=== PATIENT | female | born 1985 | race Caucasian/White ===

== ENCOUNTER → 2021-03-30 06:46 | Outpatient (CLI) | payer OTHER, SELFPAY ==
[2021-03-31 18:43] LABS: SARS-CoV-2 RNA PCR Negative
== END ==
PROVIDERS: PCP Family Medicine; Visit Provider Family Medicine
DX: R68.89 Other general symptoms and signs (principal); Z20.822 Contact with and (suspected) exposure to COVID-19
CPT/HCPCS: C9803; U0003; U0005

== ENCOUNTER 2021-06-02 10:36 | Emergency (ER) | payer OTHER, SELFPAY ==
--- NOTE | ~2021-06-02 | XR_ITS ---
EXAMINATION: XR chest 2V DATE: 06/02/2021 11:10 INDICATION: Cough. Wheezing. TECHNIQUE: Frontal and lateral views of the chest were obtained. COMPARISON: None. FINDINGS: The chest demonstrates clear lungs without pneumonia, pleural effusion, or pneumothorax. Th e heart size is normal. IMPRESSION: 1. No acute cardiopulmonary disease. Reviewed, dictated and finalized at location A.
[2021-06-02 10:58] VITALS: BP 131/92; PULSE 70; RESP 20; TEMP 36.8; O2SAT 100
--- NOTE | 2021-06-02 10:59 | ED.URI ---
HPI - URI/Sore Throat General Chief Complaint: Upper Respiratory Infection Stated Complaint: Cough,Sore throat,Shortness of Breathe Time Seen by Provider: 06/02/21 10:59 Source: patient and RN notes reviewed Mode of arrival: ambulatory Limitations: no limitations History of Present Illness HPI Narrative: 35-year-old female presents to the [facility] with complaints of cough and sinus issues for the last 6 days. Patient reports that she that was getting better until last night when she was about the night coughing and having shortness of breath. Denies any chest pain. Patient is a smoker, states that she does vape. Has tried multiple [id number] products with no relief. Related Data Allergies Allergy/AdvReac Type Severity Reaction Status Date / Time erythromycin base Allergy Rash Verified 06/02/21 11:12 Penicillins Allergy Swelling Verified 06/02/21 11:12 of Lip/Tongue/Throat Review of Systems Review of Systems: All systems reviewed & are unremarkable except as noted in HPI and below Constitutional: Constitutional: Reports no additional constitutional complaints, Denies chills and Denies fever(s) Eyes: Eyes: Reports no additional eye complaints, Denies change in vision and Denies photophobia ENT: Reports system reviewed and no additional complaints, except as documented Cardiovascular: Cardiovascular: Reports no additional cardiovascular complaints and Denies chest pain Respiratory: Respiratory: Reports as per HPI, Reports chest congestion, Reports cough, Reports dyspnea and Reports wheezing Gastrointestinal: Gastrointestinal: Reports no additional gastrointestinal complaints, Denies abdominal pain, Denies nausea and Denies vomiting Musculoskeletal: Musculoskeletal: Reports no additional musculoskeletal complaints and Denies back pain Integumentary/Breasts: Skin/Breast: Reports system reviewed and no additional complaints, except as docu Neurologic: Reports system reviewed and no additional complaints, except as documented, Denies confusion, Denies dizziness, Denies syncope, Denies headache(s), Denies focal weakness, Denies numbness and Denies weakness Psychiatric: Psychiatric: Reports no additional psychiatric complaints Allergic/Immunologic: Allergic/Immunologic: Reports as per HPI, Denies lip swelling, Denies throat swelling, Denies tongue swelling and Reports wheezing PMFSH Social History Social History (Updated 06/02/21 @ 15:35 by Liz Kasper) Tobacco type: e-cigarettes/vaping Gender identity (if verbalized by the patient): Female Comments At the time of my signature, I reviewed and agree with the nursing past medical, surgical, social, and family history. There is no relevant family history pertinent to the patient complaint. Exam Const: General: no acute distress, alert and ill appearing acutely Nutritional Appearance: well nourished Orientation/consciousness: patient oriented x3 Limitations: no limitations HENMT: Head: normal to inspection Ears: external ears normal, TM's normal bilaterally and EAC's normal General nose exam: Normal external nose present and Normal nares present Face and sinus: normal facial exam Mouth: Yes lip normal Eyes: Conjunctivae: conjunctivae normal Pupils: Equal, round and reactive pupils present Neck: Neck: normal visual inspection, no lymphadenopathy and no meningeal signs Chest: Chest palpation & inspection: normal inspection of the chest Resp: Effort & Inspection: normal respiratory effort and no use of accessory muscles Auscultation: wheezes expiratory wheezes and left lower and diminished lung sounds bilateral Cardio: Rate: regular rate Rhythm: regular rhythm GI: GI Palp: Yes Soft to palpation and No Tenderness to palpation present (GI) : General: Yes no CVA tenderness Back/Spine/Pelvis: Back: no CVA tenderness Skin: General skin exam: normal color Rashes: no rashes Neuro: General: patient oriented x3, moves all extremities, no me
[2021-06-02] MEDS: predniSONE 20 MG TABLET 40 MG PO (11:23)
[2021-06-02] MEDS: ALBUTEROL SULFATE NEB 2.5 MG/3 ML INH INHALATION (11:24)
[2021-06-02] MEDS: IPRATROPIUM BR 0.02% INH SOLN 0.5 MG/2.5 ML VIAL INHALATION (11:24)
[2021-06-02 12:10] VITALS: PULSE 78; RESP 16; O2SAT 99
== END 2021-06-02 12:10 | disposition home or self-care (01) ==
PROVIDERS: Emergency Provider Nurse Practitioner; PCP Family Medicine
DX: J40 Bronchitis, not specified as acute or chronic (principal)
CPT/HCPCS: 71046; 94640; 99203; G0463; J7512

== ENCOUNTER 2021-07-14 09:34 | Emergency (ER) | payer OTHER, SELFPAY ==
[2021-07-14] VITALS (17 sets, daily range): BP systolic 96–107; BP diastolic 57–76; PULSE 47–77; RESP 14–23; TEMP 36.3; O2SAT 97–100
--- NOTE | ~2021-07-14 | XR_ITS ---
EXAMINATION: XR chest 2V 07/14/2021 10:21 INDICATION: Left-sided chest pain PROCEDURE: 2 view chest COMPARISON: 06/02/2021 FINDINGS: The lungs are clear. The cardiomediastinal silhouette is within normal limits. There are no pleural effusions. There is no pneumothorax suspected. IMPRESSION: 1: NO ACUTE CARDIOPULMONARY DISEASE. Reviewed, dictated and finalized at location A.
--- NOTE | 2021-07-14 09:40 | ECG_ITS ---
Measurements Intervals [place] Rate: 68 P: -33 DE: 154 QRS: 61 QRSD: 90 T: 36 QT: 373 QTc: 399 Interpretive Statements SINUS RHYTHM MINIMAL Q WAVES- INFERIOR LEADS BASELINE ARTIFACT- I, II, III, AVR, AVL, AVF, V5 BORDERLINE ECG Electronically Signed On 07-14-2021 11:39:27 CDT by Amor Mcdaniels D.O.
[2021-07-14 10:02] LABS: Basophils Percent Auto 0.4 % (0.2-1.2); Eosinophils Absolute Auto 0.1 K/mm3 (0-0.3); Eosinophils Percent Auto 0.8 % (0-4.4); Hematocrit 42.4 % (37.0-47.0); Hemoglobin 13.4 g/dL (12.0-15.0); Immature Granulocyte Absolute 0.03 K/mm3 (0.00-0.031); Immature Granulocyte Percent A 0.4 % (0-0.5); Lymphocytes Absolute Auto 1.39 K/mm3 (0.9-3.2); Lymphocytes Percent Auto 19.3 % (18.3-44.2); Mean Corpuscular HGB Conc 31.6 g/dl (32-36); Mean Corpuscular Hemoglobin 26.9 pg (26-34); Mean Corpuscular Volume 85.1 fl (80-100); Mean Platelet Volume 9.9 fl (7.4-10.4); Monocytes Absolute Auto 0.4 K/mm3 (0.1-0.6); Monocytes Percent Auto 5.8 % (2.6-8.5); Neutrophils Absolute Auto 5.3 K/mm3 (1.3-6.7); Neutrophils Percent Auto 73.3 % (45.5-73.1); Platelet Count Result 198 k/mm3 (150-375); Red Blood Count 4.98 M/mm3 (4.2-5.4); Red Cell Distribution Width 13.7 % (11.5-14.5); White Blood Count 7.2 K/mm3 (4.5-10.0)
[2021-07-14 10:15] LABS: INR 0.9; Prothrombin Time 12.2 Seconds (11.1-14.7)
[2021-07-14 10:16] LABS: Partial Thromboplastin Time 34.8 SECONDS (22.3-36.8)
[2021-07-14 10:18] LABS: Anion Gap 9 mmol/L (8-16); Blood Urea Nitrogen 21 mg/dL (7-17); Calcium 9.3 mg/dL (8.4-10.2); Carbon Dioxide 22 mmol/L (22-30); Chloride 107 mmol/L (98-107); Estimated CRCL calculation 67 ml/min; Estimated Glomerular Filt Rate > 60; Glucose 87 mg/dL (65-110); Potassium 4.5 mmol/L (3.4-5.0); Sodium 138 mmol/L (137-145)
[2021-07-14 10:28] LABS: Troponin I < 0.012 ng/mL (0.000-0.034)
--- NOTE | 2021-07-14 11:30 | ED.CHESTPAIN ---
HPI - Chest Pain General Chief Complaint: Chest Pain Stated Complaint: sharp CP Time Seen by Provider: 07/14/21 11:22 History of Present Illness HPI narrative: 36 yo female presents to the ED c/o Chest pain. She had sudden onset of severe sharp left sided chest pain while at the grocery store this morning. This happened shortly after a workout. The pain resolved spontaneously prior to being seen. She has no complaints at this time. Related Data Allergies Allergy/AdvReac Type Severity Reaction Status Date / Time erythromycin base Allergy Rash Verified 07/14/21 11:23 Penicillins Allergy Swelling Verified 07/14/21 11:23 of Lip/Tongue/Throat Review of Systems Review of Systems: All systems reviewed & are unremarkable except as noted in HPI and below Constitutional: Constitutional: Denies chills and Denies fever(s) ENT: Denies sore throat Respiratory: Respiratory: Denies cough and Denies dyspnea Gastrointestinal: Gastrointestinal: Denies nausea Genitourinary: Genitourinary: Reports no additional female genitourinary complaints Neurologic: Denies dizziness and Denies weakness [facility] Social History Social History Tobacco type: e-cigarettes/vaping Gender identity (if verbalized by the patient): Female Exam Const: General: healthy appearing, no acute distress and alert Orientation/consciousness: patient oriented x3 HENMT: Head: normal to inspection Neck: Neck: normal visual inspection and no lymphadenopathy Chest: Chest palpation & inspection: no tenderness Resp: Effort & Inspection: normal respiratory effort Auscultation: clear to auscultation bilaterally, no rales, no rhonchi and no wheezes Cardio: Jugular venous distension: no JVD Rate: regular rate Rhythm: regular rhythm Heart sounds: no murmurs GI: Inspection: non-distended GI Palp: Yes Soft to palpation and No Tenderness to palpation present (GI) Skin: General skin exam: normal color Neuro: General: patient oriented x3 and moves all extremities Speech: normal speech Extrem: General: no edema Psych: Appearance: well kempt Affect: normal affect Course Vital Signs Vital signs: Vital Signs Temperature 36.3 C L 07/14/21 09:37 Pulse Rate 64 07/14/21 09:37 Respiratory Rate 18 07/14/21 09:37 Blood Pressure 105/57 L 07/14/21 09:37 Pulse Oximetry 100 07/14/21 09:37 Temperature 36.3 C L 07/14/21 09:37 Pulse Rate 57 L 07/14/21 14:14 Respiratory Rate 20 07/14/21 14:14 Blood Pressure 103/76 07/14/21 14:14 Pulse Oximetry 97 07/14/21 14:14 MDM - Chest Pain Differential Diagnosis Differential diagnosis: Likely atypical chest pain Medical Records Data Attestation: I reviewed the patient's medical records. Lab Data Attestation: I reviewed the patient's lab results. Result diagrams: 07/14/21 09:51 07/14/21 09:51 Labs: Lab Results 07/14/21 07/14/21 07/14/21 Range/Units 09:51 09:51 09:52 WBC 7.2 (4.5-10.0) K/mm3 RBC 4.98 (4.2-5.4) M/mm3 Hgb 13.4 (12.0-15.0) g/dL Hct 42.4 (37.0-47.0) % MCV 85.1 (80-100) fl MCH 26.9 (26-34) pg MCHC 31.6 L (32-36) g/dl RDW 13.7 (11.5-14.5) % Plt Count 198 (150-375) k/mm3 MPV 9.9 (7.4-10.4) fl Immature Gran % (Auto) 0.4 (0-0.5) % Neut % (Auto) 73.3 H (45.5-73.1) % Lymph % (Auto) 19.3 (18.3-44.2) % [place] % (Auto) 5.8 (2.6-8.5) % Eos % (Auto) 0.8 (0-4.4) % Baso % (Auto) 0.4 (0.2-1.2) % Lymph # (Auto) 1.39 (0.9-3.2) K/mm3 [place] # (Auto) 0.4 (0.1-0.6) K/mm3 Eos # (Auto) 0.1 (0-0.3) K/mm3 Baso # (Auto) 0.0 (0.0-0.1) K/mm3 Abs Immat Gran (auto) 0.03 (0.00-0.031) K/mm3 Absolute Neuts (auto) 5.3 (1.3-6.7) K/mm3 Absolute Nucleated RBC 0.0 (0.0-0.012) K/mm3 Nucleated RBC % 0.0 (0.0-0.2) % PT 12.2 (11.1-14.7) Seconds INR 0.9 APTT 34.8 (22.3-36.8) SECONDS
[2021-07-14 13:49] LABS: Troponin I < 0.012 ng/mL (0.000-0.034)
--- NOTE | 2021-07-14 13:58 | ED.CHESTPAIN ---
HPI - Chest Pain General Chief Complaint: Chest Pain Stated Complaint: sharp CP Time Seen by Provider: 07/14/21 11:22 Related Data Allergies Allergy/AdvReac Type Severity Reaction Status Date / Time erythromycin base Allergy Rash Verified 07/14/21 11:23 Penicillins Allergy Swelling Verified 07/14/21 11:23 of Lip/Tongue/Throat PMFSH Social History Social History (Updated 06/02/21 @ 15:35 by Liz Kasper) Tobacco type: e-cigarettes/vaping Gender identity (if verbalized by the patient): Female Course Vital Signs Vital signs: Vital Signs Temperature 36.3 C L 07/14/21 09:37 Pulse Rate 64 07/14/21 09:37 Respiratory Rate 18 07/14/21 09:37 Blood Pressure 105/57 L 07/14/21 09:37 Pulse Oximetry 100 07/14/21 09:37 Temperature 36.3 C L 07/14/21 09:37 Pulse Rate 63 07/14/21 11:22 Respiratory Rate 18 07/14/21 09:37 Blood Pressure 105/57 L 07/14/21 09:37 Pulse Oximetry 100 07/14/21 09:37 MDM - Chest Pain Lab Data Result diagrams: 07/14/21 09:51 07/14/21 09:51 Labs: Lab Results 07/14/21 07/14/21 07/14/21 Range/Units 09:51 09:51 09:52 WBC 7.2 (4.5-10.0) K/mm3 RBC 4.98 (4.2-5.4) M/mm3 Hgb 13.4 (12.0-15.0) g/dL Hct 42.4 (37.0-47.0) % MCV 85.1 (80-100) fl MCH 26.9 (26-34) pg MCHC 31.6 L (32-36) g/dl RDW 13.7 (11.5-14.5) % Plt Count 198 (150-375) k/mm3 MPV 9.9 (7.4-10.4) fl Immature Gran % (Auto) 0.4 (0-0.5) % Neut % (Auto) 73.3 H (45.5-73.1) % Lymph % (Auto) 19.3 (18.3-44.2) % [place] % (Auto) 5.8 (2.6-8.5) % Eos % (Auto) 0.8 (0-4.4) % Baso % (Auto) 0.4 (0.2-1.2) % Lymph # (Auto) 1.39 (0.9-3.2) K/mm3 [place] # (Auto) 0.4 (0.1-0.6) K/mm3 Eos # (Auto) 0.1 (0-0.3) K/mm3 Baso # (Auto) 0.0 (0.0-0.1) K/mm3 Abs Immat Gran (auto) 0.03 (0.00-0.031) K/mm3 Absolute Neuts (auto) 5.3 (1.3-6.7) K/mm3 Absolute Nucleated RBC 0.0 (0.0-0.012) K/mm3 Nucleated RBC % 0.0 (0.0-0.2) % PT 12.2 (11.1-14.7) Seconds INR 0.9 APTT 34.8 (22.3-36.8) SECONDS Sodium 138 (137-145) mmol/L Potassium 4.5 (3.4-5.0) mmol/L Chloride 107 (98-107) mmol/L Carbon Dioxide 22 (22-30) mmol/L Anion Gap 9 (8-16) mmol/L BUN 21 H (7-17) mg/dL Creatinine 1.00 (0.7-1.0) mg/dL Estim Creat Clear Calc 67 ml/min Estimated GFR > 60 (59 - ) Glucose 87 (65-110) mg/dL Calcium 9.3 (8.4-10.2) mg/dL Troponin I < 0.012 (0.000-0.034) ng/mL 07/14/21 Range/Units 12:58 WBC (4.5-10.0) K/mm3 RBC (4.2-5.4) M/mm3 Hgb (12.0-15.0) g/dL Hct (37.0-47.0) % MCV (80-100) fl MCH (26-34) pg MCHC (32-36) g/dl RDW (11.5-14.5) % Plt Count (150-375) k/mm3 MPV (7.4-10.4) fl Immature Gran % (Auto) (0-0.5) % Neut % (Auto) (45.5-73.1) % Lymph % (Auto) (18.3-44.2) % [place] % (Auto) (2.6-8.5) % Eos % (Auto) (0-4.4) % Baso % (Auto) (0.2-1.2) % Lymph # (Auto) (0.9-3.2) K/mm3 [place] # (Auto) (0.1-0.6) K/mm3 Eos # (Auto) (0-0.3) K/mm3 Baso # (Auto) (0.0-0.1) K/mm3 Abs Immat Gran (auto) (0.00-0.031) K/mm3 Absolute Neuts (auto) (1.3-6.7) K/mm3 Absolute Nucleated RBC (0.0-0.012) K/mm3 Nucleated RBC % (0.0-0.2) % PT (11.1-14.7) Seconds INR APTT (22.3-36.8) SECONDS Sodium (137-145) mmol/L Potassium (3.4-5.0) mmol/L Chloride (98-107) mmol/L Carbon Dioxide (22-30) mmol/L Anion Gap (8-16) mmol/L BUN (7-17) mg/dL Creatinine (0.7-1.0) mg/dL Estim Creat Clear Calc ml/min Estimated GFR (59 - ) Glucose (65-110) mg/dL Calcium (8.4-10.2) mg/dL Troponin I < 0.012 (0.000-0.034) ng/mL Discharge Plan Discharge Clinical Impression: Atypical chest pain Patient Disposition: Home, Self-Care Condition: Stable Instructions: Chest Pain (ED) Follow-up/Referrals: Juan Carlos Clark MD [Primary Care Provider] -
== END 2021-07-14 14:15 | disposition home or self-care (01) ==
PROVIDERS: Emergency Provider Emergency Medicine; PCP Family Medicine
DX: R07.89 Other chest pain (principal); F17.290 Nicotine dependence, other tobacco product, uncomplicated
CPT/HCPCS: 36415; 71046; 80048; 84484; 85025; 85610; 85730; 93005; 99284

== ENCOUNTER 2022-09-14 10:26 | Emergency (ER) | payer OTHER, SELFPAY ==
[2022-09-14 10:37] VITALS: BP 117/72; PULSE 59; RESP 18; TEMP 36.2; O2SAT 100
--- NOTE | 2022-09-14 10:45 | ED.URI ---
HPI - URI/Sore Throat General Chief Complaint: Ear Stated Complaint: Headache,Lt Ear Irritation Time Seen by Provider: 09/14/22 10:45 Source: patient Mode of arrival: ambulatory Limitations: no limitations History of Present Illness HPI Narrative: 37 y/o female presented for c/o left ear clogged and decreased hearing for one week. Reports occasional dizziness. Denies significant pain or tinnitus. Has used hydrogen peroxide and q-tips without relief. Also endorses left frontal headache for 5 days. Pain is described as pressure. Denies nausea, photophobia, or nausea/vomiting, fever/chills. Endorses recent travel, stating she was at a water park. Took negative home covid test yesterday. Related Data Home Medications Medication Instructions Recorded Confirmed duloxetine 30 mg capsule,delayed 30 mg PO DIRECTED 09/14/22 09/14/22 release Allergies Allergy/AdvReac Type Severity Reaction Status Date / Time penicillin G Allergy Mild Verified 02/16/22 10:52 erythromycin base Allergy Rash Verified 02/16/22 10:52 Penicillins Allergy Swelling Verified 02/16/22 10:52 of Lip/Tongue/Throat Review of Systems Review of Systems: CONSTITUTIONAL: Denies malaise, chills, or fever. EYES: Denies visual changes, redness, or discharge. ENT: Denies rhinorrhea, congestion, sinus pain, and sore throat. Reports hearing changes CARDIOVASCULAR: Denies chest pain, palpitations, or edema. RESPIRATORY: Denies cough or dyspnea. GASTROINTESTINAL: Denies abdominal pain, nausea, vomiting, diarrhea SKIN: Denies rash or itching. MUSCULOSKELETAL: Denies myalgia. NEUROLOGIC: reports headache. All systems reviewed & are unremarkable except as noted in HPI and below PMFSH Family History Family History Mother Patient's mother is in good health Sibling Patient's sister is in good health Other Diabetes mellitus Social History Social History Smoking status: Former smoker Tobacco type: e-cigarettes/vaping Smoking end date: 11/25/12 Alcohol intake: current Gender identity (if verbalized by the patient): Female Comments At time of signature, agree with nursing past medical, surgical, social and family history. There is no relevant family history pertinent to the presenting complaint Exam Narrative: GENERAL: Well-appearing, well-nourished HEAD: Normocephalic EYES: PERRLA, EOMI conjunctivae clear ENT: Nares clear. Mucous membranes moist. Right TM pearly morales with dull light reflex. Left TM unable to visualize due to cerumen impaction, canal without redness or tenderness; no tragal tenderness. Oropharynx not erythematous without lesions. Tonsils chronically enlarged 2+ and without exudate, no drooling, no hoarseness, no trismus, uvula midline. NECK: Supple. No lymphadenopathy CHEST: Clear to auscultation, breath sounds equal. HEART: Regular rate and rhythm. No murmur heard. SKIN: Warm, dry, no rash. NEURO: Alert and oriented x3. PSYCH: Normal mood and affect Course Course Emergency Course: Patient is aware of diagnosis, understands and agrees to treatment plan. Anticipatory guidance given. Patient agrees to follow-up as directed and is aware of reasons to seek care at the emergency department. Portions of this record may have been created with voice recognition software Level of Care: Express Care Visit Vital Signs Vital signs: Vital Signs Temperature 97.2 F L 09/14/22 10:37 Pulse Rate 59 L 09/14/22 10:37 Respiratory Rate 18 09/14/22 10:37 Blood Pressure 117/72 09/14/22 10:37 Pulse Oximetry 100 09/14/22 10:37 Oxygen Delivery Room Air 09/14/22 10:37 Temperature 97.2 F L 09/14/22 10:37 Pulse Rate 59 L 09/14/22 10:37 Respiratory Rate 18 09/14/22 10:37 Blood Pressure 117/72 09/14/22 10:37 Pulse Oximetry 100 09/14/22 10:37 Oxygen Delivery Room Air 09/14/22 10:37 Re
== END 2022-09-14 11:10 | disposition home or self-care (01) ==
PROVIDERS: Emergency Provider Nurse Practitioner Family; PCP Internal Medicine
DX: H61.22 Impacted cerumen, left ear (principal)
CPT/HCPCS: 69210; 99212; A9270; G0463

== ENCOUNTER 2022-12-14 16:43 | Emergency (ER) | payer OTHER, SELFPAY ==
--- NOTE | ~2022-12-14 | CT_ITS ---
EXAMINATION: CT brain wo con DATE: 12/14/2022 17:37 INDICATION: Right-sided headache. TECHNIQUE: Computed tomography (CT) of the head was performed without intravenous contrast. The mA wa s adjusted according to patient size. Iterative reconstruction technique was employed. The dose-lengt h product was 605.33 mGy-cm. COMPARISON: None FINDINGS: There is no intracranial hemorrhage, acute infarction, or abnormal intracranial mass lesion . The ventricles are normal in size. The orbits are normal. There is mild mucosal thickening in the p aranasal sinuses. The mastoid air cells are normal. IMPRESSION: 1. Normal brain. Reviewed, dictated and finalized at location A. [facility]ALTH [facility]ID IMPRESSION: 1. Normal brain.
[2022-12-14 17:08] VITALS: BP 110/79; PULSE 58; RESP 18; TEMP 36.3; O2SAT 100
--- NOTE | 2022-12-14 17:28 | ED.HA ---
HPI - Headache General Chief Complaint: Headache Stated Complaint: HEADACHE N/V Time Seen by Provider: 12/14/22 17:14 History of Present Illness HPI Narrative: 37-year-old female history of anxiety depression presents to the emergency room for evaluation of intermittent headaches that she has been experiencing since August. Reports today she experienced a headache while driving, she got dizzy and had to mandrel puller and experienced 1 episode of emesis. States the headaches are not relieved with Tylenol or ibuprofen. Largely concentrated behind her right eye. Patient also states that she has noticed some tinnitus in her right ear blurred vision in her right eye and unsteadiness when she walks. Patient states that she has recently lost 12 pounds in the last 5 weeks due to being on a new weight loss program. Denies photophobia denies phonophobia. Related Data Home Medications Medication Instructions Recorded Confirmed duloxetine 30 mg capsule,delayed 30 mg PO DIRECTED 09/14/22 09/14/22 release Allergies Allergy/AdvReac Type Severity Reaction Status Date / Time penicillin G Allergy Mild Verified 02/16/22 10:52 erythromycin base Allergy Rash Verified 02/16/22 10:52 Penicillins Allergy Swelling Verified 02/16/22 10:52 of Lip/Tongue/Throat Review of Systems Review of Systems: CONSTITUTIONAL: Denies fever, chills, or sweats. EYES: Denies visual changes, redness, or discharge. ENT: Denies rhinorrhea, congestion, sore throat, or otalgia. CARDIOVASCULAR: Denies chest pain, palpitations, or edema. RESPIRATORY: Denies cough or dyspnea. GASTROINTESTINAL: Denies abdominal pain, nausea, vomiting, or diarrhea. GENITOURINARY: Denies dysuria or hematuria. SKIN: Denies rash or itching. MUSCULOSKELETAL: Denies back pain, joint pain, or myalgia. NEUROLOGIC: Reports headaches PSYCHIATRIC: Denies anxiety or depression. [facility] Family History Family History Mother Patient's mother is in good health Sibling Patient's sister is in good health Other Diabetes mellitus Social History Social History Smoking status: Former smoker Tobacco type: e-cigarettes/vaping Smoking end date: 11/25/12 Alcohol intake: current Gender identity (if verbalized by the patient): Female Course Vital Signs Vital signs: Vital Signs Temperature 36.3 C L 12/14/22 17:08 Pulse Rate 58 L 12/14/22 17:08 Respiratory Rate 18 12/14/22 17:08 Blood Pressure 110/79 12/14/22 17:08 Pulse Oximetry 100 12/14/22 17:08 Oxygen Delivery Room Air 12/14/22 17:08 Temperature 36.3 C L 12/14/22 17:08 Pulse Rate 58 L 12/14/22 17:08 Respiratory Rate 18 12/14/22 17:08 Blood Pressure 110/79 12/14/22 17:08 Pulse Oximetry 100 12/14/22 17:08 Oxygen Delivery Room Air 12/14/22 17:08 MDM - Headache MDM Narrative Medical decision making narrative: 1819: Spoke to Dr. Russell regarding patient's presentation. Discussed findings including her CT scan which showed no acute intracranial abnormalities. Based on patient's history and exam, I believe the patient may have pseudotumor cerebri versus migraines. Will refer patient to Dr. Russell's office on Saturday. Lab Data 12/14/22 17:43 12/14/22 17:43 Labs: Lab Results 12/14/22 12/14/22 Range/Units 17:43 17:43 WBC 9.4 (4.5-10.0) K/mm3 RBC 5.04 (4.2-5.4) M/mm3 Hgb 13.4 (12.0-15.0) g/dL Hct 42.1 (37.0-47.0) % MCV 83.5 (80-100) fl MCH 26.6 (26-34) pg MCHC 31.8 L (32-36) g/dl RDW 12.9 (11.5-14.5) % Plt Count 207 (150-375) k/mm3 MPV 9.6 (7.4-10.4) fl Immature Gran % (Auto) 0.4 (0-0.5) % Neut % (Auto) 75.4 H (45.5-73.1) % Lymph % (Auto) 18.9 (18.3-44.2) % [place] % (Auto) 3.9 (2.6-8.5) % Eos % (Auto) 1.0 (0-4.4) % Baso % (Auto) 0.4 (0.2-1.2) % Lymph # (Auto) 1.78
[2022-12-14] MEDS: diphenhydrAMINE HCl INJ 50 MG/ML VIAL 25 MG IV PUSH (17:44)
[2022-12-14] MEDS: KETOROLAC 30 MG/ML VIAL (*BKC) IV PUSH (17:45)
[2022-12-14] MEDS: METOCLOPRAMIDE HCL INJ 10 MG/2 ML VIAL IV PUSH (17:45)
[2022-12-14] MEDS: methylPREDNISolone SOD SUCC 125 MG VIAL IV PUSH (17:45)
[2022-12-14] MEDS: SODIUM CHLORIDE 0.9% IV 1,000 ML 999 ML IV CONT (17:45)
[2022-12-14 17:51] LABS: Basophils Percent Auto 0.4 % (0.2-1.2); Eosinophils Absolute Auto 0.1 K/mm3 (0-0.3); Hematocrit 42.1 % (37.0-47.0); Hemoglobin 13.4 g/dL (12.0-15.0); Immature Granulocyte Absolute 0.04 K/mm3 (0.00-0.031); Immature Granulocyte Percent A 0.4 % (0-0.5); Lymphocytes Absolute Auto 1.78 K/mm3 (0.9-3.2); Lymphocytes Percent Auto 18.9 % (18.3-44.2); Mean Corpuscular HGB Conc 31.8 g/dl (32-36); Mean Corpuscular Hemoglobin 26.6 pg (26-34); Mean Corpuscular Volume 83.5 fl (80-100); Mean Platelet Volume 9.6 fl (7.4-10.4); Monocytes Absolute Auto 0.4 K/mm3 (0.1-0.6); Monocytes Percent Auto 3.9 % (2.6-8.5); Neutrophils Absolute Auto 7.1 K/mm3 (1.3-6.7); Neutrophils Percent Auto 75.4 % (45.5-73.1); Platelet Count Result 207 k/mm3 (150-375); Red Blood Count 5.04 M/mm3 (4.2-5.4); Red Cell Distribution Width 12.9 % (11.5-14.5); White Blood Count 9.4 K/mm3 (4.5-10.0)
[2022-12-14 18:02] LABS: Alanine Aminotransferase 18 U/L (6-35); Albumin Level 4.3 g/dL (3.5-5.1); Alkaline Phosphatase 57 U/L (38-126); Anion Gap 8 mmol/L (8-16); Aspartate Amino Transferase 23 U/L (14-36); Bilirubin,Total 0.6 mg/dL (0.2-1.3); Blood Urea Nitrogen 14 mg/dL (7-17); Calcium 8.7 mg/dL (8.4-10.2); Carbon Dioxide 26 mmol/L (22-30); Chloride 106 mmol/L (98-107); Estimated CRCL calculation 82 ml/min; Estimated Glomerular Filt Rate > 60; Glucose 99 mg/dL (65-110); Potassium 4.1 mmol/L (3.4-5.0); Sodium 140 mmol/L (137-145)
== END 2022-12-14 18:56 | disposition home or self-care (01) ==
PROVIDERS: Emergency Provider Nurse Practitioner Family; PCP Internal Medicine
DX: R51.9 Headache, unspecified (principal); Z87.891 Personal history of nicotine dependence; F41.9 Anxiety disorder, unspecified; F32.A Depression, unspecified
CPT/HCPCS: 36415; 70450; 80053; 85025; 96361; 96374; 96375; 99284; J1200; J1885; J2765; J2930; J7030

== ENCOUNTER 2023-02-12 14:29 | Outpatient (CLI) | payer SELFPAY | END 2023-02-12 14:30 | disposition home or self-care (01) | LOC: ANHAUDIO 14:31 | PROVIDERS: Visit Provider Student in an Organized Health Care Education/Training Program | DX: H90.3 Sensorineural hearing loss, bilateral (principal) | CPT/HCPCS: 92557; 92567 ==

== ENCOUNTER 2023-06-28 16:44 | Emergency (ER) | payer OTHER, SELFPAY ==
[2023-06-28 16:57] VITALS: BP 114/58; PULSE 73; RESP 18; TEMP 36.2; O2SAT 100
--- NOTE | 2023-06-28 17:03 | ED.URI ---
HPI - URI/Sore Throat General Chief Complaint: Upper Respiratory Infection Stated Complaint: sorethroat Time Seen by Provider: 06/28/23 17:00 Source: patient Mode of arrival: ambulatory Limitations: no limitations History of Present Illness HPI Narrative: Gladys is a 38-year-old female patient presenting to the clinic today with complaints of a sore throat, cough, slight nasal drainage x3 days. She denies any fever or chills. Feels that she can not take a full deep breath. Related Data Allergies Allergy/AdvReac Type Severity Reaction Status Date / Time penicillin G Allergy Mild Itching Verified 06/28/23 17:05 erythromycin base Allergy Rash Verified 06/28/23 17:05 Penicillins Allergy Swelling Verified 06/28/23 17:05 of Lip/Tongue/Throat Review of Systems Review of Systems: Pertinent positives per HPI. Patient denies any fever, chills, rash, headache, visual changes, dizziness, cough, runny nose, sore throat, shortness of breath, chest pain, palpitations, nausea, vomiting, diarrhea, constipation, abdominal pain, or any urinary issues. PMFSH Family History Family History Mother Patient's mother is in good health Sibling Patient's sister is in good health Other Diabetes mellitus Social History Social History Smoking status: Former smoker Tobacco type: cigarettes Smoking end date: 11/25/12 Alcohol intake: current Substance use: never Substance use type: does not use Lack of Transportation: No Lack of Food: Never True Current Housing: I Have Housing Concerned About Future Housing: No Difficulty Paying Gas/Electric Bills: No Difficulty Paying for Meds: No Currently Unemployed: No Education: Associate Degree Difficulty w/ Childcare or Family Care: No Living arrangements: with family Gender identity (if verbalized by the patient): Female Comments At the time of my signature, I reviewed and agree with the nursing past medical, surgical, social, and family history. There is no relevant family history pertinent to the patient complaint. Exam Narrative: General: Well-developed, well nourished, in no apparent distress Head: Normocephalic, atraumatic Eyes: Pupils equally round and reactive to light bilaterally, EOM intact, sclera and conjunctive clear, no discharge, lids normal Ears: TMs intact and clear, ear canals clear, no drainage, grossly hearing normal. Nose: Nares patent, no discharge, no inflammation, no sinus tenderness. Mouth: Oropharynx without lesions or masses, good dentition, MMM. Neck: Supple, trachea midline, no enlargement of anterior or posterior cervical nodes, no thyroid masses or goiter palpable. Cardio: Regular rate and rhythm, s1 and s2 normal, no murmur appreciated. Resp: Clear to auscultation bilaterally anteriorly and posteriorly, no rhonchi, rales, wheezing or rubs Course Course Emergency Course: Portions of this record may have been created with voice recognition software. Level of Care: Express Care Visit Vital Signs Vital signs: Vital Signs Temperature 36.2 C L 06/28/23 16:57 Pulse Rate 73 06/28/23 16:57 Respiratory Rate 18 06/28/23 16:57 Blood Pressure 114/58 L 06/28/23 16:57 Pulse Oximetry 100 06/28/23 16:57 Oxygen Delivery Room Air 06/28/23 16:57 Temperature 36.2 C L 06/28/23 16:57 Pulse Rate 73 06/28/23 16:57 Respiratory Rate 18 06/28/23 16:57 Blood Pressure 114/58 L 06/28/23 16:57 Pulse Oximetry 100 06/28/23 16:57 Oxygen Delivery Room Air 06/28/23 16:57 Vital signs reviewed MDM - URI/Sore Throat MDM Narrative Medical decision making narrative: At the time of the patient is resting comfortably on exam table. COVID and strep test were performed and were negative. I suspect patient yes URI pharyngitis. Prescription for prednisone was sent to pharm
== END 2023-06-28 17:24 | disposition home or self-care (01) ==
PROVIDERS: Emergency Provider Nurse Practitioner Family; PCP Internal Medicine
DX: J06.9 Acute upper respiratory infection, unspecified (principal); J02.9 Acute pharyngitis, unspecified; Z87.891 Personal history of nicotine dependence
CPT/HCPCS: 87081; 87880; 99213; G0463

== ENCOUNTER 2023-07-21 12:09 | Emergency (ER) | payer OTHER, SELFPAY ==
[2023-07-21] VITALS (11 sets, daily range): BP systolic 107–121; BP diastolic 72–84; PULSE 45–59; RESP 12–21; TEMP 36.6; O2SAT 95–100
--- NOTE | ~2023-07-21 | XR_ITS ---
XR chest 2V DATE: 07/21/2023 12:46 INDICATION: Left-sided chest pain for a couple of hours TECHNIQUE: PA and lateral views COMPARISON: 07/14/2021 PA and lateral chest FINDINGS: Normal heart size. No hilar or mediastinal enlargement. No pulmonary infiltrate or consolidation, pleural effusion or pulmonary vascular congestion or pneumo thorax. Included skeletal structures are unremarkable. IMPRESSION: Negative Reviewed, dictated and finalized at location A. IMPRESSION: Negative
--- NOTE | 2023-07-21 12:10 | ECG_ITS ---
Measurements Intervals [place] Rate: 45 P: 10 ND: 159 QRS: 69 QRSD: 94 T: 45 QT: 421 QTc: 366 Interpretive Statements MARKED SINUS BRADYCARDIA ABNORMAL ECG COMPARED TO ECG 07/14/2021 09:41:26 SINUS BRADYCARDIA NOW PRESENT Electronically Signed On 07-22-2023 11:56:34 CDT by Kg Angulo M.D.
--- NOTE | 2023-07-21 12:25 | ED.CHESTPAIN ---
HPI - Chest Pain General Chief Complaint: Chest Pain Stated Complaint: chest pain Time Seen by Provider: 07/21/23 12:20 History of Present Illness HPI narrative: Patient is a 38-year-old female with no past medical history presenting with chest pain. Patient states over the last 40 minutes she has had intermittent left-sided chest pain that she describes as sharp. States that it seems to come at random and varies in intensity. Denies any alleviating or exacerbating factors. Denies chest pressure, shortness of breath, lightheadedness, palpitations, nausea or vomiting. States that she has had a cough and nasal congestion for the last several weeks. Denies leg swelling, fevers or chills, numbness or weakness. No further complaints. Related Data Allergies Allergy/AdvReac Type Severity Reaction Status Date / Time penicillin G Allergy Mild Itching Verified 06/28/23 17:05 erythromycin base Allergy Rash Verified 06/28/23 17:05 Penicillins Allergy Swelling Verified 06/28/23 17:05 of Lip/Tongue/Throat Review of Systems Review of Systems: All systems reviewed & are unremarkable except as noted in HPI and below PMFSH Family History Family History Mother Patient's mother is in good health Sibling Patient's sister is in good health Other Diabetes mellitus Social History Social History Smoking status: Former smoker Tobacco type: cigarettes Smoking end date: 11/25/12 Alcohol intake: current Substance use: never Substance use type: does not use Lack of Transportation: No Lack of Food: Never True Current Housing: I Have Housing Concerned About Future Housing: No Difficulty Paying Gas/Electric Bills: No Difficulty Paying for Meds: No Currently Unemployed: No Education: Associate Degree Difficulty w/ Childcare or Family Care: No Living arrangements: with family Gender identity (if verbalized by the patient): Female Exam Narrative: GENERAL: Well-appearing, well-nourished, and in no acute distress. HEAD: Normocephalic, atraumatic. EYES: PERRLA and EOMI. ENT: +mild nasal congestion, Mucous membranes moist. NECK: Supple. CHEST: Clear to auscultation. No respiratory distress. HEART: Bradycardic, regular rhythm, No murmur heard. Normal peripheral pulses. ABDOMEN: Soft, nontender, nondistended EXTREMITIES: Normal range of motion. No edema. SKIN: Warm, dry, no rash. NEURO: No focal deficits. Alert and oriented x3. PSYCH: Normal mood and affect. Course Vital Signs Vital signs: Vital Signs Temperature 97.9 F 07/21/23 12:10 Pulse Rate 48 L 07/21/23 12:10 Respiratory Rate 17 07/21/23 12:10 Blood Pressure 119/84 07/21/23 12:10 Pulse Oximetry 100 07/21/23 12:10 Oxygen Delivery Room Air 07/21/23 12:10 Temperature 97.9 F 07/21/23 12:10 Pulse Rate 53 L 07/21/23 14:41 Respiratory Rate 13 07/21/23 14:41 Blood Pressure 107/72 07/21/23 14:41 Pulse Oximetry 100 07/21/23 14:41 Oxygen Delivery Room Air 07/21/23 12:42 MDM - Chest Pain MDM Narrative Medical decision making narrative: Patient is a 38-year-old female presenting with intermittent left-sided chest pain for about an hour. Patient is bradycardic, otherwise vitals are within normal limits. Exam remarkable for the above. EKG per my interpretation shows sinus bradycardia, normal axis and intervals, no ST elevations or depressions. Blood work is unremarkable. Troponin is undetectable. Chest x-ray without acute abnormalities. Negative for influenza and COVID. PERC negative and heart score of 0. Discussed the reassuring work-up with the patient and her . Feel that she is safe for outpatient management. Discussed appropriate supportive care. Recommended PCP follow-up. Appropriate return precautions given. Patient voiced understanding and is agreeable with plan
[2023-07-21 12:42] LABS: Basophils Percent Auto 0.4 % (0.2-1.2); Eosinophils Absolute Auto 0.1 K/mm3 (0-0.3); Eosinophils Percent Auto 1.8 % (0-4.4); Hematocrit 44.8 % (37.0-47.0); Hemoglobin 14.1 g/dL (12.0-15.0); Immature Granulocyte Absolute 0.02 K/mm3 (0.00-0.031); Immature Granulocyte Percent A 0.3 % (0-0.5); Lymphocytes Absolute Auto 2.02 K/mm3 (0.9-3.2); Lymphocytes Percent Auto 26.4 % (18.3-44.2); Mean Corpuscular HGB Conc 31.5 g/dl (32-36); Mean Corpuscular Hemoglobin 27.1 pg (26-34); Mean Platelet Volume 10.3 fl (7.4-10.4); Monocytes Absolute Auto 0.3 K/mm3 (0.1-0.6); Monocytes Percent Auto 4.4 % (2.6-8.5); Neutrophils Absolute Auto 5.1 K/mm3 (1.3-6.7); Neutrophils Percent Auto 66.7 % (45.5-73.1); Platelet Count Result 207 k/mm3 (150-375); Red Blood Count 5.21 M/mm3 (4.2-5.4); Red Cell Distribution Width 13.7 % (11.5-14.5); White Blood Count 7.7 K/mm3 (4.5-10.0)
[2023-07-21] MEDS: ACETAMINOPHEN 500 MG TABLET 1000 MG PO (12:45)
[2023-07-21] MEDS: KETOROLAC 15 MG/ML VIAL (*BKC) IV PUSH (12:45)
[2023-07-21 12:56] LABS: Partial Thromboplastin Time 37.2 SECONDS (22.3-36.8); Prothrombin Time 13.2 Seconds (11.1-14.7)
[2023-07-21 13:17] LABS: Influenza A QL RT-PCR Negative (Negative); Influenza B QL RT-PCR Negative (Negative); SARS-CoV-2 RNA PCR Negative (Negative)
[2023-07-21 13:53] LABS: Alanine Aminotransferase 78 U/L (6-35); Alkaline Phosphatase 57 U/L (38-126); Anion Gap 4 mmol/L (8-16); Aspartate Amino Transferase 44 U/L (14-36); Bilirubin,Total 0.5 mg/dL (0.2-1.3); Blood Urea Nitrogen 10 mg/dL (7-17); Calcium 8.6 mg/dL (8.4-10.2); Carbon Dioxide 26 mmol/L (22-30); Chloride 106 mmol/L (98-107); Estimated CRCL calculation 73 ml/min; Estimated Glomerular Filt Rate > 60; Glucose 89 mg/dL (65-110); Lipase 86 U/L (23-300); Potassium 4.4 mmol/L (3.4-5.0); Sodium 136 mmol/L (137-145)
[2023-07-21 14:06] LABS: Troponin I < 0.012 ng/mL (0.000-0.034)
== END 2023-07-21 14:40 | disposition home or self-care (01) ==
PROVIDERS: Emergency Medicine; Emergency Provider Emergency Medicine; PCP Internal Medicine
DX: R07.89 Other chest pain (principal); Z87.891 Personal history of nicotine dependence; Z20.822 Contact with and (suspected) exposure to COVID-19
CPT/HCPCS: 36415; 71046; 80053; 83690; 84484; 85025; 85610; 85730; 87636; 93005; 96374; 99284; A9270; J1885

== ENCOUNTER 2023-11-26 16:42 | Emergency (ER) | payer OTHER, SELFPAY ==
--- NOTE | 2023-11-26 17:07 | ED.GENADULT ---
HPI - General Adult General Chief complaint: Upper Respiratory Infection Stated complaint: flu like symptoms Time Seen by Provider: 11/26/23 17:18 Source: patient, RN notes reviewed and old records reviewed Mode of arrival: ambulatory Limitations: no limitations History of Present Illness HPI narrative: 38-year-old female presents to the [facility] with complaints of cough, body aches sinus congestion chills runny nose. Denies any fevers. Chest pain or abdominal pain. Denies sore throat States that she has taken DayQuil and Zyrtec every day. Onset (ago): day(s) (5) Related Data Allergies Allergy/AdvReac Type Severity Reaction Status Date / Time Penicillins Allergy Severe Swelling Verified 11/26/23 17:02 of Lip/Tongue/Throat erythromycin base AdvReac Mild Rash Verified 11/26/23 17:02 penicillin G AdvReac Mild Itching Verified 11/26/23 17:02 Review of Systems Review of Systems: All systems reviewed & are unremarkable except as noted in HPI and below Constitutional: Constitutional: Reports as per HPI, Reports body ache(s) and Reports fatigue Eyes: Eyes: Reports no additional eye complaints ENT: Reports as per HPI, Reports nasal congestion and Reports nasal discharge Cardiovascular: Cardiovascular: Reports no additional cardiovascular complaints, Denies chest pain and Denies dyspnea Respiratory: Respiratory: Reports as per HPI, Denies chest congestion, Reports cough and Denies dyspnea Gastrointestinal: Gastrointestinal: Reports no additional gastrointestinal complaints, Denies abdominal pain, Denies nausea and Denies vomiting Musculoskeletal: Musculoskeletal: Reports no additional musculoskeletal complaints Integumentary/Breasts: Skin/Breast: Reports system reviewed and no additional complaints, except as docu Neurologic: Reports system reviewed and no additional complaints, except as documented Psychiatric: Psychiatric: Reports no additional psychiatric complaints Allergic/Immunologic: Allergic/Immunologic: Reports no additional allergic/immunologic complaints [facility] Family History Family History Mother Patient's mother is in good health Sibling Patient's sister is in good health Other Diabetes mellitus Social History Social History Smoking status: Former smoker Tobacco type: cigarettes Smoking end date: 11/25/12 Alcohol intake: current Substance use: never Substance use type: does not use Lack of Transportation: No Lack of Food: Never True Current Housing: I Have Housing Concerned About Future Housing: No Difficulty Paying Gas/Electric Bills: No Difficulty Paying for Meds: No Currently Unemployed: No Education: Associate Degree Difficulty w/ Childcare or Family Care: No Living arrangements: with family Gender identity (if verbalized by the patient): Female Comments At the time of my signature, I reviewed and agree with the nursing past medical, surgical, social, and family history. There is no relevant family history pertinent to the patient complaint. Exam Const: General: cooperative, healthy appearing, comfortable, no acute distress, well developed, alert and well nourished Nutritional Appearance: well nourished Orientation/consciousness: patient oriented x3 Limitations: no limitations HENMT: Head: normal to inspection Ears: hearing grossly normal bilaterally, external ears normal, TM's normal bilaterally, EAC's normal, mastoids normal and no periauricular adenopathy Face/Nose/Sinus: Normal external nose present, Normal nares present, Normal nasal mucous membranes and turbinates present, Nasal discharge present clear bilateral, normal facial exam and face symmetric Face and sinus: normal facial exam and face symmetric Mouth: Yes Normal oral and palatal mucosa present, Yes lip normal and Yes moist mucous membranes Throat: posterior oropharynx bam
[2023-11-26 17:12] VITALS: BP 127/79; PULSE 107; RESP 18; TEMP 36.9; O2SAT 99
== END 2023-11-26 17:35 | disposition home or self-care (01) ==
PROVIDERS: Emergency Provider Nurse Practitioner; PCP Internal Medicine
DX: J06.9 Acute upper respiratory infection, unspecified (principal); R09.82 Postnasal drip; Z20.822 Contact with and (suspected) exposure to COVID-19; Z87.891 Personal history of nicotine dependence
CPT/HCPCS: 87426; 87804; 99213; C9803; G0463

== ENCOUNTER 2024-11-22 09:56 | Emergency (ER) | payer OTHER, SELFPAY ==
[2024-11-22 10:25] VITALS: BP 117/83; PULSE 55; RESP 16; TEMP 36.4; O2SAT 100
--- NOTE | 2024-11-22 10:56 | ED.EAR ---
HPI - Ear Problem General Chief complaint: Ear Stated complaint: Sinus / Ear Time Seen by Provider: 11/22/24 10:57 Source: patient Mode of arrival: ambulatory Limitations: no limitations History of Present Illness HPI Narrative: 39-year-old female presented for complaint of right ear pain and sinus pressure over the past few days, and reports nasal congestion and drainage for over a week. Has been taking after, decongestants and cold medicine without relief. Denies tinnitus, dizziness, ear drainage, nausea vomiting, fevers or chills. MD Complaint: ear pain Related Data Allergies Allergy/AdvReac Type Severity Reaction Status Date / Time Penicillins Allergy Severe Swelling Verified 11/22/24 10:59 of Lip/Tongue/Throat erythromycin base AdvReac Mild Rash Verified 11/22/24 10:59 penicillin G AdvReac Mild Itching Verified 11/22/24 10:59 Review of Systems Review of Systems: CONSTITUTIONAL: Denies malaise, chills, or fever. EYES: Denies visual changes, redness, or discharge. ENT: Denies and sore throat. Reports ear pain,rhinorrhea, congestion, sinus pain CARDIOVASCULAR: Denies chest pain, palpitations, or edema. RESPIRATORY: Denies cough or dyspnea. GASTROINTESTINAL: Denies abdominal pain, nausea, vomiting, diarrhea MUSCULOSKELETAL: Denies myalgia. All systems reviewed & are unremarkable except as noted in HPI and below PMFSH Family History Family History Mother Patient's mother is in good health Sibling Patient's sister is in good health Other Diabetes mellitus Social History Social History Smoking status: Former smoker Tobacco type: cigarettes Smoking end date: 11/25/12 Alcohol intake: current Substance use: never Substance use type: does not use Lack of Transportation: No Lack of Food: Never True Current Housing: I Have Housing Concerned About Future Housing: No Difficulty Paying Gas/Electric Bills: No Difficulty Paying for Meds: No Currently Unemployed: No Education: Associate Degree Difficulty w/ Childcare or Family Care: No Living arrangements: with family Gender identity (if verbalized by the patient): Female Comments At time of signature, agree with nursing past medical, surgical, social and family history. There is no relevant family history pertinent to the presenting complaint Exam Narrative: GENERAL: Well-appearing EYES: PERRLA, conjunctivae clear ENT: Nares congested Mucous membranes moist. TMs pearly morales with dull light reflex bilaterally; no tragal tenderness. Oropharynx not erythematous without lesions. no drooling, no hoarseness, no trismus, uvula midline. NECK: Supple. No lymphadenopathy CHEST: Clear to auscultation, breath sounds equal. No wheezing, rhonchi, rales, or stridor. No respiratory distress, speaks in full sentences. HEART: Regular rate and rhythm. No murmur heard. SKIN: Warm, dry, no rash. NEURO: Alert and oriented x3. PSYCH: Normal mood and affect Course Course Emergency Course: Patient is aware of diagnosis, understands and agrees to treatment plan. Anticipatory guidance given. Patient agrees to follow-up as directed and is aware of reasons to seek care at the emergency department. Portions of this record may have been created with voice recognition software Level of Care: Express Care Visit Vital Signs Vital signs: Vital Signs Temperature 97.6 F 11/22/24 10:25 Pulse Rate 55 L 11/22/24 10:25 Respiratory Rate 16 11/22/24 10:25 Blood Pressure 117/83 11/22/24 10:25 Pulse Oximetry 100 11/22/24 10:25 Temperature 97.6 F 11/22/24 10:25 Pulse Rate 55 L 11/22/24 10:25 Respiratory Rate 16 11/22/24 10:25 Blood Pressure 117/83 11/22/24 10:25 Pulse Oximetry 100 11/22/24 10:25 Reviewed Medical Decision Making MDM Narrative Medical decision making narrative: Discussed physical exam findings, consistent with URI. Advised supportive measures and signs/symptoms to go to the ER. Patient is appropriate for outpatient treatment and follow-up. Differential Diagnosis Differential Diagnosis: Coronavirus, strep pharyngitis, allergic rhinitis, upper respiratory tract infection, sinusitis, rhinosinusitis, nasopharyngitis, viral pharyngitis, otitis media, otitis externa, eustachian tube dysfunction, foreign body, cerumen impaction. Vital Signs Vital Signs: Vital Signs Temperature 97.6 F 11/22/24 10:25 Pulse Rate 55 L 11/22/24 10:25 Respiratory Rate 16 11/22/24 10:25 Blood Pressure 117/83 11/22/24 10:25 Pulse Oximetry 100 11/22/24 10:25 Temperature 97.6 F 11/22/24 10:25 Pulse Rate 55 L 11/22/24 10:25 Respiratory Rate 16 11/22/24 10:25 Blood Pressure 117/83 11/22/24 10:25 Pulse Oximetry 100 11/22/24 10:25 Discharge Plan Discharge Clinical Impression: Sinusitis Patient Disposition: Home, Self-Care Condition: Stable Instructions: Antibiotic Form, Sinusitis (ED) Additional Instructions: Take antibiotic as directed Recommendations: Flonase spray and Zyrtec (or Claritin/Renetta) Tylenol 1000mg every 8 hours as needed for pain Symptomatic treatment includes: rest, fluids, and increase humidity of the air at home. Follow up with your primary care provider in 1 week. Go to the ER for worsening symptoms or concerns. Patient Language: Wolof Prescriptions: New doxycycline hyclate 100 mg tablet 100 mg PO BID 7 Days Qty: 14 0RF No Action ibuprofen 600 mg tablet 600 mg PO TID PRN (Reason: fever or pain) Qty: 30 0RF Follow-up/Referrals: Gideon,Luz Song PA-C [Primary Care Provider] - Time of Disposition: 11:02
--- OUTSIDE RECORDS SUMMARY | 2024-11-29 06:22 | XMS_ITS | Encounter Summary ---
Author Organization [facility] Healthcare Address [address] [place] [address] Care Team Providers Care Clinical Specialist Medical Device Name Role Phone Abhilash Sam MD Unavailable [phone] Mary Russell MD Unavailable [phone] Luz Meneses Primary Care Provider + Reason for Referral * Sleep Medicine (Routine) - Closed Specialty Diagnoses / Procedures Referred By Carlee goetz Referred To Contact Diagnoses Snoring BUDDY (obstructive sleep apnea) Cigarette nicotine dependence in remission Restless legs Psychophysiological insomnia Procedures PSG Bry Augustine MD [address] [place] [id number] Phone: tel: fax: [facility] [address] [place] [address] Phone: tel: fax: Referral ID Status Reason Start Date Expiration Date Visits Re quested Visits Authorized [id number] Closed 09/09/2024 10/09/2025 1 1 PICKER Reason for Visit * Sleep Medicine (Routine) - Closed Specialty Diagnoses / Procedures Referred By Carlee goetz Referred To Contact Diagnoses Snoring BUDDY (obstructive sleep apnea) Cigarette nicotine dependence in remission Restless legs Psychophysiological insomnia Procedures PSG Bry Augustine MD [address] [place] [address] Phone: tel: fax: [facility] [address] [place] [phone] Phone: tel: fax: Referral ID Status Reason Start Date Expiration Date Visits Re quested Visits Authorized [id number] Closed 09/09/2024 10/09/2025 1 1 Encounter Details Date Type Department Care Team (Latest Contact Info) Description 10/19/2024 7:51 PM TACK PICKER - 10/19/2024 11:59 PM TACK PICKER Hospital Encounter [facility] [address] [place] [address] Snoring; BUDDY (obstructive sleep apnea); Cigarette nicotine dependence in remission; Restless legs; Psychophysiological insomnia Discharge Disposition: Discharge to home or self care Social History Tobacco Use Types Packs/Day Years Used Date Smoking Tobacco: Former Cigarettes Q uit: 02/15/2010 Smokeless Tobacco: Never Alcohol Use Standard Drinks/Week Comments Not Currently 1 (1 standard drink = 0.6 oz pur e alcohol) AUDIT-C Answer Date Recorded Q1: How often do you have a drink containing alc ohol? 2-4 times a month 06/01/2024 Q2: How many drinks containi ng alcohol do you have on a typical day when you are drinking? 1 or 2 06/01/2024 Q3: How often do you have si x or more drinks on one occasion? Less than monthly 06/01/2024 PHQ-2 Answer Date Recorded PHQ-2 Total Score (If total score is 3 or more points, staff should administer the PHQ-9) 0 06/01/2024 [place] Depression Scale Answer Date Recorded [place] Depression Scale Total 1 11/28/2020 The thought of harming myself has occurred to me . Never 11/28/2020 Personal Safety Answer Date Recorded Have you ever been in or are you currently in a harmful physical or emotional relationship or is someone making you feel afraid or unsafe? Denies 12/26/2023 Comments No Sex and Gender Information Value Date Recorded Sex Assigned at Not on file Legal Sex Female 2:07 PM CDT Gender Identity Not on file Sexual Orientation Not on file documented as of this encounter Medications at Time of Discharge ascorbic acid (VITAMIN C) 100 mg tablet Take 1 tablet (100 mg total) by mouth daily cholecalciferol (VITAMIN D-3) 5,000 unit tablet Take 1 tablet (5,000 Units total) by mouth daily documented as of this encounter Discharge Disposition Disposition Code Departure Means Destination Discharge to home or self care documented in this encounter Miscellaneous Notes * Addendum Note - Bry Augustine MD - 10/19/2024 8:00 PM CSTEncounter addended by: Bry Augustine MD on: 10/20/2024 12:58 PM Actions taken: Charge Capture section accepted PICKER documented in this encounter Plan of Treatment Not on file documented as of this encounter Procedures Procedure Name Priority Date/Time Associated Diagnosis Comments PSG (SIMPLE) Routine 10/19/2024 7:51 PM TACK PICKER Snoring BUDDY (obstructive sleep apnea) Cigarette nicotine dependence in remission Restless legs Psychophysiological insomnia documented in this encounter Results * PSG (10/19/2024 7:51 PM TACK PICKER) Bry Augustine MD SLEEP CENTER ORDERABLES Fin al Result Performing Organization Address City/State/[facility] Co de Phone Number [facility] [address] [place] [address] documented in this encounter Visit Diagnoses Diagnosis Snoring Other dyspnea and respiratory abnormality BUDDY (obstructive sleep apnea) Obstructive sleep apnea (adult) (pediatric) Cigarette nicotine dependence in remission Restless legs Restless legs syndrome (RLS) Psychophysiological insomnia Persistent disorder of initiating or maintaining sleep documented in this encounter Care Teams Clinical Specialist Medical Device Relationship Specialty Start Date End Date Luz Meneses PA [address] [address] PCP - General Family Medicine 06/01/24 Abhilash Sam MD [address] [place] [phone] Consulting Physician Obstetrics and Gynecology 07/15/23 Mary Russell MD [address] [place] [address] Referring Physician Pediatric Neurology 07/15/23 documented as of this encounter
--- OUTSIDE RECORDS SUMMARY | 2024-11-29 06:22 | XMS_ITS | Encounter Summary ---
Author Organization [facility] Healthcare Address [address] [place] [address] Care Team Providers Care Ham Marker Name Role Phone Abhilash Sam MD Unavailable [phone] Mary Russell MD Unavailable [phone] Luz Meneses Primary Care Provider + Reason for Referral * Sleep Medicine (Routine) - Closed Specialty Diagnoses / Procedures Referred By Carlee goetz Referred To Contact Diagnoses Snoring BUDDY (obstructive sleep apnea) Cigarette nicotine dependence in remission Restless legs Psychophysiological insomnia Procedures PSG Bry Augustine MD [address] [facility] [address] [place] [address] Phone: tel: fax: [facility] [address] [place] [address] Phone: tel: fax: Referral ID Status Reason Start Date Expiration Date Visits Re quested Visits Authorized [id number] Closed 09/09/2024 10/09/2025 1 1 Reason for Visit * Consultation (Routine) - Authorized Specialty Diagnoses / Procedures Referred By Carlee goetz Referred To Contact Pulmonary Disease / Pulmonology Diagnoses Snoring Luz Meneses PA [address] [facility] [address] [place] [address] Phone: tel: fax: Ajay Hanna MD [address] [facility] [address] [address] [place] [address] Phone: tel: fax: Referral ID Status Reason Start Date Expiration Date Visits Requested Visits Authorized [id number] Authorized Specialty Services Required 07/02/2024 07/02/2025 4 4 Encounter Details Date Type Department Care Team (Late st Contact Info) Description 09/09/2024 1:00 PM CDT Office Visit [facility] Medical Group Pulmonary [place] [address] [facility] [address] [place] [address] Bry Augustine MD [address] [facility] [address] [place] [address] BUDDY (obstructive sleep apnea) (Primary Dx); Snoring; Cigarette nicotine dependence in remission; Restless legs; Psychophysiological insomnia Social History Tobacco Use Types Packs/Day Years [...] staff should administer the PHQ-9) 0 06/01/2024 Bonita Depression Scale Answer Date Recorded Bonita Depression Scale Total 1 11/28/2020 The thought [...] on file documented as of this encounter Last Filed Vital Signs Vital Sign Reading Time Taken Comments Blood Pressure 100/56 09/09/2024 1:02 PM CDT Pulse 67 09/09/2024 1:02 PM CDT Temperature 36.2 ??C (97.2 ??F) 09/09/2024 1:02 PM CD T Respiratory Rate 18 09/09/2024 1:02 PM CDT Oxygen Saturation 98% 09/09/2024 1:02 PM CDT Inhaled Oxygen Concentration - - Weight 77.1 kg (170 lb) 09/09/2024 1:02 PM CDT Height 170.2 cm (5' 7 ) 09/09/2024 1:02 PM CDT Body Mass Index 26.63 09/09/2024 1:02 PM CDT documented in this encounter Progress Notes * Bry Augustine MD - 09/09/2024 1:00 PM CDT Subjective/Objective Patient ID: Gladys Tai is a 39 y.o. female. Encounter Date: 09/09/2024 Chief Complaint No chief complaint on file. TODAY'S VISIT HPI The patient is pleasant 39-year-old female who came to us complaining of sleep disturbances. She relates ???restless night, never feel rested in the morning?? patient does report history of snoring, waking up because snoring, restless legs and excessive daytime fatigue. She denies witnessed sleep apnea. Patient does report history of gasping for breath, waking up with dry mouth, insomnia, falling asleep at unwanted time, depending on alarm to wake up, night sweats, palpitation, nightmares, morning headache, anxiety, disturbing thoughts, restless disturbed sleep. She denies any history of sleep an hour past her normal wake-up time, sleepwalking, sleep talking, wake up violent, wake-up confusion, bedwetting, nausea, jaw pain, teeth grinding or cataplexy. She retires to bed at 10:00 p.m. and wakes up 6:00 a.m., takes him minutes ago sleep, wake up 40 6 times to go the bathroom, does not take naps during the day. Patient denies history of smoking. Does drink 1-2 alcoholic drinks a week, does drink caffeinated beverages on daily basis, does not exercise. 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 Her Tarkio sleeping score is 10/24. She lives in [place], [place]. She lives in [facility]. She does have a dog who sleep in her bed. She is up-to-date with COVID-19 vaccine.She has 5 pack-year history smoking. She quit in 2009. ROS Review of other systems other than what mentioned in history of present illness is unremarkable Vitals BP 100/56 Pulse 67 Temp 36.2 ??C (97.2 ??F) Resp 18 Ht 170.2 cm (5' 7 ) Wt 77.1 kg (170 lb) LMP 07/27/2024 SpO2 98% BMI 26.63 kg/m?? Physical Exam: Physical exam was unremarkable. Diagnoses and all orders for this visit: BUDDY (obstructive sleep apnea) (Primary) - PSG; Future Snoring Comments: Snoring - loud. Elongated uvula. referral to sleep med for sleep study Orders: - Ambulatory referral to Pulmonology - PSG; Future Cigarette nicotine dependence in remission - PSG; Future Restless legs - PSG; Future Psychophysiological insomnia - PSG; Future Plan: Excessive daytime sleepiness, excessive daytime fatigue and sleep disturbances, patient will be sent for home sleep study further evaluation. She was advised about pathophysiology obstructive sleep apnea, complication of untreated obstructive sleep apnea, and sleep hygiene. Insomnia, patient was advised sleep hygiene, sleeping same time, waking up same time, exercising daily basis, avoiding napping during the day and staying in bed for 7 hours. Five pack-year history of smoking, quit in 2009. Restless legs, will evaluate after the sleep study. Her pets should not sleep in her bed. She is up-to-date with COVID-19 vaccine. Patient will return back in 3 months for re-evaluation. Patient was encouraged to call us with any inquiry, concern for question about their condition, lab work, x-rays or CT scans at any time, please see further details for assessment and plan in HPI This note was created in part with the assistance of [employer] voice recognition software. Television Cameraman variances may occur. For patients or family members viewing this note through [employer]ero: This note was written as a communication tool between healthcare providers and may contain technical language, terminology and abbreviations that is difficult to interpret without advanced medical training. If you have questions or concerns regarding what is written in this note, please request to speak with the healthcare provider taking care of you or your family member. documented in this encounter Plan of Treatment Not on file documented as of this encounter Results * PSG (10/19/2024 7:51 PM PRETZEL COOKER) us Bry Augustine MD SLEEP [facility]ENTER ORDERABLES Fin al Result Performing Organization Address City/State/[facility] Co de Phone Number [facility] SLEEP MEDICINE [address] [place] [address] documented in this encounter Visit Diagnoses Diagnosis BUDDY (obstructive sleep apnea)- Primary Obstructive sleep apnea (adult) (pediatric) Snoring Other dyspnea and respiratory abnormality Cigarette nicotine dependence in remission Restless legs Restless legs syndrome (RLS) Psychophysiological insomnia Persistent disorder of initiating or maintaining sleep documented in this encounter Orders Outpatient Referral Count Last Ordered Date Fir st Ordered Date AMB REFERRAL TO PULMONOLOGY 1 09/09/2024 documented in this encounter Care Teams Ham Marker Relationship Specialty Start Date End Date Luz Meneses PA [address] [facility] [address] [place], [place] [phone] PCP - General Family Medicine 06/01/24 Abhilash Sam MD [address] [facility] [address] [place] [employer], [place] [phone] Consulting Physician Obstetrics and Gynecology 07/15/23 Mary Russell MD [address] [facility] [address] [facility] [place] [address] Referring Physician Pediatric Neurology 07/15/23 documented as of this encounter
--- OUTSIDE RECORDS SUMMARY | 2024-11-29 06:22 | XMS_ITS | Encounter Summary ---
Author Organization [facility] Healthcare Address [address] [place] [address] Care Team Providers Care Technology Advisor Name Role Phone Abhilash Sam MD Unavailable [phone] Mary Russell MD Unavailable [phone] Luz Meneses Primary Care Provider + Reason for Referral * Sleep Medicine (Routine) - Authorized Specialty Diagnoses / Procedures Referred By Contac t Referred To Contact Diagnoses BUDDY (obstructive sleep apnea) Procedures PSG Bry Augustine MD [address] [facility] [address] [place] [address] Phone: tel: fax: [place] [address] [place] [address] Phone: tel: fax: Referral ID Status Reason Start Date Expiration Date V isits Requested Visits Authorized [id number] Authorized 10/20/2024 11/19/2025 1 1 ED MATERIALS WORKER Encounter Details Date Type Department Care Team (Late st Contact Info) Description 10/20/2024 Orders Only [facility] Medical Group Pulmonology [address] [facility] [address] [place] [id number] Bry Augustine MD [address] [facility] [address] [place] [address] BUDDY (obstructive sleep apnea) (Primary Dx) Social History Tobacco Use Types Packs/Day Years [...] staff should administer the PHQ-9) 0 06/01/2024 Mclaughlin Depression Scale Answer Date Recorded Mclaughlin Depression Scale Total 1 11/28/2020 The thought [...] on file documented as of this encounter Plan of Treatment Scheduled Orders Name Type Priority Associated Diagnoses Orde r Schedule PSG Sleep Center Routine BUDDY (obstructive sleep apnea) 1 Occurrences starting 10/20/2024 until 10/20/2025 documented as of this encounter Visit Diagnoses Diagnosis BUDDY (obstructive sleep apnea)- Primary Obstructive sleep apnea (adult) (pediatric) documented in this encounter Care Teams Technology Advisor Relationship Specialty Start Date End Date Luz Meneses PA [address] [facility] [address] [place] [address] PCP - General Family Medicine 06/01/24 Abhilash Sam MD [address] [place] [address] Consulting Physician Obstetrics and Gynecology 07/15/23 Mary Russell MD [address] [place] [address] Referring Physician Pediatric Neurology 07/15/23 documented as of this encounter
--- OUTSIDE RECORDS SUMMARY | 2024-11-29 06:22 | XMS_ITS | Encounter Summary ---
Author Organization [facility] Healthcare Address [address] [place] [address] Care Team Providers Care Border Measurer Name Role Phone Abhilash Sam MD Unavailable [phone] Mary Russell MD Unavailable [phone] Luz Meneses Primary Care Provider + Encounter Details Date Type Department Care Team (Latest Contact Info) Description 08/24/2024 10:07 AM CDT - 08/24/2024 11:59 PM CDT Hospital Encounter [facility] Building [address] [phone] Well woman exam Discharge Disposition: Discharge to home or self [...] staff should administer the PHQ-9) 0 06/01/2024 [place] Depression Scale Answer Date Recorded [place] Depression Scale Total 1 11/28/2020 The thought [...] or self care documented in this encounter Plan of Treatment Not on file documented as of this encounter Procedures Procedure Name Priority Date/Time Associated Diagnosis Comments HIGH RISK HPV DNA DETECTION WITH GENOTYPING Routine 08/24/2024 9:17 AM CDT Well woman exam PAP AND HIGH RISK HPV, REFLEX TO GENOTYPING Routine 08/24/2024 9:17 AM CDT Well woman exam documented in this encounter Results * Pap and High Risk HPV and Genotyping (Cytology Component) (08/24/2024 9:17 AM CDT) Thin prep (Pap test) 08/24/2024 9:17 AM CDT 08/24/2024 6:54 PM CDT Narrative [facility] - 08/31/2024 2:59 PM CDT EPIC results best viewed via link to PDF [facility]ator[facility] [place] [address] Note to Patients: This report may contain a detailed description of human tissue sent by a health care provider to the laboratory for pathologic evaluation. The content of this report is essential for diagnosis and may provide important critical findings. This information may be unfamiliar to patients to review without a medical professional present. It is advised that the patient review this report in the presence of a health care provider who can answer questions and explain the details. CYTOPATHOLOGY REPORT FINAL Patient Name: ??REBEL TAI Gender: ??F : ??1985 (Age: 39) Address: ??[address] [place], [place] ??[address] [facility] #: ??[id number] Service: ??DEFAULT Location: ?? Patient Type: [facility] Taken: ??08/24/2024 Received: ??08/24/2024 Accessioned: ??08/24/2024 Reported: ??08/31/2024 Physician(s): ??Indigo Reece M.D. ?? FINAL INTERPRETATION SOURCE OF SPECIMEN ? Liquid based Thin Prep pap with HPV: STATEMENT OF ADEQUACY ?- Satisfactory for evaluation ?- Endocervical cells/transformation zone sample present ? GENERAL CATEGORIZATION: ?- Negative for squamous intraepithelial lesion or malignancy ? Comments (Normal-Negative for High Risk HPV) HPV HR 16- Not detected HPV HR 18-Not detected HPV HR non 16/18- Not detected Interpretive Data Nucleic acid amplification for detection of high-risk Human Papilloma virus (HPV) is performed by the Kevin Stefania 6800 HPV test. This assay specifically detects HPV- 16 and HPV-18 genotypes. The following HPV genotypes are detected as high-risk HPV: HPV-31, 33, 35, 39, 45, 51, 52, 56, 58, 59, 66, and 68. This assay has been approved by the [place] Food and Drug Administration for detection of HPV in cervical specimens collected by a physician using an endocervical brush/spatula or cervical broom and placed in the ThinPrep Pap Test PreservCyt collection containers. The performance characteristics of this test have been verified by the [facility] Molecular Infectious Disease laboratory. Correlate with reported cytology results, as applicable. Interpretive data last revised 23 This specimen has been rescreened in accordance with this laboratory's Supervisor Tunnel Heading Program. [facility]/08/31/2024 14:59 MITCHELL Cespedes (ASCP) Report Electronically Reviewed and Signed Out By OSBALDO House(ASCP) 08/31/2024 14:59:05 Cervicovaginal Cytology (Pap Test) Disclaimer: The Pap test is a screening test used to detect cervical cancer and its precursors; it is not a diagnostic procedure. False negative and false positive results do occur. Pap test results should be interpreted in the context of pertinent clinical information and biopsy results as indicated. [facility] Clinical Laboratory Improvement Amendments (CLIA) mandate that cytologic and histologic results be correlated for laboratory software quality tester & improvement standards. ??FOR ALL HIGH-GRADE CASES we request submission of follow-up histological material and/or reports that have not been previously provided so that we may fulfill said required standards. ?? Gross Description A. ??Liquid based Thin Prep pap with HPV: ??Cervical/vaginal - Screening ThinPrep Clinical Diagnosis and History Last Menstrual Period: 07-27-24 The patient is a 39 year old female with wwe. Report Images and scanned documents, if included only viewable in PDF version The performance characteristics of some immunohistochemical stains, in-situ hybridization and fluorescence in-situ hybridization tests and immunophenotyping by flow cytometry cited in this report (if any) were determined by the Surgical Pathology Department at [facility] as part of an ongoing corporate quality manager program and in compliance with federally mandated regulations drawn from the Clinical Laboratory Improvement Act of 1988 (CLIA '88). ??Some of these tests rely on the use of analyte specific reagents and are subject to specific labeling requirements by the [place] Food and Drug Administration. ??Such diagnostic tests may only be performed in a facility that is certified by the Department of Health and Human Services as a high complexity laboratory under CLIA '88. ??The FDA has determined that such clearance or approval is not necessary. ??This test is used for clinical purposes. ??It should not be regarded as investigational or for research. ??Nevertheless, federal rules concerning the medical use of analyte specific reagents require that the following disclaimer be attached to the report: This test was developed and its performance characteristics determined by the Surgical Pathology Department of [facility]. ??It has not been cleared or approved by the U. S. Food and Drug Administration. us Indigo Reece MD LAB CYTOLOGY ORDERABLES F inal Result [facility]OLOG[facility] * High Risk HPV DNA Detection with Genotyping (Molecular component) (08/24/2024 9:17 AM CDT) HPV HR 16 Not Detected Not Detected [facility] Comment:Testing performed by : [facility], [address] [place]., [address] HPV HR 18 Not Detected Not Detected [facility] Comment:Testing performed by : [facility], [address] [place]., [address] HPV HR Non 16/18 Not Detected Not Detected [facility] Comment: Interpretive Data Nucleic acid amplification for detection of high-risk Human Papilloma virus (HPV) is performed by the Kevin Stefania 6800 HPV test. ??This assay specifically detects HPV-16 and HPV-18 genotypes. ??The following HPV genotypes are detected as high-risk HPV: ?? HPV-31, 33, 35, ,39, 45, 51, 52, 56, 58, 59, 66, and 68. ??This assay has been approved by the [place] Food and Drug Administration for detection of HPV in cervical specimens collected by a physician using an endocervical brush/spatula or cervical broom and placed in the ThinPrep Pap Test PreservCyt collection containers. ??The performance characteristics of this test have been verified by the [facility] Molecular Infectious Disease laboratory. Correlate with separately reported cytology results, as applicable. Interpretive data last revised 23 Testing performed by: [facility], [address] [place]., [address] Endocervical 08/24/2024 9:17 AM CDT 08/25/2024 11:13 AM CDT Narrative [facility] - 08/25/2024 7:55 PM CDT Clinical history and diagnosis->screening Testing type->Screening Last menstrual period (date if known)->[phone] Indigo Reece MD LAB BODY FLUIDS AND STOOL S ORDERABLES Final Result TOM [address] [facility] Department [place] [address] [facility] documented in this encounter Visit Diagnoses Diagnosis Well woman exam Routine general medical examination at a health care facility documented in this encounter Care Teams Border Measurer Relationship Specialty Start Date End Date Luz Meneses PA [address] [facility] [address] [place] [address] PCP - General Family Medicine 06/01/24 Abhilash Sam MD [address] [place] [address] Consulting Physician Obstetrics and Gynecology 07/15/23 Mary Russell MD [address] [facility] [place], [place] [id number] Referring Physician Pediatric Neurology 07/15/23 documented as of this encounter
--- OUTSIDE RECORDS SUMMARY | 2024-11-29 06:22 | XMS_ITS | Referral Summary ---
Author Organization [facility] Address [address] [place] [address] Care Team Providers Care Tooling Inspector Name Role Phone Abhilash Sam MD Unavailable [phone] Mary Russell MD Unavailable [phone] Luz Meneses Primary Care Provider + Encounters Date Type Department Care Team Description 10/20/2024 Orders Only [facility] Pulmonology [address] [place] [address] [address] [place] [id number] Bry Augustine MD BUDDY (obstructive sleep apnea) (Primary Dx) 10/19/2024 7:51 PM PRESS TOOL MAKER - 10/19/2024 11:59 PM [facility] Hospital Encounter [facility] [address] [place] [address] Snoring; BUDDY (obstructive sleep apnea); Cigarette nicotine dependence in remission; Restless legs; Psychophysiological insomnia Discharge Disposition: Discharge to home or self care 09/09/2024 1:00 PM CDT Office Visit [facility] Pulmonary [place] [address] [place] [address] [address] [place] [address] Bry Augustine MD BUDDY (obstructive sleep apnea) (Primary Dx); Snoring; Cigarette nicotine dependence in remission; Restless legs; Psychophysiological insomnia from Last 3 Months Allergies Active Allergy Reactions Criticality Noted Date Comments Erythromycin Rash Medium 06/08/2019 Penicillins Swelling Medium 06/08/2019 Medications ascorbic acid (VITAMIN C) 100 mg tablet Take 1 tablet (100 mg total) by mouth daily Active cholecalciferol (VITAMIN D-3) 5,000 unit tablet Take 1 tablet (5,000 Units total) by mouth daily Active Active Problems Problem Noted Date Diagnosed Date Snoring 09/09/2024 Overview (09/09/2024): Snoring - loud. Elongated uvula. referral to sleep med for sleep study BUDDY (obstructive sleep apnea) 09/09/2024 Cigarette nicotine dependence in remission 09/09 Restless legs 09/09/2024 Psychophysiological insomnia 09/09/2024 Migraine without aura and wi thout status migrainosus, not intractable 06/01/2024 Assessment & Plan (06/01/2024 11:01 AM CDT): Chronic, Overall improved. Has about 2 migraine days per month. She has a medication at home that works well - will call back/send message with med name and we can refill. Arthralgia 06/01/2024 Assessment & Plan (06/01/2024 10:59 AM CDT): Longstanding chronic pain - has been worked up for autoimmune in the past, negative testing about 2 years ago. Pain continues - stopped taking all meds to try to see if it helped. Continues PT exercises at home which does help the hip pain. Tenderness along lower back and bilateral hips/thighs. Limited in ability to run due to knee pain. Will limit her in PT exercises to no running, but can participate otherwise until we get further workup. Labs ordered. Xrays of knees ordered. Continue OTC treatment as she has been doing as needed. 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 Shanell CAICEDO. Has appointment and repeat Pap scheduled for July of 2024 Herpes zoster 10/01/2023 Overview (10/01/2023): meds ordered in [facility] due to [facility] error - meds: Acyclovir 800mg 5x daily for 7 days, Prednisone 20mg daily for 5 days, and Keflex (empiric tx) - 250mg 4x a day for 10 days. Pt understands meds/dose and f/u plan if needed History of motion sickness 10/01/2023 Gastroesophageal reflux disease without esophagi tis 10/01/2023 Vitamin D deficiency (15) 07/29/2023 Overview (07/29/2023): After 2nd child with lethargy and pain normal TSH Assessment & Plan (06/01/2024 11:01 AM CDT): Repeat levels - currently on daily supplement Assessment & Plan (07/29/2023 4:08 PM CDT): We will need to check levels. History of diarrhea/dyspepsia 07/29/2023 Chronic pain syndrome 07/11/2022 Assessment & Plan (06/01/2024 11:00 AM CDT): Chronic, worsening overall. Now with significant knee pain limiting her ability to run. Has been on several medications in the past and been worked up for autoimmune. Labs and x-rays ordered today. Assessment & Plan (07/26/2022 8:10 AM CDT): Determined she does not have fibromyalgia, she has chronic pain syndrome. Cont cymbalta! Was limited pain-jimenez before, now is much more back to her baseline with walking, and adl's and doing her job. She is qualified to perform walk duties. She is qualified to perform work duties and fitness restrictions are lifted with the exception of running. Chronic bilateral low back pain without sciatica 04/24/2022 Assessment & Plan (06/01/2024 10:59 AM CDT): Chronic, stable. Continue [id number]-duktfdo medications and treatment as above. Assessment & Plan (04/24/2022 2:00 PM CDT): Need imaging Switching from eleavil 20 mg/da to cymbalta for chronic pain control. Currently this seems to be a Chronic Pain Syndrome vs Fibromyalgia pain. Resolved Problems Problem Noted Date Diagnosed Date Resolved Date Suspected sleep apnea 07/29/20232023 Assessment & Plan (07/29/2023 4:07 PM CDT): Has snoring, restless, cramping caught kicking tossing turning, shortness breast, palpitations, nocturia, awakening with a headache. May need referral to sleep Quit smoking 07/29/2023 06/01/2024 Sprain of left knee 02/15/2022 06/01/20 Vasovagal syncope 02/15/2022 06/01/2024 Right foot pain 02/15/2022 06/01/2024 Assessment & Plan (02/15/2022 12:25 PM CDT): Since an injuiry years ago- wants to see naval designer, referral placed Nausea and vomiting in 04/15/2020 06/01/2024 Supervision of other normal , antepartum 04/14/2020 11/28/2020 Overview (04/14/2020): First Trimester: [] Labs [] Genetic Screeninnd Trimester: [] Anatomy ultrasound 3rd Trimester: [] CBC, HIV, syphilis screen [] 1hr GCT (26-28wks): [] Tdap (27-36wks) [] Rhogam (if Rh neg): [] GBS Immunizations Name Administration Dates Next Due Anthrax 10/13/2006,09/23/2006,09/06/2006 DTP 06/29/1988, 7,1986,08/24 DTaP 07/02/1990 H1N1 Inj 11/23/2009 Hep A, Adult 09/30/2004,12/29/2003 Hep B, Adolescent or Pediatric 07/05/1998,1997,12/08/1997 HiB 12/13/1988 IPV 12/24/2003,07/02/1990 Influenza LAIV (Nasal) 10/29/2015,2013,10/31/2013,09/14,09/30/2011,08/26/2010,12/28/2007 ,12/02/2004 Influenza, Quadrivalent, Narcisa l Culture-based MDCK, Antibiotic Free, Intramuscular 09/28/2017 Influenza, Quadrivalent, Spl it, Intramuscular 09/28/2018 Influenza, Quadrivalent, Spl it, Preservative Free, Intramuscular 10/28/2022,10/29/2021,10/16/2020,10/16,09/27/2019 Influenza, Split 11/23/2009, 8,10/03/2006,10/13 Influenza, Trivalent, Preser vative Free, Intramuscular 09/29/2016 Influenza, Unspecified 10/01/2023(Deferr ed: Patient Refused),09/11/2023(Deferred: Patient decision),09/11/2022(Deferred: Patient decision),10/28/2021,10/16/2020,2016 Influenza, Whole 12/24/2003 MMR 07/02/1990,10/14/1987 Meningococcal Polysaccharide (Menomune) 12/24/2003 OPV 06/29/1988,1986,1986 PPD TEST 12/24/2003,01/15/1996 Smallpox 05/04/2006 Td, adsorbed 07/01/2022,12/24/2003,12/08/1997 Tdap 08/23/2020,06/28/2012 Typhoid H-P SQ/ID 09/23/2006,09/30/2004 Typhoid Inactivated 09/26/2008 Social History Tobacco Use Types Packs/Day Years Used Date Smoking Tobacco: Former Cigarettes Q uit: 02/15/2010 Smokeless Tobacco: Never Tobacco Cessation:Counseling Given: Not Answered Alcohol Use Standard Drinks/Week Comments Not Currently [...] staff should administer the PHQ-9) 0 06/01/2024 [place] Depression Scale Answer Date Recorded [place] Depression Scale Total 1 11/28/2020 The thought [...] on file Sexual Orientation Not on file Last Filed Vital Signs Vital Sign Reading [...] Mass Index 26.63 09/09/2024 1:02 PM CDT Plan of Treatment Not on file Procedures Procedure Name Priority Date/Time Associated Diagnosis Comments PSG (SIMPLE) Routine 10/19/2024 7:51 PM PRESS TOOL MAKER Snoring BUDDY (obstructive sleep apnea) Cigarette nicotine dependence in remission Restless legs Psychophysiological insomnia HIGH RISK HPV DNA DETECTION WITH GENOTYPING Routine 08/24/2024 9:17 AM CDT Well woman exam HEPATITIS C ANTIBODY Routine 07/27/2020 10:50 AM CDT Supervision of other normal , antepartum from Last 3 Months or Most Recently Relevant to Health Maintenance Results * PSG (10/19/2024 7:51 PM PRESS TOOL MAKER) Bry Augustine MD SLEEP CENTER ORDERABLES Fin al Result [facility] SLEEP MEDICINE [address] [place], [place] [address] * High Risk HPV DNA Detection with Genotyping (Molecular component) (08/24/2024 9:17 AM CDT) HPV HR 16 Not Detected Not Detected [facility] Comment:Testing performed by : [facility], [address] [facility], [address] HPV HR 18 Not Detected Not Detected TOM Comment:Testing performed by : [facility], [address] [facility], [address] HPV HR Non 16/18 Not Detected Not [...] this test have been verified by the [facility] Molecular Infectious Disease laboratory. Correlate with separately reported cytology results, as applicable. Interpretive data last revised 23 Testing performed by: [facility], [address] [place]., [address] Endocervical 08/24/2024 9:17 AM CDT 08/25/2024 11:13 AM CDT Narrative TOM - 08/25/2024 7:55 PM CDT Clinical history and diagnosis->screening Testing type->Screening Last menstrual period (date if known)->9-2-24 us Indigo Reece MD LAB BODY FLUIDS AND STOOL S ORDERABLES Final Result Performing Organization Address City/[facility]/ZIP Co de Phone Number TOM [address] Department [place] [address] [facility] * Hepatitis C antibody (07/27/2020 10:50 AM CDT) Hep C Ab NONREACT NONREACTIVE [facility] Comment: Siemens CentaurXP using JOLENE (chemiluminescent immunoassay) technology. NONREACTIVE: Antibodies to Hepatitis C not detected. This does not exclude early acute Hepatitis C infection, possibility of exposure to Hepatitis C, antibodies below detection limit, or to lack of antibody reactivity to the antigen used in this assay. EQUIVOCAL: Antibodies to Hepatitis C may or may not be present. ??Sample to be confirmed by real-time PCR method. REACTIVE: Antibodies to Hepatitis C detected.Sample to be confirmed by real-time PCR method. Blood specimen (specimen) 07/27/2020 10:50 AM CDT 07/27/2020 11:10 AM CDT Narrative Resulting Agency Comment CLI Lorna Witt MD LAB MICROBIOLOGY - GENERAL ORDER OSCAR Final Result Performing Organization Address [facility] Co de Phone Number [address] [phone] from Last 3 Months or Most Recently Relevant to Health Maintenance Insurance [facility] Care Teams Tooling Inspector Relationship Specialty Start Date End Date Luz Meneses PA [address] [address] PCP - General Family Medicine 06/01/24 Abhilash Sam MD [address] [place] [id number] Consulting Physician Obstetrics and Gynecology 07/15/23 Mary Russell MD [address] [address] Referring Physician Pediatric Neurology 07/15/23
--- OUTSIDE RECORDS SUMMARY | 2024-11-29 06:22 | XMS_ITS | Clinical Summary ---
Author Organization [facility] Address [address] [place] [address] Care Team Providers Care Tax Manager Cpa Name Role Phone Abhilash Sam MD Unavailable [phone] Mary Russell MD Unavailable [phone] Luz Meneses Primary Care Provider + Allergies Active Allergy Reactions Criticality Noted Date [...] (06/01/2024 10:59 AM CDT): Chronic, stable. Continue lsuf-aov-rubvevu medications and treatment as above. Assessment & [...] an injuiry years ago- wants to see product delivery specialist, referral placed Nausea and vomiting in 04/15/2020 06/01/2024 Supervision of other normal , antepartum 04/14/2020 11/28/2020 Overview (04/14/2020): First Trimester: [] Labs [] Genetic Screeninnd Trimester: [] Anatomy ultrasound 3rd Trimester: [] CBC, HIV, syphilis screen [] 1hr GCT (26-28wks): [] Tdap (27-36wks) [] Rhogam (if Rh neg): [] GBS Encounters Date Type Department Care Team Description 10/20/2024 Orders Only [facility] Pulmonology [address] [facility] [address] [place] [address] Bry Augustine MD BUDDY (obstructive sleep apnea) (Primary Dx) 10/19/2024 7:51 PM REFRIGERATING OILER - 10/19/2024 11:59 PM REFRIGERATING OILER Hospital Encounter [facility] Sleep Lab [address] [place] [address] Snoring; BUDDY (obstructive sleep apnea); Cigarette nicotine dependence in remission; Restless legs; Psychophysiological insomnia Discharge Disposition: Discharge to home or self care 09/09/2024 1:00 PM CDT Office Visit [facility] Pulmonary [place] [address] [place] [address] [address] [place] [address] Bry Augustine MD BUDDY (obstructive sleep apnea) (Primary Dx); Snoring; Cigarette nicotine dependence in remission; Restless legs; Psychophysiological insomnia from Last 3 Months Immunizations Name Administration Dates Next Due Anthrax [...] Typhoid H-P SQ/ID 09/23/2006,09/30/2004 Typhoid Inactivated 09/26/2008 Surgical History Surgery Date Site/Laterality Comments CERVICAL BIOPSY W/ LOOP ELECTRODE EXCISION 12/26/2023 HGSIL Medical History Medical History Date Comments Abnormal Pap smear of cervix Pneumonia hx of yearly occ urence Motion sickness Headache migraines Right foot pain 02/15/2022 Sprain of left knee 02/15/2022 Vasovagal syncope 02/15/2022 Family History Medical History Relation Name Comments Unknown Family History Father Diabetes Maternal Grandmother Thyroid disease Mother Graves' disease Sister Thyroid disease Sister Breast cancer Neg Hx Ovarian cancer Neg Hx Uterine cancer Neg Hx Relation Name Status Comments Father Maternal Grandfather Alive Maternal Grandmother Alive Mother Alive Sister Alive Social History Tobacco Use Types Packs/Day Years [...] staff should administer the PHQ-9) 0 06/01/2024 [place] Depression Scale Answer Date Recorded [place] Depression Scale Total 1 11/28/2020 The thought [...] on file Sexual Orientation Not on file Obstetrics History Para Term AB IAB SAB Ectopic Multiple Livin g Live Births 2 2 1 1 2 2 Date Outcome GA Total Labor Labor/2nd/3rd Weight Sex Type Anes PTL Tata A1 A5 Name Clin 2009 36w 0d 1.899 kg (4 lb 3 oz) F Vag-S pont Epidur al Livin g Complications:Gastroschisis Delivery Location:[facility] 2019 Term 39w 0d 3.685 kg (8 lb 2 oz) F Vag-S pont Epidur al Livin g Erick Uriarte y Complications: Intolera nce Comments Last Filed Vital Signs Vital Sign Reading [...] 09/09/2024 1:02 PM CDT Plan of Treatment Health Maintenance Due Date Last Done Comments Covid-19 Vaccine ( season) 2024 12/30/2021, 04/23/2021, 03/11/2021 Influenza Vaccine (#1) 2024 , 10/29/2021, 10/28/2021, Additional history exists Depression Screening 06/01/2025 06/01/2024, 06/01/2024, 10/01/2023, Additional history exists Cervical Cancer Screening 08/24/20252023, 08/24/2024, 08/21/2023, Additional history exists Regular Well Visit/Exam 18-64 08/24/2025 08/24/2024, 08/21/2023, 07/15/2023, Additional history exists DTaP/Tdap/Td Vaccine (9 - Td or Tdap) 07/01/2032 07/01/2022, 08/23/2020, 06/28/2012, Additional history exists Hepatitis C Screening Completed 07/27/2020 HPV Vaccines Aged Out No longer eligi ble based on patient's age to complete this topic Pneumococcal vaccine <65 Aged Out No longer eligible based on patient's age to complete this topic Varicella Vaccines Discontinued Procedures Procedure Name Priority Date/Time Associated Diagnosis Comments PSG (SIMPLE) Routine 10/19/2024 7:51 PM REFRIGERATING OILER Snoring BUDDY (obstructive sleep apnea) Cigarette nicotine dependence in remission Restless legs Psychophysiological insomnia HIGH RISK HPV DNA DETECTION WITH GENOTYPING Routine 08/24/2024 9:17 AM CDT Well woman exam HEPATITIS C ANTIBODY Routine 07/27/2020 10:50 AM CDT Supervision of other normal , antepartum from Last 3 Months or Most Recently Relevant to Health Maintenance Results * PSG (10/19/2024 7:51 PM REFRIGERATING OILER) Bry Augustine MD SLEEP CENTER ORDERABLES Fin al Result [facility] SLEEP MEDICINE [address] [place] [address] * High Risk HPV DNA Detection with Genotyping (Molecular component) (08/24/2024 9:17 AM CDT) HPV HR 16 Not Detected Not Detected [facility] Comment:Testing performed by : [facility], [address] [place]., [address] HPV HR 18 Not Detected Not Detected TOM Comment:Testing performed by : [facility], [address] [place]., [address] HPV HR Non 16/18 Not Detected Not Detected TOM Comment: Interpretive Data Nucleic acid amplification for [...] this test have been verified by the [facility] Molecular Infectious Disease laboratory. Correlate with separately reported cytology results, as applicable. Interpretive data last revised 23 Testing performed by: [facility], [address] [place]., [address] Endocervical 08/24/2024 9:17 AM CDT 08/25/2024 11:13 AM CDT Narrative TOM - 08/25/2024 7:55 PM CDT Clinical history and diagnosis->screening Testing type->Screening Last menstrual period (date if known)->07-27-24 Indigo Reece MD LAB BODY FLUIDS AND STOOL S ORDERABLES Final Result Performing Organization Address [place]/[facility] Co de Phone Number [id number] Department [place] [address] [facility] * Hepatitis C antibody (07/27/2020 10:50 AM CDT) Pathologist [facility] Hep C Ab NONREACT NONREACTIVE [facility] Comment: Siemens Loom DecoraurXP using JOLENE (chemiluminescent immunoassay) technology. NONREACTIVE: Antibodies [...] ORDER OSCAR Final Result Performing Organization Address [place]/[facility] Co de Phone Number [phone] [place] [address] from Last 3 Months or Most Recently Relevant to Health Maintenance Insurance [facility] Care Teams Tax Manager Cpa Relationship Specialty Start Date End Date Luz Meneess PA [address] [id number] PCP - General Family Medicine 06/01/24 Abhilash Sam MD [address] [place] [phone] Consulting Physician Obstetrics and Gynecology 07/15/23 Mary Russell MD [address] [id number] Referring Physician Pediatric Neurology 07/15/23
--- OUTSIDE RECORDS SUMMARY | 2024-11-29 06:23 | XMS_ITS | Encounter Summary ---
Author Organization [facility] Address [address] [address] Care Team Providers Care School Psychologist Assistant Name Role Phone Rachel Ortiz MD Primary Care Provider [phone] Reason for Visit * Reason Onset Date Comments Referral Request 12/20/2022 Medical Question/Miscellaneous 12/20/2022 Encounter Details Date Type Department Care Team ([facility] st Contact Info) Description 12/20/[address] [facility] Primary Care [address] [address] Rachel Ortiz MD [facility] [address] Referral Request; Medical Question/Miscellaneous Social History Tobacco Use Types Packs/Day Years Used Date Smoking Tobacco: Former Cigarettes Q uit: 02/15/2010 Smokeless Tobacco: Never Alcohol Use Standard Drinks/Week Comments Not Currently 1 (1 standard drink = 0.6 oz pur e alcohol) AUDIT-C Answer Date Recorded Q1: How often do you have a drink containing alc ohol? 2-4 times a month 04/24/2022 Q2: How many drinks containi ng alcohol do you have on a typical day when you are drinking? 1 or 2 04/24/2022 Q3: How often do you have si x or more drinks on one occasion? Never 04/24/2022 PHQ-2 Answer Date Recorded PHQ-2 Total Score (If total score is 3 or more points, staff should administer the PHQ-9) 0 04/24/2022 [place] Depression Scale Answer Date Recorded [place] Depression Scale Total 1 11/28/2020 The thought of harming myself has occurred to me . Never 11/28/2020 Comments Unknown Sex and Gender Information Value Date Recorded Sex Assigned at Not on file Legal Sex Female 2:07 PM CDT Gender Identity Not on file Sexual Orientation Not on file documented as of this encounter Miscellaneous Notes * Telephone Encounter - Sole Ireland - 01/01/2023 11:48 AM CST Auth's complete, Ill fax now. MOVER * Telephone Encounter - Chloe Shepherd MA - 01/01/2023 11:27 AM CAR MOVER Sole can you look into this? I dont know what they need?? MOVER * Telephone Encounter - Elgin Nielsen - 01/01/2023 9:20 AM CST Medical Question/Miscellaneous Caller???s Concern: [facility] called in regards to referral. Transferred to back line. Caller???s Call back #: [phone] Does message need to be routed?No MOVER * Telephone Encounter - Magdalena Gastelum - 01/01/2023 9:16 AM CST Call Back Caller???s Concern: patient called in sitting that [facility] is asking if their is a referral number on the referral. Patient is currently on the line with [facility] looking for the referral in the system. Marking HP patient's appointment is within the next hour. Caller???s Call back #: [phone] Does message need to be routed? Yes-Action Needed MOVER * Telephone Encounter - Gloria Hamilton MA - 01/01/2023 8:51 AM CST Called patient who stated they are on the phone with to resolve the issue now. MOVER * Telephone Encounter - Elgin Nielsen - 01/01/2023 8:17 AM CST Medical Question/Miscellaneous Caller???s Concern: Patient called in regards to referral/ Patient has appointment today at 1030am and Neurologist still have not received referral. Per previous encounter, referral is placed, however show referral as pending. Call back requested. Caller???s Call back #: [phone] Does message need to be routed?Yes-Action Needed MOVER * Telephone Encounter - Analia Guerra MA - 12/20/2022 9:18 AM CST Referral placed MOVER * Telephone Encounter - Delaney Carrasco - 12/20/2022 8:55 AM CST Referral Provider Name (if patient is seeing a nurse practitioner or physician assistant city attorney, list the [employer]/PA, but also their collaborating doctor): Dr. Mary Russell Specialty: Neurology Address: [address] [place] [address], Zip: [place] [address] Diagnosis Code/Symptom/Reason Patient is being seen: severe headaches / vision & hearing loss Date of Appointment: 01.01.23 NPI#: unknown Tax ID#: unknown Is insurance in chart up to date? yes Caller???s Callback #: [phone] Additional Comments: Former Angel patient will transition to Dr. Mir - seeking new referral. Does message need to be routed?Yes-Action Needed MOVER documented in this encounter Plan of Treatment Not on file documented as of this encounter Visit Diagnoses Diagnosis Severe headache- Primary Headache Severe frontal headaches Headache Other specified hearing loss of both ears Vision loss Unspecified visual loss documented in this encounter Care Teams School Psychologist Assistant Relationship Specialty Start Date End Date Rachel Ortiz MD [address] [address] PCP - General Internal Medicine 02/15/22 07/14/23 documented as of this encounter
--- OUTSIDE RECORDS SUMMARY | 2024-11-29 06:23 | XMS_ITS | Encounter Summary ---
Author Organization [facility] Healthcare Address [address] [place] [address] Care Team Providers Care Personnel Security Assistant Name Role Phone Abhilash Sam MD Unavailable [phone] Mary Russell MD Unavailable [phone] Luz Meneses Primary Care Provider + Encounter Details Date Type Department Care Team (Late st Contact Info) Description 07/20/2024 Orders Only [facility] Medical Group Orthopedics and Sports Medicine [address] [place] [phone] Letha Duarte DO [address] [place] [phone] Social History Tobacco Use Types Packs/Day Years [...] staff should administer the PHQ-9) 0 06/01/2024 [place] Depression Scale Answer Date Recorded [place] Depression Scale Total 1 11/28/2020 The thought [...] as of this encounter Plan of Treatment Not on file documented as of this encounter Visit Diagnoses Not on filedocumented in this encounter Care Teams Personnel Security Assistant Relationship Specialty Start Date End Date Luz Meneses PA [address] [facility] [address] [place] [address] PCP - General Family Medicine 06/01/24 Abhilash Sam MD [address] [place] [address] Consulting Physician Obstetrics and Gynecology 07/15/23 Mary Russell MD [address] [address] Referring Physician Pediatric Neurology 07/15/23 documented as of this encounter
--- OUTSIDE RECORDS SUMMARY | 2024-11-29 06:23 | XMS_ITS | Encounter Summary ---
Author Organization [facility] Healthcare Address [address] [place] [address] Care Team Providers Care Precision Thread Grinder Operator Name Role Phone Mateo Mir MD Primary Care Provider + [phone] Abhilash Sam MD Unavailable [phone] Mary Russell MD Unavailable [phone] Reason for Referral * MRI/CAT/PET Scan (Routine) - Closed Specialty Diagnoses / Procedures Referred By Contac t Referred To Contact Radiology Diagnoses Lymphadenopathy, inguinal H/O urinary frequency Procedures CT Pelvis W Contrast Mateo Mir MD Phone: tel: fax: [address] [phone] Referral ID Status Reason Start Date Expiration Date Visits Re quested Visits Authorized [id number] Closed 12/10/2023 01/08/2025 1 1 ORTABILITY ENGINEER Reason for Visit * MRI/CAT/PET Scan (Routine) - Closed Specialty Diagnoses / Procedures Referred By Contac t Referred To Contact Radiology Diagnoses Lymphadenopathy, inguinal H/O urinary frequency Procedures CT Pelvis W Contrast Mateo Mir MD Phone: tel: fax: [address] [phone] Referral ID Status Reason Start Date Expiration Date Visits Re quested Visits Authorized [id number] Closed 12/10/2023 01/08/2025 1 1 Encounter Details Date Type Department Care Team (Latest Contact Info) Description 12/20/2023 11:55 AM SUPPORTABILITY ENGINEER - 12/20/2023 11:59 PM SUPPORTABILITY ENGINEER Hospital Encounter [facility] [address] [place] [address] Lymphadenopathy, inguinal; H/O urinary frequency Discharge Disposition: Discharge to home or self [...] points, staff should administer the PHQ-9) 0 10/01/2023 [place] Depression Scale Answer Date Recorded [place] Depression Scale Total 1 11/28/2020 The thought of harming myself has occurred to me . Never 11/28/2020 Personal Safety Answer Date Recorded Getting School Help Needed Not on file 11/04 Comments No Sex and Gender Information Value Date Recorded Sex Assigned at Not on file Legal Sex Female 2:07 PM CDT Gender Identity Not on file Sexual Orientation Not on file documented as of this encounter Medications at Time of Discharge ascorbic acid (VITAMIN C) 100 mg tablet Take 1 tablet (100 mg total) by mouth daily acetaminophen (TYLENOL) 500 mg tablet Take 1 tablet (500 mg total) by mouth every 6 (six) hours as needed for pain 4 calcium carbonate-mag hydroxid 1,000-200 mg tablet,chewable Take by mouth 4 cetirizine (ZyrTEC) 10 mg tablet Take 1 tablet (10 mg total) by mouth daily 4 cyanocobalamin (Vitamin B-12) 1,000 mcg tabletIndications :Prevention of Vitamin B12 Deficiency Take 1 tablet (1,000 mcg total) by mouth daily 4 ergocalciferol (VITAMIN D) 50,000 unit capsule 1 capsule (50,000 Units total) once a week 02/23/2022 4 fluticasone propionate (FLONASE) 50 mcg/actuation nasal spray Administer 2 sprays into each nostril daily 3 each 4 10/01/2023 4 ibuprofen (ADVIL,MOTRIN) 600 mg tablet TAKE 1 TABLET BY MOUTH THREE TIMES DAILY NEEDED FOR FEVER OR PAIN 11/26/2023 4 Lactobacillus acidophilus (Probiotic) 10 billion cell capsule Take 1 Caplet by mouth daily 4 magnesium gluconate 200 mg tabletIndications :hypomagnesemia Take 1.25 tablets (250 mg total) by mouth daily 4 multivitamin capsule Take 1 capsule by mouth daily 4 omega-3 fatty acids-fish oil 300-1,000 mg capsule Take 2 capsules (2 g total) by mouth daily 4 predniSONE (DELTASONE) 20 mg tablet 11/26/2023 4 documented as of this encounter Discharge Disposition Disposition Code Departure Means Destination Discharge to home or self care documented in this encounter Plan of Treatment Not on file documented as of this encounter Procedures Procedure Name Priority Date/Time Associated Diagnosis Comments CT PELVIS W CONTRAST Schedule Routine, Read Routine (OP Routine) 12/20/2023 12:26 PM SUPPORTABILITY ENGINEER Lymphadenopathy, inguinal H/O urinary frequency documented in this encounter Results * CT Pelvis W Contrast (12/20/2023 12:26 PM SUPPORTABILITY ENGINEER) Anatomical Region Laterality Modality Body N/A Computed Tomogra phy 12/23/2023 4:12 PM SUPPORTABILITY ENGINEER Narrative 12/23/2023 4:23 PM SUPPORTABILITY ENGINEER EXAM DESCRIPTION: ?? CT PELVIS W CONTRAST REASON FOR STUDY: ?? Lymphadenopathy, pelvic ?? Lymphadenopathy, groin, Lymphadenopathy, inguinal, H/O urinary frequency. Pt states right anterior groin pain and posterior back pain x 1 year, NKI and no surgery to scan area ?? TECHNIQUE: CT scan of the pelvis performed ?? with ??intravenous and ?? without ?? oral contrast using helical scanning technique with dynamic intravenous contrast injection. Reconstructed coronal and sagittal MPR images reviewed. All images stored on PACS. ??Automated exposure control was used as a dose optimization technique for this examination. CONTRAST TYPE/DOSE: ?? 100mL of IOVERSOL 350 MG IODINE/ML INTRAVENOUS SYRINGE ?? injected via ?? intravenous COMPARISON: None. FINDINGS: URINARY: ?? Fluid in the urinary bladder. ??No abnormalities of the bladder seen. GI: ?? The included bowel is nondilated. ??Appendix is not convincingly seen. ?? The terminal ileum is normal. PERITONEUM: ?? Small amount of free fluid in the pelvis which is nonspecific and may be physiologic. RETROPERITONEUM: ?? No retroperitoneal mass. REPRODUCTIVE: ?? The uterus is noted. ??There is of peripheral enhancing structure in the right ovary 1.5 cm (image 45). VASCULATURE: ?? Iliac arteries are nonaneurysmal. MUSCULOSKELETAL: ?? Bone windows demonstrate no acute or aggressive osseous abnormality. OTHER: No pathologic lymphadenopathy. ??Tiny nonenlarged inguinal lymph nodes are normal. IMPRESSION: No acute abnormality of the pelvis. Small amount of free fluid in the pelvis which is nonspecific and may be physiologic. THIS IS AN ELECTRONICALLY VERIFIED FINAL REPORT 12/23/2023 4:23 PM - Electronically signed by ??Chencho Mccollum M.D. D: ??12/23/2023 4:23 PM T: Report ID: [id number] Reading Location: ??[id number] Procedure Note Chencho Mccollum Jr., MD - 12/23/2023 EXAM DESCRIPTION: CT PELVIS W CONTRAST REASON FOR STUDY: Lymphadenopathy, pelvic Lymphadenopathy, groin, Lymphadenopathy, inguinal, H/O urinary frequency.Pt states right anterior groin pain and posterior back pain x 1 year, NKI andno surgery to scan area TECHNIQUE: CT scan of the pelvis performed with intravenous andwithout oral contrast using helical scanning technique with dynamic intravenous contrast injection. Reconstructed coronal and sagittal MPR imagesreviewed. All images stored on PACS. Automated exposure control was used as a dose optimization technique for this examination. CONTRAST TYPE/DOSE: 100mL of IOVERSOL 350 MG IODINE/ML INTRAVENOUSSYRINGE injected via intravenous COMPARISON: None. FINDINGS: URINARY: Fluid in the urinary bladder. No abnormalities ofthe bladder seen. GI: The included bowel is nondilated. Appendix is not convincinglyseen. The terminal ileum is normal. PERITONEUM: Small amount of free fluid in the pelvis which isnonspecific and may be physiologic. RETROPERITONEUM: No retroperitoneal mass. REPRODUCTIVE: The uterus is noted. There is of peripheral enhancing structure in the right ovary 1.5 cm (image 45). VASCULATURE: Iliac arteries are nonaneurysmal. MUSCULOSKELETAL: Bone windows demonstrate no acute or aggressive osseous abnormality. OTHER: No pathologic lymphadenopathy. Tiny nonenlarged inguinal lymphnodes are normal. IMPRESSION: No acute abnormality of the pelvis. Small amount of free fluid in the pelvis which is nonspecific and may be physiologic. THIS IS AN ELECTRONICALLY VERIFIED FINAL REPORT 12/23/2023 4:23 PM - Electronically signed by Chencho Mccollum M.D. T: Report ID: [id number] Reading Location: [place] [address] [place] Mateo Mir MD IMG CT PROCEDURES Final Resu lt documented in this encounter Visit Diagnoses Diagnosis Lymphadenopathy, inguinal H/O urinary frequency documented in this encounter Administered Medications Inactive Administered Medications - up to 3 most recent administrations Medication Order MAR Action Action Date Dose Rate Site ioversoL (OPTIRAY 350) syringe 100 mL 100 mL, intravenous, Once in imaging, contrast, Starting on Sat12/20/23 at 1227, For 1 dose Contrast Given 12/20/2023 12:27 PM SUPPORTABILITY ENGINEER 100 mL Right Antecubital documented in this encounter Orders Medications Ordered That Karthikeyan ht Not Have Been Administered Count Last Ordered Date First Ordered Date ioversoL (OPTIRAY 350) syringe 100 mL 1 documented in this encounter Care Teams Precision Thread Grinder Operator Relationship Specialty Start Date End Date Mateo Mir MD PCP - General Internal Medicine 07/15/23 05/31/24 Abhilash Sam MD [address] [place], [place] [address] Consulting Physician Obstetrics and Gynecology 07/15/23 Mary Russell MD [address] [place] [address] Referring Physician Pediatric Neurology 07/15/23 documented as of this encounter
--- OUTSIDE RECORDS SUMMARY | 2024-11-29 06:23 | XMS_ITS | Encounter Summary ---
Author Organization [facility] Healthcare Address [address] [place] [address] Care Team Providers Care Surveyor Mine Name Role Phone Mateo Mir MD Primary Care Provider [phone] Abhilash Sam MD Unavailable [phone] Mary Russell MD Unavailable [phone] Encounter Details Date Type Department Care Team (Latest Contact Info) Description 03/25/2024 4:17 PM CDT - 03/25/2024 11:59 PM CDT Hospital Encounter [facility] [address] [place] [address] Vaginal discharge Discharge Disposition: Discharge to home or self care Social History Tobacco Use Types Packs/Day Years Used Date Smoking Tobacco: Former Cigarettes Q uit: 02/15/2010 Smokeless Tobacco: Never Alcohol Use Standard Drinks/Week Comments Not Currently 1 (1 standard drink = 0.6 oz pur e alcohol) AUDIT-C Answer Date Recorded Q1: How often do you have a drink containing alc ohol? 2-4 times a month 12/26/2023 Q2: How many drinks containi ng alcohol do you have on a typical day when you are drinking? 1 or 2 12/26/2023 Q3: How often do you have si x or more drinks on one occasion? Never 12/26/2023 PHQ-2 Answer Date Recorded PHQ-2 Total Score (If total score is 3 or more points, staff should administer the PHQ-9) 0 10/01/2023 [place] Depression Scale Answer Date Recorded [place] Depression Scale Total 1 11/28/2020 The thought [...] (six) hours as needed for pain 4 albuterol HFA (PROVENTIL HFA,VENTOLIN HFA,PROAIR HFA) 90 mcg/actuation inhaler 03/15/2024 4 calcium carbonate-mag hydroxid 1,000-200 mg tablet,chewable [...] (250 mg total) by mouth daily 4 methylPREDNISolon e (MEDROL DOSEPACK) 4 mg Dosepack 03/15/2024 4 multivitamin capsule Take 1 capsule by mouth daily 4 omega-3 fatty acids-fish oil 300-1,000 mg capsule Take 2 capsules (2 g total) by mouth daily 4 predniSONE (DELTASONE) 20 mg tablet 11/26/2023 4 promethazine-DM (PROMETHAZINE-DM) 1.25-3 mg/mL syrup 03/15/2024 4 documented as of this encounter Discharge Disposition Disposition Code Departure Means Destination Discharge to home or self care documented in this encounter Plan of Treatment Not on file documented as of this encounter Procedures Procedure Name Priority Date/Time Associated Diagnosis Comments VAGINITIS PANEL Routine 03/25/2024 2:42 PM CDT Vaginal discharge documented in this encounter Results * Vaginitis panel Vaginal (03/25/2024 2:42 PM CDT) Tawnya DNA probe Not Detected Not Detected Comment:Testing performed by : [facility], [address] [place] [address]., [id number] Gardnerella DNA probe Not Detected Not Detected TOM Comment:Testing performed by : [address] [address] Trichomonas DNA probe Not Detected Not Detected TOM Comment: Interpretive Data Testing performed by [facility] via [employer] VPIII Microbial Identification Test, a DNA probe test for use in the detection and identification of Tawnya species, Gardnerella vaginalis and Trichomonas vaginalis nucleic acid in vaginal fluid specimens from patients with symptoms of vaginitis/vaginosis. Negative results for these tests suggest the patient does not have candidiasis, bacterial vaginosis and/or trichomoniasis when consistent with clinical signs and symptoms. Current interpretive data was last revised on 2020. Testing performed by: [address] [address] Vaginal 03/25/2024 2:42 PM CDT 03/25/2024 7:23 PM CDT Jeffy Marvin MD LAB MICROBIOLOGY - GENER AL ORDERABLES Final Result TOM [address] [facility] Department [place] [address] documented in this encounter Visit Diagnoses Diagnosis Vaginal discharge Leukorrhea, not specified as infective documented in this encounter Care Teams Surveyor Mine Relationship Specialty Start Date End Date Mateo Mir MD PCP - General Internal Medicine 07/15/23 05/31/24 Abhilash Sam MD [address] [place] [address] Consulting Physician Obstetrics and Gynecology 07/15/23 Mary Russell MD [address] [place] [id number] Referring Physician Pediatric Neurology 07/15/23 documented as of this encounter
--- OUTSIDE RECORDS SUMMARY | 2024-11-29 06:23 | XMS_ITS | Encounter Summary ---
Author Organization [facility] Healthcare Address [address] [place] [address] Care Team Providers Care Ambulance Operations Supervisor Name Role Phone Mateo Mir MD Primary Care Provider + [phone] Abhilash Sam MD Unavailable [phone] Mary Russell MD Unavailable [phone] Encounter Details Date Type Department Care Team (Late st Contact Info) Description 03/25/2024 Telephone [facility] Medical Group Obstetrical Gynecology [address] [phone] Indigo Reece MD [facility] [address] Social History Tobacco Use Types Packs/Day Years [...] staff should administer the PHQ-9) 0 10/01/2023 [place] Depression Scale Answer Date Recorded [place] Depression Scale Total 1 11/28/2020 The thought [...] encounter Miscellaneous Notes * Telephone Encounter - Elvia Jaimes - 03/25/2024 2:26 PM CDT Last WWE/OV: Next WWE/OV: Symptom(s): thick white discharge with itching and burning, no odor How lon days Has anything been tried OTC or RX? tammi Buckner in [place] Preferred Communication: Phone documented in this encounter Plan of Treatment Not on file documented as of this encounter Visit Diagnoses Not on filedocumented in this encounter Care Teams Ambulance Operations Supervisor Relationship Specialty Start Date End Date Mateo Mir MD PCP - General Internal Medicine 07/15/23 05/31/24 Abhilash Sam MD [address] [address] Consulting Physician Obstetrics and Gynecology 07/15/23 Mary Russell MD [address] [address] Referring Physician Pediatric Neurology 07/15/23 documented as of this encounter
--- OUTSIDE RECORDS SUMMARY | 2024-11-29 06:23 | XMS_ITS | Encounter Summary ---
Author Organization [facility] Healthcare Address [address] [place] [address] Care Team Providers Care Boiler House Inspector Name Role Phone Abhilash Sam MD Unavailable [phone] Mary Russell MD Unavailable [phone] Luz Meneses Primary Care Provider + Encounter Details Date Type Department Care Team (Late st Contact Info) Description 06/01/2024 11:05 AM CDT Lab [facility] [address] [place] [id number] Arthralgia, unspecified joint; Myalgia; Vitamin D deficiency (15); Low serum vitamin B12 Social History Tobacco Use Types Packs/Day Years [...] staff should administer the PHQ-9) 0 06/01/2024 [place] Depression Scale Answer Date Recorded [place] Depression Scale Total 1 11/28/2020 The thought [...] Procedure Name Priority Date/Time Associated Diagnosis Comments EGFR Routine 06/01/2024 11:28 AM CDT Arthralgia, unspecified joint Myalgia DIFFERENTIAL AUTO Routine 06/01/2024 11: 28 AM CDT Arthralgia, unspecified joint Myalgia THYROID FUNCTION CASCADE Routine 06/01/2024 11:28 AM CDT Arthralgia, unspecified joint Myalgia CBC WITH AUTO DIFFERENTIAL Routine 06/01/2024 11:28 AM CDT Arthralgia, unspecified joint Myalgia VITAMIN D 25 HYDROXY Routine 06/01/2024 11:28 AM CDT Vitamin D deficiency (15) VITAMIN B12 Routine 06/01/2024 11:28 AM CDT Low serum vitamin B12 CREATINE KINASE (CK), TOTAL Routine 06/01/2024 11:28 AM CDT Arthralgia, unspecified joint Myalgia COMPREHENSIVE METABOLIC PANEL Routine 06/01/2024 11:28 AM CDT Arthralgia, unspecified joint Myalgia documented in this encounter Results * eGFR (06/01/2024 11:28 AM CDT) [facility] eGFR 84 >=60 mL/min/1. 73 m2 Comment: Interpretive Data Reference Interval Normal ?>/= 90 mL/min/1.73m2 Mildly decreased* ? 60 - 89 mL/min/1.73m2 Mildly to moderately decreased ?45 - 59 mL/min/1.73m2 Moderately to severely decreased ??30 - 44 mL/min/1.73m2 Severely decreased ?15 - 29 mL/min/1.73m2 Kidney Failure ?< 15 ??mL/min/1.73m2 *Relative to young adult level Estimated glomerular filtration rate is determined by the 2020 CKD-EPI equation recommended by the National Kidney Foundation (A Unifying Approach to GFR Estimation: Recommendations of the NKF-ASK Task Force on Reassessing the Inclusion of Race in Diagnosing Kidney Disease, JASN 2020). The CKD-EPI equation should not be used for patients with unstable renal function and has not been validated in children and those over 70. Current interpretive data was last reviewed 2021. Testing performed by: [address] [address] Blood 06/01/2024 11:2 8 AM CDT 06/01/2024 11:53 AM CDT us Luz MCKEON LAB BLOOD ORDERABLES Fin al Result Performing Organization Address City/State/[facility] Co wy Phone Number TOM [address] [facility] [place] [address] * Differential, auto (06/01/2024 11:28 AM CDT) Neutrophil abs 3.7 1.5 - 6.5 K/cumm Comment:Testing performed by : [address] [address] Imm gran abs 0.0 0.0 - 0.1 K/cumm TOM RIVERA Comment:Testing performed by : [address] [address] Lymphocyte abs 2.1 0.8 - 3.3 K/cumm TAMERAPATY Comment:Testing performed by : [address] [address] Monocyte abs 0.3 0.2 - 0.8 K/cumm TOM Comment:Testing performed by : [address], [place]., [address] Eosinophil abs 0.1 0.0 - 0.5 K/cumm [facility] Comment:Testing performed by : [address] [address] Basophil abs 0.0 0.0 - 0.1 K/cumm [place] Comment:Testing performed by : [address] [address] Neutrophil pct 59.4 % [facility] Comment: Interpretive Data Percent cell count reference ranges are not reported, since discordance with absolute values may lead to misinterpretation of CBC data. Current Interpretive Data was last revised on 2018. Testing performed by: [address] [address] Imm gran pct 0.2 % [facility] Comment: Interpretive Data Percent cell count reference ranges are not reported, since discordance with absolute values may lead to misinterpretation of CBC data. Current Interpretive Data was last revised on 2018. Testing performed by: [address] [address] Lymphocyte pct 33.5 % [facility] Comment: Interpretive Data Percent cell count reference ranges are not reported, since discordance with absolute values may lead to misinterpretation of CBC data. Current Interpretive Data was last revised on 2018. Testing performed by: [address] [address] Monocyte pct 4.8 % [facility] Comment: Interpretive Data Percent cell count reference ranges are not reported, since discordance with absolute values may lead to misinterpretation of CBC data. Current Interpretive Data was last revised on 2018. Testing performed by: [address] [address] Eosinophil pct 1.6 % [facility] Comment: Interpretive Data Percent cell count reference ranges are not reported, since discordance with absolute values may lead to misinterpretation of CBC data. Current Interpretive Data was last revised on 2018. Testing performed by: [address] [address] Basophil pct 0.5 % TOM Comment: Interpretive Data Percent cell count reference ranges are not reported, since discordance with absolute values may lead to misinterpretation of CBC data. Current Interpretive Data was last revised on 2018. Testing performed by: [address] [address] Blood 06/01/2024 11:2 8 AM CDT 06/01/2024 11:53 AM CDT Luz MCKEON LAB BLOOD ORDERABLES Fin al Result Performing Organization Address [facility] de Phone Number [place] [phone] [facility] [employer] [place] [address] * Vitamin B12 (06/01/2024 11:28 AM CDT) Pathologist [facility] Vitamin B12 417 230 - 1,250 pg/mL Comment:Testing performed by : [address] [address] Blood 06/01/2024 11:2 8 AM CDT 06/01/2024 11:53 AM CDT Luz MCKEON LAB BLOOD ORDERABLES Fin al Result Performing Organization Address [facility] de Phone Number [address] [place] [employer] [place] [address] * Vitamin D 25 hydroxy (06/01/2024 11:28 AM CDT) Vitamin D 25-OH 30.0 30.0 - 80.0 ng/mL Blood 06/01/2024 11:2 8 AM CDT 06/01/2024 2:37 PM CDT Luz MCKEON LAB BLOOD ORDERABLES Fin al Result Performing Organization Address [facility]/ZIP Co de Phone Number TAMERA[address] [address] * Creatine kinase (CK), total (06/01/2024 11:28 AM CDT) Pathologist [facility] CK 57 30 - 200 Units/L Comment:Testing performed by : [address] [address] Blood 06/01/2024 11:2 8 AM CDT 06/01/2024 11:53 AM CDT Luz MCKEON LAB BLOOD ORDERABLES Fin al Result Performing Organization Address [facility] Co de Phone Number [address] [address] * Thyroid Function [place] (06/01/2024 11:28 AM CDT) [facility] TSH 1.87 0.30 - 4.20 mcIUnit/mL Comment:Testing performed by : [address] [address] Blood 06/01/2024 11:2 8 AM CDT 06/01/2024 11:53 AM CDT Luz MCKEON LAB BLOOD ORDERABLES Fin al Result Performing Organization Address [facility] Co de Phone Number [address] [address] * Comprehensive metabolic panel (06/01/2024 11:28 AM CDT) [facility] Sodium 143 135 - 145 mmol/L Comment:Testing performed by : [address] [address] Potassium, pl 4.3 3.3 - 4.9 mmol/L TOM RIVERA Comment:Testing performed by : [address] [address] Chloride 107 97 - 110 mmol/L TOM RIVERA Comment:Testing performed by : [address] [address] CO2 23 22 - 32 mmol/L [facility] Comment:Testing performed by : [address] [address] Anion gap 13 2 - 15 mmol/L TOM Comment:Testing performed by : [address], [place]., [address] BUN 11 6 - 25 mg/dL TOM Comment:Testing performed by : [address], [place]., [address] Creatinine 0.90 0.60 - 1.10 mg/dL [facility] Comment:Testing performed by : [address] [address] Glucose 86 70 - 199 mg/dL [facility] Comment: Interpretive Data Fasting glucose >/= 126 mg/dl is diagnostic for diabetes. ?? Fasting is defined as no caloric intake for at least 8 hours. Fasting glucose between 100 mg/dl to 125 mg/dl is diagnostic of prediabetes. In a patient with classic symptoms of hyperglycemia or hyperglycemic crisis, a random glucose >/= 200 mg/dl is diagnostic for diabetes. In the absence of unequivocal hyperglycemia, results should be confirmed by repeat testing. The classification and Diagnosis of Diabetes Diabetes Care 202; 46: S19-S40. Current interpretive data was last revised 2022. Testing performed by: [address] [address] Calcium 9.2 8.5 - 10.3 mg/dL [facility] Comment:Testing performed by : [address] [address] Bilirubin, total 0.4 0.1 - 1.2 mg/dL [facility] Comment:Testing performed by : [address] [address] Protein, pl 7.1 6.5 - 8.5 g/dL TOM Comment:Testing performed by : [address] [address] Albumin 4.4 3.5 - 5.0 g/dL TOM Comment:Testing performed by : [address] [address] Alk phos 59 40 - 130 Units/L TOM RIVERA Comment:Testing performed by : [address] [address] ALT 16 7 - 45 Units/L TOM RIVERA Comment:Testing performed by : [address] [address] AST 17 10 - 45 Units/L TOM RIVERA Comment:Testing performed by : [address] [address] Blood 06/01/2024 11:2 8 AM CDT 06/01/2024 11:53 AM CDT us Luz MCKEON LAB BLOOD ORDERABLES Fin al Result TOM [facility] Department [place] [address] * (ABNORMAL) CBC with auto differential (06/01/2024 11:28 AM CDT) WBC 6.2 3.8 - 9.9 K/cumm Comment:Testing performed by : [address] [address] Hgb 13.5 11.9 - 15.5 g/dL TOM RIVERA Comment:Testing performed by : [address] [address] Hct 43.3 35.6 - 45.5 % TOM RIVERA Comment:Testing performed by : [address] [address] Plt 204 150 - 400 K/cumm TOM RIVERA Comment:Testing performed by : [address] [address] MPV 10.5 9.1 - 12.3 fL TOM RIVERA Comment:Testing performed by : [address] [address] RBC 5.18 3.90 - 5.20 M/cumm TOM RIVERA Comment:Testing performed by : [address] [address] MCV 83.6 81.3 - 96.4 fL TOM RIVERA Comment:Testing performed by : [facility], [address] [place] [address]., [address] MCH 26.1(L) 27.1 - 33.3 pg TOM RIVERA Comment:Testing performed by : [facility], [address] [place] [address]., [address] MCHC 31.2(L) 32.3 - 35.7 g/dL TOM RIVERA Comment:Testing performed by : [address] [address] RDW CV 13.5 11.1 - 14.9 % TOM Comment:Testing performed by : [facility], [address] [place] [address]., [address] RDW SD 41.1 35.7 - 48.1 fL TOM Comment:Testing performed by : [facility], [address] [place] [address]., [address] NRBC abs 0.00 0.00 - 0.01 K/cumm TOM Comment:Testing performed by : [address] [address] Blood 06/01/2024 11:2 8 AM CDT 06/01/2024 11:53 AM CDT Luz MCKEON LAB BLOOD ORDERABLES Fin al Result TOM [address] [facility] Department [place] [address] documented in this encounter Visit Diagnoses Diagnosis Arthralgia, unspecified joint Myalgia Unspecified myalgia and myositis Vitamin D deficiency (15) Low serum vitamin B12 documented in this encounter Care Teams Boiler House Inspector Relationship Specialty Start Date End Date Luz Meneses PA [address] [facility] [address] [place] [address] PCP - General Family Medicine 06/01/24 Abhilash Sam MD [address] [place] [address] [address] [place] [address] Consulting Physician Obstetrics and Gynecology 07/15/23 Mary Russell MD [address] [place] [id number] Referring Physician Pediatric Neurology 07/15/23 documented as of this encounter
--- OUTSIDE RECORDS SUMMARY | 2024-11-29 06:23 | XMS_ITS | Encounter Summary ---
Author Organization [facility] Address [address] [facility] [address] [place] [address] Care Team Providers Care Hydrocrane Operator Name Role Phone Rachel Ortiz MD Primary Care Provider [phone] Reason for Visit * Reason Onset Date Comments Dx change 03/16/2022 Encounter Details Date Type Department Care Team ([facility] st Contact Info) Description 03/16/2022 Telephone [facility] Primary Care [address] [phone] Rachel Ortiz MD [facility] [address] Dx change Social History Tobacco Use Types Packs/Day Years Used Date Smoking Tobacco: Former Cigarettes Q uit: 02/15/2010 Smokeless Tobacco: Never Alcohol Use Standard Drinks/Week Comments Not Currently 1 (1 standard drink = 0.6 oz pur e alcohol) AUDIT-C Answer Date Recorded Q1: How often do you have a drink containing alc ohol? 2-4 times a month 03/14/2022 Q2: How many drinks containi ng alcohol do you have on a typical day when you are drinking? 1 or 2 03/14/2022 Q3: How often do you have si x or more drinks on one occasion? Never 03/14/2022 PHQ-2 Answer Date Recorded PHQ-2 Total Score (If total score is 3 or more points, staff should administer the PHQ-9) 0 03/14/2022 [place] Depression Scale Answer Date Recorded [place] Depression Scale Total 1 11/28/2020 The thought of harming myself has occurred to me . Never 11/28/2020 Comments No Sex and Gender Information Value Date Recorded Sex Assigned at Not on file Legal Sex Female 2:07 PM CDT Gender Identity Not on file Sexual Orientation Not on file documented as of this encounter Miscellaneous Notes * Telephone Encounter - Analia Guerra MA - 03/16/2022 3:23 PM CDT Dx updated * Telephone Encounter - Rachel Ortiz MD - 03/16/2022 12:23 PM CDT Oh that was an accident, please put muscle pain- back * Telephone Encounter - Mariah Ohara MA - 03/16/2022 9:36 AM CDT Please advise * Telephone Encounter - Vijaya Rae - 03/16/2022 9:18 AM CDT [facility]/PT called on referral stating that the dx listed cannot be used for dry needling. Please advise. Thanks documented in this encounter Plan of Treatment Not on file documented as of this encounter Visit Diagnoses Not on filedocumented in this encounter Care Teams Hydrocrane Operator Relationship Specialty Start Date End Date Rachel Ortiz MD [address] [place] [id number] PCP - General Internal Medicine 02/15/22 07/14/23 documented as of this encounter
--- OUTSIDE RECORDS SUMMARY | 2024-11-29 06:23 | XMS_ITS | Encounter Summary ---
Author Organization [facility] Healthcare Address [address] [place] [address] Care Team Providers Care Manager Financial Reporting Name Role Phone Rachel Ortiz MD Primary Care Provider [phone] Encounter Details Date Type Department Care Team (Late st Contact Info) Description 06/06/2022 12:35 PM CDT Lab [facility] Building [address] [address] Fatigue, unspecified type Social History Tobacco Use Types Packs/Day Years [...] staff should administer the PHQ-9) 0 04/24/2022 [place] Depression Scale Answer Date Recorded [place] Depression Scale Total 1 11/28/2020 The thought [...] Procedure Name Priority Date/Time Associated Diagnosis Comments VITAMIN D 25 HYDROXY Routine 06/06/2022 12:59 PM CDT Fatigue, unspecified type TSH Routine 06/06/2022 12:59 PM CDT Fatigue, unspecified type T4, FREE Routine 06/06/2022 12:59 PM CDT Fatigue, unspecified type documented in this encounter Results * (ABNORMAL) Vitamin D 25 hydroxy (06/06/2022 12:59 PM CDT) Vitamin D 25-OH 20.0(L) 30.0 - 80.0 ng/mL TOM Comment:Below Ref Range Blood 06/06/2022 12:5 9 PM CDT 06/06/2022 4:52 PM CDT Rachel Ortiz MD LAB BLOOD ORDERABLES Final Resu lt Performing Organization Address City/[facility]/ZIP Co de Phone Number TAMERA[address] [place] [address] * TSH (06/06/2022 12:59 PM CDT) Thyroid Stimulating Hormone 2.02 0.30 - 4.20 mcIUnit/mL TOM Comment:Testing performed by : [facility], [address] [place] [address]., [address] Blood 06/06/2022 12:5 9 PM CDT 06/06/2022 3:56 PM CDT Rachel Ortiz MD LAB BLOOD ORDERABLES Edited Res ult - Final TAMERA[address] [place] [address] * T4, free (06/06/2022 12:59 PM CDT) Free T4 1.43 0.90 - 1.70 ng/dL TOM Comment:Testing performed by : [facility], [address] [place] [address]., [address] Blood 06/06/2022 12:5 9 PM CDT 06/06/2022 3:56 PM CDT us Rachel Ortiz MD LAB BLOOD ORDERABLES Final Resu lt Performing Organization Address City/State/[facility] Co de Phone Number TOM [address] [facility] Department [place] [address] documented in this encounter Visit Diagnoses Diagnosis Fatigue, unspecified type documented in this encounter Care Teams Manager Financial Reporting Relationship Specialty Start Date End Date Rachel Ortiz MD [address] [place] [address] PCP - General Internal Medicine 02/15/22 07/14/23 documented as of this encounter
--- OUTSIDE RECORDS SUMMARY | 2024-11-29 06:23 | XMS_ITS | Encounter Summary ---
Author Organization [facility] Healthcare Address [address] [place] [address] Care Team Providers Care Supervisor Instrument Mechanics Name Role Phone Abhilash Sam MD Unavailable [phone] Mary Russell MD Unavailable [phone] Luz Meneses Primary Care Provider + Reason for Referral * Consultation (Routine) - Closed Specialty Diagnoses / Procedures Referred By Carlee t Referred To Contact Physical Therapy Diagnoses Chronic pain of both knees Strain of calf muscle, right, initial encounter Strain of calf muscle, left, initial encounter Letha Duarte DO [address] [place] [address] Phone: tel: fax: [facility] [place] [address] [place] [address] Phone: tel: fax: Referral ID Status Reason Start Date Expiration Date V isits Requested Visits Authorized [id number] Closed Specialty Services Required 07/29/2024 07/29/2025 24 15 Question Answer PTRFR PT Evaluate and Treat Therapy options discussed with patient? Yes Location provided for therapy services is: Patient requested/Patient preferred Please select the performing region: External Order [171] To loc/pos [facility] [place] [[id number]] # of visits: 24 Comments Physical therapy 2 to 3 times a week for 3 months Strengthening, range of motion and modalities as needed for BL calves * Diagnostic Imaging (Routine) - Closed Specialty Diagnoses / Procedures Referred By Carlee goetz Referred To Contact Diagnoses Chronic pain of both knees Strain of calf muscle, right, initial encounter Procedures US Lower Extremity Right Letha Duarte DO [address] [place] [address] Phone: tel: fax: [facility] [address] [place] [address] Referral ID Status Reason Start Date Expiration Date Visits Re quested Visits Authorized [id number] Closed 07/09/2024 08/08/2025 1 1 Reason for Visit * Reason Comments Pain Pain * Consultation (Routine) - Authorized Specialty Diagnoses / Procedures Referred By Carlee goetz Referred To Contact Orthopedic Surgery Diagnoses Chronic pain of both knees Luz Meneses PA [address] [facility] [address] [place] [address] Phone: tel: fax: Letha Duarte DO [address] [place] [address] [address] [place] [address] Phone: tel: fax: Referral ID Status Reason Start Date Expiration Date Visits Requested Visits Authorized [id number] Authorized Specialty Services Required 07/02/2024 07/02/2025 8 8 Encounter Details Date Type Department Care Team (Late st Contact Info) Description 07/09/2024 1:30 PM CDT Office Visit [facility] Orthopedics and Sports Medicine [address] [facility] [address] [place] [address] Letha Duarte DO [address] [place] [address] [address] [place] [address] Strain of calf muscle, right, initial encounter (Primary Dx); Chronic pain of both knees; Strain of calf muscle, left, initial encounter Social History Tobacco Use Types Packs/Day Years [...] staff should administer the PHQ-9) 0 06/01/2024 [place] Depression Scale Answer Date Recorded [place] Depression Scale Total 1 11/28/2020 The thought [...] on file documented as of this encounter Progress Notes * Letha Duarte, - 07/09/2024 1:30 PM CDT Images from the original note were not included. New patient visit CHIEF COMPLAINT She had concerns including Pain of the Left Knee and Pain of the Right Knee. HISTORY OF PRESENT ILLNESS Gladys Tai is a 39 y.o. female who was seen today for consultation requested by MIKE Singletary. They present with six-month history of right worse than left posterior knee/calf pain. Patient denies any specific injury and states that she has been doing home exercises which have not helped significantly. She has been taking Advil and has been doing some foam rolling to her try and help his she also has bilateral hip pain and this has not helped her pain. She has not performed physical therapy specifically for her knees. She does not regularly take any anticoagulants in states that her family does have a history of having to take blood thinners but she is not sure if it is dueto blood clots or heart issues. PAST MEDICAL HISTORY She has a past medical history of Abnormal Pap smear of cervix, Headache, Motion sickness, Pneumonia, Right foot pain (02/15/2022), Sprain of left knee (02/15/2022), and Vasovagal syncope (02/15/2022). PAST SURGICAL HISTORY She has a past surgical history that includes Cervical biopsy w/ loop electrode excision (12/26/2023). MEDICATIONS She has a current medication list which includes the following prescription(s): ascorbic acid and cholecalciferol. ALLERGIES She is allergic to erythromycin and penicillins. SOCIAL HISTORY She reports that she quit smoking about 14 years ago. Her smoking use included cigarettes. She has never used smokeless tobacco. She reports that she does not use drugs. Patient reports consuming alcoholic drinks , with a daily consumption of drinks. Patient also reports less than monthly consumption of 6 or more alcoholic drinks at one occasion. FAMILY HISTORY Family History Problem Relation Age of Onset Thyroid disease Mother Unknown Family History Father Thyroid disease Sister Graves' disease Sister Diabetes Maternal Grandmother Breast cancer Neg Hx Ovarian cancer Neg Hx Uterine cancer Neg Hx REVIEW OF SYSTEMS Constitutional: Positive for activity change Musculoskeletal: Positive for arthralgias PHYSICAL EXAM There were no vitals taken for this visit. Bilateral lower extremity exam: Patient has tenderness palpation about the posterior aspect of the right knee which is much more intense than the left. Patient has the ability to fully extend both knees but does have increasing posterior knee pain in the right knee with full extension and does have pain with flexion greater than 90?? bilaterally, worse on the right. Patient does not have significant pain upon squeezing the bilateral calves but does have pain in the proximal aspect of bilateral lower legs, worse in the right than the left. Intact sensation in all toes 2+ dorsalis pedis pulse. No significant swelling or erythema seen in bilateral lower extremities. REVIEW OF X-RAYS/STUDIES/LABS Multiple x-rays of bilateral knees performed on 06/01/2024 and independently interpreted by me shows no evidence of osteoarthritis present tricompartmentally in bilateral knees, no sign of fracture or dislocation. There are bilateral fabellas incidentally seen on both knees. Assessment/Plan: 1. Chronic pain of both knees - Ambulatory referral to Orthopedic Surgery - Lower Extremity Right - Ambulatory referral order to Physical Therapy -; Future 2. Strain of calf muscle, right, initial encounter - US Lower Extremity Right - Ambulatory referral order to Physical Therapy -; Future 3. Strain of calf muscle, left, initial encounter - Ambulatory referral order to Physical Therapy -; Future I discussed with the patient that I believe she has calf muscle straining and possibly Achilles tendinitis or insertional pain for gastrocnemius. Due to her having increase in pain in the right calf on exam I would like to have an ultrasound performed to rule out a DVT which is very low on my differential. I would like her to start physical therapy after the ultrasound if it is negative at her preference in [place] in [place]. She may continue utilize naproxen and Tylenol as needed for pain relief. Patient states she has plans to go to [place] near future I stated that I would like her to have the ultrasound performed and interpreted before she goes on her flight and she voiced understanding. Letha Duarte DO 07/09/2024 documented in this encounter Plan of Treatment Scheduled Orders Name Type Priority Associated Diagnoses Orde r Schedule US Lower Extremity Right Imaging Schedule Routine, Read Routine (OP Routine) Chronic pain of both knees Strain of calf muscle, right, initial encounter Ordered: 07/09/2024 Scheduled Referrals Name Type Priority Associated Diagnoses Order Schedule Ambulatory referral order to Physical Therapy - Outpatient Referral Routine Chronic pain of both knees Strain of calf muscle, right, initial encounter Strain of calf muscle, left, initial encounter Expected: 07/23/2024 (Approximate), Expires: 07/09/2025 documented as of this encounter Visit Diagnoses Diagnosis Strain of calf muscle, right, initial encounter- Primary Chronic pain of both knees Strain of calf muscle, left, initial encounter documented in this encounter Orders Outpatient Referral Count Last Ordered Date Fir st Ordered Date AMB REFERRAL TO ORTHOPEDIC SURGERY 1 2023 documented in this encounter Care Teams Supervisor Instrument Mechanics Relationship Specialty Start Date End Date Luz Meneses PA [address] [facility] [address] [place] [address] PCP - General Family Medicine 06/01/24 Abhilash Sam MD [address] [facility] [address] [place] [address] Consulting Physician Obstetrics and Gynecology 07/15/23 Mary Russell MD [address] [place] [address] Referring Physician Pediatric Neurology 07/15/23 documented as of this encounter
--- OUTSIDE RECORDS SUMMARY | 2024-11-29 06:23 | XMS_ITS | Encounter Summary ---
Author Organization [facility] Healthcare Address [address] [place] [address] Care Team Providers Care Aml Analyst Name Role Phone Mateo Mir MD Primary Care Provider [phone] Abhilash Sam MD Unavailable [phone] Mary Russell MD Unavailable [phone] Encounter Details Date Type Department Care Team (Latest Contact Info) Description 11/04/2023 1:29 PM PUBLIC RELATIONS ACCOUNT EXECUTIVE - 11/04/2023 11:59 PM PUBLIC RELATIONS ACCOUNT EXECUTIVE Hospital Encounter [facility] Office Building [address] [address] ASCUS with positive high risk HPV cervical Discharge Disposition: Discharge to home or self [...] staff should administer the PHQ-9) 0 10/01/2023 [place] Depression Scale Answer Date Recorded [place] Depression Scale Total 1 11/28/2020 The thought [...] (six) hours as needed for pain 4 benzonatate (TESSALON) 100 mg capsule benzonatate 100 mg oral capsule Start Date: 07/28/21 Status: Ordered 07/28/2021 4 cetirizine (ZyrTEC) 10 mg tablet Take 1 tablet (10 mg total) by mouth daily 4 cyclobenzaprine (FLEXERIL) 5 mg tablet Take 1 tablet (5 mg total) by mouth 3 (three) times a day as needed for muscle spasms 30 tablet 07/11/2022 4 doxycycline monohydrate (MONODOX) 100 mg capsule 0 total refill(s) 06/13/[address] (CYMBALTA) 30 mg capsule Take 1 capsule (30 mg total) by mouth 2 (two) times a day 180 capsule 4 04/24/2022 4 ergocalciferol (VITAMIN D) 50,000 unit capsule 1 capsule (50,000 Units total) once a week 02/23/2022 4 fluticasone propionate (FLONASE) 50 mcg/actuation nasal spray Administer 2 sprays into each nostril daily 3 each 4 10/01/2023 4 Lactobacillus acidophilus (Probiotic) 10 billion cell capsule Take 1 Caplet by mouth daily 4 multivitamin capsule Take 1 capsule by mouth daily 4 omeprazole (PriLOSEC) 20 mg capsule Take 1 capsule (20 mg total) by mouth daily 30 capsule 11 10/01/2023 4 predniSONE (DELTASONE) 20 mg tablet predniSONE 20 mg oral tablet Start Date: 06/13/21 Status: Ordered 06/13/2021 4 scopolamine 1 mg over 3 days patch [address] 1 patch on the skin every third day as needed (nausea) 4 patch 2 10/01/2023 4 documented as of this encounter Discharge Disposition Disposition Code Departure Means Destination Discharge to home or self care documented in this encounter Plan of Treatment Not on file documented as of this encounter Procedures Procedure Name Priority Date/Time Associated Diagnosis Comments SURGICAL PATHOLOGY Routine 11/04/2023 11 :54 AM PUBLIC RELATIONS ACCOUNT EXECUTIVE ASCUS with positive high risk HPV cervical documented in this encounter Results * Surgical pathology (11/04/2023 11:54 AM PUBLIC RELATIONS ACCOUNT EXECUTIVE) Tissue (Cervix, biopsy) 11/04/2023 11:54 AM PUBLIC RELATIONS ACCOUNT EXECUTIVE 11/04/2023 4:21 PM PUBLIC RELATIONS ACCOUNT EXECUTIVE Narrative PATHOLOGY [facility] - 11/07/2023 12:39 PM PUBLIC RELATIONS ACCOUNT EXECUTIVE [facility] Department of Pathology [address] [place] [address] ?? Note to Patients: ??This report may contain a detailed description of human tissue sent by a health care provider to the laboratory for pathologic evaluation. ??The content of this report is essential for diagnosis and may provide important critical findings. ??This information may be unfamiliar to patients to review without a medical professional present. ?? It is advised that the patient review this report in the presence of a health care provider who can answer questions and explain the details. Final Report Patient Name: REBEL TAI : ??1985 (Age: 38) Gender: ??F Address: ??[address] [place] [address] [address] [facility] #: [id number] Service: DEFAULT Location: Patient Type: MHE SPECIMEN ? Taken: 11/04/2023 Received: 11/04/2023 Accessioned: 11/05/2023 Reported: 11/07/2023 Physician(s): Indigo Reece M.D. Diagnosis: Uterus, cervix, 5 o'clock, biopsy: ? - Detached fragments of high-grade squamous intraepithelial lesion (EDITH 2) Yasmeen Andrews M.D. Report Electronically Reviewed and Signed Out By ??Yasmeen Andrews M.D. 11/07/2023 12:39:51 Specimen(s) Received: A: Cervix 5 o'clock Microscopic Description: Microscopic examination substantiates the above cited diagnosis.There is a single fragment of cervical squamous epithelium with increased nuclear to cytoplasmic ratio and mitotic activity off the basal layer. ??A diagnosis of EDITH 2is favored. ??In order to better characterize the ??epithelium, a panel of immunostains (single antibody procedures with appropriate controls) is obtained. Immunostains for p16 show focal block positivity. Immunostains for ??Ki-67 show a proliferative index of 50% Clinical History: The patient is a 38-year-old woman with ASCUS positive for high-risk HPV. ??Operative procedure: cervical biopsy at 5 o'clock. Gross Description Received in formalin, labeled with the patient? ? s identifiers and cervix 5 o'clock and consists of multiple patel-white, friable tissue fragments measuring 0.5 x 0.3 x 0.2 cm in aggregate. ??Filtered and entirely submitted. ?? Labeled A1. Jar 0. ?? jjmhb/11/05/2023 10:48 MIKE Carrillo Microscopic slide review and interpretation for this case was performed at [facility], Department of Surgical Pathology, [address] [facility] [place], [place] [id number], ??[place], [place] ??[address] ?? CLIA # [id number] Indigo Reece MD LAB PATHOLOGY ORDERABLES Final Result PATHOLOGY [facility] documented in this encounter Visit Diagnoses Diagnosis ASCUS with positive high risk HPV cervical documented in this encounter Care Teams Aml Analyst Relationship Specialty Start Date End Date Mateo Mir MD PCP - General Internal Medicine 07/15/23 05/31/24 Abhilash Sam MD [address] [place] [address] Consulting Physician Obstetrics and Gynecology 07/15/23 Mary Russell MD [address] [place] [id number] Referring Physician Pediatric Neurology 07/15/23 documented as of this encounter
--- OUTSIDE RECORDS SUMMARY | 2024-11-29 06:23 | XMS_ITS | Encounter Summary ---
Author Organization [facility] Healthcare Address [address] [place] [address] Care Team Providers Care Crowning Inspector Name Role Phone Abhilash Sam MD Unavailable [phone] Mary Russell MD Unavailable [phone] Luz Meneses Primary Care Provider + Reason for Visit * Reason Comments Well Women Visit Encounter Details Date Type Department Care Team ([facility] st Contact Info) Description 08/24/2024 8:30 AM CDT Office Visit [facility] Obstetrical Gynecology [address] [phone] Indigo Reece MD [address] [place] [phone] Well woman exam (Primary Dx); S/P LEEP Social History Tobacco Use Types Packs/Day Years [...] staff should administer the PHQ-9) 0 06/01/2024 [place] Depression Scale Answer Date Recorded [place] Depression Scale Total 1 11/28/2020 The thought [...] Sign Reading Time Taken Comments Blood Pressure 108/80 08/24/2024 8:30 AM CDT Pulse - - Temperature - - Respiratory Rate - - Oxygen Saturation - - Inhaled Oxygen Concentration - - Weight 78.3 kg (172 lb 9.6 oz) 08/24/2024 8:30 A M CDT Height 170.2 cm (5' 7 ) 08/24/2024 8:30 AM CDT Body Mass Index 27.03 08/24/2024 8:30 AM CDT documented in this encounter Progress Notes * Indigo Reece MD - 08/24/2024 8:30 AM CDT Images from the original note were not included. Well Woman Exam Chief Complaint Patient presents with Well Women Visit Subjective: Rebel Tai is a 39 y.o. who presents for a well woman exam. Doing well overall. No complaints today. Regular monthly menses, non-bothersome. 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 Pap due again today in follow up. 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 Going to [place] in a week for vacation. Menstrual History: Patient's last menstrual period was 07/27/2024. Sexual History: OB History 2 Para 2 Term 1 1 AB Living 2 SAB IAB Ectopic Multiple Live Births 2 # Outcome Date GA Labor/2nd Weight Sex Type Anes PTL Lv A1 A5 1 02/18/10 36w0d 1.899 kg (4 lb 3 oz) F Vag-Spont Epidural Living Complications: Gastroschisis Location: Other 2 Term 10/15/20 39w0d 3.685 kg (8 lb 2 oz) F Vag-Spont Epidural Living Name: Tommie Nazario Complications: Intolerance Delivering Clinician: Dr. Sam Obstetric Comments Past Medical History: Diagnosis Date Abnormal Pap smear of cervix Headache migraines Motion sickness Pneumonia hx of yearly occurence Right foot pain 02/15/2022 Sprain of left knee 02/15/2022 Vasovagal syncope 02/15/2022 Past Surgical History: Procedure Laterality Date CERVICAL BIOPSY W/ LOOP ELECTRODE EXCISION 12/26/2023 [facility] Current Outpatient Medications: ascorbic acid (VITAMIN C) 100 mg tablet, Take 1 tablet (100 mg total) by mouth daily, Disp: , Rfl: cholecalciferol (VITAMIN D-3) 5,000 unit tablet, Take 1 tablet (5,000 Units total) by mouth daily, Disp: , Rfl: Allergies Allergen Reactions Erythromycin Rash Penicillins Swelling Family History Problem Relation Age of Onset Thyroid disease Mother Unknown Family History Father Thyroid disease Sister Graves' disease Sister Diabetes Maternal Grandmother Breast cancer Neg Hx Ovarian cancer Neg Hx Uterine cancer Neg Hx Social History Tobacco Use Smoking status: Former Current packs/day: 0.00 Types: Cigarettes Quit date: 02/15/2010 Years since quittin.5 Smokeless tobacco: Never Substance and Sexual Activity Drug use: Never Sexual activity: Yes Partners: Male control/protection: Vasectomy Alcohol Use: Alcohol Misuse (06/01/2024) AUDIT-C Frequency of Alcohol Consumption: 2-4 times a month Average Number of Drinks: 1 or 2 Frequency of Binge Drinking: Less than monthly Objective: BP 108/80 Ht 170.2 cm (5' 7 ) Wt 172 lb 9.6 oz (78.3 kg) LMP 07/27/2024 BMI 27.03 kg/m?? Physical Exam Constitutional: General: She is not in acute distress. Appearance: She is well-developed. Pulmonary: Effort: Pulmonary effort is normal. Chest: Breasts: Breasts are symmetrical. Right: No mass, skin change or tenderness. Left: No mass, skin change or tenderness. Abdominal: Palpations: Abdomen is soft. There is no mass. Tenderness: There is no abdominal tenderness. Genitourinary: Vagina normal and uterus normal. There is no rash or lesion on the right labia. Right labia: normal. There is no rash or lesion on the left labia. Left Labia: normal. No vaginal discharge or erythema. Right adnexa: displays tenderness (mildly). Right adnexa does not display mass. Left adnexa: displays tenderness (mildly). Left adnexa does not display mass. Cervix does not display motion tenderness, lesion or friability.Uterus is not enlarged or tender. Musculoskeletal: General: Normal range of motion. Lymphadenopathy: Upper Body: Right upper body: No axillary adenopathy. Left upper body: No axillary adenopathy. Neurological: Mental Status: She is alert and oriented to person, place, and time. Psychiatric: Mood and Affect: Mood is not anxious or depressed. Assessment and Plan: Rebel Tai is a 39 y.o. female who presents for a well woman exam. 1. Maintenance: --s/p LEEP 12/2023 focal CIN2, repeat pap today. --neg CBE, neg FamHx --discussed diet/exercise --contraception: partner vasectomy --STI screening: declined Indigo Reece MD 08/24/2024 documented in this encounter Plan of Treatment Not on file documented as of this encounter Results * High Risk HPV DNA Detection with Genotyping (Molecular component) (08/24/2024 9:17 AM CDT) HPV HR 16 Not Detected Not Detected [facility] Comment:Testing performed by : [facility], [address] [place]., [address] HPV HR 18 Not Detected Not Detected [facility] Comment:Testing performed by : [facility], [address] [place]., [address] HPV HR Non 16/18 Not Detected Not [...] this test have been verified by the [facility] Molecular Infectious Disease laboratory. Correlate with separately reported cytology results, as applicable. Interpretive data last revised 23 Testing performed by: [facility], [address] [place]., [address] Endocervical 08/24/2024 9:17 AM CDT 08/25/2024 11:13 AM CDT Narrative TOM - 08/25/2024 7:55 PM CDT Clinical history and diagnosis->screening Testing type->Screening Last menstrual period (date if known)->07-27-24 Indigo Reece MD LAB BODY FLUIDS AND STOOL S ORDERABLES Final Result [facility] [address] [facility] Department [place] [address] [facility] * Pap and High Risk HPV and Genotyping (Cytology Component) (08/24/2024 9:17 AM CDT) Thin prep (Pap test) 08/24/2024 9:17 AM CDT 08/24/2024 6:54 PM CDT Narrative [facility] - 08/31/2024 2:59 PM CDT EPIC results best viewed via link to PDF [facility] Carol Villatoro Laboratory of Surgical [place] [address] [place] [address] Note to Patients: This report may contain [...] ??F : ??1985 (Age: 39) Address: ??[address] [place], [place] ??[address] [facility] #: ??[id number] Service: ??DEFAULT Location: ?? Patient Type: ??[facility] SPECIMEN Taken: ??08/24/2024 Received: ??08/24/2024 Accessioned: ??08/24/2024 [...] this test have been verified by the [facility] Molecular Infectious Disease laboratory. Correlate with reported cytology results, as applicable. Interpretive data last revised 23 This specimen has been rescreened in accordance with this laboratory's Cargo Router Program. [email or web address]/08/31/2024 14:59 MITCHELL Csepedes (ASCP) Report Electronically Reviewed and Signed Out [...] clinical information and biopsy results as indicated. [facility] Clinical Laboratory Improvement Amendments (CLIA) mandate that cytologic and histologic results be correlated for laboratory quality control chemist & improvement standards. ??FOR ALL HIGH-GRADE CASES [...] determined by the Surgical Pathology Department at [facility] as part of an ongoing quality system manager program and in compliance with federally [...] determined by the Surgical Pathology Department of [facility]. ??It has not been cleared or approved by the [place]. S. Food and Drug Administration. Indigo Reece MD LAB CYTOLOGY ORDERABLES F inal Result [facility] documented in this encounter Visit Diagnoses Diagnosis Well woman exam- Primary Routine general medical examination at a health care facility S/P LEEP Well woman exam Routine general medical examination at a health care facility documented in this encounter Care Teams Crowning Inspector Relationship Specialty Start Date End Date Luz Meneses PA [address] [facility] [address] [place] [address] PCP - General Family Medicine 06/01/24 Abhilash Sam MD [address] [place] [id number] Consulting Physician Obstetrics and Gynecology 07/15/23 Mary Russell MD [address] [facility] [address] Referring Physician Pediatric Neurology 07/15/23 documented as of this encounter
--- OUTSIDE RECORDS SUMMARY | 2024-11-29 06:23 | XMS_ITS | Encounter Summary ---
Author Organization [facility] Address [address] [address] Care Team Providers Care Orthopedic Physical Therapist Name Role Phone Rachel Ortiz MD Primary Care Provider [phone] Reason for Visit * Reason Onset Date Comments hard script needed 03/30/2022 Encounter Details Date Type Department Care Team ([facility] st Contact Info) Description 03/30/2022 Telephone [facility] Primary Care [address] [phone] Rachel Ortiz MD [facility] [address] hard script needed Social History Tobacco Use Types Packs/Day Years [...] staff should administer the PHQ-9) 0 03/14/2022 [place] Depression Scale Answer Date Recorded [place] Depression Scale Total 1 11/28/2020 The thought of harming myself has occurred to me . Never 11/28/2020 Comments No Sex and Gender Information Value Date Recorded Sex Assigned at Not on file Legal Sex Female 2:07 PM CDT Gender Identity Not on file Sexual Orientation Not on file documented as of this encounter Miscellaneous Notes * Telephone Encounter - Mariah Ohara MA - 03/30/2022 3:18 PM CDT Left detailed message on personal VM * Telephone Encounter - Stevan Barrientos Jr., MD - 03/30/2022 3:15 PM CDT Hand written prescription filled out for 10 mg QHS 30 tab with 3 refills * Telephone Encounter - Mariah Ohara MA - 03/30/2022 3:06 PM CDT Do you mind signing? * Telephone Encounter - Renee Hurtado - 03/30/2022 2:58 PM CDT Pt calling stated she [place] amitriptyline (ELAVIL) 10 mg tablet. Please call pt when this is done and ready to be picked up. documented in this encounter Plan of Treatment Not on file documented as of this encounter Visit Diagnoses Not on filedocumented in this encounter Care Teams Orthopedic Physical Therapist Relationship Specialty Start Date End Date Rachel Ortiz MD [address] [place] [id number] PCP - General Internal Medicine 02/15/22 07/14/23 documented as of this encounter
--- OUTSIDE RECORDS SUMMARY | 2024-11-29 06:23 | XMS_ITS | Encounter Summary ---
Author Organization [facility] Healthcare Address [address] [place] [address] Care Team Providers Care Forming And Assembling Supervisor Name Role Phone Rachel Ortiz MD Primary Care Provider [phone] Encounter Details Date Type Department Care Team (Late st Contact Info) Description 02/16/2022 10:00 AM CDT Lab [address] [address] Social History Tobacco Use Types Packs/Day Years Used Date Smoking Tobacco: Former Cigarettes Q uit: 02/15/2010 Smokeless Tobacco: Never Alcohol Use Standard Drinks/Week Comments Not Currently 1 (1 standard drink = 0.6 oz pur e alcohol) AUDIT-C Answer Date Recorded Q1: How often do you have a drink containing alc ohol? 2-4 times a month 02/15/2022 Q2: How many drinks containi ng alcohol do you have on a typical day when you are drinking? 1 or 2 02/15/2022 Frequency of Binge Drinking Not on file 01/24 PHQ-2 Answer Date Recorded PHQ-2 Total Score 1 02/15/2022 [place] Depression Scale Answer Date Recorded [place] Depression Scale Total 1 11/28/2020 The thought [...] on filedocumented in this encounter Care Teams Forming And Assembling Supervisor Relationship Specialty Start Date End Date Angel, Rachel C., MD [address] [place] [id number] PCP - General Internal Medicine 02/15/22 07/14/23 documented as of this encounter
--- OUTSIDE RECORDS SUMMARY | 2024-11-29 06:23 | XMS_ITS | Encounter Summary ---
Author Organization [facility] Healthcare Address [address] [place] [address] Care Team Providers Care Associate Web Developer Name Role Phone Mateo Mir MD Primary Care Provider [phone] Abhilash Sam MD Unavailable [phone] Mary Russell MD Unavailable [phone] Reason for Visit * Auth/Cert (Routine) Specialty Diagnoses / Procedures Referred By Contyazmin t Referred To Contact Diagnoses 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) 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) [R87.613] Procedures GA COLPOSCOPY CERVIX VAG LOOP ELTRD BX CERVIX GA CONIZATION CERVIX W/WO D&C RPR ELTRD EXC LOOP ELECTROCAUTERY EXCISION PROCEDURE Referral ID Status Reason Start Date Expiration Date Visits Re quested Visits Authorized [id number] 1 1 Encounter Details Date Type Department Care Team (Late st Contact Info) Description 12/26/2023 11:35 AM CHARACTER ACTRESS - 12/26/2023 12:25 PM [facility] Surgery [facility] OR [address] [place], [place] [id number] Indigo Reece MD [address] [place] [address] [phone] LOOP ELECTROCAUTERY EXCISION PROCEDURE Surgery Details Date/Time Status Location OR Service Patient Class Case Class Case Type Trauma Case? 12/26/2023 11:35 AM Posted [facility] OR 03 Obstetrics / Gynecology Outpatient Elective Panel 1 Procedure LRB Anes Op Region Wound Class Comments LOOP ELECTROCAUTERY EXCISION PROCEDURE N/A General Vagina Class II - Clean Contaminated Surgeon Surgeon Role Service Panel Indigo Reece MD Primary Obstetrics / Medical Center Manager ecology 1 documented in this encounter Social History Tobacco Use Types Packs/Day [...] staff should administer the PHQ-9) 0 10/01/2023 [place] Depression Scale Answer Date Recorded [place] Depression Scale Total 1 11/28/2020 The thought [...] Sign Reading Time Taken Comments Blood Pressure 104/66 12/26/2023 12:25 PM CHARACTER ACTRESS Pulse 58 12/26/2023 12:25 PM CHARACTER ACTRESS Temperature 37.2 ??C (99 ??F) 12/26/2023 12: 10 PM CHARACTER ACTRESS Respiratory Rate 16 12/26/2023 12:2 5 PM CHARACTER ACTRESS Oxygen Saturation 100% 12/26/2023 12: 25 PM CHARACTER ACTRESS Inhaled Oxygen Concentration - - Weight 74.7 kg (164 lb 11.2 oz) 12/26/2023 9:34 AM CHARACTER ACTRESS Height 170.2 cm (5' 7 ) 12/26/2023 9:34 AM CHARACTER ACTRESS Body Mass Index 25.8 12/26/2023 9:34 AM CHARACTER ACTRESS documented in this encounter Discharge Instructions * Attachments The following attachments cannot be sent through Care Everywhere. * Loop Electrosurgical Excision Procedure (Discharge Care) (Iraqi) * General Anesthesia (Discharge Care) (Iraqi) documented in this encounter Medications at Time of Discharge ascorbic acid (VITAMIN C) 100 mg tablet Take 1 tablet (100 mg total) by mouth daily acetaminophen (TYLENOL) 500 mg tablet Take 1 tablet (500 mg total) by mouth every 6 (six) hours as needed for pain 4 cetirizine (ZyrTEC) 10 mg tablet Take [...] (250 mg total) by mouth daily 4 omega-3 fatty acids-fish oil 300-1,000 mg capsule Take 2 capsules (2 g total) by mouth daily 4 calcium carbonate-mag hydroxid 1,000-200 mg tablet,chewable Take by mouth 4 multivitamin capsule Take 1 capsule by mouth daily 4 predniSONE (DELTASONE) 20 mg tablet 11/26/2023 4 documented as of this encounter Discharge Disposition Disposition Code Departure Means Destination Comment s Discharge to home or self care Car documented in this encounter H&P Notes * Indigo Reece MD - 12/26/2023 10:17 AM CST Preop H&P Admitting Provider: Indigo Reece MD Primary Care Physician: Mateo Mir MD [phone] Admission Date: 12/26/2023 Admission Location: [facility] HPI: Rebel Tai is a 38 y.o. female who presents for scheduled LEEP. History of ASCUS, HPV pos pap 07/2023. 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 Patient has no complaints today. Past Medical History Patient's last menstrual period was 11/21/2023 (exact date). Past Medical History: Diagnosis Date Abnormal Pap smear of cervix Headache migraines Motion sickness Pneumonia hx of yearly occurence History reviewed. No pertinent surgical history. Social History Tobacco Use Smoking status: Former Types: Cigarettes Quit date: 02/15/2010 Years since quittin.8 Smokeless tobacco: Never Substance and Sexual Activity Drug use: Never Sexual activity: Yes Partners: Male control/protection: Vasectomy Alcohol Use: Not At Risk (12/26/2023) AUDIT-C Frequency of Alcohol Consumption: 2-4 times a month Average Number of Drinks: 1 or 2 Frequency of Binge Drinking: Never Family History Problem Relation Age of Onset Thyroid disease Mother Thyroid disease Sister Graves' disease Sister Diabetes Maternal Grandmother Breast cancer Neg Hx Ovarian cancer Neg Hx Uterine cancer Neg Hx Allergies Allergen Reactions Erythromycin Rash Penicillins Swelling HOME MEDICATIONS : acetaminophen (TYLENOL) 500 mg tablet ascorbic acid (VITAMIN C) 100 mg tablet cetirizine (ZyrTEC) 10 mg tablet cyanocobalamin (Vitamin B-12) 1,000 mcg tablet ergocalciferol (VITAMIN D) 50,000 unit capsule fluticasone propionate (FLONASE) 50 mcg/actuation nasal spray ibuprofen (ADVIL,MOTRIN) 600 mg tablet Lactobacillus acidophilus (Probiotic) 10 billion cell capsule magnesium gluconate 200 mg tablet omega-3 fatty acids-fish oil 300-1,000 mg capsule calcium carbonate-mag hydroxid 1,000-200 mg tablet,chewable multivitamin capsule Vitals: Temp: [36.8 ??C (98.2 ??F)] 36.8 ??C (98.2 ??F) Pulse: [52] 52 BP: (114)/(73) 114/73 Resp: [16] 16 SpO2: [99 %] 99 % Weight: 164 lb 11.2 oz (74.7 kg) Physical Exam: General: NAD, mood appropriate Pulmonary: normal respiratory effort Abdomen: Soft, NT Extremities: Warm and well perfused Pelvic: Deferred Assessment and Plan Rebel Tai is a 38 y.o. female who presents for scheduled LEEP procedure: --questions answered regarding expectations for postoperative course and recovery --counseled for nothing per vagina for 3-4 weeks --antibiotics: none Indigo Reece MD 12/26/23 ACTER ACTRESS documented in this encounter Miscellaneous Notes * Op Note - Indigo Reece MD - 12/26/2023 11:34 AM CST Images from the original note were not included. Operative Report: Date of procedure: 12/26/2023 Surgeon: Indigo Reece MD Anesthesia: LMA Preoperative Diagnosis: EDITH 2 Postoperative diagnosis: Same Procedure: Loop electrode excisional procedure Findings: Acetowhite changes from 4-5 o'clock on colposcopy. Operative Procedure: Patient was taken to the operating room where anesthesia was induced. The pt was then positioned comfortably in dorsal lithotomy position. An insulated speculum was inserted and adequate visualization of the cervix was obtained. Colposcopy was performed using acetic acid and the above findings were noted. A paracervical block was performed with 1% lidocaine with epinephrine using a total of 10 mLs. Aspiration prior to injection was done at each site to prevent direct intravascular injection. The grounding pad was placed on her right thigh. The smoke suction was attached and activated. The LEEP field was identified and the Bovie cautery was used at a setting of 60/60 cut function to remove the LEEP specimen with a 20 X 12 loop. The specimen was sent to pathology. A post LEEP ECC was performed. The 5mm roller ball was use with the coag function to secure hemostasis of the LEEP bed. Monsels was applied over the cauterized LEEP bed. The speculum was removed. She was taken out of lithotomy position and anesthesia was reversed. The patient tolerated the procedure well. Indigo Reece MD ACTER ACTRESS * Brief Op Note - Indigo Reece MD - 12/26/2023 11:33 AM CST Operative Progress Note Surgical Team: Surgeon(s) and Role: * Indigo Reece MD - Primary Anesthesiologist: Kg Balderas MD WELT EDGE ROUNDER: Danielle Lopez CRNA Panel Installer: Elsy Triana RN Scrub: Latonia Garcia RN Technologist: Betty Meneses 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 Estimated Blood Loss: 25 mL Intraoperative Fluids: 700 mL crystalloid Specimens: ID Type Source Tests Collected by Time A : ectocervix stitch at 12 Tissue Cervix, cone/LEEP SURGICAL PATHOLOGY Indigo Reece MD 12/26/2023 1126 B : endocervical curettings Tissue Endocervix, curettage SURGICAL PATHOLOGY Indigo Reece MD 12/26/2023 1130 Implants: Nothing was implanted during the procedure Blood/Blood Products Transfused: None Complications: None Condition on Discharge from the operating room was stable Indigo Reece MD Date: 12/26/2023 Time: 11:33 AM No Resident involved on case ACTER ACTRESS * Pre-Procedure Instructions - Jenni Lawrence RN - 12/11/2023 11:24 AM CST Images from the original note were not included. [address] [address] Surgery Reminder Checklist: Please arrive to [facility] for scheduled surgeryon 12/26/23 at 10:00 am. If the surgeon's office tells you to arrive at a different time after we have given you instructions, please follow their instructions. Please park in the first parking lot on the LEFT. Enter through the Main Entrance and check in at [facility] (to the left of the information desk). ONE - TWO WEEKS BEFORE YOUR PROCEDURE You may take TYLENOL (ACETAMINOPHEN) as needed for pain. PLEASE FOLLOW YOUR SURGEON'S GUIDELINES REGARDING IBUPROFEN, ALEVE, MULTIVITAMINS, HERBAL SUPPLEMENTS, FISH OIL AND VITAMIN E. YOU MAY BE REQUIRED TO HOLD THESE FOR ONE-TWO WEEKS BEFORE SURGERY. EVENING BEFORE YOUR PROCEDURE Shower with Antibacterial soap followed by Hibiclens soap the evening before your surgery. After showering, do not apply any lotions, colognes, oils, deodorant, powder, or make-up Antibacterial Soap Examples: Dial or Safeguard. Hibiclens soap may be purchased at any store or pharmacy that carries soap. Look in the pharmacy/wound care section. If you would like to come to [facility] we can give you a bottle forFREE. Hours: Saturday - Saturday 8 AM - 4:30PM. Go to the main entrance and ask the front end web designer for Hibiclens Soap. If you go to [facility] park underneath Entrance A drive thru and call [phone] and ask for the surgery soap. We will bring it out to your car. Hibiclens, trusted by hospitals for over 40 years as a pre-operative skin wash, can help reduce therisk of surgical site infections (SSIs) caused by germs that live on the skin. DO NOT eat any food or drink anything you cannot completely see through after midnight (this includes gum, mints, hard candy, and chewable antacids). MORNING OF YOUR PROCEDURE May have clear liquids from midnight up until the time you arrive at the hospital. This includes, Water, Apple Juice, Gatorade, Black Coffee or Sprite. (NO Dairy, Milk Products, Creamer, Red Gatoradeor [place] Juice) Nothing by mouth the 2 hours prior to your procedure, NOT EVEN WATER. [place] your teeth morning of procedure. Use mouth wash if available. Do not swallow any liquids whencleansing your mouth. Shower with Antibacterial soap followed by Hibiclens soap. After showering, do not apply any lotions, colognes, oils, deodorant, powder, or make-up. Expect to remove wigs, dentures/partials, contact lenses, piercings, hearing aids, and prostheses before surgery. Do not wear jewelry to the hospital on the day of surgery. Bring glasses and hearing aids (with cases for both), inhalers, and CPAP/BiPAP machine day of surgery. If you will be admitted to the hospital after surgery, feel free to bring a toiletry bag. Medication Instructions: Pre-Surgery Instructions: Medication Instructions ibuprofen (ADVIL,MOTRIN) 600 mg tablet Follow surgeon's instructions- HOLD morning of surgery acetaminophen (TYLENOL) 500 mg tablet Take as needed-hold morning of surgery ascorbic acid (VITAMIN C) 100 mg tablet Follow surgeon's instructions- HOLD morning of surgery cetirizine (ZyrTEC) 10 mg tablet Follow surgeon's instructions- HOLD morning of surgery cyanocobalamin (Vitamin B-12) 1,000 mcg tablet Follow surgeon's instructions- HOLD morning of surgery ergocalciferol (VITAMIN D) 50,000 unit capsule Follow surgeon's instructions- HOLD morning of surgery fluticasone propionate (FLONASE) 50 mcg/actuation nasal spray Take morning of surgery if needed Lactobacillus acidophilus (Probiotic) 10 billion cell capsule Follow surgeon's instructions- HOLD morning of surgery magnesium gluconate 200 mg tablet Follow surgeon's instructions- HOLD morning of surgery omega-3 fatty acids-fish oil 300-1,000 mg capsule Follow surgeon's instructions- HOLD morning of surgery VISITOR POLICY: Patients in outpatient/surgical settings may have 2 dedicated visitors; must be over the age of 14. The Coffee shop has limited choices. Please bring snacks and something to drink on day of surgery. GENERAL INSTRUCTIONS: Please call us with any new prescriptions so that we can give you instructions. DO NOT drink alcohol, smoke cigarettes/vapes/e-cigarettes during the 12 hours prior to your surgery. DO NOT use marijuana for 24 hours prior to surgery. DO NOT take illicit/illegal drugs of any kind for 7 days prior to surgery. Arrange for a friend or family member to pick you up from the hospital, drive you home, and assist you if necessary. You will not be allowed to drive home. NO non-medical transport services (buses, taxis, etc.) allowed. A responsible adult must be with you for 24 hours after your procedure. Call your surgeon if you develop a rash, fever, cold, Urinary Tract Infection, or any other signs/symptoms of infection prior to surgery. Your surgery may need to be postponed. MORNING OF SURGERY PLEASE BRING: Photo ID and Insurance card. Any questions/concerns, please call the [facility]mission [facility] at [phone]. Morning of surgery question/concerns, please call Outpatient Surgery at [phone]. Thank You for choosing [facility]'s Surgery department! 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) LOOP ELECTROCAUTERY EXCISION PROCEDURE 12/26/2023 11:03 AM CHARACTER ACTRESS 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) POCT HCG, URINE Routine 12/26/2023 9:15 AM CHARACTER ACTRESS documented in this encounter Results * Surgical pathology (12/26/2023 11:26 AM CHARACTER ACTRESS) Tissue (Cervix, cone/LEEP) 12/26/2023 11:26 AM CHARACTER ACTRESS Tissue (Endocervix, curettage) 12/26/2023 11:30 AM CHARACTER ACTRESS Narrative PATHOLOGY [facility] - 01/01/2024 8:49 AM CHARACTER ACTRESS [facility] Department of Pathology [address] [place], [place] [address] ?? Note to Patients: ??This report may [...] : ??1985 (Age: 38) Gender: ??F Address: ??[address] [place] [address] [facility] #: [id number] Service: Surgery Location: Patient Type: [facility] OUTPATIENT ? Taken: 12/26/2023 Received: 12/26/2023 Accessioned: 12/26/2023 Reported: 01/01/2024 Physician(s): Ike Huynh M.D. Diagnosis: A. ??Uterus, cervix, ectocervix stitch at 12 o'clock, LEEP procedure ? - Focal high-grade squamous intraepithelial lesion (EDITH 2), extending focally to endocervical pole of excision ? - Transformation zone present ? - No evidence of invasive malignancy B. ??Uterus, endocervix, curettage ? - Benign endocervical tissue Yasmeen Andrews M.D. Report Electronically Reviewed and Signed Out By ??Yasmeen Andrews M.D. 01/01/2024 08:49:11 Specimen(s) Received: A: ectocervix stitch at 12 B: endocervical curettings Microscopic Description: Microscopic examination substantiates the above cited diagnosis. ??There is a focus of increased nuclear to cytoplasmic ratio, without significant mitotic activity In order to better characterize the ??epithelium, a panel of immunostains (single antibody procedures with appropriate controls) is obtained. Immunostains for p16 show block positivity in the area focus Immunostains for ??Ki-67 show a proliferative index roughly 40% extension into the upper surface Clinical History: The patient is a 38-year-old woman with high-grade squamous intraepithelial lesion on cytologic test of the cervix. ??Operative procedure: ??Loop electrocautery excision procedure. Gross Description Received in two formalin jars labeled with the patient's identifiers. A. ??Labeled ectocervix stitch at 12 and consists of a 2.0 x 1.8 cm oriented cervical LEEP biopsy that is excised to a depth of 0.8 cm (a suture designates 12 o'clock). ??The ectocervical mucosa is patel-pink and glistening with a patent os measuring 1.0 cm in diameter. ??The endocervical margin is inked blue, and the remaining cauterized stromal margin is inked black. ??The specimen is radially sectioned in a clockwise manner, and entirely submitted as follows: ?? A1 12-3 o'clock A2 3-6 o'clock A3 6-9 o'clock A4 9-12 o'clock. Jar 0. B. ??Labeled endocervical curettings and consists of a plastic bristled brush containing a 1.0 x 0.7 x 0.2 cm aggregate of mucoid material admixed with red- patel tissue fragments. ??Filtered and entirely submitted. ?? Labeled B1. Jar 0. ?? jjb/12/26/2023 14:52 ROMMEL Carrillo, PA (ASCP) Microscopic slide review and interpretation for this case was performed at [facility], Department of Surgical Pathology, [address] [facility] [place] [place] [id number], ??[place], [place] ??[address] ?? CLIA # [id number] Indigo Reece MD LAB PATHOLOGY ORDERABLES Final Result PATHOLOGY [facility] * POCT hCG, urine (12/26/2023 9:15 AM CHARACTER ACTRESS) HCG, ur, POC Negative Negative Lot Number [id number] QC Backgroud Clear Acceptable QC Control Line Acceptable Urine 12/26/2023 9:15 AM CHARACTER ACTRESS Indigo Reece MD POINT OF CARE TEST ORDERA BLES Final Result documented in this encounter Visit Diagnoses Diagnosis 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)- Primary 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) 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) documented in this encounter Admitting Diagnoses Diagnosis 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) documented in this encounter Administered Medications Inactive Administered Medications - up to 3 most recent administrations Medication Order MAR Action Action Date Dose Rate Site acetaminophen (TYLENOL) tablet 975 mg 975 mg, oral, Once, On Jeni 12/26/23 at 1000, For 1 dose, Pre-Op, Indications: Pre-Emptive AnalgesiaIndications:Pre-Emp tive Analgesia Given 12/26/2023 9:40 AM CHARACTER ACTRESS 975 mg acetic acid (bulk) 5 % topical solution As needed, Starting on Jeni 12/26/23 at 1130, Intra-Op Given 12/26/2023 11:30 AM CHARACTER ACTRESS 1 mL famotidine (PEPCID) tablet 20 mg 20 mg, oral, Once, On Jeni 12/26/23 at 1000, For 1 dose, Pre-Op, Indications: gastroesophageal reflux diseaseIndications:gastroeso phageal reflux disease Given 12/26/2023 9:40 AM CHARACTER ACTRESS 20 mg ferric subsulfate solution As needed, Starting on Jeni 12/26/23 at 1131, Intra-Op, Indications: Bleeding from WoundIndications:Bleeding from Wound Given 12/26/2023 11:31 AM CHARACTER ACTRESS 1 Application Lactated Ringer's (LR) infusion 30 mL/hr, intravenous, Continuous, Starting on Jeni 12/26/23 at 1000, Pre-Op New Bag 12/26/2023 12:13 PM CHARACTER ACTRESS 30 mL/hr 30 mL/hr Restarted 12/26/2023 11:32 AM CHARACTER ACTRESS Rate/Dose Verify 12/26/2023 11:02 AM CHARACTER ACTRESS 30 mL/ hr lidocaine-EPINEPHrine (XYLOCAINE with EPI) 1 %-1:100,000 injection As needed, Starting on Jeni 12/26/23 at 1127, Intra-Op, Indications: Administration of Local AnesthesiaIndications:Administration of Local Anesthesia Given 12/26/2023 11:27 AM CHARACTER ACTRESS 10 mL meclizine (ANTIVERT) tablet 25 mg 25 mg, oral, Once, On Jeni 12/26/23 at 1000, For 1 dose, Pre-Op, Po - 90 minutes pre-op, Indications: Prevention of Motion SicknessIndications:Prevention of Motion Sickness Given 12/26/2023 9:40 AM CHARACTER ACTRESS 25 mg sodium chloride 0.9% flush 0.5-20 mL 0.5-20 mL, intra-catheter, As needed, line care, Starting on Jeni 12/26/23 at 0921, Pre-Op, Flush volume based on line type and size. Flush before and after each use. documented in this encounter Historical Medications * This list may reflect changes made after this encounter. cyanocobalamin (Vitamin B-12) 1,000 mcg tabletIndications :Prevention of Vitamin B12 Deficiency Take 1 tablet (1,000 mcg total) by mouth daily 06/01/2024 magnesium gluconate 200 mg tabletIndications :hypomagnesemia Take 1.25 tablets (250 mg total) by mouth daily 06/01/2024 ibuprofen (ADVIL,MOTRIN) 600 mg tablet TAKE 1 TABLET BY MOUTH THREE TIMES DAILY NEEDED FOR FEVER OR PAIN 11/26/2023 06/01/2024 added in this encounter Active and Recently Administered Medications Times are shown in CHARACTER ACTRESS. Scheduled Medication Order 12/24/2023 12/25/2023 12/26/2023 acetaminophen (TYLENOL) tablet 975 mg (COMPLETED) 975 mg, oral, Once, On Jeni 12/26/23 at 1000, For 1 dose, Pre-Op, Indications: Pre-Emptive Analgesia 0940 (Given - Provid er: Sally Guevara RN) famotidine (PEPCID) tablet 20 mg (COMPLETED) 20 mg, oral, Once, On Jeni 12/26/23 at 1000, For 1 dose, Pre-Op, Indications: gastroesophageal reflux disease 0940 (Given - Provid er: Sally Guevara RN) meclizine (ANTIVERT) tablet 25 mg (COMPLETED) 25 mg, oral, Once, On Jeni 12/26/23 at 1000, For 1 dose, Pre-Op, Po - 90 minutes pre-op, Indications: Prevention of Motion Sickness 0940 (Given - Provid er: Sally Guevara RN) Continuous Medication Order 12/24/2023 12/25/2023 12/26/2023 Lactated Ringer's (LR) infusion 30 mL/hr, intravenous, Continuous, Starting on Jeni 12/26/23 at 1000, Pre-Op 0940 (New Bag - Prov ider: Sally Guevara RN)1102 (Rate/Dose Verify - Provider: Danielle Lopez CRNA)1131 (Paused - Provider: Danielle Lopez CRNA - Comment: Switch to gravity)1132 (Restarted - Provider: Danielle Lopez CRNA)1213 (New Bag - Provider: Leona Lantigua RN)1752 (Due: Stopped) PRN Medication Order 12/24/2023 12/25/2023 12/26/2023 acetic acid (bulk) 5 % topical solution (CANCELED) As needed, Starting on Jeni 12/26/23 at 1130, Intra-Op 1130 (Given - Provid er: Indigo Reece MD) fentaNYL (SUBLIMAZE) preservative free injection 50 mcg 50 mcg, intravenous, Every 10 min PRN, uncontrolled pain on PACU admission, Starting on Jeni 12/26/23 at 1142, For 3 doses, Phase I, Then proceed to PACU 1st line analgesic., Indications: Pain ferric subsulfate solution (CANCELED) As needed, Starting on Jeni 12/26/23 at 1131, Intra-Op, Indications: Bleeding from Wound 1131 (Given - Provid er: Indigo Reece MD) hydrALAZINE (APRESOLINE) injection 5 mg 5 mg, intravenous, Administer over 2 Minutes, Every 15 min PRN, high blood pressure, Starting on Jeni 12/26/23 at 1142, Phase I, Max cumulative dose 20 mg. Dose if systolic BP greater than 180 AND heart rate less than 70., Indications: hypertension HYDROmorphone (DILAUDID) injection 0.5 mg 0.5 mg, intravenous, Administer over 2 Minutes, Every 10 min PRN, 1st line for pain, Starting on Jeni 12/26/23 at 1142, Phase I, Notify Anesthesiologist if total PACU dose reaches 2 mg and pain score 5/10 or more., Indications: Pain labetaloL (NORMODYNE,TRANDATE) injection 5 mg 5 mg, intravenous, at 30 mL/hr, Administer over 2 Minutes, Every 10 min PRN, high blood pressure, Starting on Jeni 12/26/23 at 1142, Phase I, Max cumulative dose 20 mg. Dose if systolic blood pressure greater than 180 AND HR greater than 70. lidocaine-EPINEPHrine (XYLOCAINE with EPI) 1 %-1:100,000 injection (CANCELED) As needed, Starting on Jeni 12/26/23 at 1127, Intra-Op, Indications: Administration of Local Anesthesia 1127 (Given - Provid er: Indigo Reece MD) naloxone (NARCAN) 0.4 mg/mL injection 0.04-0.4 mg 0.04-0.4 mg, intravenous, Once as needed, other, excessive sedation/respiratory depression, Starting on Jeni 12/26/23 at 1142, For 1 dose, Phase I, Dilute 0.4 mg with 9 mL NS (final concentration 0.04 mg/mL). For respiratory depression (respiratory rate less than 6), administer 0.4 mg IVP over 30 seconds. For excessive sedation administer 0.04 mg (1 mL) every 1 minute until desired level of alertness. For IV, administer over 30 seconds., Indications: Opioid Toxicity ondansetron (ZOFRAN) injection 4 mg 4 mg, intravenous, Administer over 2 Minutes, Once as needed, nausea, vomiting, Starting on Jeni 12/26/23 at 1142, For 1 dose, Phase I, Proceed to prochlorperazine if ondansetron has been given within the last 6 hours. prochlorperazine (COMPAZINE) injection 5 mg 5 mg, intravenous, Administer over 2 Minutes, Once as needed, nausea, vomiting, Starting on Jeni 12/26/23 at 1142, For 1 dose, Phase I, If nausea/vomiting not relieved by ondansetron within 30 minutes or if ondansetron has been given within the last 6 hours. sodium chloride 0.9% flush 0.5-20 mL 0.5-20 mL, intra-catheter, As needed, line care, Starting on Jeni 12/26/23 at 0921, Pre-Op, Flush volume based on line type and size. Flush before and after each use. documented in this encounter Orders Medications Ordered That Karthikeyan ht Not Have Been Administered Count Last Ordered Date First Ordered Date fentaNYL (SUBLIMAZE) preserv ative free injection 50 mcg 1 12/26/2023 hydrALAZINE (APRESOLINE) injection 5 mg 1 0 12/26/2023 HYDROmorphone (DILAUDID) injection 0.5 mg 1 12/26/2023 labetaloL (NORMODYNE,TRANDAT E) injection 5 mg 1 12/26/2023 naloxone (NARCAN) 0.4 mg/mL injection 0.04-0.4 mg 1 12/26/2023 ondansetron (ZOFRAN) injection 4 mg 1 12/26 prochlorperazine (COMPAZINE) injection 5 mg 1 12/26/2023 sodium chloride 0.9% flush 0.5-20 mL 1 11/2023 Diet Count Last Ordered Date First Orde red Date ADULT DISCHARGE DIET 1 12/26/2023 Nursing Count Last Ordered Date First Orde red Date DISCHARGE ACTIVITY 1 12/26/2023 DISCHARGE CALL PROVIDER 3 12/26/2023 Discharge Count Last Ordered Date First Orde red Date DISCHARGE PATIENT 1 12/26/2023 documented in this encounter Care Teams Associate Web Developer Relationship Specialty Start Date End Date Mateo Mir MD PCP - General Internal Medicine 07/15/23 05/31/24 Abhilash Sam MD [facility] [address] [address] Consulting Physician Obstetrics and Gynecology 07/15/23 Mary Russell MD [address] [place] [address] Referring Physician Pediatric Neurology 07/15/23 documented as of this encounter
--- OUTSIDE RECORDS SUMMARY | 2024-11-29 06:23 | XMS_ITS | Encounter Summary ---
Author Organization [facility] Address [address] [place] [address] Care Team Providers Care Tailoring Teacher Name Role Phone Rachel Ortiz MD Primary Care Provider [phone] Reason for Visit * Reason Onset Date Comments pressure in ear 09/10/2022 Encounter Details Date Type Department Care Team ([facility] st Contact Info) Description 09/10/[address] [facility] Primary Care [address] [phone] Rachel Ortiz MD [address] [address] Social History Tobacco Use Types [...] staff should administer the PHQ-9) 0 04/24/2022 [place] Depression Scale Answer Date Recorded [place] Depression Scale Total 1 11/28/2020 The thought of harming myself has occurred to me . Never 11/28/2020 Comments Unknown Sex and Gender Information Value Date Recorded Sex Assigned at Not on file Legal Sex Female 2:07 PM CDT Gender Identity Not on file Sexual Orientation Not on file documented as of this encounter Miscellaneous Notes * Telephone Encounter - Susan Newton RN - 09/10/2022 4:20 PM CDT Reason for Disposition Ear congestion present > 48 hours Protocols used: Ear - [id number] Pt reports she was on vacation and got a lot of water in her ears. She reports the left ear is congested and hearing is muffled. She denies earache, redness, swelling, discharge or fever.. SHe has tried to reduce the pressure by making her ears pop with no relief. Disposition per guideline: Home care/education/call back instruction given: no appts available Jesus Mir . Advised pt to go to local [facility]. Pt agreeable. * Telephone Encounter - Susan Newton RN - 09/10/2022 4:06 PM CDT Regarding: Pressure and fluid in left ear ----- Message from Nataly Fuchs sent at 09/10/2022 2:50 PM CDT ----- Symptom Based Call Chief Complaint: Pressure and fluid in left ear Did you review 911/Red Flag List?Yes Duration: Started 3 days ago Why was appointment not scheduled? next appt is September Caller's Callback #: [phone] Additional Comments: Patient states she was on vacation and got water into her ears. Please advise Does message need to be routed? Yes-Action Needed documented in this encounter Plan of Treatment Not on file documented as of this encounter Visit Diagnoses Not on filedocumented in this encounter Care Teams Tailoring Teacher Relationship Specialty Start Date End Date Rachel Ortiz MD [address] [address] PCP - General Internal Medicine 02/15/22 07/14/23 documented as of this encounter
--- OUTSIDE RECORDS SUMMARY | 2024-11-29 06:23 | XMS_ITS | Encounter Summary ---
Author Organization [facility] Healthcare Address [address] [place] [address] Care Team Providers Care President/Gm Production & Live Experiences Name Role Phone Mateo Mir MD Primary Care Provider [phone] Abhilash Sam MD Unavailable [phone] Mary Russell MD Unavailable [phone] Encounter Details Date Type Department Care Team (Latest Contact Info) Description 08/21/2023 1:29 PM CDT - 08/21/2023 11:59 PM CDT Hospital Encounter [facility] [address] [place] [address] Well woman exam Discharge Disposition: Discharge to [...] points, staff should administer the PHQ-9) 0 07/15/2023 [place] Depression Scale Answer Date Recorded [place] Depression Scale Total 1 11/28/2020 The [...] Units total) once a week 02/23/2022 4 Lactobacillus acidophilus (Probiotic) 10 billion cell capsule Take 1 Caplet by mouth daily 4 multivitamin capsule Take 1 capsule by mouth daily 4 predniSONE (DELTASONE) 20 mg tablet predniSONE 20 mg oral tablet Start Date: 06/13/21 Status: Ordered 06/13/2021 4 documented as of this encounter Discharge Disposition Disposition Code Departure Means Destination Discharge to home or self care documented in this encounter Plan of Treatment Not on file documented as of this encounter Procedures Procedure Name Priority Date/Time Associated Diagnosis Comments PAP AND HIGH RISK HPV, REFLEX TO GENOTYPING Routine 08/21/2023 11:20 AM CDT Well woman exam HIGH RISK HPV DNA DETECTION WITH GENOTYPING Routine 08/21/2023 10:11 AM CDT Well woman exam CYTOLOGY TRACKING Routine 08/21/2023 10: 11 AM CDT documented in this encounter Results * (ABNORMAL) Pap and High Risk HPV and Genotyping (Cytology Component) (08/21/2023 11:20 AM CDT) Thin prep (Pap test) 08/21/2023 11:20 AM CDT 08/22/2023 11:20 AM CDT Narrative PATHOLOGY [facility] - 08/27/2023 1:[address] [facility] Department of Pathology [address] [place] [address] Final Report with Addendum Note to Patients: This report may contain [...] can answer questions and explain the details. Patient Name: ??REBEL TAI Address: ??[address] [place] [address], ?? [place], [place] ??[facility] Gender: ??F : ??1985 (Age: 38) Service: ?? Location: ?? Hospital #: ??[id number] Patient Type: ??[facility] SPECIMEN Taken: ??08/21/2023 Received: ??08/22/2023 Accessioned:: ??08/22/2023 Reported: ??08/27/2023 Physician(s): Indigo Reece M.D. [facility] Diagnosis: SOURCE OF SPECIMEN ? SCREENING THIN PREP IMAGED PAP w/ HPV: STATEMENT OF ADEQUACY ?- Satisfactory for evaluation; endocervical/transformation zone component present ? GENERAL CATEGORIZATION: ?- Epithelial cell abnormality ? INTERPRETATION: ?- Atypical squamous cells of undetermined significance ? MITCHELL Montano(ASCP)Funmi Dugan M.D. Report Electronically Reviewed and Signed Out By ??Funmi Dailey M.D. ??08/27/2023 13:12:42Addenda: HPV Test Interpretation HPV HR 16- ??Detected HPV HR 18- ??Not detected HPV HR non 16/18- ??Detected ? Interpretive Data Nucleic acid amplification for detection [...] this test have been verified by the [facility] Molecular Infectious Disease laboratory. ??Correlate with reported cytology results, as applicable. Interpretive data last revised 23 MITCHELL Garcia(ASCP)Report Electronically Reviewed and Signed Out By ??MITCHELL Garcia(ASCP) ??08/23/2023 12:15:07 ?? Specimen(s) Received: A: SCREENING THIN PREP IMAGED PAP w/ HPV Clinical History: Last Menstrual Period: 08/07/23 The Pap test is a screening test used to aid in the detection of cervical cancer and its precursors. ??It should not be the sole means by which malignant and premalignant lesions are diagnosed. ??Both false negative and false positive results may occur. ?? It also has poor sensitivity for the detection of endometrial lesions and should not be used to evaluate suspected endometrial abnormalities. ??For these reasons it is most important to obtain Pap tests at regular intervals. The performance characteristics of some immunohistochemical stains, fluorescence in-situ hybridization tests and immunophenotyping by flow cytometry cited in this report (if any) were determined by the Surgical Pathology Department at [facility] as part of an ongoing nurse quality program and in compliance with federally mandated [...] a high complexity laboratory under CLIA '88. The FDA has determined that such clearance or approval is not necessary. ??This test is used for clinical purposes. ??It should not be regarded as investigational or for research. ??Nevertheless, federal rules concerning the medical use of analyte specific reagents require that the following disclaimer be attached to the report: This test was developed and its performance characteristics determined by the Surgical Pathology Department [facility]. ??It has not been cleared or approved by the U. S. Food and Drug Administration. Indigo Reece MD LAB CYTOLOGY ORDERABLES F inal Result PATHOLOGY [facility] * Cytology Tracking (08/21/2023 10:11 AM CDT) Cytology Tracking Specimen received for processing. TOM RIVERA Comment:Testing performed by : [facility], [address] [place] [address], [place]., [address] Other 08/21/2023 10:1 1 AM CDT 08/22/2023 9:58 AM CDT Indigo Reece MD LAB BLOOD ORDERABLES Namrata l Result TOM RIVERA [address] [facility] [place] [address] * (ABNORMAL) High Risk HPV DNA Detection with Genotyping (Molecular component) (08/21/2023 10:11 AM CDT) HPV HR 16 Detected(A) Not Detected TOM RIVERA Comment:Testing performed by : [facility], [address] [place]., [address] HPV HR 18 Not Detected Not Detected TOM RIVERA Comment:Testing performed by : [facility], [address] [place]., [address] HPV HR Non 16/18 Detected(A) Not Detected TOM RIVERA Comment: Interpretive Data [...] this test have been verified by the [facility] Molecular Infectious Disease laboratory. Correlate with separately reported cytology results, as applicable. Interpretive data last revised 23 Testing performed by: [facility], [address] [place]., [address] Endocervical 08/21/2023 10:1 1 AM CDT 08/22/2023 3:00 PM CDT Narrative TOM - 08/23/2023 6:54 AM CDT Clinical history and diagnosis->screening Testing type->Screening Last menstrual period (date if known)->08-07-23 Indigo Reece MD LAB BODY FLUIDS AND STOOL S ORDERABLES Final Result TOM RIVERA [address] [facility] [place] [address] documented in this encounter Visit Diagnoses Diagnosis Well woman exam Routine general medical examination at a health care facility documented in this encounter Care Teams President/Gm Production & Live Experiences Relationship Specialty Start Date End Date Mateo Mir MD PCP - General Internal Medicine 07/15/23 05/31/24 Abhilash Sam MD [address] [place] [id number] Consulting Physician Obstetrics and Gynecology 07/15/23 Mary Russell MD [address] [place] [id number] Referring Physician Pediatric Neurology 07/15/23 documented as of this encounter
--- OUTSIDE RECORDS SUMMARY | 2024-11-29 06:23 | XMS_ITS | Encounter Summary ---
Author Organization [facility] Healthcare Address [address] [place] [address] Care Team Providers Care Bag Mender Name Role Phone Mateo Mir MD Primary Care Provider [phone] Abhilash Sam MD Unavailable [phone] aMry Russell MD Unavailable [phone] Reason for Referral * MRI/CAT/PET Scan (Routine) - Closed Specialty Diagnoses / Procedures Referred By Contac t Referred To Contact Radiology Diagnoses Lymphadenopathy, inguinal H/O urinary frequency Procedures CT Pelvis W Contrast Mateo Mir MD Phone: tel: fax: [address] [address] Referral ID Status Reason Start Date Expiration Date Visits Re quested Visits Authorized [id number] Closed 12/10/2023 01/08/2025 1 1 [employer] Reason for Visit * Reason Comments Follow-up Pt here for 8 wk f/u Encounter Details Date Type Department Care Team (Late st Contact Info) Description 12/10/2023 2:30 PM [employer]ER Office Visit [facility] Primary Care [address] [place] [phone] Mateo Mir MD [address] [place] [address] [address] [place] [address] Lymphadenopathy, inguinal (Primary Dx); H/O urinary frequency; Menorrhagia with regular cycle; 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; Other constipation Social History Tobacco Use Types Packs/Day Years [...] staff should administer the PHQ-9) 0 10/01/2023 [place] Depression Scale Answer Date Recorded [place] Depression Scale Total 1 11/28/2020 The thought [...] Sign Reading Time Taken Comments Blood Pressure 120/60 12/10/2023 3:10 PM [employer] Pulse 56 12/10/2023 3:10 PM [employer] Temperature 36.6 ??C (97.9 ??F) 12/10/2023 3:10 PM CS T Respiratory Rate 18 12/10/2023 3:10 PM [employer] Oxygen Saturation 99% 12/10/2023 3:10 PM [employer] Inhaled Oxygen Concentration - - Weight 74.1 kg (163 lb 6.4 oz) 12/10/2023 3:10 PM [employer] Height 170.2 cm (5' 7 ) 12/10/2023 3:10 PM [employer]ER Body Mass Index 25.59 12/10/2023 3:10 PM [employer] documented in this encounter Progress Notes * Mateo Mir MD - 12/10/2023 2:30 PM CST Images from the original note were not included. Todays Encounter Date: 12/10/2023 Last visit: 10/01/2023 All Appts with PCP recent/future) Next/future visit with Care Team Recent Visits Date Type Provider Dept 10/01/23 Office Visit Mateo Mir MD [facility] 07/15/23 Office Visit [facility] Showing recent visits within past 180 days and meeting all other requirements Today's Visits Date Type Provider Dept 12/10/23 Office Visit Mateo Mir MD [facility] Showing today's visits and meeting all other requirements Future Appointments Date Type Provider Dept 03/10/24 Appointment Mateo Mir MD [facility] Showing future appointments within next 180 days and meeting all other requirements Future Appointments Date Time Provider Department Center 01/23/2024 9:00 AM Indigo Reece MD [facility] Specialty 03/10/2024 8:30 AM Mateo Mir MD [facility] PC 08/24/2024 8:30 AM Indigo Reece MD [facility] Specialty Patient ID: Gladys Tai is a 38 y.o. female. Chief Complaint. Chief Complaint Patient presents with Follow-up Pt here for 8 wk f/u Patient Care Team: Mateo Mir MD as PCP - General (Internal Medicine) Abhilash Sam MD as Consulting Physician (Obstetrics and Gynecology) Mary Russell MD as Referring Physician (Pediatric Neurology) HPI/ROS. Patient is a 38 y.o. female here for follow up on chronic conditions History obtained from patient Todays Encounter: 12/10/2023 Cymbalta/flexeril Done PT for hiip piriformis. spasm Lower hips hip flexor numbness pain also. Sales. Pulling sensation top of ankle. Hankd worse with movement parasthesisas. Hip/groin tight pain hurts more with movement Radiating down front thigh to feet. Periods nearby. Right ant groin down to feet. Heavy periods for 6 month. 2 heavy bm on day 1 or day 2. Loose diarrhea. Constipation: gets Twice a week BM normal Urinary Frequency 4-6 times/mo. 10/01/2023 1. Vitamin-D deficiency-as low as 15 in the past. Most recently despite taking 5000 a day was stillonly 18. for now we will continue the 5000 even though vitamin-D is still low. We will treat underlying potential inflammatory conditions more in sinuses with migraines. If after treating still has low vitamin-D that we will increase from currently 5000 daily to perhaps 10,000 daily after 3-6 months 2. Migraines patient does have some vitamin deficiencies. Vitamin-D deficiency could be contributing. Given list of nutrients to add on to prevent migraines including B2, D, magnesium. And with low B12 levels recommended 250 daily 3. Car sickness/motion sickness-requesting scopolamine patch for trip. Given 4. B12 deficiency (250 mcg daily) 5. GERD-maybe having silent. Trial of raising head of bed and omeprazole. See below sequence to try Check H pylori B12 250 daily After 2 weeks add on 2. Flonase - helped with drainage. 3.after 2-3 weeks if still not there 4. Raise HOB plus omeprazole 20mg daily for 4 weeks- no change 5.take iibuprofen /advil alever. (No more than 9 pills month) 6.make diarry to really see whatstriggering. 7next time (singulair?) discussed how to symptom treat ENT symptoms. Willneed to rediscuss hips at next visit. Review of Systems: See HPI. 14 point ROS was discussed with the patient and is negative except as noted in the history of present illness. Past Social,Medical,family Hx: Past Medical History: Diagnosis Date Abnormal Pap smear of cervix Pneumonia History reviewed. No pertinent surgical history. Social History Tobacco Use Smoking status: Former Types: Cigarettes Quit date: 02/15/2010 Years since quittin.8 Smokeless tobacco: Never Substance and Sexual Activity Drug use: Never Sexual activity: Yes Partners: Male control/protection: Vasectomy Alcohol Use: Not At Risk (04/24/2022) AUDIT-C Frequency of Alcohol Consumption: 2-4 times a month Average Number of Drinks: 1 or 2 Frequency of Binge Drinking: Never Family History Problem Relation Age of Onset Diabetes Maternal Grandmother Thyroid disease Mother Graves' disease Sister Breast cancer Neg Hx Ovarian cancer Neg Hx Uterine cancer Neg Hx Current Medications and Allergies: Allergies Allergen Reactions Erythromycin Rash Penicillins Swelling Outpatient Encounter Medications as of 12/10/2023 Medication Sig Dispense Refill acetaminophen (TYLENOL) 500 mg tablet Take 1 tablet (500 mg total) by mouth every 6 (six) hours as needed for pain ascorbic acid (VITAMIN C) 100 mg tablet Take 1 tablet (100 mg total) by mouth daily calcium carbonate-mag hydroxid 1,000-200 mg tablet,chewable Take by mouth cetirizine (ZyrTEC) 10 mg tablet Take 1 tablet (10 mg total) by mouth daily ergocalciferol (VITAMIN D) 50,000 unit capsule ergocalciferol 1.25 mg (50,000 intl units) oral capsule Start Date: 02/23/22 Status: Ordered fluticasone propionate (FLONASE) 50 mcg/actuation nasal spray Administer 2 sprays into each nostrildaily 3 each 4 ibuprofen (ADVIL,MOTRIN) 600 mg tablet TAKE 1 TABLET BY MOUTH THREE TIMES DAILY NEEDED FOR FEVEROR PAIN Lactobacillus acidophilus (Probiotic) 10 billion cell capsule Take by mouth multivitamin capsule Take 1 capsule by mouth daily omega-3 fatty acids-fish oil 300-1,000 mg capsule Take 2 capsules (2 g total) by mouth daily [DISCONTINUED] benzonatate (TESSALON) 100 mg capsule benzonatate 100 mg oral capsule Start Date: 07/28/21 Status: Ordered (Patient not taking: Reported on 08/21/2023) [DISCONTINUED] cyclobenzaprine (FLEXERIL) 5 mg tablet Take 1 tablet (5 mg total) by mouth 3 (three)times a day as needed for muscle spasms 30 tablet 0 [DISCONTINUED] doxycycline monohydrate (MONODOX) 100 mg capsule 0 total refill(s) (Patient not taking: Reported on 10/01/2023) [DISCONTINUED] DULoxetine DR (CYMBALTA) 30 mg capsule Take 1 capsule (30 mg total) by mouth 2 (two)times a day 180 capsule 4 [DISCONTINUED] omeprazole (PriLOSEC) 20 mg capsule Take 1 capsule (20 mg total) by mouth daily (Patient not taking: Reported on 12/10/2023) 30 capsule 11 [DISCONTINUED] predniSONE (DELTASONE) 20 mg tablet predniSONE 20 mg oral tablet Start Date: 06/13/21 Status: Ordered (Patient not taking: Reported on 08/21/2023) [DISCONTINUED] scopolamine 1 mg over 3 days patch [address] 1 patch on the skin every third day as needed (nausea) (Patient not taking: Reported on 12/10/2023) 4 patch 2 No facility-administered encounter medications on file as of 12/10/2023. Physical Exam: Constitutional: Body mass index is 25.59 kg/m??. Vitals: 12/10/23 1510 BP: 120/60 Pulse: 56 Resp: 18 Temp: 36.6 ??C (97.9 ??F) SpO2: 99% Weight: 74.1 kg (163 lb 6.4 oz) Height: 170.2 cm (5' 7 ) heart RRR and Lungs CTA Right inguinal tenderness/lymphadenopathy Results/Data: Old records were reviewed. I have personally reviewed the below Data Results for orders placed or performed during the hospital encounter of 08/21/23 High Risk HPV DNA Detection with Genotyping (Molecular component) Result Value Ref Range HPV HR 16 Detected (A) Not Detected HPV HR 18 Not Detected Not Detected HPV HR Non 16/18 Detected (A) Not Detected Cytology Tracking Result Value Ref Range Cytology Tracking Specimen received for processing. No results found. Diagnosis: 1. Lymphadenopathy, inguinal 2. H/O urinary frequency 3. Menorrhagia with regular cycle 4. 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 Suspect has anterior femoral cutaneous impingement due to either lymphadenopathy and or inflammation in the pelvic area. Source of inflammation lymphadenopathy most likely gynecologic. Especially with history of heavier periods in the last 6 months. Patient has constipation and frequency could be symptoms of increased inflammation in the area. Get CT pelvis with contrast. If not covered we will wa it till seen by bundle packer after LEEP procedure as she will most likely get a pelvic ultrasound done. PLAN & MEDICATION MANAGEMENT Orders Placed This Encounter CT Pelvis W Contrast Urinalysis reflex to microscopic calcium carbonate-mag hydroxid 1,000-200 mg tablet,chewable omega-3 fatty acids-fish oil 300-1,000 mg capsule Medication Management I have discontinued Gladys Tai's DULoxetine DR, cyclobenzaprine, benzonatate, doxycycline monohydrate, predniSONE, scopolamine, and omeprazole. I am also having her maintain her Probiotic, acetaminophen, multivitamin, ascorbic acid, cetirizine, ergocalciferol, fluticasone propionate, ibuprofen, calcium carbonate-mag hydroxid, and omega-3 fatty acids-fish oil. Mateo Mir MD [employer] documented in this encounter Plan of Treatment Not on file documented as of this encounter Results * CT Pelvis W Contrast (12/20/2023 12:26 PM [employer]ER) Anatomical Region Laterality Modality Body N/A Computed Tomogra phy 12/23/2023 4:12 PM [employer]ER Narrative 12/23/2023 4:23 PM [employer]AT[employer]ER EXAM DESCRIPTION: ?? CT PELVIS W CONTRAST [...] D: ??12/23/2023 4:23 PM T: Report ID: [id number] Reading Location: ??[id number] Procedure Note Chencho Mccollum Jr., MD - [...] by Chencho Mccollum M.D. 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 Other constipation Lymphadenopathy, inguinal H/O urinary frequency documented in this encounter Discontinued Medications Medication Sig Discontinue Reason Start Date End Da te benzonatate (TESSALON) 100 mg capsule benzonatate 100 mg oral capsule Start Date: 07/28/21 Status: Ordered Therapy completed 07/28/2021 12/10/2023 doxycycline monohydrate (MONODOX) 100 mg capsule 0 total refill(s) Therapy completed 06/13/2021 12/10/2023 predniSONE (DELTASONE) 20 mg tablet predniSONE 20 mg oral tablet Start Date: 06/13/21 Status: Ordered Therapy completed 06/13/2021 12/10/2023 cyclobenzaprine (FLEXERIL) 5 mg tablet Take 1 tablet (5 mg total) by mouth 3 (three) times a day as needed for muscle spasms Therapy completed 07/11/2022 12/10/[address] (CYMBALTA) 30 mg capsule Take 1 capsule (30 mg total) by mouth 2 (two) times a day Therapy completed 04/24/2022 12/10/2023 omeprazole (PriLOSEC) 20 mg capsule Take 1 capsule (20 mg total) by mouth daily Therapy completed 10/01/2023 12/10/2023 scopolamine 1 mg over 3 days patch [address] 1 patch on the skin every third day as needed (nausea) Therapy completed 10/01/2023 12/10/2023 documented as of this encounter Historical Medications * This list may reflect changes made after this encounter. omega-3 fatty acids-fish oil 300-1,000 mg capsule Take 2 capsules (2 g total) by mouth daily 06/01/2024 calcium carbonate-mag hydroxid 1,000-200 mg tablet,chewable Take by mouth 2023 added in this encounter Care Teams Bag Mender Relationship Specialty Start Date End Date Mateo Mir MD PCP - General Internal Medicine 07/15/23 05/31/24 Abhilash Sam MD [address] [place] [id number] Consulting Physician Obstetrics and Gynecology 07/15/23 Mary Russell MD [address] [place] [address] Referring Physician Pediatric Neurology 07/15/23 documented as of this encounter
--- OUTSIDE RECORDS SUMMARY | 2024-11-29 06:23 | XMS_ITS | Encounter Summary ---
Author Organization [facility] Healthcare Address [address] [place] [address] Care Team Providers Care Sprinkler Tender Name Role Phone Abhilash Sam MD Unavailable [phone] Mary Russell MD Unavailable [phone] Luz Meneses Primary Care Provider + Reason for Referral * Diagnostic Imaging (Routine) - Closed Specialty Diagnoses / Procedures Referred By Contac t Referred To Contact Diagnoses Arthralgia, unspecified joint Myalgia Chronic pain of both knees Procedures XR Knee Left 3 Vw Luz Meneses PA [address] [address] Phone: tel: fax: [address] [address] Referral ID Status Reason Start Date Expiration Date Visits Re quested Visits Authorized [id number] Closed 06/01/2024 07/01/2025 1 1 * Diagnostic Imaging (Routine) - Closed Specialty Diagnoses / Procedures Referred By Contac t Referred To Contact Diagnoses Arthralgia, unspecified joint Myalgia Chronic pain of both knees Procedures XR Knee Right 3 Vw Luz Meneses PA [address] [facility] [address] [place] [address] Phone: tel: fax: [address] [phone] Referral ID Status Reason Start Date Expiration Date Visits Re quested Visits Authorized [id number] Closed 06/01/2024 07/01/2025 1 1 Reason for Visit * Diagnostic Imaging (Routine) - Closed Specialty Diagnoses / Procedures Referred By Contac t Referred To Contact Diagnoses Arthralgia, unspecified joint Myalgia Chronic pain of both knees Procedures XR Knee Right 3 Vw Luz Meneses PA [address] [facility] [address] [place] [address] Phone: tel: fax: [address] [phone] Referral ID Status Reason Start Date Expiration Date Visits Re quested Visits Authorized [id number] Closed 06/01/2024 07/01/2025 1 1 Encounter Details Date Type Department Care Team (Latest Contact Info) Description 06/01/2024 11:08 AM CDT - 06/01/2024 11:59 PM CDT Hospital Encounter [facility] Diagnostic Imaging [address] [place] [address] Arthralgia, unspecified joint; Myalgia; Chronic pain of both knees Discharge Disposition: Discharge to home or self [...] staff should administer the PHQ-9) 0 06/01/2024 [place] Depression Scale Answer Date Recorded [place] Depression Scale Total 1 11/28/2020 The thought [...] Procedure Name Priority Date/Time Associated Diagnosis Comments XR KNEE RIGHT 3 VIEWS Schedule Routine, Read Routine (OP Routine) 06/01/2024 11:24 AM CDT Arthralgia, unspecified joint Myalgia Chronic pain of both knees XR KNEE LEFT 3 VIEWS Schedule Routine, Read Routine (OP Routine) 06/01/2024 11:24 AM CDT Arthralgia, unspecified joint Myalgia Chronic pain of both knees documented in this encounter Results * XR Knee Left 3 Vw (06/01/2024 11:24 AM CDT) Anatomical Region Laterality Modality Lower Extremities, Knee Left Computed Radiography 06/02/2024 7:40 AM CDT Narrative 06/02/2024 7:50 AM CDT EXAM DESCRIPTION: XR KNEE RIGHT 3 VIEWS; XR KNEE LEFT 3 VIEWS REASON FOR STUDY: knee pain ?? Bilateral knee pain x 2 months. Right knee in greater pain. Nki ? FINDINGS: Three views each knee submitted with comparison 04/07/2016. No acute fractures are identified. ??Alignment is normal. ??The joint space heights are normal. ??There are no effusions. IMPRESSION: Normal bilateral knee evaluation. THIS IS AN ELECTRONICALLY VERIFIED FINAL REPORT 06/02/2024 7:50 AM - Electronically signed by ??Stevan Garrido M.D. MF: YELENA D: ??06/02/2024 7:50 AM T: ??06/02/2024 7:50 AM Report ID: [id number] Reading Location: ??[id number] Procedure Note Stevan Garrido MD - 06/02/2024 EXAM DESCRIPTION: XR KNEE RIGHT 3 VIEWS; XR KNEE LEFT 3 VIEWS REASON FOR STUDY: knee pain Bilateral knee pain x 2 months. Right knee in greater pain. Nki FINDINGS: Three views each knee submitted with comparison 04/07/2016. No acute fractures are identified. Alignment is normal. The joint space heights are normal. There are no effusions. IMPRESSION: Normal bilateral knee evaluation. THIS IS AN ELECTRONICALLY VERIFIED FINAL REPORT 06/02/2024 7:50 AM - Electronically signed by Stevan Garrido M.D. MF: YELENA Report ID: [id number] Reading Location: [id number] Luz [facility] IMG XR PROCEDURES Final Result * XR Knee Right 3 Vw (06/01/2024 11:24 AM CDT) Anatomical Region Laterality Modality Lower Extremities, Knee Right Computed Radiography 06/02/2024 7:40 AM CDT Narrative 06/02/2024 7:50 AM CDT EXAM DESCRIPTION: XR KNEE RIGHT 3 VIEWS; XR KNEE LEFT 3 VIEWS REASON FOR STUDY: knee pain ?? Bilateral knee pain x 2 months. Right knee in greater pain. Nki ? FINDINGS: Three views each knee submitted with comparison 04/07/2016. No acute fractures are identified. ??Alignment is normal. ??The joint space heights are normal. ??There are no effusions. IMPRESSION: Normal bilateral knee evaluation. THIS IS AN ELECTRONICALLY VERIFIED FINAL REPORT 06/02/2024 7:50 AM - Electronically signed by ??Stevan Garrido M.D. MF: YELENA D: ??06/02/2024 7:50 AM T: ??06/02/2024 7:50 AM Report ID: [id number] Reading Location: ??[id number] Procedure Note Stevan Garrido MD - 06/02/2024 EXAM DESCRIPTION: XR KNEE RIGHT 3 VIEWS; XR KNEE LEFT 3 VIEWS REASON FOR STUDY: knee pain Bilateral knee pain x 2 months. Right knee in greater pain. Nki FINDINGS: Three views each knee submitted with comparison 04/07/2016. No acute fractures are identified. Alignment is normal. The joint space heights are normal. There are no effusions. IMPRESSION: Normal bilateral knee evaluation. THIS IS AN ELECTRONICALLY VERIFIED FINAL REPORT 06/02/2024 7:50 AM - Electronically signed by Stevan Garrido M.D. MF: YELENA Report ID: [id number] Reading Location: [id number] [facility] IMG XR PROCEDURES Final Result documented in this encounter Visit Diagnoses Diagnosis Arthralgia, unspecified joint Myalgia Unspecified myalgia and myositis Chronic pain of both knees documented in this encounter Care Teams Sprinkler Tender Relationship Specialty Start Date End Date Luz Meneses PA [address] [facility] [address] [place] [address] PCP - General Family Medicine 06/01/24 Abhilash Sam MD [address] [address] Consulting Physician Obstetrics and Gynecology 07/15/23 Mary Russell MD [address] [place] [address] Referring Physician Pediatric Neurology 07/15/23 documented as of this encounter
--- OUTSIDE RECORDS SUMMARY | 2024-11-29 06:23 | XMS_ITS | Encounter Summary ---
Author Organization [facility] Healthcare Address [address] [place] [address] Care Team Providers Care Elevator Technician Name Role Phone Abhilash Sam MD Unavailable [phone] Mary Russell MD Unavailable [phone] Luz Meneses Primary Care Provider + Reason for Referral * Diagnostic Imaging (Routine) - Closed Specialty Diagnoses / Procedures Referred By Carlee goetz Referred To Contact Diagnoses Strain of calf muscle, right, initial encounter Leg swelling Procedures US VEIN DUPLEX LOWER EXTREMITY RIGHT LIMITED, UNILATERAL US Vein Duplex Lower Extremity Right Limited Letha Duarte DO [address] [place] [address] Phone: tel: fax: [facility] Medical Group Cardiology at [place] [address] [address] [place] [address] Phone: tel: fax: Referral ID Status Reason Start Date Expiration Date Visits Re quested Visits Authorized [id number] Closed 07/10/2024 08/09/2025 1 1 Reason for Visit * Diagnostic Imaging (Routine) - Closed Specialty Diagnoses / Procedures Referred By Carlee goetz Referred To Contact Diagnoses Strain of calf muscle, right, initial encounter Leg swelling Procedures US VEIN DUPLEX LOWER EXTREMITY RIGHT LIMITED, UNILATERAL US Vein Duplex Lower Extremity Right Limited Letha Duarte DO [address] [place] [address] Phone: tel: fax: [facility] Medical Group Cardiology at [place] [address] [address] [address] [place] [address] Phone: tel: fax: Referral ID Status Reason Start Date Expiration Date Visits Re quested Visits Authorized [id number] Closed 07/10/2024 08/09/2025 1 1 Encounter Details Date Type Department Care Team (Latest Contact Info) Description 07/14/2024 9:00 AM CDT - 07/14/2024 11:59 PM CDT Hospital Encounter [facility] [address] [place] [address] Strain of calf muscle, right, initial encounter; Leg swelling Discharge Disposition: Discharge to home or self [...] staff should administer the PHQ-9) 0 06/01/2024 [place] Depression Scale Answer Date Recorded [place] Depression Scale Total 1 11/28/2020 The thought [...] Procedure Name Priority Date/Time Associated Diagnosis Comments US VEIN DUPLEX LOWER EXTREMITY RIGHT LIMITED Schedule Routine, Read Routine (OP Routine) 07/14/2024 9:35 AM CDT Strain of calf muscle, right, initial encounter Leg swelling documented in this encounter Results * US VEIN DUPLEX LOWER EXTREMITY RIGHT LIMITED, UNILATERAL (07/14/2024 9:35 AM CDT) Anatomical Region Laterality Modality Vascular Right Ultrasound 07/14/2024 Narrative 07/16/2024 3:01 PM CDT [email or web address] Job ID: [id number] [email or web address] Document ID: [id number] Dictated date/time: [id number] LOWER EXTREMITY VENOUS DUPLEX REASON FOR EEG Pain. FINDINGS Veins throughout the right lower extremity show spontaneous and phasic flow with normal augmentation. ??All veins are competent and compressible. ?? Left common femoral vein shows normal flow and compressibility as well. OVERALL IMPRESSION Negative for DVT right lower extremity and left common femoral vein. Job ID/Internal Job ID: ??[id number] Letha Duarte DO [facility] [place] US PROCEDURES Final Result documented in this encounter Visit Diagnoses Diagnosis Strain of calf muscle, right, initial encounter Leg swelling Swelling of limb documented in this encounter Care Teams Elevator Technician Relationship Specialty Start Date End Date Luz Meneses PA [address] [facility] [address] [place] [address] PCP - General Family Medicine 06/01/24 Abhilash Sam MD [address] [place] [address] Consulting Physician Obstetrics and Gynecology 07/15/23 Mary Russell MD [address] [address] Referring Physician Pediatric Neurology 07/15/23 documented as of this encounter
--- OUTSIDE RECORDS SUMMARY | 2024-11-29 06:23 | XMS_ITS | Encounter Summary ---
Author Organization [facility] Healthcare Address [address] [place] [address] Care Team Providers Care Geodetic Engineer Name Role Phone Mateo Mir MD Primary Care Provider [phone] Abhilash Sam MD Unavailable [phone] Mary Russell MD Unavailable [phone] Reason for Visit * Reason Comments Post-op Follow-up [facility] 12-26-23 Encounter Details Date Type Department Care Team (Latest Contact Info) Description 01/23/2024 9:00 AM ORACLE DRM CONSULTANT Clinical Support [facility] Medical Group Obstetrical Gynecology [address] [address] Indigo Reece MD [facility] [address] EDITH II (cervical intraepithelial neoplasia II) (Primary Dx) Social History Tobacco Use Types [...] staff should administer the PHQ-9) 0 10/01/2023 Leon Depression Scale Answer Date Recorded Leon Depression Scale Total 1 11/28/2020 The thought [...] Sign Reading Time Taken Comments Blood Pressure 90/60 01/23/2024 9:00 AM ORACLE DRM CONSULTANT Pulse - - Temperature - - Respiratory Rate - - Oxygen Saturation - - Inhaled Oxygen Concentration - - Weight 73.9 kg (163 lb) 01/23/2024 9:00 AM ORACLE DRM CONSULTANT Height 170.2 cm (5' 7 ) 01/23/2024 9:00 AM ORACLE DRM CONSULTANT Body Mass Index 25.53 01/23/2024 9:00 AM ORACLE DRM CONSULTANT documented in this encounter Progress Notes * Indigo Reece MD - 01/23/2024 9:00 AM CST Postop Visit Gladys Tai is a 38 y.o. female who presents to the office 4 weeks status post LEEP for CIN2 . Eating a regular diet without difficulty. Bowel movements are normal. The patient is not having any pain. Menses during postoperative course actually unit secy than usual. Some mild odor initially, none since. I have reviewed: allergies, current medications, past family history, past medical history, past social history, past surgical history, and problem list Vitals BP 90/60 Ht 170.2 cm (5' 7 ) Wt 163 lb (73.9 kg) LMP 12/28/2023 BMI 25.53 kg/m?? General: no distress Abdomen: soft, bowel sounds active, non-tender Speculum: LEEP bed healing well, small area of friabililty on posterior cervix that was treated with silver nitrate. Assessment/Plan Gladys Tai is Doing well postoperatively. Operative findings again reviewed. Pathology report discussed. --overall well healed, cleared from postoperative standpoint. --recommend repeat pap in 6 months. Indigo Reece MD LE DRM CONSULTANT documented in this encounter Plan of Treatment Not on file documented as of this encounter Visit Diagnoses Diagnosis EDITH II (cervical intraepithelial neoplasia II)- Primary Moderate dysplasia of cervix documented in this encounter Historical Medications * This list may reflect changes made after this encounter. Medication Sig Dispense Quantity Refills Last Filled Start D ate End Date predniSONE (DELTASONE) 20 mg tablet 11/26/2023 06/01/2024 added in this encounter Care Teams Geodetic Engineer Relationship Specialty Start Date End Date Mateo Mir MD PCP - General Internal Medicine 07/15/23 05/31/24 Abhilash Sam MD [address] [place] [address] Consulting Physician Obstetrics and Gynecology 07/15/23 Mary Russell MD [address] [address] Referring Physician Pediatric Neurology 07/15/23 documented as of this encounter
--- OUTSIDE RECORDS SUMMARY | 2024-11-29 06:23 | XMS_ITS | Encounter Summary ---
Author Organization [facility] Healthcare Address [address] [place] [address] Care Team Providers Care Glass Toughening Operator Name Role Phone Mateo Mir MD Primary Care Provider [phone] Abhilash Sam MD Unavailable [phone] Mary Russell MD Unavailable [phone] Reason for Visit * Reason Comments Established Care Consistant Bilateral hip and buttock pain. Pillow between the legs helps, patient still having difficulty scheduling pt appointment. Wants to discuss V-D supplement. Encounter Details Date Type Department Care Team (Latest Contact Info) Description 10/01/2023 8:30 AM PRINTED CIRCUIT BOARDS INSPECTOR Office Visit [facility] Medical Group Primary Care [address] [place] [phone] Mateo Mir MD [address] [place] [address] Gastroesophageal reflux disease without esophagitis (Primary Dx); Vitamin D deficiency (15); Quit smoking; History of motion sickness Social History Tobacco Use Types Packs/Day Years [...] staff should administer the PHQ-9) 0 10/01/2023 [place] Depression Scale Answer Date Recorded [place] Depression Scale Total 1 11/28/2020 The thought [...] Sign Reading Time Taken Comments Blood Pressure 114/64 10/01/2023 8:14 AM PRINTED CIRCUIT BOARDS INSPECTOR Pulse 60 10/01/2023 8:14 AM PRINTED CIRCUIT BOARDS INSPECTOR Temperature 36.2 ??C (97.2 ??F) 10/01/2023 8:14 AM CS T Respiratory Rate - - Oxygen Saturation 99% 10/01/2023 8:14 AM PRINTED CIRCUIT BOARDS INSPECTOR Inhaled Oxygen Concentration - - Weight 75.3 kg (166 lb) 10/01/2023 8:14 AM PRINTED CIRCUIT BOARDS INSPECTOR Height 170.2 cm (5' 7.01 ) 10/01/2023 8:14 AM CS T Body Mass Index 25.99 10/01/2023 8:14 AM PRINTED CIRCUIT BOARDS INSPECTOR documented in this encounter Patient Instructions * Patient Instructions* Mateo Mir MD - 10/01/2023 8:30 AM PRINTED CIRCUIT BOARDS INSPECTOR Vitamins helpful: https://www.brainandlife.org/the-magazine/online-exclusives/eqz-zepohewqgfl-yp-i b-uffvxecy-ead-bwtafxbigoa-jny-nvcydrjg/ B12 250 daily Magnesium Recommended dose: 600 mg daily for prevention. Side effects: Lower blood pressure, diarrhea. B2 Recommended dose: 200 mg twice a day Side effects: Bright yellow urine, which is a sign of excess riboflavin being excreted. 400 mg riboflavin daily Vitamin D Recommended dose: 1,000 IU per twice per day. Side effects: Generally considered safe, but could potentially cause numerous side effects, especially when taken in excess. After 2 weeks add on 2. Flonase 3.after 2-3 weeks if still not there 4. Raise HOB plus omeprazole 20mg daily for 4 weeks 5.take iibuprofen /advil alever. (No more than 9 pills month) 6.make diarry to really see whatstriggering. 7next time (singulair?) discussed how to symptom treat ENT symptoms. Going to [place] in 3 weeks. Go to travel clinic or health department TED CIRCUIT BOARDS INSPECTOR TED CIRCUIT BOARDS INSPECTOR documented in this encounter Ordered Prescriptions Prescription Sig Dispense Quantity Refills Last Filled Start Date End Date fluticasone propionate (FLONASE) 50 mcg/actuation nasal spray Administer 2 sprays into each nostril daily 3 each 4 10/01/2023 4 omeprazole (PriLOSEC) 20 mg capsule Take 1 capsule (20 mg total) by mouth daily 30 capsule 11 10/01/2023 4 scopolamine 1 mg over 3 days patch [address] 1 patch on the skin every third day as needed (nausea) 4 patch 2 10/01/2023 4 documented in this encounter Progress Notes * Mateo Mir MD - 10/01/2023 8:30 AM CST Images from the original note were not included. Continue 5000/day vit D. Todays Encounter Date: 10/01/2023 Last visit: 07/15/2023 All Appts with PCP recent/future) Next/future visit with Care Team Recent Visits Date Type Provider Dept 07/15/23 [facility] Visit [facility] Show[facility] recent visits within past 180 days and meeting all other requirements Today's Visits Date Type Provider Dept 10/01/23 Office Visit Mateo Mir MD [facility] Showing today's visits and meeting all other requirements Future Appointments Date Type Provider Dept 12/10/23 Appointment [facility] Showing future appointments within next 180 days and meeting all other requirements Future Appointments Date Time Provider Department Center 11/04/2023 11:15 AM Indigo Reece MD [facility] Specialty 12/10/2023 2:30 PM Mateo Mir MD PCP 250 08/24/2024 8:30 AM Indigo Reece MD [facility] Specialty Patient ID: Gladys Tai is a 38 y.o. female. Chief Complaint. Chief Complaint Patient presents with Established Care Consistant Bilateral hip and buttock pain. Pillow between the legs helps, patient still having difficulty scheduling pt appointment. Wants to discuss V-D supplement. Patient Care Team: Mateo Mir MD as PCP - General (Internal Medicine) Abhilash Sam MD as Consulting Physician (Obstetrics and Gynecology) Mary Russell MD as Referring Physician (Pediatric Neurology) HPI/ROS. Patient is a 38 y.o. female here for follow up on chronic conditions History obtained from patient Todays Encounter: 10/01/2023 Going to [place] in 3 weeks. Still taking 5000 vitamin-D daily stop taking migraine medications. Hasa regular periods. Has been having slight tenderness above the right eye.Thinks sinus. 2 wks. Righteye tender.got off all pills from . Zyrtec every morning. Jul-oct, then january-march. Drainage. Does occasionally get acid reflux 07/15/2023 Review of Systems: See HPI Past Social,Medical,family Hx: Past Medical History: Diagnosis Date Abnormal Pap smear of cervix Pneumonia History reviewed. No pertinent surgical history. Social History Tobacco Use Smoking status: Former Types: Cigarettes Quit date: 02/15/2010 Years since quittin.6 Smokeless tobacco: Never Substance and Sexual Activity [...] Penicillins Swelling Outpatient Encounter Medications as of 10/01/2023 Medication Sig Dispense Refill acetaminophen (TYLENOL) 500 mg tablet Take 1 tablet (500 mg total) by mouth every 6 (six) hours as needed for pain ascorbic acid (VITAMIN C) 100 mg tablet Take 1 tablet (100 mg total) by mouth daily cetirizine (ZyrTEC) 10 mg tablet Take 1 tablet (10 mg total) by mouth daily ergocalciferol (VITAMIN D) 50,000 unit capsule ergocalciferol 1.25 mg (50,000 intl units) oral capsule Start Date: 02/23/22 Status: Ordered Lactobacillus acidophilus (Probiotic) 10 billion cell capsule Take by mouth multivitamin capsule Take 1 capsule by mouth daily benzonatate (TESSALON) 100 mg capsule benzonatate 100 mg oral capsule Start Date: 07/28/21 Status: Ordered (Patient not taking: Reported on 08/21/2023) cyclobenzaprine (FLEXERIL) 5 mg tablet Take 1 tablet (5 mg total) by mouth 3 (three) times a day asneeded for muscle spasms 30 tablet 0 doxycycline monohydrate (MONODOX) 100 mg capsule 0 total refill(s) (Patient not taking: Reported on10/01/2023) DULoxetine DR (CYMBALTA) 30 mg capsule Take 1 capsule (30 mg total) by mouth 2 (two) times a day 180 capsule 4 predniSONE (DELTASONE) 20 mg tablet predniSONE 20 mg oral tablet Start Date: 06/13/21 Status: Ordered (Patient not taking: Reported on 08/21/2023) scopolamine 1 mg over 3 days patch [address] 1 patch on the skin every third day as needed (nausea) 4 patch 2 No facility-administered encounter medications on file as of 10/01/2023. Physical Exam: Constitutional: Body mass index is 25.99 kg/m??. Vitals: 10/01/23 0814 BP: 114/64 BP Location: Left arm Patient Position: Sitting Pulse: 60 Temp: 36.2 ??C (97.2 ??F) TempSrc: Temporal SpO2: 99% Weight: 75.3 kg (166 lb) Height: 170.2 cm (5' 7.01 ) Positive tenderness to tapping on frontal sinus. White thick drainage visible back of throat Results/Data: Old records were reviewed. I have [...] for processing. No results found. Diagnosis: 1. Gastroesophageal reflux disease without esophagitis Assessment/Plan DIAGNOSES/ASSESSMENT Diagnoses and all orders for this visit: Gastroesophageal reflux disease without esophagitis (K21.9) (Primary) - H. pylori breath test; Future Other orders - scopolamine 1 mg over 3 days patch 3 day; Place 1 patch on the skin every third day as needed (nausea) No problem-specific Assessment & Plan notes found for this encounter. Patient Instructions Vitamins helpful: https://www.brainTow Choice.org/the-magazine/online-exclusives/the-neurologist -dd-ci-jpihgilg-hnv-muafgaqzpfh-cgr-migraine/ Going to [place] in 3 weeks. Go to travel clinic or health department Has vasomotor like symptoms. (history of syncope due to sick sinus syndrome with bradycardia). Has been avoiding taking ibuprofen more than 9 times per month after last discussion. So far in the past2 weeks has not had any migraines since off everything. Still taking vitamin-D 5000. 1. Vitamin-D deficiency-as low as 15 in [...] try Check H pylori B12 250 daily Magnesium Recommended dose: 600 mg daily for prevention. Side effects: Lower blood pressure, diarrhea. B2 Recommended dose: 200 mg twice a day Side effects: Bright yellow urine, which is a sign of excess riboflavin being excreted. 400 mg riboflavin daily Vitamin D Recommended dose: 1,000 IU per twice per day. Side effects: Generally considered safe, but could potentially cause numerous side effects, especially when taken in excess. After 2 weeks add on 2. Flonase 3.after 2-3 weeks if still not there 4. Raise HOB plus omeprazole 20mg daily for 4 weeks 5.take iibuprofen /advil alever. (No more than 9 pills month) 6.make diarry to really see whatstriggering. 7next time (singulair?) discussed how to symptom treat ENT symptoms. Willneed to rediscuss hips at next visit. PLAN & MEDICATION MANAGEMENT Orders Placed This Encounter H. pylori breath test scopolamine 1 mg over 3 days patch 3 day Medication Management I am having Gladys Tai start on scopolamine. I am also having her maintain her Probiotic, acetaminophen, multivitamin, ascorbic acid, DULoxetine DR, cyclobenzaprine, cetirizine, benzonatate, doxycycline monohydrate, ergocalciferol, and predniSONE. Mateo Mir MD TED CIRCUIT BOARDS INSPECTOR documented in this encounter Plan of Treatment Not on file documented as of this encounter Visit Diagnoses Diagnosis Gastroesophageal reflux disease without esophagitis- Primary Esophageal reflux Vitamin D deficiency (15) Quit smoking History of motion sickness documented in this encounter Care Teams Glass Toughening Operator Relationship Specialty Start Date End Date Mateo Mir MD PCP - General Internal Medicine 07/15/23 05/31/24 Abhilash Sam MD [address] [place] [id number] Consulting Physician Obstetrics and Gynecology 07/15/23 Mary Russell MD [address] [id number] Referring Physician Pediatric Neurology 07/15/23 documented as of this encounter
--- OUTSIDE RECORDS SUMMARY | 2024-11-29 06:23 | XMS_ITS | Encounter Summary ---
Author Organization [facility] Address [address] [address] Care Team Providers Care Data Communications Analyst Name Role Phone Rachel Ortiz MD Primary Care Provider [phone] Reason for Visit * Reason Comments Follow-up Pain management foll ow up Encounter Details Date Type Department Care Team ([facility] st Contact Info) Description 07/11/2022 3:00 PM CDT Office Visit [facility] Primary Care [address] [place] [address] [phone] Rachel Ortiz MD [address] [place] [id number] Chronic pain syndrome (Primary Dx) Social History Tobacco Use Types [...] staff should administer the PHQ-9) 0 04/24/2022 [place] Depression Scale Answer Date Recorded [place] Depression Scale Total 1 11/28/2020 The thought [...] Sign Reading Time Taken Comments Blood Pressure 102/62 07/11/2022 2:54 PM CDT Pulse 55 07/11/2022 2:54 PM CDT Temperature - - Respiratory Rate - - Oxygen Saturation 99% 07/11/2022 2:54 PM CDT Inhaled Oxygen Concentration - - Weight 78.3 kg (172 lb 9.6 oz) 07/11/2022 2:54 P M CDT Height 170.2 cm (5' 7 ) 07/11/2022 2:54 PM CDT Body Mass Index 27.03 07/11/2022 2:54 PM CDT documented in this encounter Patient Instructions * Patient Instructions* Rachel Ortiz MD - 07/11/2022 3:00 PM CDT Recommendations for a healthy lifestyle: Drink at least 64 ounces of fresh water daily (not including juice, coffee, etc) Exercise where you get your heart rate up to 60%- 80% of your max (to calculate max heart rate, subtract your age from 220) for about 150 minutes per week! Never text and drive. Always wear a seatbelt. Aim for 7-8 hours of sleep a night. Limit caffeine to 100 mg (one cup of coffee) daily. Limit alcohol to maximum of 7 drinks weekly. Never drink and drive. I recommend a plant heavy diet high in vegetables, fruit and lean proteins like chicken and fish.Limit white carbohydrates and sugary products as much as possible. Limit eating out to once weekly So nice to see you today! Dr. Ortiz documented in this encounter Ordered Prescriptions Prescription Sig Dispense Quantity Refills Last Filled Start Date End Date cyclobenzaprine (FLEXERIL) 5 mg tablet Take 1 tablet (5 mg total) by mouth 3 (three) times a day as needed for muscle spasms 30 tablet 07/11/2022 12/10/2023 documented in this encounter Progress Notes * Rachel Ortiz MD - 07/11/2022 3:00 PM CDT Images from the original note were not included. Patient ID: Gladys Tai is a 37 y.o. female. Chief Complaint. Chief Complaint Patient presents with Follow-up Pain management follow up HPI. Patient is a 37 y.o. 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 A lot of stretching. Used to be prettyphyscially active. Started 6 mo before new baby and worsneed during Pains are all day. Restless couldn't sleep. A lot of hip pain. Paia mid April- 2 weeks. Works with [employer]. Started cymbalta 2 months ago, taking with food. Flexeril prn, shooting pains, helps with that, uses it once a week Ankle pain Weight gain Headaches Foot intolerance/irritability Chiropractor adjustments , Dr. Carmona in [place] Chronic headaches too: every couple of days, takes xs tylenol , no light sensitivity, sound sensitivity +sig AI fam hx as belo A little better then before. Walking in the neighborhood. Suspect chronic pain Recommend cymbalta vs elavil as initial therapy- she opted for elavil. SE were discussed. Starting low dose and will titrate up through mychart if needed. 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 92 lbs- 13 and 14 Menstrual : 01/20/2022- every 30-45 days, periods 4-5, more intense cramps and bleeding. IUD- mirena - Past Medical History: Diagnosis Date Abnormal Pap smear of cervix Pneumonia History reviewed. No pertinent surgical history. Allergies Allergen Reactions Erythromycin Rash Penicillins Swelling Social History Tobacco Use Smoking status: Former Types: Cigarettes Quit date: 02/15/2010 Years since quittin.4 Smokeless tobacco: Never Substance and Sexual Activity Drug use: Never Sexual activity: Yes Partners: Male control/protection: Vasectomy Alcohol Use: Not At Risk Frequency of Alcohol Consumption: 2-4 times a month Average Number of Drinks: 1 or 2 Frequency of Binge Drinking: Never Family History Problem Relation Age of Onset Diabetes Maternal Grandmother Thyroid disease Mother Graves' disease Sister Breast cancer Neg Hx Current Medications: Outpatient Encounter Medications as of 07/11/2022 Medication Sig Dispense Refill acetaminophen (TYLENOL) 500 mg tablet Take 500 mg by mouth every 6 (six) hours as needed for pain ascorbic acid (VITAMIN C) 100 mg tablet Take 100 mg by mouth daily DULoxetine DR (CYMBALTA) 30 mg capsule Take 1 capsule (30 mg total) by mouth 2 (two) times a day 180 capsule 4 Lactobacillus acidophilus (Probiotic) 10 billion cell capsule Take by mouth multivitamin capsule Take 1 capsule by mouth daily cyclobenzaprine (FLEXERIL) 5 mg tablet Take 1 tablet (5 mg total) by mouth 3 (three) times a day asneeded for muscle spasms 30 tablet 0 [DISCONTINUED] cyclobenzaprine (FLEXERIL) 5 mg tablet Take 1 tablet (5 mg total) by mouth 3 (three)times a day as needed for muscle spasms 30 tablet 0 No facility-administered encounter medications on file as of 07/11/2022. Review of Systems: Review of Systems BP 102/62 (BP Location: Left arm, Patient Position: Sitting) Pulse 55 Ht 170.2 cm (5' 7 ) Wt 78.3 kg (172 lb 9.6 oz) SpO2 99% BMI 27.03 kg/m?? Physical Exam: Physical Exam Constitutional: Appearance: Normal appearance. Cardiovascular: Rate and Rhythm: Normal rate and regular rhythm. Pulmonary: Effort: Pulmonary effort is normal. Breath sounds: Normal breath sounds. Neurological: Mental Status: She is alert. Psychiatric: Mood and Affect: Mood normal. Behavior: Behavior normal. Assessment & Plan: Diagnoses and all orders for this visit: Chronic pain syndrome (Primary) Assessment & Plan: Determined she does not have fibromyalgia, she has chronic pain syndrome. Cont cymbalta! Was limited pain-jimenez before, now is much more back to her baseline with walking, and adl's and doing her job. She is qualified to perform walk duties. She is qualified to perform work duties and fitness restrictions are lifted with the exception of running. Other orders - cyclobenzaprine (FLEXERIL) 5 mg tablet; Take 1 tablet (5 mg total) by mouth 3 (three) times a dayas needed for muscle spasms Rachel Ortiz MD documented in this encounter Miscellaneous Notes * Assessment & Plan Note - Rachel Ortiz MD - 07/11/2022 3:06 PM CDTAssociated Problem(s): Chronic pain syndrome Determined she does not have fibromyalgia, she has chronic pain syndrome. Cont peri! Was limited pain-jimenez before, now is much more back to her baseline with walking, and adl's and doing her job. She is qualified to perform walk duties. She is qualified to perform work duties and fitness restrictions are lifted with the exception of running. documented in this encounter Plan of Treatment Not on file documented as of this encounter Visit Diagnoses Diagnosis Chronic pain syndrome- Primary documented in this encounter Discontinued Medications Medication Sig Discontinue Reason Start Date End Da te cyclobenzaprine (FLEXERIL) 5 mg tablet Take 1 tablet (5 mg total) by mouth 3 (three) times a day as needed for muscle spasms Reorder 04/24/2022 07/11/2022 documented as of this encounter Care Teams Data Communications Analyst Relationship Specialty Start Date End Date Rachel Ortiz MD [address] [place] [id number] PCP - General Internal Medicine 02/15/22 07/14/23 documented as of this encounter
--- OUTSIDE RECORDS SUMMARY | 2024-11-29 06:23 | XMS_ITS | Encounter Summary ---
Author Organization [facility] Address [address] [place] [address] Care Team Providers Care Regional Guide Name Role Phone Mateo Mir MD Primary Care Provider + [phone] Abhilash Sam MD Unavailable [phone] Mary Russell MD Unavailable [phone] Reason for Visit * Reason Comments Annual Exam Former dr strickland pt Encounter Details Date Type Department Care Team (Latest Contact Info) Description 07/15/2023 11:00 AM CDT Office Visit [facility] Primary Care [address] [place] [address] Mateo Mir MD [address] [place] [address] Physical exam, annual (Primary Dx); Piriformis syndrome of right side; Cartilage disease; Encounter for vitamin deficiency screening; Other general symptoms and signs; Other fatigue; Other hog tender (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; Other specified abnormal findings of blood chemistry; Screening for cardiovascular condition; Malaise and fatigue; Chronic right SI joint pain; Suspected sleep apnea; Vitamin D deficiency (15); History of diarrhea; Chronic bilateral low back pain without sciatica Social History Tobacco Use Types Packs/Day Years [...] staff should administer the PHQ-9) 0 07/15/2023 Gifford Depression Scale Answer Date Recorded Gifford Depression Scale Total 1 11/28/2020 The thought [...] Sign Reading Time Taken Comments Blood Pressure 118/62 07/15/2023 11:18 AM CDT Pulse 57 07/15/2023 11:18 AM CDT Temperature - - Respiratory Rate 16 07/15/2023 11:18 AM CDT Oxygen Saturation 98% 07/15/2023 11:18 AM CDT Inhaled Oxygen Concentration - - Weight 72.7 kg (160 lb 4 oz) 07/15/2023 11:18 AM CDT Height 170.2 cm (5' 7 ) 07/15/2023 11:18 AM CDT Body Mass Index 25.1 07/15/2023 11:18 AM CDT documented in this encounter Progress Notes * Mateo Mir MD - 07/15/2023 11:00 AM CDT Images from the original note were not included. Todays Encounter Date: 07/15/2023 Last visit: Visit date not found All Appts with PCP recent/future) Next/future visit with Care Team Recent Visits Date Type Provider Dept 07/15/23 Office Visit Mateo Mir MD [facility] 250 Showing recent visits within past 180 days and meeting all other requirements Future Appointments Date Type Provider Dept 10/01/23 Appointment Mateo Mir MD [facility] 250 Showing future appointments within next 180 days and meeting all other requirements Future Appointments Date Time Provider Department Center 08/21/2023 8:45 AM Indigo Reece MD [facility] 240 Specialty 10/01/2023 8:30 AM Mateo Mir MD [facility] Patient ID: Gladys Tai is a 38 y.o. female. Chief Complaint. Chief Complaint Patient presents with Annual Exam Former dr strickland pt Patient Care Team: Mateo Mir MD as PCP - General (Internal Medicine) Abhilash Sam MD as Consulting Physician (Obstetrics and Gynecology) Mary Russell MD as Referring Physician (Pediatric Neurology) HPI/ROS. Patient is a 38 y.o. female here for a physical History obtained from patient 07/15/2023 3y/o latha (english/kenyan) and 13 year old daughter. for 7 yrs. 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 [place]/therapy. Likes psychology .Procastination a little worse and more scatterbrain/trouble finishing tasks. Balance Lower back pain Cymbalta helps with back pain. Other meds. Made nausea. Occasional spasm in legs going down. Nights....restless. cymbalta has helped with lbp but not so much with right hip/groin. 5-6/10. Worse with sittign prolonged or turnign. Better with pillow. Sees maseus but not deep massage. Mostly lower back Sick for 2 weeks with phlegm lele some hoarse pancho. Snores. Sleep Apnea Screen: Symptoms Positive for (IN BOLD) Hypersomnia or needs daytime naps Insomnia Snoring/choking/gasping Legs: restless/cramping/kicking/turning tossing CV/pulm :SOB/palpitations/wheezing/CP Nocturia/ED Morning/awaking headache/Dry mouth/sinus congestion Anxiety/depression aralysis H/o smoking Migraines- saw neurology paul waking up. Used to have 3-4 week. Now better. 20 pounds lost. Sister graves disease. Mother hypothyroid. Vit D def (15)- after second child. lethargy and pain. Normal TSH. Trouble sleeping. Restless and irritable. Materna grandmother. DM Dyspepsia/diarrhea Upset stomach diarrhea. Sensitive. Fresh food and less red meat. Doesn't toerate fast food or carbs. Onliy twice a week. Visit date not found Review of Systems: See HPI Additionally, No Nausea,Vomiting,Fever, Chills, CP, and SOB Past Social,Medical,family Hx: Past Medical History: Diagnosis [...] disease Sister Breast cancer Neg Hx Current Medications and Allergies: Allergies Allergen Reactions Erythromycin Rash Penicillins Swelling Outpatient Encounter Medications as of 07/15/2023 Medication Sig Dispense Refill acetaminophen (TYLENOL) 500 mg tablet Take 1 tablet (500 mg total) by mouth every 6 (six) hours as needed for pain ascorbic acid (VITAMIN C) 100 mg tablet Take 1 tablet (100 mg total) by mouth daily cetirizine (ZyrTEC) 10 mg tablet Take 1 tablet (10 mg total) by mouth daily cyclobenzaprine (FLEXERIL) 5 mg tablet Take 1 tablet (5 mg total) by mouth 3 (three) times a day asneeded for muscle spasms [address] (CYMBALTA) 30 mg capsule Take 1 capsule (30 mg total) by mouth 2 (two) times a day 180 capsule 4 Lactobacillus acidophilus (Probiotic) 10 billion cell capsule Take by mouth multivitamin capsule Take 1 capsule by mouth daily No facility-administered encounter medications on file as of 07/15/2023. Physical Exam: Constitutional: Body mass index is 25.1 kg/m??. Vitals: 07/15/23 1118 BP: 118/62 Pulse: 57 Resp: 16 SpO2: 98% Weight: 72.7 kg (160 lb 4 oz) Height: 170.2 cm (5' 7 ) Heart RRR Lungs CTA Results/Data: Old records were reviewed. Results for orders placed or performed in visit on 06/06/22 T4, free Result Value Ref Range Free T4 1.43 0.90 - 1.70 ng/dL TSH Result Value Ref Range Thyroid Stimulating Hormone 2.02 0.30 - 4.20 mcIUnit/mL Vitamin D 25 hydroxy Result Value Ref Range Vitamin D 25-OH 20.0 (L) 30.0 - 80.0 ng/mL Diagnosis: 1. Physical exam, annual 2. Piriformis syndrome of right side 3. Cartilage disease 4. Encounter for vitamin deficiency screening 5. Other general symptoms and signs 6. Other fatigue 7. Other long-term (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 8. Other specified abnormal findings of blood chemistry 9. Screening for cardiovascular condition 10. Malaise and fatigue 11. Chronic right SI joint pain 12. Suspected sleep apnea 13. Vitamin D deficiency (15) 14. History of diarrhea 15. Chronic bilateral low back pain without sciatica Assessment/Plan DIAGNOSES/ASSESSMENT Physical exam, annual (Z00.00) (Primary) Chronic conditions reviewed. See below Health maintenance due. Wear sunscreen with SPF over 50 while outdoors. Wear sun protective head wear and clothing if planning to stay outdoors exposed to the direct sunlight for extended hours. Wear seatbelts while in a vehicle. Do not TEXT and DRIVE Do not DRINK and DRIVE. Drink responsibly Follow a heart healthy diet and lifestyle. Consume 5-7 servings of fruits and vegetables a day.. Such as the Mediterranean Diet. Maintain/attain normal body weight. Maintain good sleep schedule and sleep habits I recommend that all patients follow a diet that is high in fruits and vegetables and low in processed foods such as sugar and foods that are made with white flour. I recommend using beneficial fats such as olive oil, nuts, seeds and berries and avoiding saturated animal fats. Please stay physically active to the extent that you are physically able to. Test results: if you have not received communication about test results within 7 days of the test being performed, please contact the office. I strongly encourage myChart sign ups. It can facilitate communication flow. Please contact the office for instructions on signing up. Health Maintenance Due Topic Date Due Cervical Cancer Screening-Pap and HPV Never done Regular Well Visit/Exam 18-64 02/17/2022 Influenza Vaccine (1) 07/26/2023 Health Maintenance Topic Date Due Cervical Cancer Screening-Pap and HPV Never done Regular Well Visit/Exam 18-64 02/17/2022 Influenza Vaccine (1) 07/26/2023 Covid-19 Vaccine (4 - Pfizer series) 07/15/2024 (Originally 02/24/2022) Depression Screening-PHQ 07/15/2024 DTaP/Tdap/Td Vaccine (2 - Td or Tdap) 08/23/2030 Pneumococcal vaccine <65 Aged Out Varicella Vaccines Discontinued Diagnoses and all orders for this visit: Physical exam, annual (Z00.00) (Primary) Piriformis syndrome of right side (G57.01) - Ambulatory referral order to Physical Therapy -; Future Cartilage disease (M94.9) - Vitamin D 25 hydroxy; Future Encounter for vitamin deficiency screening (Z13.21) - Vitamin D 25 hydroxy; Future - Vitamin B12; Future Other general symptoms and signs (R68.89) - Vitamin B12; Future Other fatigue (R53.83) - CBC with auto differential; Future Other hog tender (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 May need referral to sleep Vitamin D deficiency (15) (E55.9) Assessment & Plan: We will need to check levels. History of diarrhea (Z87.898) Chronic bilateral low back pain without sciatica (M54.50, G89.29) Suspected sleep apnea Has snoring, restless, cramping caught kicking tossing turning, shortness breast, palpitations, nocturia, awakening with a headache. May need referral to sleep Vitamin D deficiency (15) We will need to check levels. Need to discuss susepected sleep apnea? And need to check exam thyroid. Last tsh normal. Suspect has Piriformis syndrome on right side. Rec. Blayne / radha. Skip physical today. Ibs? Will need to siduss fasting perhaps as natural detox. Need to find out what medicaiton given by neuro for headaches. Suspect headacheds from sleep apnea? H/o smoking... PFT? Singulair? PLAN & MEDICATION MANAGEMENT Orders Placed This Encounter XR Sacroiliac Joints 3 Or More Vws Vitamin D 25 hydroxy Vitamin B12 CBC with auto differential Comprehensive metabolic panel Hemoglobin A1c Lipid panel TSH reflex to free T4 Ambulatory referral order to Physical Therapy - cetirizine (ZyrTEC) 10 mg tablet Medication Management I am having Gladys Tai maintain her Probiotic, acetaminophen, multivitamin, ascorbic acid, DULoxetine DR, cyclobenzaprine, and cetirizine. There are no Patient Instructions on file for this visit. Mateo Mir MD documented in this encounter Miscellaneous Notes * Assessment & Plan Note - Mateo Mir MD - 07/29/2023 4:08 PM CDT Associated Problem(s): Vitamin D deficiency (15) We will need to check levels. * Assessment & Plan Note - Mateo Mir MD - 07/29/2023 4:07 PM CDT Associated Problem(s): Suspected sleep apnea (Resolved 06/01/2024) Has snoring, restless, cramping caught kicking tossing turning, shortness breast, palpitations, nocturia, awakening with a headache. May need referral to sleep documented in this encounter Plan of Treatment Not on file documented as of this encounter Results * TSH reflex to free T4 (08/21/2023 8:01 AM CDT) TSH 2.01 0.30 - 4.20 mcIUnit/mL TOM Comment:Testing performed by : [facility], [address] [place] [address]., [id number] Blood 08/21/2023 8:01 AM CDT 08/21/2023 9:49 AM CDT us Mateo Mir MD LAB BLOOD ORDERABLES Final R esult [facility] [address] Department [place] [address] * Lipid panel (08/21/2023 8:01 AM CDT) [facility] Cholesterol 146 30 - 199 mg/dL TOM Comment: Interpretive Data Ages < or = 19 years ??Acceptable: ? <170 mg/dL ??Borderline high: ??170-199 mg/dL ??High: ? >or= 200 mg/dL Ages > or = 20 years ??Desirable: ?<200 mg/dL ??Borderline high: ??200-239 mg/dL ??High: ? >or= 240 mg/dL Literature References: 1. Expert Panel on Integrated Guidelines for Cardiovascular Health and Risk Reduction in Children and Adolescents. Pediatrics 2011;128:S213 2. NCEP Expert Panel. Circulation 2004;110:227 Current Interpretive Data was last revised on 2018. Testing performed by: [facility], [address] [place] [address]., [address] Triglycerides 56 <=149 mg/dL TOM Comment: Interpretive Data Ages < or = 9 years ??Acceptable: ? <75 mg/dL ??Borderline high: ??75-99 mg/dL ??High: ? >or= 100 mg/dL Ages 10 to 20 years ??Acceptable: ? <90 mg/dL ??Borderline high: ??90-129 mg/dL ??High: ? >or= 130 mg/dL Ages > or = 20 years ??Desirable: ?<150 mg/dL ??Borderline high: ??150-199 mg/dL ??High: ? 200-499 mg/dL ?Very high: ?? >or= 499 mg/dL Literature References: 1. Expert Panel on Integrated Guidelines for Cardiovascular Health and Risk Reduction in Children and Adolescents. Pediatrics 2011;128:S213 2. NCEP Expert Panel. Circulation 2004;110:227 Current Interpretive Data was last revised on 2018. Testing performed by: [address] [address] HDL 52 >=40 mg/dL TOM Comment: Interpretive Data Ages < or = 19 years ??Acceptable: ? >45 mg/dL ??Borderline low: ?? 40-45 mg/dL ??Low: ? <40 mg/dL Ages > or = 20 years ??Desirable: ?>or= 60 mg/dL ??Low: ? <40 mg/dL Literature References: 1. Expert Panel on Integrated Guidelines for Cardiovascular Health and Risk Reduction in Children and Adolescents. Pediatrics 2011;128:S213 2. NCEP Expert Panel. Circulation 2004;110:227 Current Interpretive Data was last revised on 2018. Testing performed by: [address] [address] LDL, calculated 83 <=129 mg/dL TOM Comment: Interpretive Data Ages < or = 19 years ??Acceptable: ? <110 mg/dL ??Borderline high: ??110-129 mg/dL ??High: ?>or= 130 mg/dL Ages > or = 20 years ??Optimal: ? <100 mg/dL ??Near optimal: ?100-129 mg/dL ??Borderline high: ?? 130-159 mg/dL ??High: ?>160 mg/dL Literature References: 1. Expert Panel on Integrated Guidelines for Cardiovascular Health and Risk Reduction in Children and Adolescents. Pediatrics 2011;128:S213 2. NCEP Expert Panel. Circulation 2004;110:227 Current Interpretive Data was last revised on 2018. Testing performed by: [address] [address] Non-HDL Cholesterol 94 mg/dL TOM Comment: Interpretive Data Ages < or = 19 years ??Acceptable: ?<120 mg/dL ??Borderline high: ??120-144 mg/dL ??High: ?>145 mg/dL Ages > or = 20 years ??When triglycerides are >200 mg/dL, Non-HDL cholesterol is a secondary target of ? therapy with treatment goals that are 30 mg/dL greater than the LDL cholesterol target. ? Literature References: 1. Expert Panel on Integrated Guidelines for Cardiovascular Health and Risk Reduction in Children and Adolescents. Pediatrics 2011;128:S213 2. NCEP Expert Panel. Circulation 2004;110:227 Current Interpretive Data was last revised on 2018. Testing performed by: [address] [address] Chol/HDL ratio 3 TOM Comment:Testing performed by : [address] [address] Blood 08/21/2023 8:01 AM CDT 08/21/2023 9:49 AM CDT us Mateo Mir MD LAB BLOOD ORDERABLES Final R esult [facility] [address] Department [place] [address] * Hemoglobin A1c (08/21/2023 8:01 AM CDT) Hgb A1C 5.2 4.0 - 5.6 % TOM Comment:Testing performed by : [address] [address] Estimated Average Glucose 103 mg/dL TOM RIVERA Comment: The ADA recommends reporting an estimated Average Glucose (eAG) with all Hemoglobin A1c results using the equation derived from a study of 507 normal and diabetic adults. ??Minority populations were underrepresented and children were not included. ?? (Diabetes Care 31:1082-7451, 2008). ??The eAG is not equivalent to a fasting glucose. Testing performed by: [address] [address] Blood 08/21/2023 8:01 AM CDT 08/21/2023 9:49 AM CDT us Mateo Mir MD LAB BLOOD ORDERABLES Final R esult [facility] [address] Department [place] [address] * Comprehensive metabolic panel (08/21/2023 8:01 AM CDT) Sodium 140 135 - 145 mmol/L TOM Comment:Testing performed by : [address] [address] Potassium, pl 4.0 3.3 - 4.9 mmol/L TOM Comment:Testing performed by : [address] [address] Chloride 106 97 - 110 mmol/L TOM Comment:Testing performed by : [address] [address] CO2 23 22 - 32 mmol/L TOM Comment:Testing performed by : [address] [address] Anion gap 11 2 - 15 mmol/L TOM Comment:Testing performed by : [address] [address] BUN 14 6 - 25 mg/dL TOM Comment:Testing performed by : [address] [address] Creatinine 0.90 0.60 - 1.10 mg/dL TOM Comment:Testing performed by : [address] [address] Glucose 80 70 - 199 mg/dL TOM Comment: Interpretive Data Fasting glucose >/= 126 [...] was last revised 2022. Testing performed by: [address] [address] Calcium 8.8 8.5 - 10.3 mg/dL TOM Comment:Testing performed by : [address] [address] Bilirubin, total 0.3 0.1 - 1.2 mg/dL TOM Comment:Testing performed by : [address] [address] Protein, pl 7.4 6.5 - 8.5 g/dL [facility] Comment:Testing performed by : [address] [address] Albumin 4.4 3.5 - 5.0 g/dL [facility] Comment:Testing performed by : [address] [address] Alk phos 62 40 - 130 Units/L [facility] Comment:Testing performed by : [address] [address] ALT 20 7 - 45 Units/L [facility] Comment:Testing performed by : [address] [address] AST 21 10 - 45 Units/L [facility] Comment:Testing performed by : [address] [address] Blood 08/21/2023 8:01 AM CDT 08/21/2023 9:49 AM CDT us Mateo Mir MD LAB BLOOD ORDERABLES Final R esult [facility] [address] Department [place] [address] * (ABNORMAL) CBC with auto differential (08/21/2023 8:01 AM CDT) [facility] Signature WBC 5.3 3.8 - 9.9 K/cumm TOM RIVERA Comment:Testing performed by : [address] [address] Hgb 13.2 11.9 - 15.5 g/dL TOM Comment:Testing performed by : [address] [address] Hct 41.4 35.6 - 45.5 % TOM Comment:Testing performed by : [address] [address] Plt 159 150 - 400 K/cumm TOM Comment:Testing performed by : [address] [address] MPV 10.2 9.1 - 12.3 fL TOM Comment:Testing performed by : [address], [address] RBC 4.88 3.90 - 5.20 M/cumm TOM Comment:Testing performed by : [address] [address] MCV 84.8 81.3 - 96.4 fL TOM Comment:Testing performed by : [address] [address] MCH 27.0(L) 27.1 - 33.3 pg TOM Comment:Testing performed by : [address] [address] MCHC 31.9(L) 32.3 - 35.7 g/dL TOM Comment:Testing performed by : [address] [address] RDW CV 13.7 11.1 - 14.9 % TOM Comment:Testing performed by : [address] [address] RDW SD 42.5 35.7 - 48.1 fL TOM [facility] Comment:Testing performed by : [address] [address] NRBC abs 0.00 0.00 - 0.01 K/cumm TOM [facility] Comment:Testing performed by : [address] [address] Blood 08/21/2023 8:01 AM CDT 08/21/2023 9:46 AM CDT Mateo Mir MD LAB BLOOD ORDERABLES Final R esult Performing Organization Address City/[facility]/ZIP Co de Phone Number [id number] [place] [address] * Vitamin B12 (08/21/2023 8:01 AM CDT) Vitamin B12 360 230 - 1,250 pg/mL TOM Comment:Testing performed by : [facility], [address] [place] [address]., [address] Blood 08/21/2023 8:01 AM CDT 08/21/2023 11:47 AM CDT Mateo Mir MD LAB BLOOD ORDERABLES Final R esult Performing Organization Address City/[facility]/ZIP Co de Phone Number [id number] [place] [address] * (ABNORMAL) Vitamin D 25 hydroxy (08/21/2023 8:01 AM CDT) Vitamin D 25-OH 18.0(L) 30.0 - 80.0 ng/mL TOM Blood 08/21/2023 8:01 AM CDT 08/21/2023 12:35 PM CDT Mateo Mir MD LAB BLOOD ORDERABLES Final R esult [facility] [address] [place] [address] documented in this encounter Visit Diagnoses Diagnosis Physical exam, annual- Primary Piriformis syndrome of right side Cartilage disease Encounter for vitamin deficiency screening Other general symptoms and signs Other fatigue Other long-term (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 Other specified abnormal findings of blood chemistry Screening for cardiovascular condition Screening for other and unspecified cardiovascular conditions Malaise and fatigue Chronic right SI joint pain Disorders of sacrum Suspected sleep apnea Vitamin D deficiency (15) History of diarrhea Chronic bilateral low back pain without sciatica documented in this encounter Historical Medications * This list may reflect changes made after this encounter. cetirizine (ZyrTEC) 10 mg tablet Take 1 tablet (10 mg total) by mouth daily 06/01/2024 added in this encounter Care Teams Regional Guide Relationship Specialty Start Date End Date Mateo Mir MD PCP - General Internal Medicine 07/15/23 05/31/24 Abhilash Sam MD [address] [place] [address] Consulting Physician Obstetrics and Gynecology 07/15/23 Mary Russell MD [address] [address] Referring Physician Pediatric Neurology 07/15/23 documented as of this encounter
--- OUTSIDE RECORDS SUMMARY | 2024-11-29 06:23 | XMS_ITS | Encounter Summary ---
Author Organization [facility] Healthcare Address [address] [place] [address] Care Team Providers Care Intermission Coordinator Name Role Phone Mateo Mir MD Primary Care Provider + [phone] Abhilash Sam MD Unavailable [phone] Mary Russell MD Unavailable [phone] Reason for Visit * Reason Comments Vaginal Burning Encounter Details Date Type Department Care Team ([facility] st Contact Info) Description 03/25/2024 2:00 PM CDT Office Visit [facility] Medical Group Obstetrical Gynecology [address] [phone] Jeffy Marvin MD [address] [place] [address] Vaginal discharge (Primary Dx) Social History Tobacco Use Types [...] staff should administer the PHQ-9) 0 10/01/2023 Metz Depression Scale Answer Date Recorded Metz Depression Scale Total 1 11/28/2020 The thought [...] Sign Reading Time Taken Comments Blood Pressure 110/68 03/25/2024 2:32 PM CDT Pulse - - Temperature - - Respiratory Rate - - Oxygen Saturation - - Inhaled Oxygen Concentration - - Weight 75.8 kg (167 lb) 03/25/2024 2:32 PM CDT Height 170.2 cm (5' 7 ) 03/25/2024 2:32 PM CDT Body Mass Index 26.16 03/25/2024 2:32 PM CDT documented in this encounter Ordered Prescriptions Prescription Sig Dispense Quantity Refills Last Filled Start Date End Date fluconazole (DIFLUCAN) 150 mg tablet Take 1 tablet (150 mg total) by mouth once for 1 dose Repeat in 7 days if symptoms persist. 2 tablet 03/25/2024 4 documented in this encounter Progress Notes * Jeffy Marvin MD - 03/25/2024 2:00 PM CDT FIELD SERVICE REP Office Visit CC: Chief Complaint Patient presents with Vaginal Burning HPI: Gladys Tai is a 38 y.o. who presents to clinic today for vaginal discharge and itching for the last 6 days and failed treatement with monistat. Thick white discharge. Recently complete antibiotic course for ear infection before symptoms started. Menstrual History: No LMP recorded. Sexual History: OB History 2 Para 2 Term 1 1 AB Living 2 SAB IAB Ectopic Multiple Live Births 2 # Outcome Date GA Labor/2nd Weight Sex Delivery Anes PTL Lv A1 A5 1 02/18/10 36w0d 1.899 kg (4 lb 3 oz) F Vag-Spont Epidural Living Complications: Gastroschisis Location: Other 2 Term 10/15/20 39w0d 3.685 kg (8 lb 2 oz) F Vag-Spont Epidural Living Name: Tommie Nazario Complications: Intolerance Delivering Clinician: Dr. Sam reports being sexually active and has had partner(s) who are male. She reports using the following method of control/protection: Vasectomy. Past Medical History: Diagnosis Date Abnormal Pap smear of cervix Headache migraines Motion sickness Pneumonia hx of yearly occurence History reviewed. No pertinent surgical history. Family History Problem Relation Age of Onset Thyroid disease Mother Thyroid disease Sister Graves' disease Sister Diabetes Maternal Grandmother Breast cancer Neg Hx Ovarian cancer Neg Hx Uterine cancer Neg Hx reports that she quit smoking about 14 years ago. Her smoking use included cigarettes. She has never used smokeless tobacco. reports consuming alcoholic drinks , with a daily consumption of drinks. Patient denies daily consumption of 6 or more alcoholic drinks at one occasion. reports no history of drug use. Allergies Allergen Reactions Erythromycin Rash Penicillins Swelling Medications: Current Outpatient Medications: albuterol HFA (PROVENTIL HFA,VENTOLIN HFA,PROAIR HFA) 90 mcg/actuation inhaler, , Disp: , Rfl: ascorbic acid (VITAMIN C) 100 mg tablet, Take 1 tablet (100 mg total) by mouth daily, Disp: , Rfl: cetirizine (ZyrTEC) 10 mg tablet, Take 1 tablet (10 mg total) by mouth daily, Disp: , Rfl: cyanocobalamin (Vitamin B-12) 1,000 mcg tablet, Take 1 tablet (1,000 mcg total) by mouth daily, Disp: , Rfl: ergocalciferol (VITAMIN D) 50,000 unit capsule, 1 capsule (50,000 Units total) once a week, Disp: ,Rfl: fluticasone propionate (FLONASE) 50 mcg/actuation nasal spray, Administer 2 sprays into each nostril daily, Disp: 3 each, Rfl: 4 Lactobacillus acidophilus (Probiotic) 10 billion cell capsule, Take 1 Caplet by mouth daily, Disp: , Rfl: magnesium gluconate 200 mg tablet, Take 1.25 tablets (250 mg total) by mouth daily, Disp: , Rfl: omega-3 fatty acids-fish oil 300-1,000 mg capsule, Take 2 capsules (2 g total) by mouth daily, Disp: , Rfl: acetaminophen (TYLENOL) 500 mg tablet, Take 1 tablet (500 mg total) by mouth every 6 (six) hours asneeded for pain (Patient not taking: Reported on 01/23/2024), Disp: , Rfl: calcium carbonate-mag hydroxid 1,000-200 mg tablet,chewable, Take by mouth (Patient not taking: Reported on 12/11/2023), Disp: , Rfl: ibuprofen (ADVIL,MOTRIN) 600 mg tablet, TAKE 1 TABLET BY MOUTH THREE TIMES DAILY NEEDED FOR FEVER OR PAIN (Patient not taking: Reported on 01/23/2024), Disp: , Rfl: methylPREDNISolone (MEDROL DOSEPACK) 4 mg Dosepack, , Disp: , Rfl: multivitamin capsule, Take 1 capsule by mouth daily (Patient not taking: Reported on 12/11/2023), Disp: , Rfl: predniSONE (DELTASONE) 20 mg tablet, , Disp: , Rfl: promethazine-DM (PROMETHAZINE-DM) 1.25-3 mg/mL syrup, , Disp: , Rfl: Immunization History Administered Date(s) Administered Anthrax 09/06/2006, 09/23/2006, 10/13/2006 DTP 1985, 1986, 1986, 06/29/1988 DTaP 07/02/1990 H1N1 Inj 11/23/2009 Hep A, Adult 12/29/2003, 09/30/2004 Hep B, Adolescent or Pediatric 12/08/1997, 02/22/1998, 07/05/1998 HiB 12/13/1988 IPV 07/02/1990, 12/24/2003 Influenza LAIV (Nasal) 12/02/2004, 12/28/2007, 08/26/2010, 09/30/2011, 09/14/2012, 10/31/2013, 09/25/2014, 10/29/2015 Influenza, Quadrivalent, Cell Culture-based MDCK, Antibiotic Free, Intramuscular 09/28/2017 Influenza, Quadrivalent, Split, Intramuscular 09/28/2018 Influenza, Quadrivalent, Split, Preservative Free, Intramuscular 09/27/2019, 10/16/2020, 10/16/2020, 10/29/2021, 10/28/2022 Influenza, Split 10/13/2005, 10/03/2006, 09/26/2008, 11/23/2009 Influenza, Trivalent, Preservative Free, Intramuscular 09/29/2016 Influenza, Unspecified 09/28/2017, 10/16/2020, 10/28/2021 Influenza, Whole 12/24/2003 MMR 10/14/1987, 07/02/1990 Meningococcal Polysaccharide (Menomune) 12/24/2003 OPV 1986, 1986, 06/29/1988 PPD TEST 01/15/1996, 12/24/2003 Pfizer SARS-CoV-2 Monovalent Vaccination (12+ Yrs) MORIN-READY TO USE 12/30/2021 Pfizer SARS-CoV-2 Monovalent Vaccination (12+ Yrs) PURPLE 03/11/2021, 04/23/2021 Smallpox 05/04/2006 Td, adsorbed 12/08/1997, 12/24/2003, 07/01/2022 Tdap 06/28/2012, 08/23/2020 Typhoid H-P SQ/ID 09/30/2004, 09/23/2006 Typhoid Inactivated 09/26/2008 Review of Systems: 10 systems reviewed and negative, except for those mentioned in HPI. Physical Exam Vitals BP 110/68 Ht 170.2 cm (5' 7 ) Wt 167 lb (75.8 kg) BMI 26.16 kg/m?? 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 Normal appearing urethra. Vaginal rugae - normal with physiologic discharge in vault. Cervix normal appearance without lesions, erythema ,or discharge. Bimanual: normal sized mobile uterus, nontender. No cervical motion tenderness, no palpable adnexalmasses, nontender Urethra appears normal, bladder palpates normal with no tenderness or lesions Perineum normal appearance without lesions ASSESSMENT / PLAN: Gladys Tai is a 38 y.o. female Diagnosis Plan 1. Vaginal discharge Vaginitis panel Vaginal - vaginitis - collected - will empirically treat with diflucan course All patient questions answered. Follow-up: MED Marvin MD documented in this encounter Plan of Treatment Not on file documented as of this encounter Results * Vaginitis panel Vaginal (03/25/2024 2:42 PM CDT) Tawnya DNA probe Not Detected Not Detected Comment:Testing performed by : [address] [address] Gardnerella DNA probe Not Detected Not Detected TOM Comment:Testing performed by : [address] [address] Trichomonas DNA probe Not Detected Not Detected TOM Comment: Interpretive Data Testing performed by [facility] via Affirm VPIII Microbial Identification Test, a [...] last revised on 2020. Testing performed by: [address] [address] Vaginal 03/25/2024 2:42 PM CDT 03/25/2024 7:23 PM CDT Jeffy Marvin MD LAB MICROBIOLOGY - GENER AL ORDERABLES Final Result TOM RIVERA [address] [facility] Department [place] [address] documented in this encounter Visit Diagnoses Diagnosis Vaginal discharge- Primary Leukorrhea, not specified as infective documented in this encounter Historical Medications * This list may reflect changes made after this encounter. Medication Sig Dispense Quantity Refills Last Filled Start D ate End Date albuterol HFA (PROVENTIL HFA,VENTOLIN HFA,PROAIR HFA) 90 mcg/actuation inhaler 03/15/202406/2024 methylPREDNISolone (MEDROL DOSEPACK) 4 mg Dosepack 03/15/2024 06/01/2024 promethazine-DM (PROMETHAZINE-DM) 1.25-3 mg/mL syrup 03/15/20242023 added in this encounter Care Teams Intermission Coordinator Relationship Specialty Start Date End Date Mateo Mir MD PCP - General Internal Medicine 07/15/23 05/31/24 Abhilash Sam MD [address] [place] [address] Consulting Physician Obstetrics and Gynecology 07/15/23 Mary Russell MD [address] [place] [address] Referring Physician Pediatric Neurology 07/15/23 documented as of this encounter
--- OUTSIDE RECORDS SUMMARY | 2024-11-29 06:23 | XMS_ITS | Encounter Summary ---
Author Organization [facility] Healthcare Address [address] [place] [address] Care Team Providers Care Sand Operator Name Role Phone Mateo Mir MD Primary Care Provider + [phone] Abhilash Sam MD Unavailable [phone] Mary Russell MD Unavailable [phone] Reason for Visit * Auth/Cert (Routine) [...] Expiration Date Visits Re quested Visits Authorized [id number] 1 Encounter Details Date Type Department Care Team (Latest Contact Info) Description 12/26/2023 9:17 AM FORMULATOR - 12/26/2023 12:50 PM FORMULATOR Hospital En[place] [address] [place] [phone] Indigo Reece MD [address] [place] [address] 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) (Primary Dx) Discharge Disposition: Discharge to home or self [...] staff should administer the PHQ-9) 0 10/01/2023 [place] Depression Scale Answer Date Recorded [place] Depression Scale Total 1 11/28/2020 The thought [...] Sign Reading Time Taken Comments Blood Pressure 112/66 12/26/2023 12:40 PM FORMULATOR Pulse 50 12/26/2023 12:40 PM FORMULATOR Temperature 37.2 ??C (99 ??F) 12/26/2023 12: 10 PM FORMULATOR Respiratory Rate 18 12/26/2023 12:4 0 PM FORMULATOR Oxygen Saturation 100% 12/26/2023 12: 40 PM FORMULATOR Inhaled Oxygen Concentration - - Weight 74.7 kg (164 lb 11.2 oz) 12/26/2023 9:34 AM FORMULATOR Height 170.2 cm (5' 7 ) 12/26/2023 9:34 AM FORMULATOR Body Mass Index 25.8 12/26/2023 9:34 AM FORMULATOR documented in this encounter Discharge Instructions * Attachments The following attachments cannot be sent through Care Everywhere. * Loop Electrosurgical Excision Procedure (Discharge Care) (Greek) * General Anesthesia (Discharge Care) (Greek) documented in this encounter Medications at Time [...] MD Primary Care Physician: Mateo Mir MD [phone] Admission Date: 12/26/2023 Admission Location: [facility] HPI: Rebel Tai is a 38 y.o. [...] well perfused Pelvic: Deferred Assessment and Plan Reble Tai is a 38 y.o. female who presents for scheduled LEEP procedure: --questions answered regarding expectations for postoperative course and recovery --counseled for nothing per vagina for 3-4 weeks --antibiotics: none Indigo Reece MD 12/26/23 ULATOR documented in this encounter Miscellaneous Notes * [...] tolerated the procedure well. Indigo Reece MD ULATOR * Brief Op Note - Indigo Reece MD - 12/26/2023 11:33 AM CST Operative Progress Note Surgical Team: Surgeon(s) and Role: * Indigo Reece MD - Primary Anesthesiologist: Kg Balderas MD MICROCHIP SPECIALIST: Danielle Lopez CRNA Marine Meteorologist: Elsy Triana RN Scrub: Latonia Garcia RN Technologist: Betty Meneses [facility] Marine Meteorologist: Verito Naik RN DATE OF SURGERY : [...] 11:33 AM No Resident involved on case ULATOR * Pre-Procedure Instructions - Jenni Lawrence RN - 12/11/2023 11:24 AM CST Images from the original note were not included. [place] [address] Surgery Reminder Checklist: Please arrive to [facility] for scheduled [...] If you would like to come to [facility] we can give you a bottle forFREE. Hours: Saturday - Saturday 8 AM - 4:30PM. Go to the main entrance and ask the patient coordinator front desk for Hibiclens Soap. If you go to [facility], park underneath Entrance A drive thru and call [phone] and ask for the surgery soap. We [...] (NO Dairy, Milk Products, Creamer, Red Gatoradeor [place] Juice) Nothing by mouth the 2 hours prior to your procedure, NOT EVEN WATER. Hanson your teeth morning of procedure. Use mouth [...] please call the Admission Testing Center at [phone]. Morning of surgery question/concerns, please call Outpatient Surgery at [phone]. Thank You for choosing [facility]'s Surgery department! 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 - 01/01/2024 8:49 AM FORMULATOR [facility] Department of Pathology [address], [place] [address] ?? Note to Patients: ??This report may [...] : ??1985 (Age: 38) Gender: ??F Address: ??[address] [place] [address] ??[address] [facility] #: [id number] Service: Surgery Location: Patient Type: [facility] OUTPATIENT ? Taken: 12/26/2023 Received: 12/26/2023 [...] interpretation for this case was performed at [facility], Department of Surgical Pathology, [address] [facility] [place], [place] [id number], ??[place], [place] ??[address] ?? CLIA # [id number] Indigo Reece MD LAB PATHOLOGY ORDERABLES Final Result PATHOLOGY [facility] * POCT hCG, urine (12/26/2023 9:15 AM FORMULATOR) HCG, ur, POC Negative Negative Lot Number [id number] QC Backgroud Clear Acceptable QC Control Line Acceptable Urine 12/26/2023 9:15 AM FORMULATOR Indigo Reece MD POINT OF CARE TEST [...] 1000, For 1 dose, Pre-Op, Indications: Pre-Emptive AnalgesiaIndications:Pre-Emptiv e Analgesia Given 12/26/2023 9:40 AM FORMULATOR 975 mg famotidine (PEPCID) tablet 20 mg 20 mg, oral, Once, On Jeni 12/26/23 at 1000, For 1 dose, Pre-Op, Indications: gastroesophageal reflux diseaseIndications:gastroesopha geal reflux disease Given 12/26/2023 9:40 AM FORMULATOR 20 mg Lactated Ringer's (LR) infusion 30 mL/hr, intravenous, Continuous, Starting on Jeni 12/26/23 at 1000, Pre-Op New Bag 12/26/2023 12:13 PM FORMULATOR 30 mL/hr 30 mL/hr Restarted 12/26/2023 11:32 AM FORMULATOR Rate/Dose Verify 12/26/2023 11:02 AM FORMULATOR 30 mL/ hr meclizine (ANTIVERT) tablet 25 mg 25 mg, oral, Once, On Jeni 12/26/23 at 1000, For 1 dose, Pre-Op, Po - 90 minutes pre-op, Indications: Prevention of Motion SicknessIndications:Prevention of Motion Sickness Given 12/26/2023 9:40 AM FORMULATOR 25 mg sodium chloride 0.9% flush 0.5-20 [...] Recently Administered Medications Times are shown in FORMULATOR. Scheduled Medication Order 12/24/2023 12/25/2023 12/26/2023 acetaminophen [...] needed, other, excessive sedation/respiratory depression, Starting on Jein 12/26/23 at 1142, For 1 dose, Phase [...] Count Last Ordered Date First Ordered Date acetic acid (bulk) 5 % topical solution 1 0 12/26/2023 fentaNYL (SUBLIMAZE) preserv ative free injection 50 mcg 1 12/26/2023 ferric subsulfate solution 1 12/26/2023 hydrALAZINE (APRESOLINE) injection 5 mg 1 0 12/26/2023 HYDROmorphone (DILAUDID) injection 0.5 mg 1 12/26/2023 labetaloL (NORMODYNE,TRANDAT E) injection 5 mg 1 12/26/2023 lidocaine-EPINEPHrine (XYLOC KELBY with EPI) 1 %-1:100,000 injection 1 12/26/2023 naloxone (NARCAN) 0.4 mg/mL injection [...] 12/26/2023 documented in this encounter Care Teams Sand Operator Relationship Specialty Start Date End Date Mateo Mir MD PCP - General Internal Medicine 07/15/23 05/31/24 Abhilash Sam MD [address] [place] [address] Consulting Physician Obstetrics and Gynecology 07/15/23 Mary Russell MD [address] [address] Referring Physician Pediatric Neurology 07/15/23 documented as of this encounter
--- OUTSIDE RECORDS SUMMARY | 2024-11-29 06:23 | XMS_ITS | Encounter Summary ---
Author Organization [facility] Address [address] [address] Care Team Providers Care Rib Matcher And Fitter Name Role Phone Rachel Ortiz MD Primary Care Provider [phone] Reason for Visit * Reason Comments Follow-up Here today to FU on Myalgia and review labs Encounter Details Date Type Department Care Team ([facility] Contact Info) Description 03/14/2022 10:00 AM CDT Office Visit [facility] Primary Care [address] [place] [phone] Rachel Ortiz MD [address] [place] [phone] Myalgia (Primary Dx); Fatigue, unspecified type; Muscle pain Social History Tobacco Use Types Packs/Day Years [...] staff should administer the PHQ-9) 0 03/14/2022 [place] Depression Scale Answer Date Recorded [place] Depression Scale Total 1 11/28/2020 The thought [...] Sign Reading Time Taken Comments Blood Pressure 108/60 03/14/2022 10:03 AM CDT Pulse 52 03/14/2022 10:03 AM CDT Temperature 36.2 ??C (97.2 ??F) 03/14/2022 10:03 AM C DT Respiratory Rate 18 03/14/2022 10:03 AM CDT Oxygen Saturation 99% 03/14/2022 10:03 AM CDT Inhaled Oxygen Concentration - - Weight 81.6 kg (180 lb) 03/14/2022 10:03 AM CDT Height 170.2 cm (5' 7 ) 03/14/2022 10:03 AM CDT Body Mass Index 28.19 03/14/2022 10:03 AM CDT documented in this encounter Patient Instructions * Patient Instructions* Rachel Ortiz MD - 03/14/2022 10:00 AM CDT Patient Education Fibromyalgia WHAT YOU NEED TO KNOW: Fibromyalgia is a long-term condition that causes pain and tender points throughout your body. Fibromyalgia can start at any age and is more common in women than in men. WHILE YOU ARE HERE: Informed consent is a legal document that explains the tests, treatments, or procedures that you may need. Informed consent means you understand what will be done and can make decisions about what you want. You give your permission when you sign the consent form. You can have someone sign this formfor you if you are not able to sign it. You have the right to understand your medical care in words you know. Before you sign the consent form, understand the risks and benefits of what will be done.Make sure all your questions are answered. Medicines: ?? Pain medicine: You may be given a prescription medicine to decrease pain. Do not wait until the pain is severe before you ask for more medicine. ?? Muscle relaxers help decrease pain and muscle spasms. ?? Antidepressants: These are used to help decrease depression, pain, and fatigue. ?? Antiseizure medicine: These are used to reduce fibromyalgia pain. Tests: ?? Blood tests: You may need blood taken to give caregivers information about how your body is working. The blood may be taken from your hand, arm, or IV. ?? Lumbar puncture: This procedure may also be called a spinal tap. During a lumbar puncture, you will need to lie very still. Caregivers may give you medicine to make you lose feeling in a small area of your back. Caregivers will clean this area of your back. A needle will be put in, and fluid removed from around your spinal cord. The fluid will be sent to a lab for tests. The tests check for infection, bleeding around your brain and spinal cord, or other problems. Sometimes medicine may be put into your back to treat your illness. ?? Sleep studies: Sleep studies are also called polysomnography. Sleep studies can help caregivers see how your brain, heart, and breathing system are working during sleep. Sleep studies may monitor the stages of sleep, oxygen levels, body position, eye movement, and snoring during sleep. ?? Urine sample: For this test you need to urinate into a small container. You will be given instructions on how to clean your genital area before you urinate. Do not touch the inside of the cup. Follow instructions on where to place the cup of urine when you are done. RISKS: If untreated, your symptoms of fibromyalgia may get worse. Pain may make it difficult to do daily activities. Your risk for fatigue, headaches, and depression may increase. CARE AGREEMENT: You have the right to help plan your care. Learn about your health condition and how it may be treated. Discuss treatment options with your caregivers to decide what care you want to receive. You always have the right to refuse treatment. ?? 2017 [employer] Information is for End User's use only and may not be sold, redistributed or otherwise used for commercial purposes. All illustrations and images included in CareNotes?? are the copyrighted property of [employer] or [employer]. The above information is an sanitarian aide only. It is not intended as medical advice for individual conditions or treatments. Talk to your doctor, nurse or pharmacist before following any medical regimen to see if it is safe and effective for you. Patient Education Amitriptyline (By mouth) Amitriptyline ([id number]) Treats depression. This medicine is a TCA. Brand Name(s): Billy There may be other brand names for this medicine. When This Medicine Should Not Be Used: This medicine is not right for everyone. Do not use if you had an allergic reaction to amitriptyline. How to Use This Medicine: Tablet ?? Take your medicine as directed. Your dose may need to be changed several times to find what works best for you. ?? This medicine should come with a Medication Guide. Ask your pharmacist for a copy if you do not have one. ?? Store the medicine in a closed container at room temperature, away from heat, moisture, and direct light. ?? Missed dose: Take a dose as soon as you remember. If it is almost time for your next dose, wait until then and take a regular dose. Do not take extra medicine to make up for a missed dose. Drugs and Foods to Avoid: Ask your doctor or pharmacist before using any other medicine, including ztna-hin-ssodvix medicines, vitamins, and herbal products. ?? Do not use this medicine with cisapride. Do not use this medicine and an MAO inhibitor (MAOI) within 14 days of each other. ?? Some medicines and foods can affect how amitriptyline works. Tell your doctor if you are using cimetidine, disulfiram, or guanethidine. Tell your doctor if you are using other medicine for depression (such as fluoxetine, paroxetine, sertraline), a phenothiazine medicine (such as promethazine, chlorpromazine), medicine for heart rhythm problems (such as flecainide, propafenone, quinidine), or thyroid medicine. ?? Tell your doctor if you use anything else that makes you sleepy. Some examples are allergy medicine, narcotic pain medicine, and alcohol. Warnings While Using This Medicine: ?? Tell your doctor if you are or , or if you have liver disease, heart disease, diabetes, narrow-angle glaucoma, a seizure disorder, a thyroid problem, or trouble urinating. ?? For some children, teenagers, and young adults, this medicine may increase mental or emotional problems. This may lead to thoughts of suicide and violence. Talk with your doctor right away if you have any thoughts or behavior changes that concern you. Tell your doctor if you or anyone in your family has a history of bipolar disorder or suicide attempts. ?? This medicine may cause the following problems: ?? Heart rhythm problems ?? High or low blood sugar levels ?? This medicine may make you dizzy or drowsy. Do not drive or do anything else that could be dangerous until you know how this medicine affects you. ?? Do not stop using this medicine suddenly. Your doctor will need to slowly decrease your dose before you stop it completely. ?? Keep all medicine out of the reach of children. Never share your medicine with anyone. Possible Side Effects While Using This Medicine: Call your doctor right away if you notice any of these side effects: ?? Allergic reaction: Itching or hives, swelling in your face or hands, swelling or tingling in your mouth or throat, chest tightness, trouble breathing ?? Anxiety, restlessness, seeing or hearing things that are not there ?? Chest pain, trouble breathing ?? Fast, pounding, or uneven heartbeat ?? Feeling more excited or energetic than usual, racing thoughts, trouble sleeping ?? Lightheadedness, dizziness, or fainting ?? Seizures ?? Thoughts of hurting yourself or others, unusual behavior ?? Unusual bleeding or bruising If you notice these less serious side effects, talk with your doctor: ?? Blurred vision, dry mouth, fever ?? Change in how much or how often you urinate ?? Constipation, diarrhea, nausea, vomiting ?? Drowsiness, sleepiness ?? Sexual problems If you notice other side effects that you think are caused by this medicine, tell your doctor. Call your doctor for medical advice about side effects. You may report side effects to FDA at 3-308-PXQ-2916 ?? 2017 [employer] Information is for End User's use only and may not be sold, redistributed or otherwise used for commercial purposes. The above information is an sanitarian aide only. It is not intended as medical advice for individual conditions or treatments. Talk to your doctor, nurse or pharmacist before following any medical regimen to see if it is safe and effective for you. documented in this encounter Ordered Prescriptions Prescription Sig Dispense Quantity Refills Last Filled Start Date End Date amitriptyline (ELAVIL) 10 mg tablet Take 1 tablet (10 mg total) by mouth nightly 30 tablet 11 03/14/2022 2 documented in this encounter Progress Notes * Rachel Ortiz MD - 03/14/2022 10:00 AM CDT Images from the original note were not included. Patient ID: Gladys Tai is a 36 y.o. female. Chief Complaint. Chief Complaint Patient presents with ??? Follow-up Here today to FU on Myalgia and review labs HPI. Patient is a 36 y.o. female - melecio was 02/15 as new patient, had all over body pains, AI work upbelow, HPI ?? Fatigue and muscle pain: Bad body aches: all over pain in her body. 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 A lot of stretching. Used to be pretty physcially active. Started 6 mo before new baby and worsneed during Pains are all day. Restless couldn't sleep. A lot of hip pain. Still not sleeping well. 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 LOw vit d: I gave her rx and daily recs Cymbalta Component Latest Ref Rng & Units 02/15/2022 Sodium 135 - 145 mmol/L 140 Potassium, pl 3.3 - 4.9 mmol/L 4.7 Chloride 97 - 110 mmol/L 103 CO2 22 - 32 mmol/L 26 Anion gap 2 - 15 mmol/L 11 BUN 8 - 25 mg/dL 15 Creatinine 0.60 - 1.10 mg/dL 0.90 Glucose 70 - 199 mg/dL 94 Calcium 8.5 - 10.3 mg/dL 9.4 Bilirubin, total 0.1 - 1.2 mg/dL 0.5 Protein, pl 6.5 - 8.5 g/dL 7.3 Albumin 3.5 - 5.0 g/dL 4.6 Alk phos 40 - 130 Units/L 62 ALT 7 - 45 Units/L 18 AST 10 - 45 Units/L 18 WBC 3.8 - 9.9 K/cumm 5.7 Hgb 11.9 - 15.5 g/dL 12.9 Hct 35.6 - 45.5 % 40.8 Plt 150 - 400 K/cumm 207 MPV 9.1 - 12.3 fL 10.4 RBC 3.90 - 5.20 M/cumm 4.90 MCV 81.3 - 96.4 fL 83.3 MCH 27.1 - 33.3 pg 26.3 (L) MCHC 32.3 - 35.7 g/dL 31.6 (L) RDW CV 11.1 - 14.9 % 13.7 RDW SD 35.7 - 48.1 fL 41.8 NRBC abs 0.00 - 0.01 K/cumm 0.00 Neutrophil abs 1.7 - 6.5 K/cumm 3.1 Imm gran abs 0.0 - 0.1 K/cumm 0.0 Lymphocyte abs 0.8 - 3.3 K/cumm 2.1 Monocyte abs 0.2 - 0.8 K/cumm 0.4 Eosinophil abs 0.0 - 0.5 K/cumm 0.1 Basophil abs 0.0 - 0.1 K/cumm 0.0 Neutrophil pct % 54.6 Imm gran pct % 0.2 Lymphocyte pct % 35.7 Monocyte pct % 7.1 Eosinophil pct % 1.7 Basophil pct % 0.7 Cholesterol 30 - 199 mg/dL 166 Triglycerides <=149 mg/dL 55 HDL Cholesterol >=40 mg/dL 52 LDL Cholesterol Calc <=129 mg/dL 103 Non-HDL Cholesterol mg/dL 114 Chol/HDL ratio 3 Vitamin D, 25-hydroxy 30.0 - 80.0 ng/mL 15.0 (L) CRP <=10.0 mg/L 0.4 CCP Ab <=2.9 units/mL 0.5 Rheumatoid factor, quant <=15.0 IUnits/mL 13.0 Erythrocyte sedimentation rate 1 - 20 mm/hr 5 LISA Negative eGFR mL/min/1.73 m2 86 HLA-B27 interp HLA-B*27 is Negative. Preventative health care - Ambulatory referral to Podiatry; Future - Ambulatory referral to Dermatology; Future ?? 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 Orders: - Ambulatory referral to Podiatry; Future- ankle physical therapy. ?? Myalgia Assessment & Plan: All over phq low Sig ai fam hx Advise labwork, ai work up- rtc to further discuss ? Current Medications: Outpatient Encounter Medications as of 03/14/2022 Medication Sig Dispense Refill ??? acetaminophen (TYLENOL) 500 mg tablet Take 500 mg by mouth every 6 (six) hours as needed for pain ??? ascorbic acid (VITAMIN C) 100 mg tablet Take 100 mg by mouth daily ??? ergocalciferol (VITAMIN D) 50,000 unit capsule Take 1 capsule (50,000 Units total) by mouth once a week 6 capsule 0 ??? Lactobacillus acidophilus (Probiotic) 10 billion cell capsule Take by mouth ??? multivitamin capsule Take 1 capsule by mouth daily ??? mv,Ca,min-iron [id number] 1 mg iron-66.7 mcg-1,000 mcg tablet Take by mouth ??? [DISCONTINUED] cholecalciferol (VITAMIN D-3) 5,000 unit capsule Take 5,000 Units by mouth daily ??? amitriptyline (ELAVIL) 10 mg tablet Take 1 tablet (10 mg total) by mouth nightly 30 tablet 11 No facility-administered encounter medications on file as of 03/14/2022. Review of Systems: Review of Systems BP 108/60 (BP Location: Left arm, Patient Position: Sitting) Pulse 52 Temp 36.2 ??C (97.2 ??F) Resp 18 Ht 170.2 cm (5' 7 ) Wt 81.6 kg (180 lb) SpO2 99% BMI 28.19 kg/m?? Physical Exam: Physical Exam Constitutional: Appearance: Normal appearance. Cardiovascular: Rate and Rhythm: Normal rate and regular rhythm. Pulmonary: Effort: Pulmonary effort is normal. Breath sounds: Normal breath sounds. Neurological: Mental Status: She is alert. Psychiatric: Mood and Affect: Mood normal. Behavior: Behavior normal. Assessment & Plan: Diagnoses and all orders for this visit: Fatigue, unspecified type (Primary) - Vitamin D 25 hydroxy; Future - TSH; Future - T4, free; Future - Ambulatory referral order to Physical Therapy -; Future Myalgia Assessment & Plan: AI work up normal ijncluding , RA, SLE and ESR/CRP No depression/moy tfts not drawn! Checking now Low vitamin d being supplemented will help as well Suspect chronic pain/fibromyalgia Recommend cymbalta vs elavil as initial therapy- she opted for elavil. SE were discussed. Starting low dose and will titrate up through mychart if needed Work letter sent as well- dt severe pain and fatigue, pt is unable to do exercise aside from walking Consider dry needling (getting PT for foot pain at [facility]) If no success with above, consider lyrica, gabapentin Other orders - amitriptyline (ELAVIL) 10 mg tablet; Take 1 tablet (10 mg total) by mouth nightly Rachel Ortiz MD documented in this encounter Miscellaneous Notes * Assessment & Plan Note - Rachel Ortiz MD - 03/14/2022 2:16 PM CDTAssociated Problem(s): Myalgia (Deleted) AI work up normal ijncluding , RA, SLE and ESR/CRP No depression/moy tfts not drawn! Checking now Low vitamin d being supplemented will help as well Suspect chronic pain/fibromyalgia Recommend cymbalta vs elavil as initial therapy- she opted for elavil. SE were discussed. Starting low dose and will titrate up through mychart if needed Work letter sent as well- dt severe pain and fatigue, pt is unable to do exercise aside from walking Consider dry needling (getting PT for foot pain at [facility]) If no success with above, consider lyrica, gabapentin documented in this encounter Plan of Treatment Not on file documented as of this encounter Results * T4, free (06/06/2022 12:59 PM CDT) Free T4 1.43 0.90 - 1.70 ng/dL TOM Comment:Testing performed by : [facility], [address] [place] [address]., [id number] Blood 06/06/2022 12:5 9 PM CDT 06/06/2022 3:56 PM CDT Rachel Ortiz MD LAB BLOOD ORDERABLES Final Resu lt Performing Organization Address [facility] Co de Phone Number TOM [address] [facility] [address] * TSH (06/06/2022 12:59 PM CDT) Thyroid Stimulating Hormone 2.02 0.30 - 4.20 mcIUnit/mL TOM Comment:Testing performed by : [facility], [address] [place] [address]., [id number] Blood 06/06/2022 12:5 9 PM CDT 06/06/2022 3:56 PM CDT Result [facility] Rachel Ortiz MD LAB BLOOD ORDERABLES Edited Res ult - Final Performing Organization Address [facility] Co de Phone Number [address] [facility] [place] [address] * (ABNORMAL) Vitamin D 25 hydroxy (06/06/2022 12:59 PM CDT) Vitamin D 25-OH 20.0(L) 30.0 - 80.0 ng/mL TOM Comment:Below Ref Range Blood 06/06/2022 12:5 9 PM CDT 06/06/2022 4:52 PM CDT Result [facility] Rachel Ortiz MD LAB BLOOD ORDERABLES Final Resu lt Performing Organization Address [facility] Co de Phone Number [address] [place] [address] documented in this encounter Visit Diagnoses Diagnosis Myalgia- Primary Unspecified myalgia and myositis Fatigue, unspecified type Muscle pain Unspecified myalgia and myositis documented in this encounter Discontinued Medications Medication Sig Discontinue Reason Start Date End Da te cholecalciferol (VITAMIN D-3) 5,000 unit capsule Take 5,000 Units by mouth daily Therapy completed 03/14/2022 documented as of this encounter Care Teams Rib Matcher And Fitter Relationship Specialty Start Date End Date Rachel Ortiz MD [address] [place] [id number] PCP - General Internal Medicine 02/15/22 07/14/23 documented as of this encounter
--- OUTSIDE RECORDS SUMMARY | 2024-11-29 06:23 | XMS_ITS | Encounter Summary ---
Author Organization [facility] Healthcare Address [address] [place] [address] Care Team Providers Care Epic Analyst Name Role Phone Rachel Ortiz MD Primary Care Provider [phone] Reason for Referral * Diagnostic Imaging (Routine) - Closed Specialty Diagnoses / Procedures Referred By Contac t Referred To Contact Diagnoses Chronic low back pain without sciatica, unspecified back pain laterality Procedures XR Spine Thoracic 2 Vw Rachel Ortiz MD [address] [place] [address] Phone: tel: fax: [address] [phone] Referral ID Status Reason Start Date Expiration Date Visits Re quested Visits Authorized [id number] Closed 04/24/2022 05/24/2023 1 1 * Diagnostic Imaging (Routine) - Closed Specialty Diagnoses / Procedures Referred By Contac t Referred To Contact Diagnoses Chronic low back pain without sciatica, unspecified back pain laterality Procedures XR Spine Lumbar Complete 4 Or More Rachel Ortiz MD [address] [place] [address] Phone: tel: fax: [address] [phone] Referral ID Status Reason Start Date Expiration Date Visits Re quested Visits Authorized [id number] Closed 04/24/2022 05/24/2023 1 1 Reason for Visit * Diagnostic Imaging (Routine) - Closed Specialty Diagnoses / Procedures Referred By Contac t Referred To Contact Diagnoses Chronic low back pain without sciatica, unspecified back pain laterality Procedures XR Spine Thoracic 2 Vw Rachel Ortiz MD [address] [address] Phone: tel: fax: [address] [phone] Referral ID Status Reason Start Date Expiration Date Visits Re quested Visits Authorized [id number] Closed 04/24/2022 05/24/2023 1 1 Encounter Details Date Type Department Care Team (Latest Contact Info) Description 07/02/2022 8:15 AM CDT - 07/02/2022 11:59 PM CDT Hospital Encounter [facility] DIAG IMG [address] [place] [address] Chronic low back pain without sciatica, unspecified back pain laterality Discharge Disposition: Discharge to home or self [...] staff should administer the PHQ-9) 0 04/24/2022 [place] Depression Scale Answer Date Recorded [place] Depression Scale Total 1 11/28/2020 The thought [...] Start Date: 07/28/21 Status: Ordered 07/28/2021 4 cyclobenzaprine (FLEXERIL) 5 mg tablet Take 1 tablet (5 mg total) by mouth 3 (three) times a day as needed for muscle spasms 30 tablet 04/24/2022 2 doxycycline monohydrate (MONODOX) 100 mg capsule 0 [...] Name Priority Date/Time Associated Diagnosis Comments XR SPINE LUMBAR COMPLETE 4 OR MORE VIEWS Schedule Routine, Read Routine (OP Routine) 07/02/2022 9:19 AM CDT Chronic low back pain without sciatica, unspecified back pain laterality XR SPINE THORACIC 2 VIEWS Schedule Routine, Read Routine (OP Routine) 07/02/2022 9:19 AM CDT Chronic low back pain without sciatica, unspecified back pain laterality documented in this encounter Results * XR Spine Thoracic 2 Vw (07/02/2022 9:19 AM CDT) Anatomical Region Laterality Modality Spine N/A Computed Radiogr aphy 07/03/2022 8:19 AM CDT Narrative 07/03/2022 8:20 AM CDT EXAM DESCRIPTION: ?? XR SPINE THORACIC 2 VIEWS REASON FOR STUDY: ?? back pain ?? Back pain x 1.5 years, ??shooting pain to right leg, ??no injury, ??pain started after having baby ?? TECHNIQUE: ??AP and lateral ??radiographic views acquired of the thoracic spine. COMPARISON: ?? None available FINDINGS: ALIGNMENT: ?? Anatomic. VERTEBRAE: ?? Well-maintained height. ??No fracture or worrisome bone lesion. ?? Facet joints unremarkable. DISCS: ?? Disc height well-maintained. HARDWARE: ?? None in the spine. SOFT TISSUES: ?? No significant abnormality in the included lungs. OTHER: ?? No other significant finding. IMPRESSION: ?? No acute radiographic abnormality. THIS IS AN ELECTRONICALLY VERIFIED FINAL REPORT 07/03/2022 8:20 AM - Electronically signed by ??Alban Urbina M.D. BC: RHONDA D: ??07/03/2022 8:20 AM T: ??07/03/2022 8:20 AM Report ID: [id number] Reading Location: ??[id number] Procedure Note Alban Urbina MD - 07/03/2022 EXAM DESCRIPTION: XR SPINE THORACIC 2 VIEWS REASON FOR STUDY: back pain Back pain x 1.5 years, shooting pain to right leg, no injury, painstarted after having baby TECHNIQUE: AP and lateral radiographic views acquired of the thoracicspine. COMPARISON: None available FINDINGS: ALIGNMENT: Anatomic. VERTEBRAE: Well-maintained height. No fracture or worrisome bonelesion. Facet joints unremarkable. DISCS: Disc height well-maintained. HARDWARE: None in the spine. SOFT TISSUES: No significant abnormality in the included lungs. OTHER: No other significant finding. IMPRESSION: No acute radiographic abnormality. THIS IS AN ELECTRONICALLY VERIFIED FINAL REPORT 07/03/2022 8:20 AM - Electronically signed by Alban ELLIS: RHONDA Report ID: [id number] Reading Location: [id number] Rachel Ortiz MD IM XR PROCEDURES Final Result * XR Spine Lumbar Complete 4 Or More (07/02/2022 9:19 AM CDT) Anatomical Region Laterality Modality Spine N/A Computed Radiogr aphy 07/03/2022 8:18 AM CDT Narrative 07/03/2022 8:19 AM CDT EXAM DESCRIPTION: ?? XR SPINE LUMBAR 4 OR MORE VIEWS REASON FOR STUDY: ?? back pain ?? Back pain x 1.5 years, ??shooting pain to right leg, ??no injury, ??pain started after having baby ?? TECHNIQUE: ?? 5 ??radiographic views acquired of the lumbar spine. COMPARISON: ?? None available FINDINGS: SEGMENTATION: ?? Normal. ??No transitional anatomy. ALIGNMENT: ?? Normal. VERTEBRAE: ?? Well-maintained height. ??No fracture or worrisome bone lesion. ?? Minimal facet arthrosis suspected at L4-5 and L5-S1. DISCS: ?? Well-maintained disc heights. ??Evidence of very early disc degeneration with tiny anterior osteophytes at the superior endplates of L4 and L5. OTHER: ?? No other significant finding. IMPRESSION: ?? Very mild degenerative disc and facet disease. ??No acute findings. THIS IS AN ELECTRONICALLY VERIFIED FINAL REPORT 07/03/2022 8:19 AM - Electronically signed by ??Alban Urbina M.D. BC: RHONDA D: ??07/03/2022 8:19 AM T: ??07/03/2022 8:19 AM Report ID: [id number] Reading Location: ??[id number] Procedure Note Alban Urbina MD - 07/03/2022 EXAM DESCRIPTION: XR SPINE LUMBAR 4 OR MORE VIEWS REASON FOR STUDY: back pain Back pain x 1.5 years, shooting pain to right leg, no injury, painstarted after having baby TECHNIQUE: 5 radiographic views acquired of the lumbar spine. COMPARISON: None available FINDINGS: SEGMENTATION: Normal. No transitional anatomy. ALIGNMENT: Normal. VERTEBRAE: Well-maintained height. No fracture or worrisome bonelesion. Minimal facet arthrosis suspected at L4-5 and L5-S1. DISCS: Well-maintained disc heights. Evidence of very early disc degeneration with tiny anterior osteophytes at the superior endplates ofL4 and L5. OTHER: No other significant finding. IMPRESSION: Very mild degenerative disc and facet disease. No acute findings. THIS IS AN ELECTRONICALLY VERIFIED FINAL REPORT 07/03/2022 8:19 AM - Electronically signed by Alban Urbina M.D. BC: RHONDA Report ID: [id number] Reading Location: [id number] Rachel Ortiz MD IMG XR PROCEDURES Final Result documented in this encounter Visit Diagnoses Diagnosis Chronic low back pain without sciatica, unspecified back pain laterality documented in this encounter Care Teams Epic Analyst Relationship Specialty Start Date End Date Rachel Ortiz MD [address] [place] [phone] PCP - General Internal Medicine 02/15/22 07/14/23 documented as of this encounter
--- OUTSIDE RECORDS SUMMARY | 2024-11-29 06:23 | XMS_ITS | Encounter Summary ---
Author Organization [facility] Address [address] [place] [address] Care Team Providers Care Government Property Inspector Name Role Phone Rachel Ortiz MD Primary Care Provider Reason for Visit * Reason Onset Date Comments Recommendation Request 05/17/2023 Encounter Details Date Type Department Care Team ([facility] st Contact Info) Description 05/17/2023 Telephone [facility] Primary Care [address] [facility] [address] [place] [address] Mateo Mir MD [address] [place] [address] [address] [place] [address] Recommendation Request Social History Tobacco Use Types Packs/Day Years [...] staff should administer the PHQ-9) 0 04/24/2022 [place] Depression Scale Answer Date Recorded [place] Depression Scale Total 1 11/28/2020 The thought of harming myself has occurred to me . Never 11/28/2020 Comments Unknown Sex and Gender Information Value Date Recorded Sex Assigned at Not on file Legal Sex Female 2:07 PM CDT Gender Identity Not on file Sexual Orientation Not on file documented as of this encounter Miscellaneous Notes * Telephone Encounter - Analia Guerra MA - 05/17/2023 10:57 AM CDT Derm referral placed * Telephone Encounter - Joaquin Worley LPN - 05/17/2023 10:41 AM CDT Please advise * Telephone Encounter - Yvonne Flynn - 05/17/2023 10:35 AM CDT Recommendation Request Note: This request is for a specialty recommendation, not an insurance referral. Specialty: Sanitation Engineer Why does the patient want to go to this specialist? To have mold removed Caller's Callback #: [phone] Additional Comments/Concerns: Patient requesting recommendation from Dr Mir and I also provided Physician Referral phone number Does message need to be routed? Yes-Action Needed documented in this encounter Plan of Treatment Not on file documented as of this encounter Visit Diagnoses Diagnosis Skin mole- Primary Skin problem documented in this encounter Care Teams Government Property Inspector Relationship Specialty Start Date End Date Rachel Ortiz MD [address] [place] [id number] PCP - General Internal Medicine 02/15/22 07/14/23 documented as of this encounter
--- OUTSIDE RECORDS SUMMARY | 2024-11-29 06:23 | XMS_ITS | Encounter Summary ---
Author Organization [facility] Address [address] [place] [address] Care Team Providers Care Spool Winder Name Role Phone Abhilash Sam MD Unavailable [phone] Mary Russell MD Unavailable [phone] Luz Meneses Primary Care Provider + Reason for Referral * Diagnostic Imaging (Routine) - Authorized Specialty Diagnoses / Procedures Referred By Contac t Referred To Contact Diagnoses Neck pain Family history of thyroid disease Procedures US Thyroid Luz Meneses PA [address] [address] Phone: tel: fax: [address] [phone] Referral ID Status Reason Start Date Expiration Date V isits Requested Visits Authorized [id number] Authorized 06/01/2024 07/01/2025 1 1 * Consultation (Routine) - Authorized Specialty Diagnoses / Procedures Referred By Contac t Referred To Contact Pulmonary Disease / Pulmonology Diagnoses Snoring Luz Meneses PA [address] [address] Phone: tel: fax: Nakul Hanna MD [phone] [address] Phone: tel: fax: Referral ID Status Reason Start Date Expiration Date Visits Requested Visits Authorized [id number] Authorized Specialty Services Required 07/02/2024 07/02/2025 4 4 Question Answer Please select the performing region: [facility] [[id number]] Please select the performing department: [facility] [place] [facility] [[id number]] To provider: NAKUL HANNA [[id number]] # of visits: 6 Comments Referral to Sleep Medicine. * Diagnostic Imaging (Routine) - Closed Specialty Diagnoses / Procedures Referred By Contac t Referred To Contact Diagnoses Arthralgia, unspecified joint Myalgia Chronic pain of both knees Procedures XR Knee Right 3 Vw Luz Meneses PA [address] [address] Phone: tel: fax: [address] [phone] Referral ID Status Reason Start Date Expiration Date Visits Re quested Visits Authorized [id number] Closed 06/01/2024 07/01/2025 1 1 * Diagnostic Imaging (Routine) - Closed Specialty Diagnoses / Procedures Referred By Contac t Referred To Contact Diagnoses Arthralgia, unspecified joint Myalgia Chronic pain of both knees Procedures XR Knee Left 3 Vw Luz Meneses PA [address] [place] [address] Phone: tel: fax: [address] [phone] Referral ID Status Reason Start Date Expiration Date Visits Re quested Visits Authorized [id number] Closed 06/01/2024 07/01/2025 1 1 Reason for Visit * Reason Comments Establish Care Knee Pain Pt has a c/o pain be hind both knees, no injury noted. Encounter Details Date Type Department Care Team (Late st Contact Info) Description 06/01/2024 10:30 AM CDT Office Visit [facility] Family Medicine [address] [phone] Luz Meneses PA [address] [place] [address] Arthralgia, unspecified joint (Primary Dx); Myalgia; Vitamin D deficiency (15); Chronic pain syndrome; Low serum vitamin B12; Chronic pain of both knees; Snoring; Neck pain; Family history of thyroid disease; Chronic bilateral low back pain without sciatica; 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); Migraine without aura and without status migrainosus, not intractable Social History Tobacco Use Types Packs/Day Years [...] staff should administer the PHQ-9) 0 06/01/2024 [place] Depression Scale Answer Date Recorded [place] Depression Scale Total 1 11/28/2020 The thought [...] Sign Reading Time Taken Comments Blood Pressure 100/70 06/01/2024 10:11 AM CDT Pulse 59 06/01/2024 10:11 AM CDT Temperature 36.6 ??C (97.8 ??F) 06/01/2024 10:11 AM C DT Respiratory Rate 16 06/01/2024 10:11 AM CDT Oxygen Saturation 99% 06/01/2024 10:11 AM CDT Inhaled Oxygen Concentration - - Weight 74.8 kg (165 lb) 06/01/2024 10:11 AM CDT Height 170.2 cm (5' 7 ) 06/01/2024 10:11 AM CDT Body Mass Index 25.84 06/01/2024 10:11 AM CDT documented in this encounter Progress Notes * Luz Meneses PA - 06/01/2024 10:30 AM CDT Images from the original note were not included. Visit Date: 06/01/2024 Patient ID: Gladys Tai is a 38 y.o. female. Chief Complaint(s): Establish Care and Knee Pain (Pt has a c/o pain behind both knees, no injury noted. ) HPI: New patient here to establish care Patient c/o all over body pain. This is a chronic issue, and has been worsening. Stephanie at night. Sometimes shooting down her legs and back. Knees are the biggest problem right now. She has done PT for the hip pain in the past. Has shoulder pain and pain in the trachea as well. Thinks the PT did help some. The pain has not gone away. Worsening bilateral knee pain, right worse than left. Pain is posterior. Patient notes when trying to bend down she has significant pain behind the knees and often needs help to get back up from a squatting position. Aunt with RA and she has been worked up for this before. Extended family member with lupus. 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 Aleve as needed, heat, ice Tried biofreeze on the back and heating pad in the past Chiro routinely and thera-gun as needed She has been classified as fibro in the past but then was concerned about her service - chronic pain H/o migraines - now well controlled. Tried on several meds in the past. Has been having a few - maybe 2 /month. She stopped all meds/pain meds for a while. Seem to help the pain somewhat for a time. H/o syncopal event related to migraine. No recurrent issues. Vitamin-D deficiency: Takes tsgw-tns-xanlqqg vitamin-D supplement 5000 units daily. Current Outpatient Medications Medication Sig Dispense Refill ascorbic acid (VITAMIN C) 100 mg tablet Take 1 tablet (100 mg total) by mouth daily cholecalciferol (VITAMIN D-3) 5,000 unit tablet Take 1 tablet (5,000 Units total) by mouth daily No current facility-administered medications for this visit. Allergies as of 06/01/2024 - Reviewed 06/01/2024 Allergen Reaction Noted Erythromycin Rash 06/08/2019 Penicillins Swelling 06/08/2019 Past Medical History: Diagnosis Date Abnormal Pap smear of cervix Headache migraines Motion sickness Pneumonia hx of yearly occurence Right foot pain 02/15/2022 Sprain of left knee 02/15/2022 Vasovagal syncope 02/15/2022 Past Surgical History: Procedure Laterality Date CERVICAL BIOPSY W/ LOOP ELECTRODE EXCISION 12/26/2023 HGSIL Patient Active Problem List Diagnosis Date Noted Migraine without aura and without status migrainosus, not intractable 06/01/2024 Arthralgia 06/01/2024 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) 11/12/2023 Herpes zoster 10/01/2023 History of motion sickness 10/01/2023 Gastroesophageal reflux disease without esophagitis 10/01/2023 Vitamin D deficiency (15) 07/29/2023 History of diarrhea/dyspepsia 07/29/2023 Chronic pain syndrome 07/11/2022 Chronic bilateral low back pain without sciatica 04/24/2022 Family History Problem Relation Age of Onset Thyroid disease Mother Unknown Family History Father Thyroid disease Sister Graves' disease Sister Diabetes Maternal Grandmother Breast cancer Neg Hx Ovarian cancer Neg Hx Uterine cancer Neg Hx Social History Tobacco Use Smoking Status Former Current packs/day: 0.00 Types: Cigarettes Quit date: 02/15/2010 Years since quittin.3 Smokeless Tobacco Never Alcohol Use: Alcohol Misuse (06/01/2024) AUDIT-C Frequency of Alcohol Consumption: 2-4 times a month Average Number of Drinks: 1 or 2 Frequency of Binge Drinking: Less than monthly Review of Systems: Review of Systems Constitutional: Negative for chills, fever and unexpected weight change. HENT: Negative for sore throat and trouble swallowing. Eyes: Negative for visual disturbance. Respiratory: Negative for cough, shortness of breath and wheezing. Cardiovascular: Negative for chest pain and leg swelling. Gastrointestinal: Negative for abdominal pain, diarrhea, nausea and vomiting. Musculoskeletal: Positive for arthralgias, back pain, gait problem, joint swelling, myalgias and neck pain (frontal - throat). Skin: Negative for rash. Neurological: Positive for headaches. Negative for dizziness and syncope. Psychiatric/Behavioral: Positive for sleep disturbance (Snoring). Negative for dysphoric mood. The patient is not nervous/anxious. Physical Examination: Vitals: 06/01/24 1011 BP: 100/70 BP Location: Left arm Patient Position: Sitting Pulse: 59 Resp: 16 Temp: 36.6 ??C (97.8 ??F) TempSrc: Temporal SpO2: 99% Weight: 74.8 kg (165 lb) Height: 170.2 cm (5' 7 ) Body mass index is 25.84 kg/m??. Physical Exam Vitals and nursing note reviewed. Constitutional: Appearance: Normal appearance. She is well-developed. HENT: Head: Normocephalic and atraumatic. Right Ear: External ear normal. Left Ear: External ear normal. Mouth/Throat: Mouth: Mucous membranes are moist. Pharynx: No posterior oropharyngeal erythema or uvula swelling (uvula is elongated). Tonsils: 1+ on the right. 2+ on the left. Eyes: Conjunctiva/sclera: Conjunctivae normal. Neck: Thyroid: No thyromegaly or thyroid tenderness. Vascular: No carotid bruit. Comments: Tender to palpation on either side of trachea without mass or lymphadenopathy appreciated Cardiovascular: Rate and Rhythm: Normal rate and regular rhythm. Pulmonary: Effort: Pulmonary effort is normal. Breath sounds: Normal breath sounds. No wheezing. Abdominal: General: Bowel sounds are normal. Palpations: Abdomen is soft. Tenderness: There is no abdominal tenderness. Musculoskeletal: Cervical back: Full passive range of motion without pain. Thoracic back: Normal. Lumbar back: Tenderness and bony tenderness present. No spasms. Normal range of motion. Right hip: Tenderness and bony tenderness present. Decreased range of motion. Normal strength. Left hip: Tenderness and bony tenderness present. Decreased range of motion. Normal strength. Right knee: Crepitus present. No swelling or deformity. Decreased range of motion. Tenderness present. Left knee: Crepitus present. No swelling or deformity. Decreased range of motion. Tenderness present. Right lower leg: No edema. Left lower leg: No edema. Lymphadenopathy: Cervical: No cervical adenopathy. Neurological: Mental Status: She is alert and oriented to person, place, and time. Depression/Anxiety Screening: Over the last 2 weeks, how often have you been bothered by any of the following problems? Little Interest or Pleasure in Doing Things: Not at all Feeling Down, Depressed, or Hopeless: Not at all PHQ-2 Total Score (If total score is 3 or more points, staff should administer the PHQ-9): 0 Over the past 2 weeks, how often have you been bothered by any of the following problems? Little Interest or Pleasure in Doing Things: Not at all Feeling Down, Depressed, or Hopeless: Not at all PHQ-2 Total Score (If total score is 3 or more points, staff should administer the PHQ-9): 0 Trouble Falling or Staying Asleep, or Sleeping too Much: Several days Feeling Tired or Having Little Energy: Not at all Poor Appetite or Overeating: Several days Feeling Bad About Yourself - or That You are a Failure or Have Let Yourself or Your Family Down: Not at all Trouble Concentrating on Things, Such as Reading the Newspaper or Watching Television: Nearly everyday Moving or Speaking so Slowly That Other People Could Have Noticed, or the Opposite - Being so Fidgety or Restless That You Have Been Moving Around a lot More Than Usual: Not at all Thoughts That You Would be Better off , or of Hurting Yourself in Some Way: Not at all PHQ-9 Total Score: 5 If you checked off any problems, how difficult have these problems made it for you to do your work,take care of things at home, or get along with other people?: Not difficult at all REGINO-7 Feeling nervous, anxious, or on edge: Not at all sure Not being able to stop or control worrying: Not at all sure Worrying too much about different things: Not at all sure Trouble relaxing: Over half the days Being so restless that it's hard to sit still: Several days Becoming easily annoyed or irritable: Several days Feeling afraid as if something awful might happen: Not at all sure Total Score: 4 If you checked off any problems, how difficult have these made it for you to do your work, take care of things at home, or get along with other people?: Not difficult at all Assessment/Plan Diagnoses and all orders for this visit: Arthralgia, unspecified joint (M25.50) (Primary) Assessment & Plan: Longstanding chronic pain - has been worked up for autoimmune in the past, negative testing about 2years ago. Pain continues - stopped taking all [...] as she has been doing as needed. Orders: - CBC with auto differential; Future - Comprehensive metabolic panel; Future - Thyroid Function [place]; Future - Creatine kinase (CK), total; Future - XR Knee Left 3 Vw; Future - XR Knee Right 3 Vw; Future Myalgia (M79.10) Comments: Check labs Orders: - CBC with auto differential; Future - Comprehensive metabolic panel; Future - Thyroid Function [place]; Future - Creatine kinase (CK), total; Future - XR Knee Left 3 Vw; Future - XR Knee Right 3 Vw; Future Vitamin D deficiency (15) (E55.9) Assessment & Plan: Repeat levels - currently on daily supplement Orders: - Vitamin D 25 hydroxy; Future Chronic pain syndrome (G89.4) Assessment & Plan: Chronic, worsening overall. Now with significant knee pain limiting her ability to run. Has been onseveral medications in the past and been worked up for autoimmune. Labs and x-rays ordered today. Low serum vitamin B12 (E53.8) Comments: Recheck labs Orders: - Vitamin B12; Future Chronic pain of both knees (M25.561, M25.562, G89.29) Comments: Worsening chronic pain - xays and labs as above Orders: - XR Knee Left 3 Vw; Future - XR Knee Right 3 Vw; Future Snoring (R06.83) Comments: Snoring - loud. Elongated uvula. referral to sleep med for sleep study Orders: - Ambulatory referral to Pulmonology; Future Neck pain (M54.2) Comments: Frontal throat pain - Labs ordered, will get thyroid u/s given her family history and symptoms Orders: - US Thyroid; Future Family history of thyroid disease (Z83.49) Comments: Thyroid u/s ordered Orders: - US Thyroid; Future Chronic bilateral low back pain without sciatica (M54.50, G89.29) Assessment & Plan: Chronic, stable. Continue mtem-vmz-aqqcjgi medications and treatment as above. 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) (R87.613) Assessment & Plan: S/p leep - Dr. Shanell CAICEDO. Has appointment and repeat Pap scheduled for July of 2024 Migraine without aura and without status migrainosus, not intractable (G43.009) Assessment & Plan: Chronic, Overall improved. Has about 2 migraine days per month. She has a medication at home that works well - will call back/send message with med name and we can refill. Return after testing. Luz Meneses PA-C *This note may be dictated using voice recognition software, variances in spelling and vocabulary are possible and unintentional.* Cosigned by Lev Harry MD at 06/01/2024 11:07 AM CDT documented in this encounter Miscellaneous Notes * Assessment & Plan Note - Luz Meneses PA - 06/01/2024 11:01 AM CDT Associated Problem(s): Vitamin D deficiency (15) Repeat levels - currently on daily supplement * Assessment & Plan Note - Luz Meneses PA - 06/01/2024 11:01 AM CDT Associated Problem(s): Migraine without aura and without status migrainosus, not intractable Chronic, Overall improved. Has about 2 migraine days per month. She has a medication at home that works well - will call back/send message with med name and we can refill. * Assessment & Plan Note - Luz Meneses PA - 06/01/2024 11:00 AM CDT Associated Problem(s): 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) S/p leep - Dr. Shanell CAICEDO. Has appointment and repeat Pap scheduled for July of 2024 * Assessment & Plan Note - Luz Meneses PA - 06/01/2024 10:59 AM CDT Associated Problem(s): Chronic pain syndrome Chronic, worsening overall. Now with significant knee pain limiting her ability to run. Has been onseveral medications in the past and been worked up for autoimmune. Labs and x-rays ordered today. * Assessment & Plan Note - Luz Meneses PA - 06/01/2024 10:59 AM CDT Associated Problem(s): Chronic bilateral low back pain without sciatica Chronic, stable. Continue fnqf-ocb-kzphisi medications and treatment as above. * Assessment & Plan Note - Luz Meneses PA - 06/01/2024 10:59 AM CDT Associated Problem(s): Arthralgia Longstanding chronic pain - has been worked up for autoimmune in the past, negative testing about 2years ago. Pain continues - stopped taking all [...] as she has been doing as needed. documented in this encounter Plan of Treatment Scheduled Orders Name Type Priority Associated Diagnoses Orde r Schedule US Thyroid Imaging Schedule Routine , Read Routine (OP Routine) Neck pain Family history of thyroid disease Expected: 06/01/2024, Expires: 06/01/2025 Scheduled Referrals Name Type Priority Associated Diagnoses Order Schedule Ambulatory referral to Pulmonology Outpatient Referral Routine Snoring Expected: 06/15/2024 (Approximate), Expires: 06/01/2025 documented as of this encounter Results * Vitamin B12 (06/01/2024 11:28 AM CDT) Vitamin B12 417 230 - 1,250 pg/mL Comment:Testing performed by : [facility], [address] [place] [address]., [id number] Blood 06/01/2024 11:2 8 AM CDT 06/01/2024 11:53 AM CDT Luz MCKEON LAB BLOOD ORDERABLES Fin al Result Performing Organization Address [facility] Co de Phone Number [place] [address] [facility] [place] [address] * Vitamin D 25 hydroxy (06/01/2024 11:28 AM CDT) Vitamin D 25-OH 30.0 30.0 - 80.0 ng/mL Blood 06/01/2024 11:2 8 AM CDT 06/01/2024 2:37 PM CDT Luz MCKEON LAB BLOOD ORDERABLES Fin al Result Performing Organization Address [facility] Co de Phone Number [place] [phone] [facility] [place] [address] * Creatine kinase (CK), total (06/01/2024 11:28 AM CDT) [facility] CK 57 30 - 200 Units/L Comment:Testing performed by : [address] [address] Blood 06/01/2024 11:2 8 AM CDT 06/01/2024 11:53 AM CDT Luz MCKEON LAB BLOOD ORDERABLES Fin al Result Performing Organization Address [facility] Co de Phone Number [address] [place] [address] * Thyroid Function [place] (06/01/2024 11:28 AM CDT) [facility] TSH 1.87 0.30 - 4.20 mcIUnit/mL Comment:Testing performed by : [address] [address] Blood 06/01/2024 11:2 8 AM CDT 06/01/2024 11:53 AM CDT Luz MCKEON LAB BLOOD ORDERABLES Fin al Result Performing Organization Address [facility] Co de Phone Number [address] [address] * Comprehensive metabolic panel (06/01/2024 11:28 AM CDT) [facility] Sodium 143 135 - 145 mmol/L Comment:Testing performed by : [address] [address] Potassium, pl 4.3 3.3 - 4.9 mmol/L TOM Comment:Testing performed by : [address] [address] Chloride 107 97 - 110 mmol/L TOM Comment:Testing performed by : [address] [address] CO2 23 22 - 32 mmol/L TOM Comment:Testing performed by : [address] [address] Anion gap 13 2 - 15 mmol/L TOM Comment:Testing performed by : [address] [address] BUN 11 6 - 25 mg/dL TOM Comment:Testing performed by : [address] [address] Creatinine 0.90 0.60 - 1.10 mg/dL TOM Comment:Testing performed by : [address] [address] Glucose 86 70 - 199 mg/dL TOM Comment: Interpretive [...] was last revised 2022. Testing performed by: [address] [address] Calcium 9.2 8.5 - 10.3 mg/dL TOM Comment:Testing performed by : [address] [address] Bilirubin, total 0.4 0.1 - 1.2 mg/dL TOM Comment:Testing performed by : [address] [address] Protein, pl 7.1 6.5 - 8.5 g/dL TOM Comment:Testing performed by : [address] [address] Albumin 4.4 3.5 - 5.0 g/dL TOM Comment:Testing performed by : [address] [address] Alk phos 59 40 - 130 Units/L TOM Comment:Testing performed by : [address] [address] ALT 16 7 - 45 Units/L TOM RIVERA Comment:Testing performed by : [address] [address] AST 17 10 - 45 Units/L TOM RIVERA Comment:Testing performed by : [address] [address] Blood 06/01/2024 11:2 8 AM CDT 06/01/2024 11:53 AM CDT us Luz MCKEON LAB BLOOD ORDERABLES Fin al Result TOM [address] [facility] [place] [address] * (ABNORMAL) CBC with auto differential (06/01/2024 11:28 AM CDT) WBC 6.2 3.8 - 9.9 K/cumm Comment:Testing performed by : [address] [address] Hgb 13.5 11.9 - 15.5 g/dL TOM RIVERA Comment:Testing performed by : [address] [address] Hct 43.3 35.6 - 45.5 % TOM RIVERA Comment:Testing performed by : [address] [address] Plt 204 150 - 400 K/cumm TOM Comment:Testing performed by : [address] [address] MPV 10.5 9.1 - 12.3 fL TOM RIVERA Comment:Testing performed by : [address] [address] RBC 5.18 3.90 - 5.20 M/cumm TOM RIVERA Comment:Testing performed by : [address] [address] MCV 83.6 81.3 - 96.4 fL TOM RIVERA Comment:Testing performed by : [address] [address] MCH 26.1(L) 27.1 - 33.3 pg TOM RIVERA Comment:Testing performed by : [address] [address] MCHC 31.2(L) 32.3 - 35.7 g/dL TOM RIVERA Comment:Testing performed by : [address], [address] RDW CV 13.5 11.1 - 14.9 % TOM Comment:Testing performed by : [address], [address] RDW SD 41.1 35.7 - 48.1 fL TOM Comment:Testing performed by : [address], [address] NRBC abs 0.00 0.00 - 0.01 K/cumm TOM RIVERA Comment:Testing performed by : [address], [address] Blood 06/01/2024 11:2 8 AM CDT 06/01/2024 11:53 AM CDT us Luz MCKEON LAB BLOOD ORDERABLES Fin al Result TOM [address] [facility] [place] [address] * XR Knee Right 3 Vw (06/01/2024 [...] 7:50 AM - Electronically signed by ??Stevan KIRK: YELENA D: ??06/02/2024 7:50 AM T: ??06/02/2024 7:50 AM Report ID: [id number] Reading Location: ??[id number] Procedure Note Stevan Garrido MD - 06/02/2024 [...] 7:50 AM - Electronically signed by Stevan KIRK: YELENA Report ID: [id number] Reading Location: [id number] Luz MCKEON IMG XR PROCEDURES Final Result * XR Knee Left 3 Vw (06/01/2024 [...] AM T: ??06/02/2024 7:50 AM Report ID: [id number] Reading Location: ??[id number] Procedure Note Stevan Garrido MD - 06/02/2024 [...] 7:50 AM - Electronically signed by Stevan KIRK: YELENA Report ID: [id number] Reading Location: [id number] Luz MCKEON IMG XR PROCEDURES Final Result documented in this encounter Visit Diagnoses Diagnosis Arthralgia, unspecified joint- Primary Myalgia Unspecified myalgia and myositis Vitamin D deficiency (15) Chronic pain syndrome Low serum vitamin B12 Chronic pain of both knees Snoring Other dyspnea and respiratory abnormality Neck pain Cervicalgia Family history of thyroid disease Family history of other endocrine and metabolic diseases Chronic bilateral low back pain without sciatica 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) Migraine without aura and without status migrainosus, not intractable Arthralgia, unspecified joint Myalgia Unspecified myalgia and myositis Chronic pain of both knees documented in this encounter Discontinued Medications Medication Sig Discontinue Reason Start Date End Da te acetaminophen (TYLENOL) 500 mg tablet Take 1 tablet (500 mg total) by mouth every 6 (six) hours as needed for pain 06/01/2024 albuterol HFA (PROVENTIL HFA,VENTOLIN HFA,PROAIR HFA) 90 mcg/actuation inhaler 03/15/2024 06/01/2024 calcium carbonate-mag hydroxid 1,000-200 mg tablet,chewable Take by mouth 06/01/2024 cetirizine (ZyrTEC) 10 mg tablet Take 1 tablet (10 mg total) by mouth daily 06/01/2024 cyanocobalamin (Vitamin B-12) 1,000 mcg tabletIndications:Preve ntion of Vitamin B12 Deficiency Take 1 tablet (1,000 mcg total) by mouth daily 06/01/2024 fluticasone propionate (FLONASE) 50 mcg/actuation nasal spray Administer 2 sprays into each nostril daily 10/01/2023 06/01/2024 ibuprofen (ADVIL,MOTRIN) 600 mg tablet TAKE 1 TABLET BY MOUTH THREE TIMES DAILY NEEDED FOR FEVER OR PAIN 11/26/2023 06/01/2024 Lactobacillus acidophilus (Probiotic) 10 billion cell capsule Take 1 Caplet by mouth daily 06/01/2024 magnesium gluconate 200 mg tabletIndications:hypom agnesemia Take 1.25 tablets (250 mg total) by mouth daily 06/01/2024 methylPREDNISolone (MEDROL DOSEPACK) 4 mg Dosepack 03/15/2024 06/01/2024 multivitamin capsule Take 1 capsule by mouth daily 06/01/2024 omega-3 fatty acids-fish oil 300-1,000 mg capsule Take 2 capsules (2 g total) by mouth daily 06/01/2024 predniSONE (DELTASONE) 20 mg tablet 11/26/2023 06/01/2024 promethazine-DM (PROMETHAZINE-DM) 1.25-3 mg/mL syrup 03/15/2024 06/01/2024 ergocalciferol (VITAMIN D) 50,000 unit capsule 1 capsule (50,000 Units total) once a week 02/23/2022 06/01/2024 documented as of this encounter Historical Medications * This list may reflect changes made after this encounter. cholecalciferol (VITAMIN D-3) 5,000 unit tablet Take 1 tablet (5,000 Units total) by mouth daily added in this encounter Care Teams Spool Winder Relationship Specialty Start Date End Date Luz Meneses PA [address] [facility] [address] [place] [address] PCP - General Family Medicine 06/01/24 Abhilash Sam MD [facility] [address] Consulting Physician Obstetrics and Gynecology 07/15/23 Mary Russell MD [address] [place] [address] Referring Physician Pediatric Neurology 07/15/23 documented as of this encounter
--- OUTSIDE RECORDS SUMMARY | 2024-11-29 06:23 | XMS_ITS | Encounter Summary ---
Author Organization [facility] Medical Group Address [address] [facility] [address] [place] [address] Care Team Providers Care Button Tufting Machine Operator Name Role Phone Rachel Ortiz MD Primary Care Provider [phone] Reason for Visit * Reason Onset Date Comments Medical Question/Miscellaneous 01/02/2023 Encounter Details Date Type Department Care Team ([facility] st Contact Info) Description 01/02/2023 Telephone [facility] Primary Care [address] [address] Rachle Ortiz MD [facility] [address] Medical Question/Miscellaneous Social History Tobacco Use Types [...] staff should administer the PHQ-9) 0 04/24/2022 [place] Depression Scale Answer Date Recorded [place] Depression Scale Total 1 11/28/2020 The thought of harming myself has occurred to me . Never 11/28/2020 Comments Unknown Sex and Gender Information Value Date Recorded Sex Assigned at Not on file Legal Sex Female 2:07 PM CDT Gender Identity Not on file Sexual Orientation Not on file documented as of this encounter Miscellaneous Notes * Telephone Encounter - Elgin Nielsen - 01/02/2023 10:05 AM CST Medical Question/Miscellaneous Caller???s Concern: [facility] Neurology called in to advise that they received referral in which needed clarity. Transferred to back line. Caller???s Call back #: [phone] Does message need to be routed?No PRESIDENT PAYER documented in this encounter Plan of Treatment Not on file documented as of this encounter Visit Diagnoses Not on filedocumented in this encounter Care Teams Button Tufting Machine Operator Relationship Specialty Start Date End Date Rachel Ortiz MD [address] [place] [address] PCP - General Internal Medicine 02/15/22 07/14/23 documented as of this encounter
--- OUTSIDE RECORDS SUMMARY | 2024-11-29 06:23 | XMS_ITS | Encounter Summary ---
Author Organization [facility] Healthcare Address [address] [place] [address] Care Team Providers Care Last Repairer Helper Name Role Phone Abhilash Sam MD Unavailable [phone] Mary Russell MD Unavailable [phone] Luz Meneses Primary Care Provider + Encounter Details Date Type Department Care Team (Late st Contact Info) Description 07/10/2024 Orders Only [facility] Medical Group Orthopedics and Sports Medicine [address] [place] [phone] Letha Duarte DO [address] [place] [address] [place] [address] Strain of calf muscle, right, initial encounter (Primary Dx) Social History Tobacco Use Types [...] staff should administer the PHQ-9) 0 06/01/2024 Sebastian Depression Scale Answer Date Recorded Sebastian Depression Scale Total 1 11/28/2020 The thought [...] of calf muscle, right, initial encounter- Primary documented in this encounter Care Teams Last Repairer Helper Relationship Specialty Start Date End Date Luz Meneses PA [address] [facility] [address] [place] [address] PCP - General Family Medicine 06/01/24 Abhilash Sam MD [address] [place] [address] Consulting Physician Obstetrics and Gynecology 07/15/23 Mary Russell MD [address] [place] [address] Referring Physician Pediatric Neurology 07/15/23 documented as of this encounter
--- OUTSIDE RECORDS SUMMARY | 2024-11-29 06:23 | XMS_ITS | Encounter Summary ---
Author Organization [facility] Healthcare Address [address] [place] [address] Care Team Providers Care Chicken Hanger Name Role Phone Mtaeo Mir MD Primary Care Provider + [phone] Abhilash Sam MD Unavailable [phone] Mary Russell MD Unavailable [phone] Luz Meneses Primary Care Provider + Encounter Details Date Type Department Care Team (Late st Contact Info) Description 10/14/2023 Patient Message [facility] Medical [facility] Primary Care [facility]8 [facility] [address] [place] [address] Mateo Mir MD [address] [place] [address] [address] [place] [address] Request for PT referral Social History Tobacco Use Types Packs/Day Years [...] staff should administer the PHQ-9) 0 06/01/2024 [place] Depression Scale Answer Date Recorded [place] Depression Scale Total 1 11/28/2020 The thought [...] as of this encounter Visit Diagnoses Diagnosis Piriformis syndrome of right side- Primary documented in this encounter Care Teams Chicken Hanger Relationship Specialty Start Date End Date Mateo Mir MD PCP - General Internal Medicine 07/15/23 05/31/24 Luz Meneses PA [address] [facility] [address] [place] [address] PCP - General Family Medicine 06/01/24 Abhilash Sam MD [address] [address] Consulting Physician Obstetrics and Gynecology 07/15/23 Mary Russell MD [address] [place] [address] Referring Physician Pediatric Neurology 07/15/23 documented as of this encounter
--- OUTSIDE RECORDS SUMMARY | 2024-11-29 06:23 | XMS_ITS | Encounter Summary ---
Author Organization [facility] Medical Group Address [address] [address] Care Team Providers Care Environmental Advisor Name Role Phone Deric Ortiz MD Primary Care Provider Reason for Referral * Diagnostic Imaging (Routine) - Closed Specialty Diagnoses / Procedures Referred By Contac t Referred To Contact Diagnoses Chronic low back pain without sciatica, unspecified back pain laterality Procedures XR Spine Thoracic 2 Vw Deric Ortiz MD [address] [place] [address] Phone: tel: fax: [address] [phone] Referral ID Status Reason Start Date Expiration Date Visits Re quested Visits Authorized [id number] Closed 04/24/2022 05/24/2023 1 1 * Diagnostic Imaging (Routine) - Closed Specialty Diagnoses / Procedures Referred By Contac t Referred To Contact Diagnoses Chronic low back pain without sciatica, unspecified back pain laterality Procedures XR Spine Lumbar Complete 4 Or More Deric Ortiz MD [address] [place] [address] Phone: tel: fax: [address] [phone] Referral ID Status Reason Start Date Expiration Date Visits Re quested Visits Authorized [id number] Closed 04/24/2022 05/24/2023 1 1 Reason for Visit * Reason Comments Follow-up 8 week Follow up on Body Pain, no labs Encounter Details Date Type Department Care Team ([facility] Contact Info) Description 04/24/2022 8:[address] [facility] Medical Group Primary Care [address] [phone] Deric Ortiz MD [facility] [address] Chronic low back pain without sciatica, unspecified back pain laterality (Primary Dx) Social History Tobacco Use Types [...] staff should administer the PHQ-9) 0 04/24/2022 [place] Depression Scale Answer Date Recorded [place] Depression Scale Total 1 11/28/2020 The thought [...] Sign Reading Time Taken Comments Blood Pressure - - Pulse - - Temperature - - Respiratory Rate - - Oxygen Saturation - - Inhaled Oxygen Concentration - - Weight 78.5 kg (173 lb) 04/24/2022 8:17 AM CDT Height 170.2 cm (5' 7 ) 04/24/2022 8:17 AM CDT Body Mass Index 27.1 04/24/2022 8:17 AM CDT documented in this encounter Ordered Prescriptions Prescription Sig Dispense Quantity Refills Last Filled Start Date End Date cyclobenzaprine (FLEXERIL) 5 mg tablet Take 1 tablet (5 mg total) by mouth 3 (three) times a day as needed for muscle spasms 30 tablet 04/24/[address] (CYMBALTA) 30 mg capsule Take 1 capsule (30 mg total) by mouth 2 (two) times a day 180 capsule 4 04/24/2022 4 documented in this encounter Progress Notes * Deric Ortiz MD - 04/24/2022 8:15 AM CDT Images from the original note were not included. This was a telemedicine visit with Gladys Tai which took place via Telephone During the visit, I was located [place] [facility] [address] and patient was located [place]. The phone session started at 0815 to 0830 The patient has been informed that the visit may not be secure and they acknowledge the information. The patient was given information regarding any new medication(s) prescribed, if applicable, as well as any [id number] remedies. she was given instructions regarding follow up and timeframe if symptoms worsen or don???t improve. These instructions were included in the Foremost message reply tothe patient. Patient Instructions were included in the message reply to patient. Patient ID: Gladys Tai is a 36 y.o. female. Chief Complaint. Chief Complaint Patient presents with ??? Follow-up 8 week Follow up on Body Pain, no labs HPI. Patient is a 36 y.o. female here for f/u on elavil- no difference in the pain level. No new side effects. Back Pain This is a chronic problem. The current episode started more than 1 year ago. The problem occurs daily. The problem has been waxing and waning since onset. The pain is present in the lumbar spine, sacro-iliac and thoracic spine. The quality of the pain is described as aching and stabbing. The pain radiates to the right thigh. The pain is at a severity of 5/10. The pain is worse during the night. Th e symptoms are aggravated by position. Stiffness is present all day. Associated symptoms include headaches, leg pain, tingling and weakness. Pertinent negatives include no abdominal pain, bladder incontinence, bowel incontinence, chest pain, dysuria, fever, numbness, paresis, paresthesias, pelvic pain, perianal numbness or weight loss. Risk factors include lack of exercise. Fatigue, unspecified type (Primary) - Vitamin D 25 hydroxy; Future - TSH; Future - T4, free; Future - Ambulatory referral order to Physical Therapy -; Future ?? Myalgia Assessment & Plan: AI work up normal ijncluding , RA, SLE and ESR/CRP No depression/moy tfts not drawn! Checking now Low vitamin d being supplemented will help as well Suspect chronic pain/fibromyalgia Recommend cymbalta vs elavil as initial therapy- she opted for elavil. SE were discussed. Starting low dose and will titrate up through mychart if needed ?? Work letter sent as well- dt severe pain and fatigue, pt is unable to do exercise aside from walking ?? Consider dry needling (getting PT for foot pain at [facility]) If no success with above, consider lyrica, gabapentin ? Other orders - amitriptyline (ELAVIL) 10 mg tablet; Take 1 tablet (10 mg total) by mouth nightly ?? Current Medications: Outpatient Encounter Medications as of 04/24/2022 Medication Sig Dispense Refill ??? acetaminophen (TYLENOL) 500 mg tablet Take 500 mg by mouth every 6 (six) hours as needed for pain ??? ascorbic acid (VITAMIN C) 100 mg tablet Take 100 mg by mouth daily ??? Lactobacillus acidophilus (Probiotic) 10 billion cell capsule Take by mouth ??? multivitamin capsule Take 1 capsule by mouth daily ??? [DISCONTINUED] amitriptyline (ELAVIL) 10 mg tablet Take 1 tablet (10 mg total) by mouth nightly(Patient taking differently: Take 20 mg by mouth nightly) 30 tablet 11 ??? cyclobenzaprine (FLEXERIL) 5 mg tablet Take 1 tablet (5 mg total) by mouth 3 (three) times a day as needed for muscle spasms 30 tablet 0 ??? DULoxetine DR (CYMBALTA) 30 mg capsule Take 1 capsule (30 mg total) by mouth 2 (two) times a day 180 capsule 4 ??? [DISCONTINUED] ergocalciferol (VITAMIN D) 50,000 unit capsule Take 1 capsule (50,000 Units total) by mouth once a week (Patient not taking: Reported on 04/24/2022) 6 capsule 0 ??? [DISCONTINUED] mv,Ca,min-iron [id number]-ZD-lccosw 1 mg iron-66.7 mcg-1,000 mcg tablet Take by mouth No facility-administered encounter medications on file as of 04/24/2022. Review of Systems: Review of Systems Constitutional: Negative for fever and weight loss. Cardiovascular: Negative for chest pain. Gastrointestinal: Negative for abdominal pain and bowel incontinence. Genitourinary: Negative for bladder incontinence, dysuria and pelvic pain. Musculoskeletal: Positive for back pain. Neurological: Positive for tingling, weakness and headaches. Negative for numbness and paresthesias. Ht 170.2 cm (5' 7 ) Wt 78.5 kg (173 lb) BMI 27.10 kg/m?? Physical Exam: Physical Exam Assessment & Plan: Diagnoses and all orders for this visit: Chronic low back pain without sciatica, unspecified back pain laterality (Primary) Assessment & Plan: Need imaging Switching from eleavil 20 mg/da to cymbalta for chronic pain control. Currently this seems to be a Chronic Pain Syndrome vs Fibromyalgia pain. Orders: - XR Spine Lumbar Complete 4 Or More; Future - XR Spine Thoracic 2 Vw; Future Other orders - DULoxetine DR (CYMBALTA) 30 mg capsule; Take 1 capsule (30 mg total) by mouth 2 (two) times a day - cyclobenzaprine (FLEXERIL) 5 mg tablet; Take 1 tablet (5 mg total) by mouth 3 (three) times a dayas needed for muscle spasms Deric Ortiz MD documented in this encounter Miscellaneous Notes * Assessment & Plan Note - Deric Ortiz MD - 04/24/2022 2:00 PM CDTAssociated Problem(s): Chronic bilateral low back pain without sciatica Need imaging Switching from eleavil 20 mg/da to cymbalta for chronic pain control. Currently this seems to be a Chronic Pain Syndrome vs Fibromyalgia pain. * Addendum Note - Deric Ortiz MD - 04/24/2022 8:15 AM CDTAddended by: DERIC ORTIZ on: 04/24/2022 02:02 PM Modules accepted: Level of Service documented in this encounter Plan of Treatment Not on file documented as of this encounter Results * XR Spine Thoracic [...] AM T: ??07/03/2022 8:20 AM Report ID: [id number] Reading Location: ??[id number] Procedure Note Alban Urbina MD - 07/03/2022 [...] 8:20 AM - Electronically signed by Alban Urbina M.D. BC: RHONDA Report ID: [id number] Reading Location: [place] [address] Deric Ortiz MD IMG XR PROCEDURES Final Result * XR Spine [...] AM T: ??07/03/2022 8:19 AM Report ID: [id number] Reading Location: ??[id number] Procedure Note Alban Urbina MD - 07/03/2022 [...] Alban Urbina M.D. BC: RHONDA Report ID: [id number] Reading Location: [id number] Deric Ortiz MD IMG XR PROCEDURES Final Result documented in this encounter Visit Diagnoses Diagnosis Chronic low back pain without sciatica, unspecified back pain laterality- Primary Chronic low back pain without sciatica, unspecified back pain laterality documented in this encounter Discontinued Medications Medication Sig Discontinue Reason Start Date End Da te ergocalciferol (VITAMIN D) 50,000 unit capsule Take 1 capsule (50,000 Units total) by mouth once a week Therapy completed 02/19/2022 04/24/2022 mv,Ca,min-iron zrnf-OD-dumwqk 1 mg iron-66.7 mcg-1,000 mcg tablet Take by mouth Duplicate order 04/24/2022 amitriptyline (ELAVIL) 10 mg tablet Take 1 tablet (10 mg total) by mouth nightly 03/14/2022 04/24/2022 documented as of this encounter Care Teams Environmental Advisor Relationship Specialty Start Date End Date Deric Ortiz MD [address] [place] [id number] PCP - General Internal Medicine 02/15/22 07/14/23 documented as of this encounter
--- OUTSIDE RECORDS SUMMARY | 2024-11-29 06:23 | XMS_ITS | Encounter Summary ---
Author Organization [facility] Medical Group Address [address] [facility] [address] [place] [address] Care Team Providers Care Cryptological Technician Name Role Phone Rachel Ortiz MD Primary Care Provider [phone] Encounter Details Date Type Department Care Team (Late st Contact Info) Description 02/15/2022 Orders Only [facility] INTERFACE [id number] Unknown, Notinfile Social History Tobacco Use Types Packs/Day Years [...] Date Recorded PHQ-2 Total Score 1 02/15/2022 [place] Depression Scale Answer Date Recorded [place] Depression Scale Total 1 11/28/2020 The thought [...] Procedure Name Priority Date/Time Associated Diagnosis Comments HLA DISEASE ASSOCIATION B 27 Routine 02/15/2022 11:44 AM CDT documented in this encounter Results * HLA disease association B 27 (02/15/2022 11:44 AM CDT) HLA-B27 interp HLA-B*27 is Negative. HISTOTRAC 02/15/2022 11:4 4 AM CDT 02/20/2022 6:49 AM CDT Narrative HISTOTRAC - 02/20/2022 6:49 AM CDT HLA-B typing is performed using the reverse sequence specific oligonucleotide (r-SSO) method, which is based on an FDA approved IVD kit and validated by the [facility] laboratory. Interpretive comments: HLA-B*27 positivity confers increased risk for ankylosing spondylitis or nonradiographic axial spondyloarthritis. The absence of HLA-B*27 may help rule out these diagnoses Expected: ??HLA-B*27 has been found in 74% to 89% of patients with either nonradiographic axial spondyloarthritis or ankylosing spondylitis. The absolute risk of spondyloarthritis in persons with HLA-B*27 is 2% to 10%. (N Engl J Med 2016;374:2563-74) Testing performed at the [facility], [facility], 5th floor, [place], [address]. [place] # [id number]. Karol Nguyen M.D., Ph.D., Associate HLA Disability Attorney Kosta Zuniga M.D., Ph.D., HLA Disability Attorney Pinky Osorio, Ph.D., Supervisor Show Operations, [facility] Current methodology and interpretive comments were last revised on 02/02/2020 us Notinfile Unknown LAB BLOOD ORDERABLES Final Res ult HISTERIK documented in this encounter Visit Diagnoses Not on filedocumented in this encounter Care Teams Cryptological Technician Relationship Specialty Start Date End Date Rachel Ortiz MD [address] [place] [address] PCP - General Internal Medicine 02/15/22 07/14/23 documented as of this encounter
--- OUTSIDE RECORDS SUMMARY | 2024-11-29 06:23 | XMS_ITS | Encounter Summary ---
Author Organization [facility] Medical Group Address [address] [facility] [address] [place] [address] Care Team Providers Care Finishing Manager Name Role Phone Mateo Mir MD Primary Care Provider + [phone] Abhilash Sam MD Unavailable [phone] Mary Russell MD Unavailable [phone] Encounter Details Date Type Department Care Team (Late st Contact Info) Description 07/15/2023 Orders Only [facility] Medical Group Primary Care [address] [facility] [address] [place] [address] Provider, MD Stefany [address] [place] [address] Social History Tobacco Use Types Packs/Day Years [...] staff should administer the PHQ-9) 0 07/15/2023 [place] Depression Scale Answer Date Recorded [place] Depression Scale Total 1 11/28/2020 The thought [...] Procedure Name Priority Date/Time Associated Diagnosis Comments STREP THROAT CULTURE Routine 06/28/2023 10:33 AM CDT documented in this encounter Results * Strep Throat Culture (06/28/2023 10:33 AM CDT) us Historical Provider LAB BLOOD ORDERABLES Namrata l Result documented in this encounter Visit Diagnoses Not on filedocumented in this encounter Care Teams Finishing Manager Relationship Specialty Start Date End Date Mateo Mir MD PCP - General Internal Medicine 07/15/23 05/31/24 Abhilash Sam MD [address] [place] [address] Consulting Physician Obstetrics and Gynecology 07/15/23 Mary Russell MD [address] [address] Referring Physician Pediatric Neurology 07/15/23 documented as of this encounter
--- OUTSIDE RECORDS SUMMARY | 2024-11-29 06:23 | XMS_ITS | Encounter Summary ---
Author Organization [facility] Healthcare Address [address] [place] [address] Care Team Providers Care Publishing Editor Name Role Phone Mateo Mir MD Primary Care Provider + [phone] Abhilash Sam MD Unavailable [phone] Mary Russell MD Unavailable [phone] Luz Meneses Primary Care Provider + Encounter Details Date Type Department Care Team (Late st Contact Info) Description 11/26/2023 Orders Only [facility] Information Management [address] [place] [address] Scanning, Provider Social History Tobacco Use Types Packs/Day Years [...] staff should administer the PHQ-9) 0 10/01/2023 [place] Depression Scale Answer Date Recorded [place] Depression Scale Total 1 11/28/2020 The thought [...] Procedure Name Priority Date/Time Associated Diagnosis Comments SCAN - LABS 11/26/2023 documented in this encounter Results * SCAN - LABS (11/26/2023) us Provider Scanning Final Result documented in this encounter Visit Diagnoses Not on filedocumented in this encounter Care Teams Publishing Editor Relationship Specialty Start Date End Date Mateo Mir MD PCP - General Internal Medicine 07/15/23 05/31/24 Luz Meneses PA [address] [place] [address] PCP - General Family Medicine 06/01/24 Abhilash Sam MD [address] [place] [address] Consulting Physician Obstetrics and Gynecology 07/15/23 Mary Russell MD [address] [address] Referring Physician Pediatric Neurology 07/15/23 documented as of this encounter
--- OUTSIDE RECORDS SUMMARY | 2024-11-29 06:23 | XMS_ITS | Encounter Summary ---
Author Organization [facility] Medical Group Address [address] [place] [address] Care Team Providers Care Photo Mask Pattern Generator Name Role Phone Rachel Ortiz MD Primary Care Provider [phone] Reason for Visit * Reason Onset Date Comments referral note 01/02/2023 Encounter Details Date Type Department Care Team ([facility] st Contact Info) Description 01/02/2023 Telephone [facility] Medical [facility] Primary Care [address] [place] [address] Mateo Mir MD [address] [place] [address] [address] [place] [address] referral note Social History Tobacco Use Types Packs/Day Years [...] staff should administer the PHQ-9) 0 04/24/2022 [place] Depression Scale Answer Date Recorded [place] Depression Scale Total 1 11/28/2020 The thought of harming myself has occurred to me . Never 11/28/2020 Comments Unknown Sex and Gender Information Value Date Recorded Sex Assigned at Not on file Legal Sex Female 2:07 PM CDT Gender Identity Not on file Sexual Orientation Not on file documented as of this encounter Miscellaneous Notes * Telephone Encounter - Vijaya Rae - 01/02/2023 10:08 AM CST [facility] called and stated that 1) this dr no longer with practice. 2) this is a pediatric neurology group and this patient doesn't qualify for that. Please advise. SMITTER OPERATOR documented in this encounter Plan of Treatment Not on file documented as of this encounter Visit Diagnoses Not on filedocumented in this encounter Care Teams Photo Mask Pattern Generator Relationship Specialty Start Date End Date Rachel Ortiz MD [address] [place] [id number] PCP - General Internal Medicine 02/15/22 07/14/23 documented as of this encounter
--- OUTSIDE RECORDS SUMMARY | 2024-11-29 06:23 | XMS_ITS | Encounter Summary ---
Author Organization [facility] Healthcare Address [address] [place] [address] Care Team Providers Care Rubber Stamp Maker Name Role Phone Abhilash Sam MD Unavailable [phone] Mary Russell MD Unavailable [phone] Luz Meneses Primary Care Provider + Encounter Details Date Type Department Care Team (Late st Contact Info) Description 07/10/2024 Orders Only [facility] Medical Group Orthopedics and Sports Medicine [address] [place] [phone] Nicki Rangel MA Social History Tobacco Use Types Packs/Day Years [...] staff should administer the PHQ-9) 0 06/01/2024 [place] Depression Scale Answer Date Recorded [place] Depression Scale Total 1 11/28/2020 The thought [...] on filedocumented in this encounter Care Teams Rubber Stamp Maker Relationship Specialty Start Date End Date Luz Meneses PA [address] [facility] [address] [place] [address] PCP - General Family Medicine 06/01/24 Abhilash Sam MD [facility] [address] Consulting Physician Obstetrics and Gynecology 07/15/23 Mary Russell MD [address] [place], [place] [id number] Referring Physician Pediatric Neurology 07/15/23 documented as of this encounter
--- OUTSIDE RECORDS SUMMARY | 2024-11-29 06:23 | XMS_ITS | Encounter Summary ---
Author Organization [facility] Healthcare Address [address] [place] [address] Care Team Providers Care Overcoil Stepper Name Role Phone Mateo Mir MD Primary Care Provider [phone] Abhilash Sam MD Unavailable [phone] Mary Russell MD Unavailable [phone] Reason for Visit * Auth/Cert (Routine) Specialty Diagnoses / Procedures Referred By Contyazmin t Referred To Contact Diagnoses 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) 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) [R87.613] Procedures OR COLPOSCOPY CERVIX VAG LOOP ELTRD BX CERVIX OR CONIZATION CERVIX W/WO D&C RPR ELTRD EXC LOOP ELECTROCAUTERY EXCISION PROCEDURE Referral ID Status Reason Start Date Expiration Date Visits Re quested Visits Authorized [id number] 1 1 Encounter Details Date Type Department Care Team (Late st Contact Info) Description 12/26/2023 11:02 AM HOSPITAL TELEVISION RENTAL CLERK Anesthesia Event [facility] OR [address] [place] [phone] Kg Balderas MD [facility] [place] [address] Shawn Szymanski MD [address] [place] [address] Anesthesia Record Procedure Summary Procedure Name Responsible Anesthesiologist Anesthesia Start Time Anesthesia Stop Time LOOP ELECTROCAUTERY EXCISION PROCEDURE (Vagina) Kg Balderas MD 12/26/23 1102 12/26/23 1141 Events Date Time Event Comment 12/26/2023 1039 1102 An Start 1103 In Room 1103 An Start Data 1106 An Induction The patient was reevaluated immediately before moderate or deep sedation use and before anesthesia induction. 1107 An Intubation 1112 Anesthesia Ready 1122 Proc Start 1132 Proc Fin 1137 Out of Room 1140 An Extubation 1141 Handoff to RN I completed my handoff to the receiving nurse during which we: 1. Patient identified 2. Responsible provider identified 3. Pertinent medical history reviewed 4. Procedure type and surgical course discussed 5. Intraoperative anesthetic management and any significant issues discussed 6. Expectations and concerns for postop period discussed 7. Questions solicited from receiving nurse 8. Patient disposition at the time of handoff: No value filed. 1141 An Stop Meds Name Total midazolam 1 mg/mL 2 mg propofol 160 mg lidocaine (cardiac) syringe 2 % 4 mL fentaNYL 50 mcg/mL PF 50 mcg ondansetron PF 4 mg dexAMETHasone 4 mg/mL 4 mg Lactated Ringer's (LR) infusion 700 mL * Agents Name O2% N2O O2 N2O Air Sevoflurane Inspired Sevoflurane * Blood No blood administrations on file. Lines, Drains, and Airways Type Details Placement Removal Peripheral IV Placement Date: 12/26/23; Placement Time: 0939; Catheter Size: 20 G; Orientation: Posterior, Right; Location: Hand; Site Prep: Chlorhexidine; Technique: Anatomical landmarks; Inserted by: Peg HECTOR; Insertion Attempts: 1; Patient Tolerance: Tolerated well; Removal Date: 12/26/23; Removal Time: 1245; Removal Reason: Therapy completed 12/26/23 0939 by Sally Curiel RN 12/26/23 1245 by Rachid Franco RN Supraglottic Airway Placement Date: 12/26/23; Placement Time: 1112 (created via procedure documentation); Mask Ventilation: 0; Size: 4; Insertion Attempts: 1; Removal Date: 12/26/23; Removal Time: 1140 12/26/23 1112 by Danielle Lopez CRNA 12/26/23 1140 by Danielle Lopez CRNA RETIRED Surgical Site 12/26/23; 1141; Vagina; 10/27/24 (Retired LDA, Removed/Completed by [employer] with LDA Utility); 1213 (Retired LDA, Removed/Completed by Epic with LDA Utility) 12/26/23 1141 by Verito Matta RN 10/27/24 1213 by Discharge Provider, Automatic documented in this encounter Social History Tobacco [...] staff should administer the PHQ-9) 0 10/01/2023 [place] Depression Scale Answer Date Recorded [place] Depression Scale Total 1 11/28/2020 The thought [...] on file documented as of this encounter OR Notes * Anesthesia Postprocedure Evaluation - Kg Balderas MD - 12/26/2023 12:04 PM CST Patient: Gladys Tai Procedure Summary Date: 12/26/23 Room / Location: [facility] OPERATING ROOM 03 / [facility] OPERATING ROOM Anesthesia Start: 1102 Anesthesia Stop: 1141 Procedure: LOOP ELECTROCAUTERY EXCISION PROCEDURE (Vagina) Diagnosis: 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) (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) [R87.613]) Surgeons: Indigo Reece MD Responsible Provider: Kg Balderas MD Anesthesia Type: general ASA Status: 2 Anesthesia Type: general Last vitals BP 99/60 (BP Location: Left arm) Pulse 57 Temp 36.9 ??C (98.5 ??F) (Temporal) Resp 16 SpO2 100% Anesthesia Post Evaluation Patient location during evaluation: PACU Patient participation: complete - patient participated Level of consciousness: fully awake Pain management: adequate Airway patency: adequate Evidence of recall: no Cardiovascular status: acceptable Respiratory status: acceptable Hydration status: acceptable Pt is: normothermic Nausea/Vomiting status: none No notable events documented. ITAL TELEVISION RENTAL CLERK * Anesthesia Procedure Notes - Danielle Lopez CRNA - 12/26/2023 11:12 AM CSTAssociated Order(s): Airway Airway Patient location: OR Urgency: elective Indications for airway management: anesthesia Difficult airway: no Staff: Placed by: SANITOR: Danielle Lopez CRNA Emergent airway documentation: Risks and benefits discussed: yes Consent obtained: yes Consent given by: patient Airway prep: Preoxygenated: yes Patient position: sniffing MILS maintained throughout: yes Mask difficulty assessment: 0 - not attempted Spontaneous ventilation during airway: absent Sedation level during airway: GA Final airway details: Final airway type: supraglottic airway Final supraglottic airway: classic SGA size: 4 Number of attempts: 1 Planned trial extubation: yes ITAL TELEVISION RENTAL CLERK * Anesthesia Preprocedure Evaluation - Kg Balderas MD - 12/26/2023 9:51 AM CST Images from the original note were not included. Anesthesia Evaluation Gladys Tai is a 38 y.o. female Procedure(s): LOOP ELECTROCAUTERY EXCISION PROCEDURE Pre-Op Diagnosis Codes: * 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) [R87.613] HISTORY Past Medical History Information obtained from: patient and chart. Cardiovascular Pertinent negatives: hypertension Comments: History of syncope due to sick sinus syndrome listed in medical record. Patient denies any current heart issues. Respiratory Pertinent negatives: COPD; asthma; sleep apnea (BUDDY) (Patient denies.) and non- smoker (Quit) Gastrointestinal + GERD - PRN medication use only. Asymptomatic. Comments: Hx Motion Sickness Renal / Pertinent negatives: renal disease Musculoskeletal/Pain + Chronic pain - back pain. + Headaches - migraine headaches. Endocrine / Other Pertinent negatives: diabetes mellitus and obesity (BMI >30) Review of Systems + chronic pain Pertinent negatives: SOB; chest pain; palpitations; syncope; dentures/partials and chipped/loose teeth Patient Active Problem List Diagnosis Date Noted 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) 11/12/2023 Herpes zoster 10/01/2023 History of motion sickness 10/01/2023 Gastroesophageal reflux disease without esophagitis 10/01/2023 Suspected sleep apnea 07/29/2023 Vitamin D deficiency (15) 07/29/2023 History of diarrhea/dyspepsia 07/29/2023 Quit smoking 07/29/2023 Chronic pain syndrome 07/11/2022 Chronic bilateral low back pain without sciatica 04/24/2022 Sprain of left knee 02/15/2022 Syncope due to sick sinus syndrome (CMS/HCC) (HCC) 02/15/2022 Right foot pain 02/15/2022 Nausea and vomiting in 04/15/2020 Past Medical History: Diagnosis Date Abnormal Pap smear of cervix Headache migraines Motion sickness Pneumonia hx of yearly occurence History reviewed. No pertinent surgical history. OB History 2 Para 2 Term 1 1 AB Living 2 SAB IAB Ectopic Multiple Live Births 2 Allergies Allergen Reactions Erythromycin Rash Penicillins Swelling Taking? Last Dose Start Date End Date Provider acetaminophen (TYLENOL) 500 mg tablet Past Week -- -- Stefany Pineda MD ascorbic acid (VITAMIN C) 100 mg tablet Past Week -- -- ProviderStefany MD calcium carbonate-mag hydroxid 1,000-200 mg tablet,chewable Not Taking -- -- Stefany Pineda MD cetirizine (ZyrTEC) 10 mg tablet Past Week -- -- Stefany Pineda MD cyanocobalamin (Vitamin B-12) 1,000 mcg tablet Past Week -- -- Stefany Pineda MD ergocalciferol (VITAMIN D) 50,000 unit capsule Past Week 02/23/22 -- Stefany Pineda MD fluticasone propionate (FLONASE) 50 mcg/actuation nasal spray Past Week 10/01/23 -- Mateo Mir MD Administer 2 sprays into each nostril daily ibuprofen (ADVIL,MOTRIN) 600 mg tablet Past Month 11/26/23 -- Stefany Pineda MD Lactobacillus acidophilus (Probiotic) 10 billion cell capsule Past Week -- -- Stefany Pineda MD magnesium gluconate 200 mg tablet Past Week -- -- Stefany Pineda MD multivitamin capsule Not Taking -- -- Stefany Pineda MD omega-3 fatty acids-fish oil 300-1,000 mg capsule Past Week -- -- Stefany Pineda MD Current Facility-Administered Medications: Lactated Ringer's (LR) infusion, 30 mL/hr, intravenous, Continuous, Last Rate: 30 mL/hr at 940, 30 mL/hr at 12/26/23 0940 sodium chloride 0.9% flush 0.5-20 mL, 0.5-20 mL, intra-catheter, PRN Social History Tobacco Use Smoking Status Former Types: Cigarettes Quit date: 02/15/2010 Years since quittin.8 Smokeless Tobacco Never Alcohol Use: Not At Risk (12/26/2023) AUDIT-C Frequency of Alcohol Consumption: 2-4 times a month Average Number of Drinks: 1 or 2 Frequency of Binge Drinking: Never Substance and Sexual Activity Drug Use Never Family History Problem Relation Age of Onset Thyroid disease Mother Thyroid disease Sister Graves' disease Sister Diabetes Maternal Grandmother Breast cancer Neg Hx Ovarian cancer Neg Hx Uterine cancer Neg Hx Vitals: 12/26/23 0934 BP: 114/73 Pulse: 52 Resp: 16 Temp: 36.8 ??C (98.2 ??F) SpO2: 99% PT: No results found for requested labs within last 30 days. INR: No results found for requested labs within last 30 days. APTT: No results found for requested labs within last 30 days. Hgb A1C: No results found for requested labs within last 30 days. CBC RBC: 12/18/2023: 4.61 M/cumm RDW: No results found for requested labs within last 30 days. MCHC: 12/18/2023: 32.0 g/dL (L) MCH: 12/18/2023: 26.2 pg (L) MCV: 12/18/2023: 82.0 fL Hct: 12/18/2023: 37.8 % Hgb: 12/18/2023: 12.1 g/dL WBC: 12/18/2023: 5.0 K/cumm MPV: 12/18/2023: 9.6 fL Platelets: 12/18/2023: 228 K/cumm RDW CV: 12/18/2023: 13.4 % RDW Sd: 12/18/2023: 39.9 fL BMP Glucose: No results found for requested labs within last 30 days. Calcium: No results found for requested labs within last 30 days. Sodium: No results found for requested labs within last 30 days. Potassium: No results found for requested labs within last 30 days. CO2: No results found for requested labs within last 30 days. Chloride: No results found for requested labs within last 30 days. BUN: No results found for requested labs within last 30 days. Creatinine: No results found for requested labs within last 30 days. DOS Physical Exam Medical history, medications, and allergies reviewed. Attestation: This PAT evaluation 12/26/2023. Airway Exam: Mallampati: I Cervical ROM: FROM Dental Exam: Appears intact Current state: Patient's current state is cooperative and interactive. Anesthesia Plan ASA 2 My patient is approved for the Anesthesia Controlled Medication protocol when under care of a SANITOR Planned anesthesia: General Induction: Induction: intravenous. Postoperative Plan: Patient's planned disposition post procedure is Outpatient. Informed Consent: Discussed plan with SANITOR. Anesthesia plan and risks discussed with patient. Consent and Attending signature: I and/or my designee have discussed the anesthesia plan, benefits, possible alternatives, parental presence at time of induction (if indicated), and clinically relevant risks that may include dental injury, unintentional awareness, and/or other complications. The patient and/or parent/legal guardian understand, and agree to proceed. All questions answered. ITAL TELEVISION RENTAL CLERK ITAL TELEVISION RENTAL CLERK documented in this encounter Plan of Treatment Not on file documented as of this encounter Procedures Procedure Name Priority Date/Time Associated Diagnosis Comments OR AN PROCEDURE PLACEHOLDER Routine 12/26/2023 11:12 AM HOSPITAL TELEVISION RENTAL CLERK OR AN ELECTIVE SUPRAGLOTTIC AIRWAY Routine 12/26/2023 11:12 AM HOSPITAL TELEVISION RENTAL CLERK documented in this encounter Results * OR AN ELECTIVE SUPRAGLOTTIC AIRWAY, OR AN PROCEDURE PLACEHOLDER (12/26/2023 11:12 AM HOSPITAL TELEVISION RENTAL CLERK) Narrative Danielle Lopez CRNA - 12/26/2023 11:12 AM HOSPITAL TELEVISION RENTAL CLERK Danielle Lopez CRNA ? 12/26/2023 11:12 AM Airway Patient location: OR Urgency: elective Indications for airway management: anesthesia Difficult airway: no Staff: Placed by: SANITOR: Danielle Lopez CRNA Emergent airway documentation: Risks and benefits discussed: yes Consent obtained: yes Consent given by: patient Airway prep: Preoxygenated: yes Patient position: sniffing MILS maintained throughout: yes Mask difficulty assessment: 0 - not attempted Spontaneous ventilation during airway: absent Sedation level during airway: GA Final airway details: Final airway type: supraglottic airway Final supraglottic airway: classic SGA size: 4 Number of attempts: 1 Planned trial extubation: yes us Kg Balderas MD ANESTHESIA ORDERAB LES Final Result documented in this encounter Visit Diagnoses Not on filedocumented in this encounter Administered Medications Inactive Administered Medications - up to 3 most recent administrations Medication Order MAR Action Action Date Dose Rate Site dexAMETHasone (DECADRON) 4 mg/mL injection intravenous, Administer over 2 Minutes, As needed, Starting on Jeni 12/26/23 at 1110, Anesthesia Intra-op Given 12/26/2023 11:10 AM HOSPITAL TELEVISION RENTAL CLERK 4 mg fentaNYL (SUBLIMAZE) preservative free injection intravenous, As needed, Starting on Jeni 12/26/23 at 1105, Anesthesia Intra-op Given 12/26/2023 11:05 AM HOSPITAL TELEVISION RENTAL CLERK 50 mcg Lactated Ringer's (LR) infusion 30 mL/hr, intravenous, Continuous, Starting on Jeni 12/26/23 at 1000, Pre-Op New Bag 12/26/2023 12:13 PM HOSPITAL TELEVISION RENTAL CLERK 30 mL/hr 30 mL/hr Restarted 12/26/2023 11:32 AM HOSPITAL TELEVISION RENTAL CLERK Rate/Dose Verify 12/26/2023 11:02 AM HOSPITAL TELEVISION RENTAL CLERK 30 mL/ hr lidocaine (cardiac) (XYLOCAINE) preservative free injection intravenous, As needed, Starting on Jeni 12/26/23 at 1106, Anesthesia Intra-op, Indications: Ventricular ArrhythmiasIndications:Ventricular Arrhythmias Given 12/26/2023 11:06 AM HOSPITAL TELEVISION RENTAL CLERK 4 mL midazolam (VERSED) 1 mg/mL injection intravenous, As needed, Starting on Jeni 12/26/23 at 1102, Anesthesia Intra-op Given 12/26/2023 11:02 AM HOSPITAL TELEVISION RENTAL CLERK 2 mg ondansetron (ZOFRAN) injection intravenous, Administer over 2 Minutes, As needed, Starting on Jeni 12/26/23 at 1110, Anesthesia Intra-op Given 12/26/2023 11:10 AM HOSPITAL TELEVISION RENTAL CLERK 4 mg propofoL (DIPRIVAN) 10 mg/mL IV intravenous, As needed, Starting on Jeni 12/26/23 at 1106, Anesthesia Intra-op New Bag 12/26/2023 11:06 AM HOSPITAL TELEVISION RENTAL CLERK 160 mg documented in this encounter Care Teams Overcoil Stepper Relationship Specialty Start Date End Date Mateo Mir MD PCP - General Internal Medicine 07/15/23 05/31/24 Abhilash Sam MD [address] [address] Consulting Physician Obstetrics and Gynecology 07/15/23 Mary Russell MD [address] [id number] Referring Physician Pediatric Neurology 07/15/23 documented as of this encounter
--- OUTSIDE RECORDS SUMMARY | 2024-11-29 06:23 | XMS_ITS | Encounter Summary ---
Author Organization [facility] Medical Group Address [address] [place] [address] Care Team Providers Care Soils Technician Name Role Phone Mateo Mir MD Primary Care Provider + [phone] Abhilash Sam MD Unavailable [phone] Mary Russell MD Unavailable [phone] Encounter Details Date Type Department Care Team (Late st Contact Info) Description 07/21/2023 Orders Only [facility] [address] [place] [address] Scanning, Provider Social History Tobacco Use Types [...] staff should administer the PHQ-9) 0 07/15/2023 [place] Depression Scale Answer Date Recorded [place] Depression Scale Total 1 11/28/2020 The thought [...] Priority Date/Time Associated Diagnosis Comments SCAN - RADIOLOGY/IMAGING 07/21/2023 documented in this encounter Results * SCAN - RADIOLOGY/IMAGING (07/21/2023) Anatomical Region Laterality Modality Other us Provider Scanning Final Result documented in this encounter Visit Diagnoses Not on filedocumented in this encounter Care Teams Soils Technician Relationship Specialty Start Date End Date Mateo Mir MD PCP - General Internal Medicine 07/15/23 05/31/24 [place] [address] [place] [address] Consulting Physician Obstetrics and Gynecology 07/15/23 Mary Russell MD [address] [address] Referring Physician Pediatric Neurology 07/15/23 documented as of this encounter
--- OUTSIDE RECORDS SUMMARY | 2024-11-29 06:23 | XMS_ITS | Encounter Summary ---
Author Organization [facility] Address [address] [place] [address] Care Team Providers Care System Trainer Name Role Phone Mateo Mir MD Primary Care Provider [phone] Abhilash Sam MD Unavailable [phone] Mary Russell MD Unavailable [phone] Reason for Visit * Reason Comments Well Women Visit Encounter Details Date Type Department Care Team (Late st Contact Info) Description 08/21/2023 8:45 AM CDT Office Visit [facility] Obstetrical Gynecology [address] [place] [address] Indigo Reece MD [address] [place] [id number] Well woman exam (Primary Dx) Social History Tobacco Use Types [...] staff should administer the PHQ-9) 0 07/15/2023 [place] Depression Scale Answer Date Recorded [place] Depression Scale Total 1 11/28/2020 The thought [...] Sign Reading Time Taken Comments Blood Pressure 104/60 08/21/2023 9:40 AM CDT Pulse - - Temperature - - Respiratory Rate - - Oxygen Saturation - - Inhaled Oxygen Concentration - - Weight 74.8 kg (165 lb) 08/21/2023 9:40 AM CDT Height 170.2 cm (5' 7 ) 08/21/2023 9:40 AM CDT Body Mass Index 25.84 08/21/2023 9:40 AM CDT documented in this encounter Progress Notes * Indigo Reece MD - 08/21/2023 8:45 AM CDT Images from the original note were not included. Well Woman Exam Chief Complaint Patient presents with Well Women Visit Subjective: Rebel Tai is a 38 y.o. who presents for a well woman exam. She reports having intermittent lower abdominal pain for the last 2 months. No rhyme or reason to pain. Not associated with menses. Not interfering with work or daily activities. No GI issues, bowels regular. Attempted Gas-X without relief. Regular monthly menses, non-bothersome. 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 Menstrual History: Menarche Age: 16 years Patient's last menstrual period was 08/07/2023 (exact date). Sexual History: Sexual History Sexually Transmitted Infection History: None OB History 2 Para 2 Term 1 [...] Nazario Complications: Intolerance Delivering Clinician: Dr. Sam Past Medical History: Diagnosis Date Abnormal Pap smear of cervix Pneumonia History reviewed. No pertinent surgical history. Current Outpatient Medications: ascorbic acid (VITAMIN C) 100 mg tablet, Take 1 tablet (100 mg total) by mouth daily, Disp: , Rfl: cetirizine (ZyrTEC) 10 mg tablet, Take 1 tablet (10 mg total) by mouth daily, Disp: , Rfl: doxycycline monohydrate (MONODOX) 100 mg capsule, 0 total refill(s), Disp: , Rfl: ergocalciferol (VITAMIN D) 50,000 unit capsule, ergocalciferol 1.25 mg (50,000 intl units) oral capsule Start Date: 02/23/22 Status: Ordered, Disp: , Rfl: Lactobacillus acidophilus (Probiotic) 10 billion cell capsule, Take by mouth, Disp: , Rfl: multivitamin capsule, Take 1 capsule by mouth daily, Disp: , Rfl: acetaminophen (TYLENOL) 500 mg tablet, Take 1 tablet (500 mg total) by mouth every 6 (six) hours asneeded for pain (Patient not taking: Reported on 08/21/2023), Disp: , Rfl: benzonatate (TESSALON) 100 mg capsule, benzonatate 100 mg oral capsule Start Date: 07/28/21 Status: Ordered (Patient not taking: Reported on 08/21/2023), Disp: , Rfl: cyclobenzaprine (FLEXERIL) 5 mg tablet, Take 1 tablet (5 mg total) by mouth 3 (three) times a day as needed for muscle spasms, Disp: 30 tablet, Rfl: [address] (CYMBALTA) 30 mg capsule, Take 1 capsule (30 mg total) by mouth 2 (two) times a day, Disp: 180 capsule, Rfl: 4 predniSONE (DELTASONE) 20 mg tablet, predniSONE 20 mg oral tablet Start Date: 06/13/21 Status: Ordered (Patient not taking: Reported on 08/21/2023), Disp: , Rfl: Allergies Allergen Reactions Erythromycin [...] or 2 Frequency of Binge Drinking: Never Objective: BP 104/60 Ht 170.2 cm (5' 7 ) Wt 165 lb (74.8 kg) LMP 08/07/2023 (Exact Date) BMI 25.84 kg/m?? Physical Exam Constitutional: General: She is not in acute distress. Appearance: She is well-developed. Pulmonary: Effort: Pulmonary effort is normal. Chest: Breasts: Breasts are symmetrical. Right: No mass, skin change or tenderness. Left: No mass, skin change or tenderness. Abdominal: Palpations: Abdomen is soft. There is no mass. Tenderness: There is no abdominal tenderness. Genitourinary: Vagina normal and uterus normal. Right labia: normal. There is no rash or lesion on the right labia. Left Labia: normal. There is no rash or lesion on the left labia. No vaginal discharge or erythema. Right adnexa: [...] Assessment and Plan: Rebel Tai is a 38 y.o. female who presents for a well woman exam. 1. Maintenance: --pap performed, remote abnormal about 10 yrs ago. --neg CBE, neg FamHx --discussed diet/exercise --contraception: partner vasectomy --STI screening: declined --intermittent lower abdominal pain x 2 months--not associated with menses, will expectantly managefor now and if worsens consider TV US Indigo Reece MD 08/21/2023 documented in this encounter Plan of Treatment Not on file documented as of this encounter Results * (ABNORMAL) Pap and High Risk HPV and Genotyping (Cytology Component) (08/21/2023 11:20 AM CDT) Thin prep (Pap test) 08/21/2023 11:20 AM CDT 08/22/2023 11:20 AM CDT Narrative PATHOLOGY [facility] - 08/27/2023 1:12 PM CDT [facility] Department of Pathology [address] [place] [id number] Final Report with Addendum Note to Patients: [...] the details. Patient Name: ??REBEL TAI Address: ??[address] [place] [address], ?? [place], [place] [address] Gender: ??F : ??1985 (Age: 38) Service: ?? Location: ?? Hospital #: ??[id number] Patient Type: ??[facility] SPECIMEN Taken: ??08/21/2023 Received: ??08/22/2023 Accessioned:: ??08/22/2023 Reported: ??08/27/2023 Physician(s): Indigo Reece M.D. [facility] Diagnosis: SOURCE OF SPECIMEN ? SCREENING THIN [...] this test have been verified by the [facility] Molecular Infectious Disease laboratory. ??Correlate with [...] determined by the Surgical Pathology Department at [facility] as part of an ongoing quality control inspector program and in compliance with federally mandated [...] characteristics determined by the Surgical Pathology Department [facility]. ??It has not been cleared or approved by the U. S. Food and Drug Administration. Indigo Reece MD LAB CYTOLOGY ORDERABLES F inal Result PATHOLOGY [facility] * (ABNORMAL) High Risk HPV DNA Detection with Genotyping (Molecular component) (08/21/2023 10:11 AM CDT) HPV HR 16 Detected(A) Not Detected TOM RIVERA Comment:Testing performed by : [facility], [address] [place]., [address] HPV HR 18 Not Detected Not Detected TOM RIVERA Comment:Testing performed by : [facility], [address] [place]., [address] HPV HR Non 16/18 Detected(A) Not Detected [...] this test have been verified by the [facility] Molecular Infectious Disease laboratory. Correlate with separately reported cytology results, as applicable. Interpretive data last revised 23 Testing performed by: [facility], [address] [place]., [address] Endocervical 08/21/2023 10:1 1 AM CDT 08/22/2023 3:00 PM CDT Narrative TOM [facility] 08/23/2023 6:54 AM CDT Clinical history and diagnosis->screening Testing type->Screening Last menstrual period (date if known)->08-07-23 Indigo Reece MD LAB BODY FLUIDS AND STOOL S ORDERABLES Final Result TOM [address] [facility] Department of Laboratories [place], [place] [id number] documented in this encounter Visit Diagnoses Diagnosis Well woman exam- Primary Routine general medical examination at a health care facility Well woman exam Routine general medical examination at a health care facility documented in this encounter Historical Medications * This list may reflect changes made after this encounter. predniSONE (DELTASONE) 20 mg tablet predniSONE 20 mg oral tablet Start Date: 06/13/21 Status: Ordered 06/13/2021 4 ergocalciferol (VITAMIN D) 50,000 unit capsule 1 capsule (50,000 Units total) once a week 02/23/2022 4 doxycycline monohydrate (MONODOX) 100 mg capsule 0 total refill(s) 06/13/2021 02 4 benzonatate (TESSALON) 100 mg capsule benzonatate 100 mg oral capsule Start Date: 07/28/21 Status: Ordered 07/28/2021 4 added in this encounter Care Teams System Trainer Relationship Specialty Start Date End Date Mateo Mir MD PCP - General Internal Medicine 07/15/23 05/31/24 Abhilash Sam MD [address] [place] [address] Consulting Physician Obstetrics and Gynecology 07/15/23 Mary Russell MD [address] [place] [address] Referring Physician Pediatric Neurology 07/15/23 documented as of this encounter
--- OUTSIDE RECORDS SUMMARY | 2024-11-29 06:23 | XMS_ITS | Encounter Summary ---
Author Organization [facility] Address [address] [place] [address] Care Team Providers Care Business Process Consultant Name Role Phone Mateo Mir MD Primary Care Provider [phone] Abhilash Sam MD Unavailable [phone] Mary Russell MD Unavailable [phone] Encounter Details Date Type Department Care Team (Late st Contact Info) Description 08/21/2023 7:55 AM CDT Lab [facility] [address] [phone] Malaise and fatigue; Screening for cardiovascular condition; Other specified abnormal findings of blood chemistry; Other tank terminal gauger (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; Other fatigue; Encounter for vitamin deficiency screening; Other general symptoms and signs; Cartilage disease Social History Tobacco Use Types Packs/Day Years [...] staff should administer the PHQ-9) 0 07/15/2023 [place] Depression Scale Answer Date Recorded [place] Depression Scale Total 1 11/28/2020 The thought [...] Priority Date/Time Associated Diagnosis Comments EGFR Routine 08/21/2023 8:01 AM CDT Other tank terminal gauger (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 DIFFERENTIAL AUTO Routine 08/21/2023 8:0 1 AM CDT Other fatigue THYROID FUNCTION CASCADE Routine 08/21/2023 8:01 AM CDT Malaise and fatigue CBC WITH AUTO DIFFERENTIAL Routine 08/21/2023 8:01 AM CDT Other fatigue VITAMIN D 25 HYDROXY Routine 08/21/2023 8:01 AM CDT Cartilage disease Encounter for vitamin deficiency screening HEMOGLOBIN A1C Routine 08/21/2023 8:01 AM CDT Other specified abnormal findings of blood chemistry VITAMIN B12 Routine 08/21/2023 8:01 AM CDT Encounter for vitamin deficiency screening Other general symptoms and signs LIPID PANEL Routine 08/21/2023 8:01 AM CDT Screening for cardiovascular condition COMPREHENSIVE METABOLIC PANEL Routine 08/21/2023 8:01 AM CDT Other tank terminal gauger (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 documented in this encounter Results * eGFR (08/21/2023 8:01 AM CDT) Pathologist [facility] eGFR 84 mL/min/1. 73 m2 TOM RIVERA Comment: Interpretive Data Reference Interval Normal ?>/= [...] was last reviewed 2021. Testing performed by: [address] [address] Blood 08/21/2023 8:01 AM CDT 08/21/2023 9:49 AM CDT us Mateo Mir MD LAB BLOOD ORDERABLES Final R esult [facility] [address] [facility] [place] [address] * Differential, auto (08/21/2023 8:01 AM CDT) Neutrophil abs 3.0 1.7 - 6.5 K/cumm TOM Comment:Testing performed by : [address] [address] Imm gran abs 0.0 0.0 - 0.1 K/cumm TOM Comment:Testing performed by : [address] [address] Lymphocyte abs 1.7 0.8 - 3.3 K/cumm TOM Comment:Testing performed by : [address] [address] Monocyte abs 0.4 0.2 - 0.8 K/cumm TOM Comment:Testing performed by : [address], [place]., [address] Eosinophil abs 0.2 0.0 - 0.5 K/cumm [facility] Comment:Testing performed by : [address], [place]., [address] Basophil abs 0.0 0.0 - 0.1 K/cumm [facility] Comment:Testing performed by : [address] [address] Neutrophil pct 56.5 % [facility] Comment: Interpretive Data Percent cell count reference ranges are not reported, since discordance with absolute values may lead to misinterpretation of CBC data. Current Interpretive Data was last revised on 2018. Testing performed by: [address] [address] Imm gran pct 0.2 % [facility] Comment: Interpretive Data Percent cell count reference ranges are not reported, since discordance with absolute values may lead to misinterpretation of CBC data. Current Interpretive Data was last revised on 2018. Testing performed by: [address] [address] Lymphocyte pct 31.7 % [facility] Comment: Interpretive Data Percent cell count reference ranges are not reported, since discordance with absolute values may lead to misinterpretation of CBC data. Current Interpretive Data was last revised on 2018. Testing performed by: [address] [address] Monocyte pct 7.4 % [facility] Comment: Interpretive Data Percent cell count reference ranges are not reported, since discordance with absolute values may lead to misinterpretation of CBC data. Current Interpretive Data was last revised on 2018. Testing performed by: [address] [address] Eosinophil pct 3.8 % [facility] Comment: Interpretive Data Percent cell count reference ranges are not reported, since discordance with absolute values may lead to misinterpretation of CBC data. Current Interpretive Data was last revised on 2018. Testing performed by: [address] [address] Basophil pct 0.4 % TOM Comment: Interpretive Data Percent cell count reference ranges are not reported, since discordance with absolute values may lead to misinterpretation of CBC data. Current Interpretive Data was last revised on 2018. Testing performed by: [address] [address] Blood 08/21/2023 8:01 AM CDT 08/21/2023 9:46 AM CDT Mateo Mir MD LAB BLOOD ORDERABLES Final R esult [address] [place] [address] * (ABNORMAL) Vitamin D 25 hydroxy (08/21/2023 8:01 AM CDT) Vitamin D 25-OH 18.0(L) 30.0 - 80.0 ng/mL TOM Blood 08/21/2023 8:01 AM CDT 08/21/2023 12:35 PM CDT us Mateo Mir MD LAB BLOOD ORDERABLES Final R esult [address] [place] [address] * Vitamin B12 (08/21/2023 8:01 AM CDT) Vitamin B12 360 230 - 1,250 pg/mL TOM Comment:Testing performed by : [address] [address] Blood 08/21/2023 8:01 AM CDT 08/21/2023 11:47 AM CDT Mateo Mir MD LAB BLOOD ORDERABLES Final R esult [facility] [address] [facility] Department [place] [address] * (ABNORMAL) CBC with auto differential (08/21/2023 8:01 AM CDT) [facility] Signature WBC 5.3 3.8 - 9.9 K/cumm TOM Comment:Testing performed by : [address] [address] Hgb 13.2 11.9 - 15.5 g/dL TOM Comment:Testing performed by : [address] [address] Hct 41.4 35.6 - 45.5 % TOM Comment:Testing performed by : [address] [address] Plt 159 150 - 400 K/cumm TOM Comment:Testing performed by : [address] [address] MPV 10.2 9.1 - 12.3 fL TOM Comment:Testing performed by : [address], [address] RBC 4.88 3.90 - 5.20 M/cumm TOM Comment:Testing performed by : [address] [address] MCV 84.8 81.3 - 96.4 fL TOM Comment:Testing performed by : [address] [address] MCH 27.0(L) 27.1 - 33.3 pg TOM Comment:Testing performed by : [address] [address] MCHC 31.9(L) 32.3 - 35.7 g/dL TOM Comment:Testing performed by : [address] [address] RDW CV 13.7 11.1 - 14.9 % TOM Comment:Testing performed by : [address], [address] RDW SD 42.5 35.7 - 48.1 fL TOM RIVERA Comment:Testing performed by : [address] [address] NRBC abs 0.00 0.00 - 0.01 K/cumm TOM RIVERA Comment:Testing performed by : [address] [address] Blood 08/21/2023 8:01 AM CDT 08/21/2023 9:46 AM CDT us Mateo Mir MD LAB BLOOD ORDERABLES Final R esult TOM [address] [facility] Department [place] [address] * Comprehensive metabolic panel (08/21/2023 8:01 AM CDT) Sodium 140 135 - 145 mmol/L TOM Comment:Testing performed by : [address] [address] Potassium, pl 4.0 3.3 - 4.9 mmol/L TOM Comment:Testing performed by : [address] [address] Chloride 106 97 - 110 mmol/L TOM Comment:Testing performed by : [address] [address] CO2 23 22 - 32 mmol/L TOM Comment:Testing performed by : [address] [address] Anion gap 11 2 - 15 mmol/L TOM Comment:Testing performed by : [address] [address] BUN 14 6 - 25 mg/dL TOM Comment:Testing performed by : [address] [address] Creatinine 0.90 0.60 - 1.10 mg/dL TOM Comment:Testing performed by : [address] [address] Glucose 80 70 - 199 mg/dL TOM [...] was last revised 2022. Testing performed by: [address] [address] Calcium 8.8 8.5 - 10.3 mg/dL TOM Comment:Testing performed by : [address] [address] Bilirubin, total 0.3 0.1 - 1.2 mg/dL [facility] Comment:Testing performed by : [address] [address] Protein, pl 7.4 6.5 - 8.5 g/dL [facility] Comment:Testing performed by : [address] [address] Albumin 4.4 3.5 - 5.0 g/dL [facility] Comment:Testing performed by : [address] [address] Alk phos 62 40 - 130 Units/L [facility] Comment:Testing performed by : [address] [address] ALT 20 7 - 45 Units/L [facility] Comment:Testing performed by : [address] [address] AST 21 10 - 45 Units/L [facility] Comment:Testing performed by : [address] [address] Blood 08/21/2023 8:01 AM CDT 08/21/2023 9:49 AM CDT us Mateo Mir MD LAB BLOOD ORDERABLES Final R esult TOM [address] [facility] [place] [address] * Hemoglobin A1c (08/21/2023 8:01 AM CDT) [facility] Hgb A1C 5.2 4.0 - 5.6 % TMO Comment:Testing performed by : [address] [address] Estimated Average Glucose 103 mg/dL TOM Comment: The ADA recommends reporting an estimated Average Glucose (eAG) with all Hemoglobin A1c results using the equation derived from a study of 507 normal and diabetic adults. ??Minority populations were underrepresented and children were not included. ?? (Diabetes Care 31:6712-2760, 2008). ??The eAG is not equivalent to a fasting glucose. Testing performed by: [address] [address] Blood 08/21/2023 8:01 AM CDT 08/21/2023 9:49 AM CDT us Mateo Mir MD LAB BLOOD ORDERABLES Final R esult Performing Organization Address [facility] de Phone Number TOM [address] [facility] [place] [address] * Lipid panel (08/21/2023 8:01 AM CDT) [facility] Cholesterol 146 30 - 199 mg/dL TOM [...] last revised on 2018. Testing performed by: [address] [address] Triglycerides 56 <=149 mg/dL TOM Comment: Interpretive [...] last revised on 2018. Testing performed by: [address] [address] HDL 52 >=40 mg/dL TOM Comment: Interpretive [...] last revised on 2018. Testing performed by: [address] [address] LDL, calculated 83 <=129 mg/dL TOM Comment: [...] last revised on 2018. Testing performed by: [address] [address] Non-HDL Cholesterol 94 mg/dL TOM Comment: Interpretive [...] last revised on 2018. Testing performed by: [address] [address] Chol/HDL ratio 3 TOM Comment:Testing performed by : [address] [address] Blood 08/21/2023 8:01 AM CDT 08/21/2023 9:49 AM CDT us Mateo Mir MD LAB BLOOD ORDERABLES Final R esult Performing Organization Address City/[facility]/ZIP Co de Phone Number TOM [address] [place] [address] * TSH reflex to free T4 (08/21/2023 8:01 AM CDT) TSH 2.01 0.30 - 4.20 mcIUnit/mL TOM Comment:Testing performed by : [facility], [address] [place] [address]., [address] Blood 08/21/2023 8:01 AM CDT 08/21/2023 9:49 AM CDT us Mateo Mir MD LAB BLOOD ORDERABLES Final R esult Performing Organization Address City/[facility]/ZIP Co de Phone Number [id number] [place] [address] documented in this encounter Visit Diagnoses Diagnosis Malaise and fatigue Screening for cardiovascular condition Screening for other and unspecified cardiovascular conditions Other specified abnormal findings of blood chemistry Other retirement (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 Other fatigue Encounter for vitamin deficiency screening Other general symptoms and signs Cartilage disease documented in this encounter Care Teams Business Process Consultant Relationship Specialty Start Date End Date Mateo Mir MD PCP - General Internal Medicine 07/15/23 05/31/24 Abhilash Sam MD [address] [place] [address] Consulting Physician Obstetrics and Gynecology 07/15/23 Mary Russell MD [address] [address] Referring Physician Pediatric Neurology 07/15/23 documented as of this encounter
--- OUTSIDE RECORDS SUMMARY | 2024-11-29 06:23 | XMS_ITS | Encounter Summary ---
Author Organization 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) Social History Tobacco Use Types Packs/Day Years [...] staff should administer the PHQ-9) 0 10/01/2023 Busy Depression Scale Answer Date Recorded Busy Depression Scale Total 1 11/28/2020 The thought [...] Sign Reading Time Taken Comments Blood Pressure 105/66 12/18/2023 9:56 AM DENTAL SERVICES DIRECTOR Pulse 62 12/18/2023 9:56 AM DENTAL SERVICES DIRECTOR Temperature 36.1 ??C (96.9 ??F) 12/18/2023 9:53 AM CS T Respiratory Rate 16 12/18/2023 9:53 AM DENTAL SERVICES DIRECTOR Oxygen Saturation 100% 12/18/2023 9:56 AM DENTAL SERVICES DIRECTOR Inhaled Oxygen Concentration - - Weight 74.5 kg (164 lb 3.2 oz) 12/18/2023 9:53 A M DENTAL SERVICES DIRECTOR Height - - Body Mass Index 25.72 12/10/2023 3:10 PM DENTAL SERVICES DIRECTOR documented in this encounter Plan of Treatment Not on file documented as of this encounter Procedures Procedure Name Priority Date/Time Associated Diagnosis Comments DIFFERENTIAL AUTO Routine 12/18/2023 10: 03 AM DENTAL SERVICES DIRECTOR 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) CBC WITH AUTO DIFFERENTIAL Routine 12/18/2023 10:03 AM DENTAL SERVICES DIRECTOR 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) documented in this encounter Results * Differential, auto (12/18/2023 10:03 AM DENTAL SERVICES DIRECTOR) Neutrophil abs 2.9 1.5 - 6.5 K/cumm TOM Comment:Testing performed by : [address] [address] Imm gran abs 0.0 0.0 - 0.1 K/cumm TOM Comment:Testing performed by : [address] [address] Lymphocyte abs 1.7 0.8 - 3.3 K/cumm TOM Comment:Testing performed by : [address] [address] Monocyte abs 0.3 0.2 - 0.8 K/cumm [facility] Comment:Testing performed by : [address] [address] Eosinophil abs 0.1 0.0 - 0.5 K/cumm [facility] Comment:Testing performed by : [address] [address] Basophil abs 0.0 0.0 - 0.1 K/cumm [facility] Comment:Testing performed by : [address] [address] Neutrophil pct 58.7 % [facility] Comment: Interpretive Data Percent cell count reference ranges are not reported, since discordance with absolute values may lead to misinterpretation of CBC data. Current Interpretive Data was last revised on 2018. Testing performed by: [address] [address] Imm gran pct 0.2 % [facility] Comment: Interpretive Data Percent cell count reference ranges are not reported, since discordance with absolute values may lead to misinterpretation of CBC data. Current Interpretive Data was last revised on 2018. Testing performed by: [address] [address] Lymphocyte pct 33.3 % [facility] Comment: Interpretive Data Percent cell count reference ranges are not reported, since discordance with absolute values may lead to misinterpretation of CBC data. Current Interpretive Data was last revised on 2018. Testing performed by: [address] [address] Monocyte pct 6.0 % [facility] Comment: Interpretive Data Percent cell count reference ranges are not reported, since discordance with absolute values may lead to misinterpretation of CBC data. Current Interpretive Data was last revised on 2018. Testing performed by: [address] [address] Eosinophil pct 1.4 % [facility] Comment: Interpretive Data Percent cell count reference ranges are not reported, since discordance with absolute values may lead to misinterpretation of CBC data. Current Interpretive Data was last revised on 2018. Testing performed by: [address] [address] Basophil pct 0.4 % [facility]OM Comment: Interpretive Data Percent cell count reference ranges are not reported, since discordance with absolute values may lead to misinterpretation of CBC data. Current Interpretive Data was last revised on 2018. Testing performed by: [address] [address] Blood 12/18/2023 10:0 3 AM DENTAL SERVICES DIRECTOR 12/18/2023 10:10 AM DENTAL SERVICES DIRECTOR Indigo Reece MD LAB BLOOD ORDERABLES Nam[facility]ata solares Result TOM [address] [facility] Department of Laboratories [place], [place] [id number] * (ABNORMAL) CBC with auto differential (12/18/2023 10:03 AM DENTAL SERVICES DIRECTOR) WBC 5.0 3.8 - 9.9 K/cumm TOM Comment:Testing performed by : [address] [address] Hgb 12.1 11.9 - 15.5 g/dL [facility] Comment:Testing performed by : [address] [address] Hct 37.8 35.6 - 45.5 % [facility] Comment:Testing performed by : [address] [address] Plt 228 150 - 400 K/cumm TOM Comment:Testing performed by : [address] [address] MPV 9.6 9.1 - 12.3 fL [facility] Comment:Testing performed by : [address] [address] RBC 4.61 3.90 - 5.20 M/cumm [facility] Comment:Testing performed by : [address] [address] MCV 82.0 81.3 - 96.4 fL [facility] Comment:Testing performed by : [address] [address] MCH 26.2(L) 27.1 - 33.3 pg [facility] Comment:Testing performed by : [facility], [address] [place] [address]., [address] MCHC 32.0(L) 32.3 - 35.7 g/dL [facility] Comment:Testing performed by : [facility], [address] [place] [address]., [address] RDW CV 13.4 11.1 - 14.9 % [facility] Comment:Testing performed by : [facility], [address] [place] [address]., [address] RDW SD 39.9 35.7 - 48.1 fL [facility]OM [facility] Comment:Testing performed by : [facility], [address] [place] [address]., [address] NRBC abs 0.00 0.00 - 0.01 K/cumm [facility]OM [facility] Comment:Testing performed by : [facility], [address] [place] [address]., [address] Blood 12/18/2023 10:0 3 AM DENTAL SERVICES DIRECTOR 12/18/2023 10:10 AM DENTAL SERVICES DIRECTOR us Indigo Reece MD LAB BLOOD ORDERABLES Namrata solares Result Performing Organization Address City/State/[facility] Co de Phone Number TOM [address] [facility] Department [place] [address] documented in this encounter Visit Diagnoses Diagnosis 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
--- OUTSIDE RECORDS SUMMARY | 2024-11-29 06:23 | XMS_ITS | Encounter Summary ---
Author Organization [facility] Healthcare Address [address] [place] [address] Care Team Providers Care Linux Network Administrator Name Role Phone Mateo Mir MD Primary Care Provider + [phone] Abhilash Sam MD Unavailable [phone] Mary Russell MD Unavailable [phone] Reason for Referral * Procedure (Routine) - Pending Review Specialty Diagnoses / Procedures Referred By Contac t Referred To Contact Diagnoses ASCUS with positive high risk HPV cervical Procedures Colposcopy/Procedures Indigo Reece MD [facility] [address] Phone: tel: fax: [facility] Medical [facility] Referral ID Status Reason Start Date Expiration Date V isits Requested Visits Authorized [id number] Pending Review 11/04/2023 12/03/2024 1 1 NURSE Reason for Visit * Reason Comments Procedure Patient coming into office for colpo Encounter Details Date Type Department Care Team (Latest Contact Info) Description 11/04/2023 11:15 AM PICC NURSE Procedure visit [facility] Obstetrical Gynecology [address] [place] [address] [place] [phone] Indigo Reece MD [address] [place] [address] ASCUS with positive high risk HPV cervical (Primary Dx) Social History Tobacco Use Types [...] staff should administer the PHQ-9) 0 10/01/2023 [place] Depression Scale Answer Date Recorded [place] Depression Scale Total 1 11/28/2020 The thought [...] Sign Reading Time Taken Comments Blood Pressure 100/60 11/04/2023 11:09 AM PICC NURSE Pulse - - Temperature - - Respiratory Rate - - Oxygen Saturation - - Inhaled Oxygen Concentration - - Weight 75.8 kg (167 lb) 11/04/2023 11:09 AM PICC NURSE Height 170.2 cm (5' 7 ) 11/04/2023 11:09 AM PICC NURSE Body Mass Index 26.16 11/04/2023 11:09 AM PICC NURSE documented in this encounter Progress Notes * Indigo Reece MD - 11/04/2023 11:15 AM CSTAssociated Order(s): Colposcopy/Procedures Post-Procedure Diagnose(s): ASCUS with positive high risk HPV cervical 11/04/2023 Rebel Tai 1985 CC: For colposcopy, ASCUS HPV pos. Patient Active Problem List Diagnosis Date Noted Herpes zoster 10/01/2023 meds ordered in [facility] due to [facility] error - meds: Acyclovir 800mg 5x daily for 7 days, Prednisone 20mg daily for 5 days, and Keflex (empiric tx) - 250mg 4x a day for 10 days. Pt understands meds/dose and f/u plan if needed History of motion sickness 10/01/2023 Gastroesophageal reflux disease without esophagitis 10/01/2023 Suspected sleep apnea 07/29/2023 Vitamin D deficiency (15) 07/29/2023 After 2nd child with lethargy and pain normal TSH History of diarrhea/dyspepsia 07/29/2023 Quit smoking 07/29/2023 Chronic pain syndrome 07/11/2022 Chronic bilateral low back pain without sciatica 04/24/2022 Sprain of left knee 02/15/2022 Syncope due to sick sinus syndrome (CMS/HCC) (HCC) 02/15/2022 Right foot pain 02/15/2022 Nausea and vomiting in 04/15/2020 Current Outpatient Medications on File Prior to Visit Medication Sig Dispense Refill acetaminophen (TYLENOL) 500 mg tablet Take 1 tablet (500 mg total) by mouth every 6 (six) hours as needed for pain ascorbic acid (VITAMIN C) 100 mg tablet Take 1 tablet (100 mg total) by mouth daily cetirizine (ZyrTEC) 10 mg tablet Take 1 tablet (10 mg total) by mouth daily fluticasone propionate (FLONASE) 50 mcg/actuation nasal spray Administer 2 sprays into each nostrildaily 3 each 4 Lactobacillus acidophilus (Probiotic) 10 billion cell capsule Take by mouth multivitamin capsule Take 1 capsule by mouth daily omeprazole (PriLOSEC) 20 mg capsule Take 1 capsule (20 mg total) by mouth daily 30 capsule 11 scopolamine 1 mg over 3 days patch [address] 1 patch on the skin every third day as needed (nausea) 4 patch 2 benzonatate (TESSALON) 100 mg capsule benzonatate 100 [...] (two) times a day 180 capsule 4 ergocalciferol (VITAMIN D) 50,000 unit capsule ergocalciferol 1.25 mg (50,000 intl units) oral capsule Start Date: 02/23/22 Status: Ordered predniSONE (DELTASONE) 20 mg tablet predniSONE 20 mg oral tablet Start Date: 06/13/21 Status: Ordered (Patient not taking: Reported on 08/21/2023) No current facility-administered medications on file prior to visit. Allergies Allergen Reactions Erythromycin Rash Penicillins Swelling Vitals: 11/04/23 1109 BP: 100/60 Weight: 167 lb (75.8 kg) Height: 170.2 cm (5' 7 ) Colposcopy/Procedures Performed by: Indigo Reece MD Authorized by: Indigo Reece MD Consent given by: patient Pre-procedure: Prepped with: acetic acid Indication: Indication: ASC-US and HPV Procedure: Procedure: Colposcopy w/ biopsy of cervix Under satisfactory analgesia the patient was prepped and draped in the dorsal lithotomy position: yes Bovey speculum was placed in the vagina: yes Under colposcopic examination the transition zone was seen in entirety: yes Cervical biopsy performed with a cervical biopsy punch: yes (5 o'clock) Specimen to pathology: yes Post-procedure: Findings: White epithelium Patient tolerance of procedure: Patient tolerated the procedure well with no immediate complications A/P: Diagnoses and all orders for this visit: ASCUS with positive high risk HPV cervical (Primary) - Surgical pathology; Future Reviewed pap abnormality with patient. Colposcopy performed with biopsy. Reviewed expected plan of care with likely repeat pap in 1 year. Indigo Reece MD NURSE documented in this encounter Plan of Treatment Not on file documented as of this encounter Procedures Procedure Name Priority Date/Time Associated Diagnosis Comments [place] COLPOSCOPY CERVIX UPPR/ADJCNT VAGINA W/CERVIX BX Routine 11/04/2023 11:15 AM PICC NURSE ASCUS with positive high risk HPV cervical documented in this encounter Results * Surgical pathology (11/04/2023 11:54 AM PICC NURSE) Tissue (Cervix, biopsy) 11/04/2023 11:54 AM PICC NURSE 11/04/2023 4:21 PM PICC NURSE Narrative [facility] - 11/07/2023 12:39 PM PICC NURSE [facility] Department of Pathology [address] [place] [address] ?? Note to Patients: ??This report may [...] : ??1985 (Age: 38) Gender: ??F Address: ??[address] [place] [address] [facility] #: [id number] Service: DEFAULT Location: Patient Type: MHE SPECIMEN [...] submitted. ?? Labeled A1. Jar 0. ?? [facility]/05/2023 10:48 MIKE Carrillo Microscopic slide review and interpretation for this case was performed at [facility], Department of Surgical Pathology, [address] [facility] [place], [place] [id number], ??[facility] [place], [place] ??[address] ?? CLIA # [id number] Indigo Reece MD LAB PATHOLOGY ORDERABLES Final Result [facility]OLOGY [facility] * [place] COLPOSCOPY CERVIX UPPR/ADJCNT VAGINA W/CERVIX BX (11/04/2023 11:15 AM PICC NURSE) Narrative Indigo Reece MD - 11/04/2023 11:15 AM PICC NURSE Indigo Reece MD ? 11/04/2023 11:35 AM Colposcopy/Procedures Performed by: Indigo Reece MD Authorized by: Indigo Reece MD ??Consent given by: patient Pre-procedure: ??Prepped with: acetic acid ?? Indication: ??Indication: ??ASC-US and HPV Procedure: ??Procedure: Colposcopy w/ biopsy of cervix ?Under satisfactory analgesia the patient was prepped and draped in the dorsal lithotomy position: yes ?Bovey speculum was placed in the vagina: yes ?Under colposcopic examination the transition zone was seen in entirety: yes ?Cervical biopsy performed with a cervical biopsy punch: yes (5 o'clock) ?Specimen to pathology: yes ?? Post-procedure: ??Findings: White epithelium ?Patient tolerance of procedure: ??Patient tolerated the procedure well with no immediate complications Indigo Reece MD IN CLINIC/BEDSIDE ORDERAB LES Final Result documented in this encounter Visit Diagnoses Diagnosis ASCUS with positive high risk HPV cervical- Primary ASCUS with positive high risk HPV cervical documented in this encounter Care Teams Linux Network Administrator Relationship Specialty Start Date End Date Mateo Mir MD PCP - General Internal Medicine 07/15/23 05/31/24 Abhilash Sam MD [address] [place] [address] Consulting Physician Obstetrics and Gynecology 07/15/23 Mary Russell MD [address] [address] Referring Physician Pediatric Neurology 07/15/23 documented as of this encounter
--- OUTSIDE RECORDS SUMMARY | 2024-11-29 06:24 | XMS_ITS | Encounter Summary ---
Author Organization [facility] Address [address] [facility] [address] [place] [address] Care Team Providers Care Plumbing Foreman Name Role Phone No, Physician Primary Care Provider [phone] Reason for Visit * Reason Comments Routine Visit * Consultation (Routine) - Closed Specialty Diagnoses / Procedures Referred By Contac t Referred To Contact Obstetrics and Gynecology Diagnoses 10 weeks gestation of Juan Carlos Clark MD Phone: tel: fax: [facility] Medical [facility] Obstetrical Gynecology [address] [place] [phone] Phone: tel: fax: Referral ID Status Reason Start Date Expiration Date V isits Requested Visits Authorized [id number] Closed Specialty Services Required 03/23/2020 03/23/2021 21 21 Encounter Details Date Type Department Care Team (Latest Contact Info) Description 10/06/2020 10:15 AM PEARL STRINGER Routine [facility] Medical [facility] Obstetrical Gynecology [address] [place] [phone] Lorna Witt MD [address] [place] [phone] Supervision of other normal , antepartum (Primary Dx) Social History Tobacco Use Types Packs/Day Years Used Date Smoking Tobacco: Never Smokeless Tobacco: Never Alcohol Use Standard Drinks/Week Comments Not Currently 1 (1 standard drink = 0.6 oz pur e alcohol) Comments Yes Sex and Gender Information Value Date Recorded Sex Assigned at Not on file Legal Sex Female 2:07 PM CDT Gender Identity Not on file Sexual Orientation Not on file documented as of this encounter Last Filed Vital Signs Vital Sign Reading Time Taken Comments Blood Pressure 110/64 10/06/2020 10:11 AM PEARL STRINGER Pulse - - Temperature - - Respiratory Rate - - Oxygen Saturation - - Inhaled Oxygen Concentration - - Weight 96.5 kg (212 lb 12.8 oz) 020 10:11 AM PEARL STRINGER Height - - Body Mass Index 33.33 10/01/2020 5:28 PM PEARL STRINGER documented in this encounter Progress Notes * Lorna Witt MD - 10/06/2020 10:15 AM CST Return OB Visit 35 y.o. at 37w5d Patient reports increasing contractions last Saturday every 5 minutes when to L&D for evaluation, cervix was 3/60/-2. Contractions eventually spontaneously subsided. Since then they have been irregular but not painful. Denies painful contractions, VB or LOF. Good FM BSUS vertex presentation Cvx 3/50/-3 today Objective BP 110/64 Wt 212 lb 12.8 oz (96.5 kg) LMP 01/16/2020 BMI 33.33 kg/m?? Body mass index is 33.33 kg/m??. TW lb 12.8 oz (15.8 kg) 1. Supervision of 1. Dating by L=6wk US 2. O+/I/-/- NR 3. Anatomy: Complete (06/16), nml EFW 50%, Girl 4. GCT:133, passed 3hr 5. Tdap: . Given (08/23) 6. Flu : recommended today (10/06) 7. GBS: Plan for 36wks unless delivery indicated sooner 8. Delivery Planning: IOL scheduled for 10/15 Labor precautions discussed RTC in 1wks L STRINGER documented in this encounter Plan of Treatment Not on file documented as of this encounter Visit Diagnoses Diagnosis Supervision of other normal , antepartum- Primary documented in this encounter Care Teams Plumbing Foreman Relationship Specialty Start Date End Date No, Physician PCP - General 05/26/19 02/16/21 documented as of this encounter
--- OUTSIDE RECORDS SUMMARY | 2024-11-29 06:24 | XMS_ITS | Encounter Summary ---
Author Organization [facility] Address [address] [address] Care Team Providers Care Net Developer Programmer Name Role Phone No, Physician Primary Care Provider [phone] Reason for Visit * Reason Comments Routine Visit contractions, 12 mins apart, pressure, hasnt felt baby since 7am this morning Encounter Details Date Type Department Care Team (Latest Contact Info) Description 09/20/2020 9:30 AM CDT Routine [facility] Obstetrical Gynecology [address] [phone] Chetna Ricci CNM [address] [place] [phone] Supervision of other normal , antepartum (Primary Dx); Third trimester Social History Tobacco Use Types Packs/Day Years [...] Sign Reading Time Taken Comments Blood Pressure 124/72 09/20/2020 9:11 AM CDT Pulse - - Temperature - - Respiratory Rate - - Oxygen Saturation - - Inhaled Oxygen Concentration - - Weight 95.3 kg (210 lb) 09/20/2020 9:11 AM CDT Height - - Body Mass Index 32.89 08/10/2020 11:39 AM CDT documented in this encounter Progress Notes * Chetna Ricci CNM - 09/20/2020 9:30 AM CDT Reports that she has been having contractions for the last 2 hours that have been q 9-11 minutes. They have not increased in intensity. Requests a cervical exam. GBS culture obtained. Discussed laborprecautions and signs of reassuring health. Instructed to go to L&D if contractions get closer and stronger. Cosigned by Abhilash Sam MD at 09/29/2020 11:00 AM COOK MANAGER MANAGER documented in this encounter Plan of Treatment Not on file documented as of this encounter Procedures Procedure Name Priority Date/Time Associated Diagnosis Comments GROUP B STREPTOCOCCUS SCREEN PCR GEN LAB Routine 09/20/2020 12:01 AM CDT Third trimester documented in this encounter Results * Group B streptococcus PCR (09/20/2020 12:01 AM CDT) Strep B Ag NEGATIVE NEGATIVE [facility] Strep B culture NOT APPLICABLE [facility] Vaginal/Rectal 09/20/2020 12 :01 AM CDT 09/20/2020 3:00 PM CDT Narrative [facility] - 09/22/2020 10:13 AM CDT Yes Resulting Agency Comment REF us Chetna Ricci CNM LAB MICROBIOLOGY - GENE RAL ORDERABLES Final Result [facility] [address] [place] [address], [facility] [phone] documented in this encounter Visit Diagnoses Diagnosis Supervision of other normal , antepartum- Primary Third trimester state, incidental documented in this encounter Care Teams Net Developer Programmer Relationship Specialty Start Date End Date No, Physician PCP - General 05/26/19 02/16/21 documented as of this encounter
--- OUTSIDE RECORDS SUMMARY | 2024-11-29 06:24 | XMS_ITS | Encounter Summary ---
Author Organization [facility] Address [address] [place] [address] Care Team Providers Care Cognos Report Developer Name Role Phone Juan Carlos Clark MD Primary Care Provider [phone] Reason for Referral * Diagnostic Lab (Routine) - Closed Specialty Diagnoses / Procedures Referred By Contac t Referred To Contact Lab Diagnoses Vaginal discharge Procedures Vaginitis - vaginosis panel Lorna Witt MD Phone: tel: fax: Referral ID Status Reason Start Date Expiration Date Visits Re quested Visits Authorized [id number] Closed 02/17/2021 03/19/2022 1 1 Reason for Visit * Reason Comments Annual Exam Encounter Details Date Type Department Care Team (Latest Contact Info) Description 02/17/2021 9:45 AM CDT Office Visit [facility] Obstetrical Gynecology [address] [place] [phone] Lorna Witt MD [address] [place] [phone] Encounter for annual routine gynecological examination (Primary Dx); Vaginal discharge Social History Tobacco Use Types Packs/Day Years Used Date Smoking Tobacco: Never Smokeless Tobacco: Never Alcohol Use Standard Drinks/Week Comments Not Currently 1 (1 standard drink = 0.6 oz pur e alcohol) [place] Depression Scale Answer Date Recorded [place] Depression Scale Total 1 11/28/2020 The thought [...] Sign Reading Time Taken Comments Blood Pressure 124/70 02/17/2021 10:06 AM CDT Pulse - - Temperature - - Respiratory Rate - - Oxygen Saturation - - Inhaled Oxygen Concentration - - Weight 79.9 kg (176 lb 3.2 oz) 02/17/2021 10:06 AM CDT Height - - Body Mass Index 27.6 11/28/2020 12:39 PM EXPERIMENTAL 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 year old female who presents for a well woman exam. She does report some dyspareunia, vaginal pain on insertion, not with deep penetration,. She home a of vaginal discharge, no itching or significant irritation She has not had a period since delivery Review of Systems Constitutional: Negative for fever. HENT: Negative for sore throat. Eyes: Negative for visual disturbance. Respiratory: Negative for shortness of breath. Cardiovascular: Negative for chest pain. Gastrointestinal: Negative for abdominal pain. Genitourinary: Positive for dyspareunia and vaginal discharge. Negative for dysuria. Musculoskeletal: Negative for back pain. Skin: Negative for color change. Neurological: Negative for dizziness. Psychiatric/Behavioral: Negative for confusion. 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 Sexual History: OB History 2 Para 2 Term 1 1 AB Living 2 SAB TAB Ectopic Multiple Live Births 2 # Outcome Date GA Labor/2nd Weight Sex Delivery Anes PTL Lv A1 A5 1 02/18/10 36w0d 1.899 kg (4 lb 3 oz) F Vag-Spont Epidural Living Complications: Gastroschisis Location: Other 2 Term 10/15/20 39w0d 3.685 kg (8 lb 2 oz) F Vag-Spont Epidural Living Name: Tommie Nazario Complications: Intolerance Delivering Clinician: Dr. Sam Immunization History Administered Date(s) Administered ??? Tdap 08/23/2020 reports that she has never smoked. She has never used smokeless tobacco. reports previous alcohol use of about 1.0 standard drinks of alcohol per week. reports no history of drug use. reports previously being sexually active and has had partner(s) who are Male. Past Medical History: Diagnosis Date ??? Abnormal Pap smear of cervix No past surgical history on file. Family History Problem Relation Age of Onset ??? Diabetes Maternal Grandmother ??? Graves' disease Sister ??? Breast cancer Neg Hx Patient specifically denies family history of breast, ovarian or endometrial cancers Allergies Allergen Reactions ??? Erythromycin Rash ??? Penicillins Swelling Medications: Current Outpatient Medications: ??? acetaminophen (TYLENOL) 500 mg tablet, Take 500 mg by mouth every 6 (six) hours as needed for pain, Disp: , Rfl: ??? cholecalciferol (VITAMIN D-3) 5,000 unit capsule, Take 5,000 Units by mouth daily, Disp: , Rfl: ??? Lactobacillus acidophilus (Probiotic) 10 billion cell capsule, Take by mouth, Disp: , Rfl: ??? prenat vit [id number]-om3,6 35-5-1.2-400 mg capsule, Take by mouth daily, Disp: , Rfl: Objective: There were no vitals taken for this visit. Physical Exam General: normal weight female, pleasant, in no acute distress HEENT: normocephalic, atraumatic, nose normal, conjunctivae normal Lungs: Normal effort, no respiratory distress Breasts: no dominant masses, nipple discharge or axillary lymphadenopathy bilaterally. Without skindimpling or erythema. Abdomen: soft, nontender, nondistended Skin: warm, well-perfused Neuro: No focal deficits Psych: alert and cooperative; normal mood and affect OBGyn Exam Pelvic: Vulva appears normal , but there is a tight band of tissue at the posterior introitus, tender to palpitation, well-healed Speculum: normal external female genitalia, no lesions. Normal appearing urethra, no lesions. Normal vaginal rugae, full exam and Pap aborted due to patient discomfort Urethra appears normal, bladder palpates normal with no tenderness or lesions Perineum appears normal Assessment and Plan: Gladys Tai is a 35 y.o. female who presents for a well woman exam: 1. WWE: a. Cervical cancer screening: Previous pap 2019, nml per pt report. Full speculum exam and Pap smear reported today due to patient discomfort, will plan on completing once symptoms are improved i. Cervical cancer screening recommendations were reviewed with patient. b. Breast cancer screening: Normal CBE i. Encouraged breast self awareness. Recommendations for screening mammography reviewed. c. Sexually transmitted disease screening: declines d. Osteoporosis: Not indicated e. Colon Cancer: Not indicated f. Diet and exercise discussed 2. Contraception a. had a vasectomy 3. Vaginal pain with dyspareunia a. Band of tissue standard to palpation at the posterior introitus where previous laceration healedafter delivery b. Tissue does appear to be well healed, no signs of infection or dehiscence c. Vaginitis panel collected d. Discussed Premarin cream and perineal massage, possible pelvic floor physical therapy if no improvement Lorna Witt MD documented in this encounter Plan of Treatment Not on file documented as of this encounter Procedures Procedure Name Priority Date/Time Associated Diagnosis Comments VAGINITIS - VAGINOSIS PANEL Routine 02/17/2021 11:07 AM CDT Vaginal discharge documented in this encounter Results * Vaginitis - vaginosis panel (02/17/2021 11:07 AM CDT) Trichomonas vaginalis Not Detected Not Detected [facility] Comment: SPECIMEN SOURCE: ?VAGINITIS/VAGINOSIS W/O PAP W/O HPV ??EXPANDED, ?NOT PROVIDED CLINICAL INFORMATION: Provided Diagnosis Codes: N89.8 MOLECULAR ? INTERPRETATION: ? Results do not favor Bacterial Vaginosis (BV). MOLECULAR COMMENT: ?Lactobacillus DNA is detected. ??No anaerobic ?bacterial DNA (from G. vaginalis, A. vaginae, ?Megasphaera, BVAB2) is detected. Tawnya Genus Not Detected Not Detected [facility] C. albicans by PCR Not Detected Not Detected [facility] Gardnerella vaginalis Not Detected Not Detected [facility] A. Vaginalis by RT-PCR Not Detected Not Detected [facility] Lactobacillus (Species) by PCR Detected Detected [facility] Megasphaera Type 1 by RT PCR Not Detected Not Detected [facility] BVAB2 by RT-PCR Not Detected Not Detected [facility] Lactobacillus Sp. Log (Cells/mL) 3.25 - 5.25 Not Detected [facility] G. vaginalis qn <3.25 Not Detected [facility] A. vaginalis Log (Cells/mL) <3.25 Not Detected [facility] Comment: TRICHOMONAS BY MULTIPLEX PCR (1,5,6) TAWNYA GENUS (2,3,5,6) C.ALBICANS BY PCR (2,3,5,6) G. VAGINALIS BY RT-PCR (4,5,7) A. VAGINALIS BY RT-PCR (4,5,7) LACTOBACILLUS (SPECIES) BY PCR (4,5,7) MEGASPHAERA TYPE 1 BY RT PCR (4,5,7) BVAB2 BY RT-PCR (4,5,7) LACTOBACILLUS SP. LOG (CELLS/mL) (4,5,7) G. VAGINALIS LOG (CELLS/mL) (4,5,7) A. VAGINALIS LOG (CELLS/ML) (4,5,7) (1) This test is an in vitro test for the detection of sexually transmitted Vaginal 02/17/2021 11:0 7 AM CDT 02/18/2021 12:25 PM CDT Lorna Witt MD LAB PATHOLOGY ORDERABLES Final R esult [facility] documented in this encounter Visit Diagnoses Diagnosis Encounter for annual routine gynecological examination- Primary Vaginal discharge Leukorrhea, not specified as infective documented in this encounter Care Teams Cognos Report Developer Relationship Specialty Start Date End Date Juan Carlos Clark MD PCP - General Family Medicine 02/17/21 02/14/22 documented as of this encounter
--- OUTSIDE RECORDS SUMMARY | 2024-11-29 06:24 | XMS_ITS | Encounter Summary ---
Author Organization [facility] Address [address] [place] [id number] Care Team Providers Care Fine Artist Name Role Phone No, Physician Primary Care Provider [phone] Reason for Visit * Reason Comments Routine Visit Encounter Details Date Type Department Care Team (Latest Contact Info) Description 08/23/2020 11:00 AM CDT Routine [facility] Obstetrical Gynecology [address] [phone] Lorna Witt MD [address] [address] Supervision of other normal , antepartum (Primary Dx); Nausea and vomiting in ; Third trimester Social History Tobacco Use Types [...] Sign Reading Time Taken Comments Blood Pressure 120/64 08/23/2020 11:08 AM CDT Pulse - - Temperature - - Respiratory Rate - - Oxygen Saturation - - Inhaled Oxygen Concentration - - Weight 90.9 kg (200 lb 6.4 oz) 08/23/2020 11:08 AM CDT Height - - Body Mass Index 31.39 08/10/2020 11:39 AM CDT documented in this encounter Progress Notes * Lorna Witt MD - 08/23/2020 11:00 AM CDT Return OB Visit 35 y.o. at 31w3d Patient reports no complaints. Denies contractions, VB or LOF. Good FM BSUS vertex presentation Objective BP 120/64 Wt 200 lb 6.4 oz (90.9 kg) LMP 01/16/2020 BMI 31.39 kg/m?? Body mass index is 31.39 kg/m??. TW lb 6.4 oz (10.2 kg) 1. Supervision of 1. Dating by L=6wk US 2. O+/I/-/- NR 3. Anatomy: Complete (06/16), nml EFW 50%, Girl 4. GCT:133, passed 3hr 5. Tdap: Pt initially stated that she thought she had received this vaccine in early , today we discussed that administration in early would not likely benefit the baby and that westill recommend receiving it in early 3rd trimester so that ne maternal antibodies can be passed onto baby. Given today (08/23) 6. GBS: Plan for 36wks unless delivery indicated sooner 7. Delivery Planning: TBD Reviewed COVID19 risk factors and symptoms including fever, shortness of breath, dry cough, and fatigue. Recommended social distancing, good hand hygiene, and to skilled nursing at home when possible PTL precautions discussed RTC in 2wks documented in this encounter Plan of Treatment Not on file documented as of this encounter Visit Diagnoses Diagnosis Supervision of other normal , antepartum- Primary Nausea and vomiting in Unspecified vomiting of , unspecified as to episode of care Third trimester state, incidental documented in this encounter Orders Immunization/Injection Count Last Ordered Date First Ordered Date TDAP VACCINE GREATER THAN OR EQUAL TO 7YO IM 1 08/23/2020 documented in this encounter Care Teams Fine Artist Relationship Specialty Start Date End Date No, Physician PCP - General 05/26/19 02/16/21 documented as of this encounter
--- OUTSIDE RECORDS SUMMARY | 2024-11-29 06:24 | XMS_ITS | Encounter Summary ---
Author Organization [facility] Address [address] [place] [address] Care Team Providers Care Allergy Physician Name Role Phone No, Physician Primary Care Provider [phone] Encounter Details Date Type Department Care Team ([facility] st Contact Info) Description 10/07/2020 Telephone [facility] Testing Site - [address] [place] [address] Abhilash Cardoso MD [address] [place] [phone] Social History Tobacco Use Types Packs/Day Years [...] encounter Miscellaneous Notes * Telephone Encounter - Mari Martinez - 10/07/2020 8:28 AM CST Auth Provider: ABHILASH CARDOSO [facility] Provider: Abhilash Cardoso MD Diagnosis: Encounter for induction of labor Department: [facility] Instruct: ?? Comment: Patient aware to go to [facility] 10/12/20 between 8am - 4pm Order Specific Questions Question Answer Comment Testing types: Pre-procedure ?? Date of px/chemo/treatment/placement/xfr: 10/15/2020 ?? Procedure: Induction of labor ?? Date testing requested: 10/12/2020 ?? Testing: COVID-RNA ?? Is this the first COVID-19 test for this patient? Unknown ?? Does the patient currently work in a healthcare facility with direct patient contact? Unknown ?? Is the patient a resident of a congregate care or living setting? No ?? Is the patient ? Yes ?? Please select the performing region: [facility] ER SHREDDER documented in this encounter Plan of Treatment Not on file documented as of this encounter Results * COVID-19 Coronavirus RNA Nasopharyngeal (10/12/2020 12:57 PM FILLER SHREDDER) [facility] COVID-19 RNA Not Detected [facility] Comment: Testing performed as a component of ??a specimen pool. ??Negative results should be treated as presumptive and, if inconsistent with clinical signs and symptoms or necessary for patient management, pooled samples should be tested individually. Negative results do not preclude SARS-CoV-2 infection and must not be used as the sole basis for patient management decisions. Negative results must be considered in the context of a patient? s recent exposures, history, presence of clinical signs and symptoms consistent with COVID-19. Interpretive Data Testing performed at [facility] Infectious Disease [facility]. The 2019-Novel Coronavirus Assay (COVID-19) Real Time RT-PCR assay is for in vitro diagnostic use under FDA emergency use authorization only. A negative RT-PCR result does not preclude infection with COVID-19 and should not be used as the sole basis for treatment or other patient management decisions. Additional sample types have been validated according to CLIA regulations. ?? Current Interpretive Data was last revised on 2020. First COVID-19 test? Unknown [facility] Comment:Testing performed by : [facility], [address] [place] [address], [place]., [address] Employeed in healthcare? Unknown [facility] Comment:Testing performed by : [facility], [address] [place] [address], [place]., [address] status? Yes [facility] Comment:Testing performed by : [facility], [address] [place]., [address] Group care resident? Unknown [facility] Comment:Testing performed by : [facility], [address] [facility], [address] Hospitalized? No [facility] Comment:Testing performed by : [facility], [address] [facility], [address] Is patient in ICU? No [facility] Comment:Testing performed by : [facility], [address] [facility], [address] Symptomatic as defined by CDC? No [facility] Comment:Testing performed by : [facility], [address] [place] [address], [id number] Nasopharyngeal 10/12/2020 12 :57 PM FILLER SHREDDER 10/12/2020 7:07 PM FILLER SHREDDER Narrative [facility] - 10/13/2020 12:34 PM FILLER SHREDDER What is the reason for testing?->Screening prior to scheduled procedure or surgery Abhilash Cardoso MD LAB MICROBIOLOGY - GENERAL ORDERABLES Final Result [facility] Department [place] [address] documented in this encounter Visit Diagnoses Diagnosis Pre-procedure lab exam- Primary Pre-procedural laboratory examination Pre-procedure lab exam Pre-procedural laboratory examination documented in this encounter Care Teams Allergy Physician Relationship Specialty Start Date End Date No, Physician PCP - General 05/26/19 02/16/21 documented as of this encounter
--- OUTSIDE RECORDS SUMMARY | 2024-11-29 06:24 | XMS_ITS | Encounter Summary ---
Author Organization [facility] Medical [facility] Address [address] [facility] [address] [facility] [address] [place] [id number] Care Team Providers Care Almond Huller Name Role Phone No, Physician Primary Care Provider [phone] Reason for Visit * Reason Comments Routine Visit 36.4 wks * Consultation (Routine) - Closed Specialty Diagnoses / Procedures Referred By Contac t Referred To Contact Obstetrics and Gynecology Diagnoses 10 weeks gestation of Juan Carlos Clark MD Phone: tel: fax: [facility] Obstetrical Gynecology [address] [place] [id number] Phone: tel: fax: Referral ID Status Reason Start Date Expiration Date V isits Requested Visits Authorized [id number] Closed Specialty Services Required 03/23/2020 03/23/2021 21 21 Encounter Details Date Type Department Care Team (Latest Contact Info) Description 09/28/2020 10:30 AM ROCK BREAKER Routine [facility] Medical [facility] Obstetrical Gynecology [address] [place] [phone] Abhilash Sam MD [address] [place] [id number] Encounter for related examination in third trimester (Primary Dx) Social History Tobacco Use Types [...] Sign Reading Time Taken Comments Blood Pressure 110/70 09/28/2020 10:44 AM ROCK BREAKER Pulse - - Temperature - - Respiratory Rate - - Oxygen Saturation - - Inhaled Oxygen Concentration - - Weight 95.3 kg (210 lb) 09/28/2020 10:44 AM ROCK BREAKER Height 170.2 cm (5' 7 ) 09/28/2020 10:44 AM ROCK BREAKER Body Mass Index 32.89 09/28/2020 10:44 AM ROCK BREAKER documented in this encounter Patient Instructions * Patient Instructions* Abhilash Sam MD - 09/28/2020 10:30 AM ROCK BREAKER Patient Education at 35 to 38 Weeks WHAT YOU NEED TO KNOW: What changes are happening in my body? You are considered full term at the beginning of 37 weeks. Your breathing may be easier if your baby has moved down into a head-down position. You may need to urinate more often because the baby may be pressing on your bladder. You may also feel more discomfort and get tired easily. How do I care for myself at this stage of my ? ?? Eat a variety of healthy foods. Healthy foods include fruits, vegetables, whole-grain breads, low-fat dairy foods, beans, lean meats, and fish. Drink liquids as directed. Ask how much liquid to drink each day and which liquids are best for you. Limit caffeine to less than 200 milligrams each day. Limit your intake of fish to 2 servings each week. Choose fish low in mercury such as canned lighttuna, shrimp, salmon, cod, or tilapia. Do not eat fish high in mercury such as swordfish, tilefish,abigail mackerel, and shark. ?? Take vitamins as directed. Your need for certain vitamins and minerals, such as folic acid, increases during . vitamins provide some of the extra vitamins and minerals you need. vitamins may also help to decrease the risk of certain defects. ?? Rest as needed. Put your feet up if you have swelling in your ankles and feet. ?? Do not smoke. If you smoke, it is never too late to quit. Smoking increases your risk of a miscarriage and other health problems during your . Smoking can cause your baby to be born too early or weigh less at . Ask your healthcare provider for information if you need help quitting. ?? Do not drink alcohol. Alcohol passes from your body to your baby through the placenta. It can affect your baby's brain development and cause alcohol syndrome (FAS). FAS is a group of conditions that causes mental, behavior, and growth problems. ?? Talk to your healthcare provider before you take any medicines. Many medicines may harm your baby if you take them when you are . Do not take any medicines, vitamins, herbs, or supplementswithout first talking to your healthcare provider. Never use illegal or street drugs (such as marijuana or cocaine) while you are . ?? Talk to your healthcare provider before you travel. You may not be able to travel in an airplaneafter 36 weeks. He may also recommend that you avoid long road trips. What are some safety tips during ? ?? Avoid hot tubs and saunas. Do not use a hot tub or sauna while you are , especially during your first trimester. Hot tubs and saunas may raise your baby's temperature and increase the riskof defects. ?? Avoid toxoplasmosis. This is an infection caused by eating raw meat or being around infected catfeces. It can cause defects, miscarriages, and other problems. Wash your hands after you touch raw meat. Make sure any meat is well- cooked before you eat it. Avoid raw eggs and unpasteurized milk. Use gloves or ask someone else to clean your cat's litter box while you are . ?? Ask your healthcare provider about travel. The most comfortable time to travel is during the second trimester. Ask your healthcare provider if you can travel after 36 weeks. You may not be able totravel in an airplane after 36 weeks. He may also recommend that you avoid long road trips. What changes are happening with my baby? By 38 weeks, your baby may weigh between 6 and 9 pounds. Your baby may be about 14 inches long from the top of the head to the rump (baby's bottom). Your babyhears well enough to know your voice. As your baby gets larger, you may feel fewer kicks and more stretching and rolling. Your baby may move into a head-down position. Your baby will also rest lower in your abdomen. What do I need to know about care? Your healthcare provider will check your blood pressureand weight. You may also need the following: ?? A urine test may also be done to check for sugar and protein. These can be signs of gestational diabetes or infection. Protein in your urine may also be a sign of preeclampsia. Preeclampsia is a condition that can develop during week 20 or later of your . It causes high blood pressure, and it can cause problems with your kidneys and other organs. ?? A blood test may be done to check for anemia (low iron level). ?? A Tdap vaccine may be recommended by your healthcare provider. ?? A group B strep test is a test that is done to check for group B strep infection. Group B strep is a type of bacteria that may be found in the vagina or rectum. It can be passed to your baby during delivery if you have it. Your healthcare provider will take swab your vagina or rectum and send the sample to the lab for tests. ?? Fundal height is a measurement of your uterus to check your baby's growth. This number is usually the same as the number of weeks that you have been . Your healthcare provider may also check your baby's position. ?? Your baby's heart rate will be checked. When should I seek immediate care? ?? You develop a severe headache that does not go away. ?? You have new or increased vision changes, such as blurred or spotted vision. ?? You have new or increased swelling in your face or hands. ?? You have vaginal spotting or bleeding. ?? Your water broke or you feel warm water gushing or trickling from your vagina. When should I contact my healthcare provider? ?? You have more than 5 contractions in 1 hour. ?? You notice any changes in your baby's movements. ?? You have abdominal cramps, pressure, or tightening. ?? You have a change in vaginal discharge. ?? You have chills or a fever. ?? You have vaginal itching, burning, or pain. ?? You have yellow, green, white, or foul-smelling vaginal discharge. ?? You have pain or burning when you urinate, less urine than usual, or pink or bloody urine. ?? You have questions or concerns about your condition or care. CARE AGREEMENT: You have the right to help plan your care. Learn about your health condition and how it may be treated. Discuss treatment options with your caregivers to decide what care you want to receive. You always have the right to refuse treatment. The above information is an technical aide only. It is not intended as medical advice for individual conditions or treatments. Talk to your doctor, nurse or pharmacist before following any medical regimen to see if it is safe and effective for you. ?? 2017 [employer] Information is for End User's use only and may not be sold, redistributed or otherwise used for commercial purposes. All illustrations and images included in CareNotes?? are the copyrighted property of [employer] or [employer]. BREAKER documented in this encounter Progress Notes * Abhilash Sam MD - 09/28/2020 10:30 AM CST ?? Had some spotting and contractions the other day, but it resolved spontaneously within a couple of hours. Denies mucus plug. Continues to have irregular contractions. Baby is active. ?? Informed of negative GBS status. ?? Patient would like to go ahead and schedule induction at 39 weeks. BREAKER documented in this encounter Plan of Treatment Not on file documented as of this encounter Visit Diagnoses Diagnosis Encounter for related examination in third trimester- Primary documented in this encounter Historical Medications * This list may reflect changes made after this encounter. calcium carbonate (TUMS) 500 mg calcium (200 mg of elemental calcium) chewable tablet Take 1 tablet by mouth daily 11/28/2020 added in this encounter Care Teams Almond Huller Relationship Specialty Start Date End Date No, Physician PCP - General 05/26/19 02/16/21 documented as of this encounter
--- OUTSIDE RECORDS SUMMARY | 2024-11-29 06:24 | XMS_ITS | Encounter Summary ---
Author Organization [facility] Address [address] [place] [address] Care Team Providers Care Gear Shaver Set Up Operator Name Role Phone No, Physician Primary Care Provider [phone] Reason for Visit * Reason Comments FU:EPDS=1 10/15/20 VAGINAL DE LIVERY LAC:perineal 2nd degree Feeding:BREAST Name:FAWAD Encounter Details Date Type Department Care Team ([facility] st Contact Info) Description 11/28/2020 11:45 AM BURLING AND JOINING SUPERVISOR Office Visit [facility] Obstetrical Gynecology [address] [address] Abhilash Sam MD [facility] [address] Encounter for visit (Primary Dx); Acute left-sided thoracic back pain Social History Tobacco Use Types Packs/Day Years Used Date Smoking Tobacco: Never Smokeless Tobacco: Never Alcohol Use Standard Drinks/Week Comments Not Currently 1 (1 standard drink = 0.6 oz pur e alcohol) [place] Depression Scale Answer Date Recorded [place] Depression Scale Total 1 11/28/2020 The thought [...] Sign Reading Time Taken Comments Blood Pressure 94/58 11/28/2020 12:39 PM BURLING AND JOINING SUPERVISOR Pulse - - Temperature - - Respiratory Rate - - Oxygen Saturation - - Inhaled Oxygen Concentration - - Weight 81.1 kg (178 lb 12.8 oz) 021 12:39 PM BURLING AND JOINING SUPERVISOR Height 170.2 cm (5' 7 ) 11/28/2020 12:3 9 PM BURLING AND JOINING SUPERVISOR Body Mass Index 28 11/28/2020 12:39 PM BURLING AND JOINING SUPERVISOR documented in this encounter Patient Instructions * Patient Instructions* Abhilash Sam MD - 11/28/2020 11:45 AM BURLING AND JOINING SUPERVISOR Patient Education Depression WHAT YOU NEED TO KNOW: What is depression? depression is a mood disorder that occurs after giving . A mood is an emotion or a feeling. Moods affect your behavior and how you feel about yourself and life in general. Depression is a sad mood that you cannot control. Women often feel sad, afraid, or nervous after their baby is born. These feelings are called blues or baby blues, and they usually go away in 1 to 2 weeks. With depression, these symptoms get worse and continue for more than 2 weeks. depression is a serious condition that affects your daily activities and relationships. What causes depression? Healthcare providers do not know exactly what causes depression. It may be caused by a sudden drop in hormone levels after childbirth. A previous episodeof depression or a family history of depression may increase your risk. Several things may trigger depression: ?? Lack of support from the baby's father or other family members ?? Feeling more tired than usual ?? Stress, a poor diet, or lack of sleep ?? Pain after childbirth or pain during ?? Sudden change in lifestyle How is depression diagnosed? depression affects your daily activities and your relationships with other people. Healthcare providers will ask you questions about your signs and symptoms and how they are affecting your life. The symptoms of depression usually begin within 1 month after childbirth. You feel depressed or lose interest in activities you enjoy nearly every day for at least 2 weeks. You also have 4 or more of the following symptoms: ?? You feel tired or have less energy than usual. ?? You feel unimportant or guilty most of the time. ?? You think about hurting or killing yourself. ?? Your appetite changes. You may lose your appetite and lose weight without trying. Your appetite may also increase and you may gain weight. ?? You are restless, irritable, or withdrawn. ?? You have trouble concentrating and remembering things. You have trouble doing daily tasks or making decisions. ?? You have trouble sleeping, even after the baby is asleep. How is depression treated? ?? Psychotherapy: During therapy, you will talk with healthcare providers about how to cope with your feelings and moods. This can be done alone or in a group. It may also be done with family membersor your partner. ?? Antidepressants: This medicine is given to decrease or stop the symptoms of depression. You usually need to take antidepressants for several weeks before you begin to feel better. Do not stop taking antidepressants unless your healthcare provider tells you to. Healthcare providers may try a different antidepressant if one type does not work. What can I do to feel better? ?? Rest: Do not try to do everything all at the same time. Do only what is needed and let other things wait until later. Ask your family or friends for help, especially if you have other children. Ask your partner to help with night feedings or other baby care. Try to sleep when the baby naps. ?? Get emotional support: Share your feelings with your partner, a friend, or another mother. ?? Take care of yourself: Shower and dress each day. Do not skip meals. Try to get out of the housea little each day. Get regular exercise. Eat a healthy diet. Avoid alcohol because it can make yourdepression worse. Do not isolate yourself. Go for a walk or meet with a friend. It is also important that you have some time by yourself each day. How do I find support and more information? ?? [employer] ([facility]), Public Information & Communication Branch [address], [address], [facility] [address] [place] [address] Phone: Phone: Web Address: http://www.[facility].nih.gov/ When should I contact my healthcare provider? ?? You cannot make it to your next visit. ?? Your depression does not get better with treatment or it gets worse. ?? You have questions or concerns about your condition or care. When should I seek immediate care or call 911? ?? You think about hurting or killing yourself, your baby, or someone else. ?? You feel like other people want to hurt you. ?? You hear voices telling you to hurt yourself or your baby. CARE AGREEMENT: You have the right to help plan your care. Learn about your health condition and how it may be treated. Discuss treatment options with your caregivers to decide what care you want to receive. You always have the right to refuse treatment. The above information is an multimedia educational specialist only. It is not intended as medical advice for individual conditions or treatments. Talk to your doctor, nurse or pharmacist before following any medical regimen to see if it is safe and effective for you. ?? 2017 [employer] Information is for End User's use only and may not be sold, redistributed or otherwise used for commercial purposes. All illustrations and images included in CareNotes?? are the copyrighted property of [employer]. or [employer]. Patient Education Depression WHAT YOU NEED TO KNOW: What is depression? depression is a mood disorder that occurs after giving . A mood is an emotion or a feeling. Moods affect your behavior and how you feel about yourself and life in general. Depression is a sad mood that you cannot control. Women often feel sad, afraid, or nervous after their baby is born. These feelings are called blues or baby blues, and they usually go away in 1 to 2 weeks. With depression, these symptoms get worse and continue for more than 2 weeks. depression is a serious condition that affects your daily activities and relationships. What causes depression? Healthcare providers do not know exactly what causes depression. It may be caused by a sudden drop in hormone levels after childbirth. A previous episodeof depression or a family history of depression may increase your risk. Several things may trigger depression: ?? Lack of support from the baby's father or other family members ?? Feeling more tired than usual ?? Stress, a poor diet, or lack of sleep ?? Pain after childbirth or pain during ?? Sudden change in lifestyle How is depression diagnosed? depression affects your daily activities and your relationships with other people. Healthcare providers will ask you questions about your signs and symptoms and how they are affecting your life. The symptoms of depression usually begin within 1 month after childbirth. You feel depressed or lose interest in activities you enjoy nearly every day for at least 2 weeks. You also have 4 or more of the following symptoms: ?? You feel tired or have less energy than usual. ?? You feel unimportant or guilty most of the time. ?? You think about hurting or killing yourself. ?? Your appetite changes. You may lose your appetite and lose weight without trying. Your appetite may also increase and you may gain weight. ?? You are restless, irritable, or withdrawn. ?? You have trouble concentrating and remembering things. You have trouble doing daily tasks or making decisions. ?? You have trouble sleeping, even after the baby is asleep. How is depression treated? ?? Psychotherapy: During therapy, you will talk with healthcare providers about how to cope with your feelings and moods. This can be done alone or in a group. It may also be done with family membersor your partner. ?? Antidepressants: This medicine is given to decrease or stop the symptoms of depression. You usually need to take antidepressants for several weeks before you begin to feel better. Do not stop taking antidepressants unless your healthcare provider tells you to. Healthcare providers may try a different antidepressant if one type does not work. What can I do to feel better? ?? Rest: Do not try to do everything all at the same time. Do only what is needed and let other things wait until later. Ask your family or friends for help, especially if you have other children. Ask your partner to help with night feedings or other baby care. Try to sleep when the baby naps. ?? Get emotional support: Share your feelings with your partner, a friend, or another mother. ?? Take care of yourself: Shower and dress each day. Do not skip meals. Try to get out of the housea little each day. Get regular exercise. Eat a healthy diet. Avoid alcohol because it can make yourdepression worse. Do not isolate yourself. Go for a walk or meet with a friend. It is also important that you have some time by yourself each day. How do I find support and more information? ?? [employer] ([facility]), Public Information & Communication Branch [address], [address], [facility] [address] [place] [address] Phone: Phone: Web Address: http://[email or web address].gov/ When should I contact my healthcare provider? ?? You cannot make it to your next visit. ?? Your depression does not get better with treatment or it gets worse. ?? You have questions or concerns about your condition or care. When should I seek immediate care or call 911? ?? You think about hurting or killing yourself, your baby, or someone else. ?? You feel like other people want to hurt you. ?? You hear voices telling you to hurt yourself or your baby. CARE AGREEMENT: You have the right to help plan your care. Learn about your health condition and how it may be treated. Discuss treatment options with your caregivers to decide what care you want to receive. You always have the right to refuse treatment. The above information is an multimedia educational specialist only. It is not intended as medical advice for individual conditions or treatments. Talk to your doctor, nurse or pharmacist before following any medical regimen to see if it is safe and effective for you. ?? 2017 [employer] Information is for End User's use only and may not be sold, redistributed or otherwise used for commercial purposes. All illustrations and images included in CareNotes?? are the copyrighted property of [employer]. or [employer]. ING AND JOINING SUPERVISOR ING AND JOINING SUPERVISOR documented in this encounter Progress Notes * Abhilash Sam MD - 11/28/2020 11:45 AM CST Patient ID: Gladys Tai, 1985 Chief Complaint FU:EPDS=1 (10/15/20 VAGINAL DELIVERY LAC:perineal 2nd degree Feeding:BREAST Name:FAWAD) HPI Delivery: See OB History Significant problems since delivery: Has a very sharp back pain just to the left of midline that makes it difficult to stand up again after bending over. Sometimes takes Tylenol before sleeping, without much improvement. Wanting clearance to see a chiropractor. : Method of contraception requested: Partner is planning a vasectomy - requesting suggestions for providers; they will use condoms until that is completed [place] Depression Scale: [place] Depression Scale: In the Past 7 Days I have been able to laugh and see the funny side of things.: As much as I always could I have looked forward with enjoyment to things.: As much as I ever did I have blamed myself unnecessarily when things went wrong.: No, never I have been anxious or worried for no good reason.: No, not at all I have felt scared or panicky for no good reason.: No, not at all Things have been getting on top of me.: No, most of the time I have coped quite well I have been so unhappy that I have had difficulty sleeping.: Not at all I have felt sad or miserable.: No, not at all I have been so unhappy that I have been crying.: No, never The thought of harming myself has occurred to me.: Never [place] Depression Scale Total: 1 OB History Para Term AB Living 2 2 1 1 2 SAB TAB Ectopic Multiple Live Births 2 # Outcome Date GA Lbr Vaibhav/2nd Weight Sex Delivery Anes PTL Lv 2 Term 10/15/20 39w0d 3.685 kg (8 lb 2 oz) F Vag-Spont EPI BILLY Complications: Intolerance 1 02/18/10 36w0d 1.899 kg (4 lb 3 oz) F Vag-Spont EPI BILLY Complications: Gastroschisis ROS Review of Systems Constitutional: Negative for appetite change, chills, diaphoresis, fatigue and fever. Eyes: Negative for visual disturbance. Respiratory: Negative for cough and shortness of breath. Cardiovascular: Negative for chest pain. Gastrointestinal: Negative for abdominal distention, abdominal pain, blood in stool, constipation, diarrhea, nausea and vomiting. Endocrine: Negative for polyuria. Genitourinary: Negative for dyspareunia, dysuria, frequency, hematuria, pelvic pain, urgency and vaginal discharge. Musculoskeletal: Positive for back pain. Skin: Negative for rash. Neurological: Negative for dizziness, syncope, light-headedness and headaches. Psychiatric/Behavioral: Negative for self-injury, sleep disturbance and suicidal ideas. The patientis not nervous/anxious. Breast: Negative for tenderness, breast discharge and lump(s). Histories Medical has a past medical history of Abnormal Pap smear of cervix. Surgical has no past surgical history on file. Meds Current Outpatient Medications: ??? acetaminophen (TYLENOL) 500 mg tablet, Take 500 mg by mouth every 6 (six) hours as needed for pain, Disp: , Rfl: ??? cholecalciferol (VITAMIN D-3) 5,000 unit capsule, Take 5,000 Units by mouth daily, Disp: , Rfl: ??? Lactobacillus acidophilus (Probiotic) 10 billion cell capsule, Take by mouth, Disp: , Rfl: ??? prenat vit 51-yogp-[id number]-om3,6 35-5-1.2-400 mg capsule, Take by mouth daily, Disp: , Rfl: Allergies Patient is allergic to erythromycin and penicillins. Objective BP 94/58 Ht 170.2 cm (5' 7 ) Wt 178 lb 12.8 oz (81.1 kg) LMP 01/16/2020 Yes BMI 28.00 kg/m?? General Examination: GENERAL APPEARANCE: pleasant, well nourished, well developed, in no acute distress . HEAD: normocephalic, atraumatic. BACK: No abnormality at the epidural site; the patient indicates in location that is to the left ofmidline at about the level of the junction between the thoracic and lumbar spines NEUROLOGIC: cranial nerves 2-12 grossly intact. PSYCH: alert, oriented, judgement and insight good, mood/affect full range . Assessment/Plan Diagnoses and all orders for this visit: Encounter for visit (Z39.2) (Primary) ?? Provided patient with contact information for [facility] regarding 's vasectomy ?? Return in 2 months for well-woman exam - patient may select provider Acute left-sided thoracic back pain (M54.6) ?? Affirmed patient's decision to see a chiropractor regarding her back pain. Reassured patient that this is above the level of the epidural, and is more likely to be related to breast-feeding/caringthe baby and associated posture. Above recommended NSAIDs. If the patient is having suboptimal improvement, she may call the office and we can refer for physical therapy. ??? Provided patient with handout regarding depression and warning signs to look out for. Abhilash Sam MD 11/28/2020 ING AND JOINING SUPERVISOR documented in this encounter Plan of Treatment Not on file documented as of this encounter Visit Diagnoses Diagnosis Encounter for visit- Primary Acute left-sided thoracic back pain documented in this encounter Discontinued Medications Medication Sig Discontinue Reason Start Date End Da te ascorbic acid (vitamin C) 1,000 mg tablet Take 1,000 mg by mouth daily 11/28/2020 calcium carbonate (TUMS) 500 mg calcium (200 mg of elemental calcium) chewable tablet Take 1 tablet by mouth daily 11/28/2020 doxylamine-pyridoxine, vit B6, (DICLEGIS) 10-10 mg tabletIndications:Nausea and vomiting in Take 1 tablet by mouth nightly 04/14/2020 11/28/2020 ondansetron (ZOFRAN) 4 mg tabletIndications:Nausea and vomiting in Take 1 tablet (4 mg total) by mouth every 6 (six) hours as needed for nausea 04/14/2020 11/28/2020 pyridoxine (VITAMIN B-6) 50 mg tablet Take 50 mg by mouth daily 11/28/2020 documented as of this encounter Care Teams Gear Shaver Set Up Operator Relationship Specialty Start Date End Date No, Physician PCP - General 05/26/19 02/16/21 documented as of this encounter
--- OUTSIDE RECORDS SUMMARY | 2024-11-29 06:24 | XMS_ITS | Encounter Summary ---
Author Organization [facility] Address [address] [place] [address] Care Team Providers Care Plastics Fabricator And Assembler Name Role Phone No, Physician Primary Care Provider [phone] Encounter Details Date Type Department Care Team (Late st Contact Info) Description 07/29/2020 Orders Only [facility] Obstetrical Gynecology [address] [place] [address] Lorraine Hatch RN Abnormal GTT (glucose tolerance test) (Primary Dx) Social History Tobacco Use Types [...] Procedure Name Priority Date/Time Associated Diagnosis Comments GTT 100GM 3HR GESTATIONAL DIAGNOSTIC Routine 08/02/2020 6:41 AM CDT Abnormal GTT (glucose tolerance test) documented in this encounter Results * GTT, gestational diabetes 100gm 3hr diagnostic (08/02/2020 6:41 AM CDT) GLUCOSE KELIN 3 HR (GESTATIONAL) [facility] Comment: [id number] F ?77 ? mg/dL ??Col:08/02/20 0649 Expected Results: <=95 mg/dL or <=105 mg/dL (Clinician preference) [id number] 1 ?101 ?mg/dL ??Col:08/02/20 0756 Expected Results: <=180 mg/dL or <=190 mg/dL (Clinician preference) [id number] 2 ?146 ?mg/dL ??Col:08/02/20 0855 Expected Results: <=155 mg/dL or <=165 mg/dL (Clinician preference) [id number] 3 ?82 ? mg/dL ??Col:08/02/20 1000 Expected Results: <=140 mg/dL or <=145 mg/dL (Clinician preference) TRUTOL REQUIRED: 10 ounces (Test for Gestational Diabetes) Blood specimen (specimen) 08/02/2020 6:41 AM CDT Narrative Resulting Agency Comment CLI Jenni Raphael [facility] BLOOD ORDERABLES F inal Result Performing Organization Address City/State/[facility] Co de Phone Number [address] [phone] documented in this encounter Visit Diagnoses Diagnosis Abnormal GTT (glucose tolerance test)- Primary documented in this encounter Care Teams Plastics Fabricator And Assembler Relationship Specialty Start Date End Date No, Physician PCP - General 05/26/19 02/16/21 documented as of this encounter
--- OUTSIDE RECORDS SUMMARY | 2024-11-29 06:24 | XMS_ITS | Encounter Summary ---
Author Organization [facility] Address [address] [place] [address] Care Team Providers Care Pairer Inspector Name Role Phone No, Physician Primary Care Provider [phone] Reason for Visit * Reason Comments Routine Visit 29.4 wks Encounter Details Date Type Department Care Team (Latest Contact Info) Description 08/10/2020 11:15 AM CDT Routine [facility] Obstetrical Gynecology [address] [phone] Abhilash Sam MD [facility] [address] Encounter for related examination in third [...] Reading Time Taken Comments Blood Pressure 94/58 08/10/2020 11:39 AM CDT Pulse - - Temperature - - Respiratory Rate - - Oxygen Saturation - - Inhaled Oxygen Concentration - - Weight 89.8 kg (198 lb) 08/10/2020 11:39 AM CDT Height 170.2 cm (5' 7 ) 08/10/2020 11:39 AM CDT Body Mass Index 31.01 08/10/2020 11:39 AM CDT documented in this encounter Patient Instructions * Patient Instructions* Abhilash Sam MD - 08/10/2020 11:15 AM CDT Patient Education at 27 to 30 Weeks WHAT YOU NEED TO KNOW: What changes are happening in my body? You may notice new symptoms such as shortness of breath, heartburn, or swelling of your ankles and feet. You may also have trouble sleeping or contractions. How do I care for myself at [...] as swordfish, tilefish,abigail mackerel, and shark. ?? Manage heartburn by eating 4 or 5 small meals each day instead of large meals. Avoid spicy food. ?? Manage swelling by lying down and putting your feet up. ?? Take vitamins as directed. Your need for certain vitamins and minerals, such as folic acid, increases during . vitamins provide some of the extra vitamins and minerals you need. vitamins may also help to decrease the risk of certain defects. ?? Talk to your healthcare provider about exercise. Moderate exercise can help you stay fit. Your healthcare provider will help you plan an exercise program that is safe for you during . ?? Do not smoke. If you smoke, [...] marijuana or cocaine) while you are . What are some safety tips during ? [...] cat's litter box while you are . What changes are happening with my baby? By 30 weeks, your baby may weigh more than 3 pounds. Your baby may be about 11 inches long from the top of the head to the rump (baby's bottom). Your baby's eyes open and close now. Your baby's kicks and movements are more forceful at this time. What do I need to know about care? Your healthcare provider will check your blood pressureand weight. You may also need the following: ?? Blood tests may be done to check for anemia or blood type. ?? A urine test may also be [...] your kidneys and other organs. ?? A Tdap vaccine and flu vaccine may be recommended by your healthcare provider. ?? A gestational diabetes screen will be done using an oral glucose tolerance test (OGTT). An OGTT starts with a blood sugar level check after you have not eaten for 8 hours. You are then given a glucose drink. Your blood sugar level is checked after 1 hour, 2 hours, and sometimes 3 hours. Healthcare providers look at how much your blood sugar level increases from the first check. ?? Fundal height is a measurement of [...] refuse treatment. The above information is an engineering aid only. It is not intended as medical advice for individual conditions or treatments. Talk to your doctor, nurse or pharmacist before following any medical regimen to see if it is safe and effective for you. ?? 2017 [employer] Information is for End User's use only and may not be sold, redistributed or otherwise used for commercial purposes. All illustrations and images included in CareNotes?? are the copyrighted property of [employer] or [employer]. documented in this encounter Progress Notes * Abhilash Sam MD - 08/10/2020 11:15 AM CDT ?? Denies bleeding, abnormal discharge, significant contractions. Baby is active. ?? Patient lost consciousness and had a fall over the weekend, and sprained her ankle. She was monitored in Labor and delivery for 4 hours and discharged. No obstetrical issues since. ?? Discussed Tdap vaccine recommendation to receive in third trimester of , earlier ratherthan later. Discussed rationale behind recommendation. Patient is pretty certain that she received it sometime around the beginning of her for the . She will check the dates. If so,I do not think it is necessary to readministered during . documented in this encounter Plan of Treatment Not on file documented as of this encounter Visit Diagnoses Diagnosis Encounter for related examination in third trimester- Primary documented in this encounter Historical Medications * This list may reflect changes made after this encounter. acetaminophen (TYLENOL) 500 mg tablet Take 1 tablet (500 mg total) by mouth every 6 (six) hours as needed for pain 06/01/2024 added in this encounter Care Teams Pairer Inspector Relationship Specialty Start Date End Date No, Physician PCP - General 05/26/19 02/16/21 documented as of this encounter
--- OUTSIDE RECORDS SUMMARY | 2024-11-29 06:24 | XMS_ITS | Encounter Summary ---
Author Organization [facility] Healthcare Address [address] [place] [address] Care Team Providers Care Corporate Job Titles Name Role Phone No, Physician Primary Care Provider [phone] Encounter Details Date Type Department Care Team (Late st Contact Info) Description 09/20/2020 12:01 AM CDT Hospital Encounter [facility] Chetna Ricci CNM [address] [address] Social History Tobacco Use Types [...] this encounter Medications at Time of Discharge acetaminophen (TYLENOL) 500 mg tablet Take 1 tablet (500 mg total) by mouth every 6 (six) hours as needed for pain 06/01/2024 ascorbic acid (vitamin C) 1,000 mg tablet Take 1,000 mg by mouth daily 11/28/2020 cholecalciferol (VITAMIN D-3) 5,000 unit capsule Take 5,000 Units by mouth daily 03/14/2022 doxylamine-pyrido xine, vit B6, (DICLEGIS) 10-10 mg tabletIndications :Nausea and vomiting in Take 1 tablet by mouth nightly 60 tablet 6 04/14/2020 11/28/2020 Lactobacillus acidophilus (Probiotic) 10 billion cell capsule Take 1 Caplet by mouth daily 06/01/2024 ondansetron (ZOFRAN) 4 mg tabletIndications :Nausea and vomiting in Take 1 tablet (4 mg total) by mouth every 6 (six) hours as needed for nausea 30 tablet 6 04/14/2020 11/28/2020 prenat vit 47-trqh-jnwvk-om3 ,6 35-5-1.2-400 mg capsule Take by mouth daily 02/15/2022 pyridoxine (VITAMIN B-6) 50 mg tablet Take 50 mg by mouth daily 11/28/2020 documented as of this encounter Plan of Treatment Not on file documented as of this encounter Visit Diagnoses Not on filedocumented in this encounter Care Teams Corporate Job Titles Relationship Specialty Start Date End Date No, Physician PCP - General 05/26/19 02/16/21 documented as of this encounter
--- OUTSIDE RECORDS SUMMARY | 2024-11-29 06:24 | XMS_ITS | Encounter Summary ---
Author Organization [facility] Healthcare Address [address] [place] [address] Care Team Providers Care Hand Stonecutter Name Role Phone No, Physician Primary Care Provider [phone] Encounter Details Date Type Department Care Team (Late st Contact Info) Description 07/27/2020 9:34 AM CDT Hospital Encounter [facility] Lorna Witt MD [facility] [address] Social History Tobacco Use Types [...] this encounter Medications at Time of Discharge doxylamine-pyrido xine, vit B6, (DICLEGIS) 10-10 mg [...] 30 tablet 6 04/14/2020 11/28/2020 prenat vit 84-phez-efvci-om3 ,6 35-5-1.2-400 mg capsule Take by mouth daily 02/15/2022 pyridoxine (VITAMIN B-6) 50 mg tablet Take 50 mg by mouth daily 11/28/2020 documented as of this encounter Plan of Treatment Not on file documented as of this encounter Visit Diagnoses Not on filedocumented in this encounter Care Teams Hand Stonecutter Relationship Specialty Start Date End Date No, Physician PCP - General 05/26/19 02/16/21 documented as of this encounter
--- OUTSIDE RECORDS SUMMARY | 2024-11-29 06:24 | XMS_ITS | Encounter Summary ---
Author Organization [facility] Address [address] [place] [address] Care Team Providers Care Service And Repair Supervisor Name Role Phone No, Physician Primary Care Provider [phone] Reason for Visit * Reason Comments Routine Visit Encounter Details Date Type Department Care Team (Late st Contact Info) Description 09/06/2020 10:30 AM CDT Routine [facility] Obstetrical Gynecology [address] [facility] [address] [place] [address] Nish Edge DO [address] [place] [address] Supervision of other normal , antepartum (Primary [...] Sign Reading Time Taken Comments Blood Pressure 122/74 09/06/2020 10:18 AM CDT Pulse - - Temperature - - Respiratory Rate - - Oxygen Saturation - - Inhaled Oxygen Concentration - - Weight 92.5 kg (204 lb) 09/06/2020 10:18 AM CDT Height - - Body Mass Index 31.95 08/10/2020 11:39 AM CDT documented in this encounter Progress Notes * Nish Edge DO - 09/06/2020 10:30 AM CDT Return OB Visit 35 y.o. at 33w3d Patient reports . Denies contractions, VB or LOF. Good FM Objective BP 122/74 Wt 204 lb (92.5 kg) LMP 01/16/2020 No BMI 31.95 kg/m?? Body mass index is 31.95 kg/m??. TW lb (11.8 kg) Supervision of Anatomy: Complete (06/16), nml EFW 50%, Girl GCT: :133, 3 hr passed Tdap: 08/23 GBS: Plan for 36wks unless delivery indicated sooner Delivery Planning: vaginal Reviewed COVID19 risk factors and symptoms including fever, shortness of breath, dry cough, and fatigue. Recommended social distancing, good hand hygiene, and to senior care at home when possible. We discussed our recommendation to discontinue work or begin working from home a minimum of 2 weeksprior to anticipated delivery, and to practice strict social isolation during this time. This is tolimit the risk of exposure. For the majority of women, this should be initiated at 37 weeks.?? precautions discussed RTC in 2 wks documented in this encounter Plan of Treatment Not on file documented as of this encounter Visit Diagnoses Diagnosis Supervision of other normal , antepartum- Primary documented in this encounter Care Teams Service And Repair Supervisor Relationship Specialty Start Date End Date No, Physician PCP - General 05/26/19 02/16/21 documented as of this encounter
--- OUTSIDE RECORDS SUMMARY | 2024-11-29 06:24 | XMS_ITS | Encounter Summary ---
Author Organization [facility] Address [address] [place] [address] Care Team Providers Care Inspector Plumbing Name Role Phone No, Physician Primary Care Provider [phone] Reason for Visit * Reason Comments Routine Visit having contractio ns since last night, went away after taking tylenol 500mg, having some today * Consultation (Routine) - Closed Specialty Diagnoses / Procedures Referred By Carlee goetz Referred To Contact Obstetrics and Gynecology Diagnoses 10 weeks gestation of Juan Carlos Clark MD Phone: tel: fax: [facility] Medical [facility] Obstetrical Gynecology [address] [place] [phone] Phone: tel: fax: Referral ID Status Reason Start Date Expiration Date V isits Requested Visits Authorized [id number] Closed Specialty Services Required 03/23/2020 03/23/2021 21 21 Encounter Details Date Type Department Care Team (Latest Contact Info) Description 10/13/2020 10:15 AM KITCHEN PORTER Routine [facility] Medical [facility] Obstetrical Gynecology [address] [place] [phone] Chetna Ricci CNM [address] [place] [address] Supervision of other normal , antepartum [...] Sign Reading Time Taken Comments Blood Pressure 124/68 10/13/2020 10:20 AM KITCHEN PORTER Pulse - - Temperature - - Respiratory Rate - - Oxygen Saturation - - Inhaled Oxygen Concentration - - Weight 97.5 kg (215 lb) 10/13/2020 10:20 AM KITCHEN PORTER Height - - Body Mass Index 33.67 10/01/2020 5:28 PM KITCHEN PORTER documented in this encounter Progress Notes * Chetna Ricci CNM - 10/13/2020 10:15 AM CST Baby is active with accels to 180s during ascultation. Is scheduled for induction of labor on 10/15. Was having increasingly strong contractions during this past night that stopped after 3 hours. Hashad Covid testing. Membranes swept per her request. HEN PORTER documented in this encounter Plan of Treatment Not on file documented as of this encounter Visit Diagnoses Diagnosis Supervision of other normal , antepartum- Primary documented in this encounter Care Teams Inspector Plumbing Relationship Specialty Start Date End Date No, Physician PCP - General 05/26/19 02/16/21 documented as of this encounter
--- OUTSIDE RECORDS SUMMARY | 2024-11-29 06:24 | XMS_ITS | Encounter Summary ---
Author Organization [facility] Address [address] [facility] [address] [place] [id number] Care Team Providers Care Tugboat Engineer Name Role Phone Deric Holt MD Primary Care Provider [phone] Reason for Visit * Reason Comments New Patient Many issues Encounter Details Date Type Department Care Team ([facility] st Contact Info) Description 02/15/2022 10:30 AM CDT Office Visit [facility] Primary Care [address] [place] [phone] Deric Holt MD [address] [place] [id number] Arthralgia, unspecified joint (Primary Dx); Preventative health care; Right foot pain; Myalgia Social History Tobacco Use Types Packs/Day Years [...] Date Recorded PHQ-2 Total Score 1 02/15/2022 Charlotte Depression Scale Answer Date Recorded Charlotte Depression Scale Total 1 11/28/2020 The thought [...] Sign Reading Time Taken Comments Blood Pressure 122/70 02/15/2022 10:31 AM CDT Pulse 70 02/15/2022 10:31 AM CDT Temperature 36.8 ??C (98.3 ??F) 02/15/2022 10:31 AM C DT Respiratory Rate - - Oxygen Saturation 97% 02/15/2022 10:31 AM CDT Inhaled Oxygen Concentration - - Weight 80.9 kg (178 lb 6.4 oz) 02/15/2022 10:31 AM CDT Height 170.2 cm (5' 7 ) 02/15/2022 10:31 AM CDT Body Mass Index 27.94 02/15/2022 10:31 AM CDT documented in this encounter Ordered Prescriptions Prescription Sig Dispense Quantity Refills Last Filled Start Date End Date ergocalciferol (VITAMIN D) 50,000 unit capsule Take 1 capsule (50,000 Units total) by mouth once a week 6 capsule 02/19/2022 documented in this encounter Progress Notes * Deric Holt MD - 02/15/2022 10:30 AM CDT Images from the original note were not included. Patient ID: Gladys Tai is a 36 y.o. female. Chief Complaint. Chief Complaint Patient presents with ??? New Patient Many issues HPI. Patient is a 36 y.o. female V pleasant here with several issues: Growing moles one along left groin, one along R upper back. Have gotten bigger and changed color. No prior hx of skin can Bad body aches: all over pain in her body. Painful to pick remover little ones- neck shoulder, feets, hands. A lot of stretching. Used to be pretty physcially active. Started 6 mo before new baby and worsneed during Pains are all day. Restless couldn't sleep. A lot of hip pain. Ankle pain Weight gain Headaches Foot intolerance/irritability Chiropractor Chronic headaches too: every couple of days, takes xs tylenol , no light sensitivity, sound sensitivity +sig AI fam hx as below No skin rashes No urinary changes Chest pains: alsost passed out And then happened it then felt panicky/anxiety Postapartum anxiety and depression Dairy upset stomach PHQ Screening Over the last 2 weeks, how often have you been bothered by any of the following problems? Little Interest or Pleasure in Doing Things: Several days Feeling Down, Depressed, or Hopeless: Not at all PHQ-2 Total Score (If total score is 3 or more points, staff should administer the PHQ-9): 1 Over the past 2 weeks, how often have you been bothered by any of the following problems? Little Interest or Pleasure in Doing Things: Several days Feeling Down, Depressed, or Hopeless: Not at all PHQ-2 Total Score (If total score is 3 or more points, staff should administer the PHQ-9): 1 Trouble Falling or Staying Asleep, or Sleeping too Much: Not at all Feeling Tired or Having Little Energy: Several days Poor Appetite or Overeating: Not at all Feeling Bad About Yourself - or That You are a Failure or Have Let Yourself or Your Family Down: Not at all Trouble Concentrating on Things, Such as Reading the Newspaper or Watching Television: Several days Moving or Speaking so Slowly That Other People Could Have Noticed, or the Opposite - Being so Fidgety or Restless That You Have Been Moving Around a lot More Than Usual: Not at all Thoughts That You Would be Better off , or of Hurting Yourself in Some Way: Not at all PHQ-9 Total Score: 2 If you checked off any problems, how difficult have these problems made it for you to do your work,take care of things at home, or get along with other people?: Not difficult at all REGINO-7 Feeling nervous, anxious, or on edge: Several days Not being able to stop or control worrying: Not at all sure Worrying too much about different things: Not at all sure Trouble relaxing: Several days Being so restless that it's hard [...] home, or get along with other people?: Somewhat difficult Two kids 12 yo- girl- brutal- and 16 months- girls 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 92 lbs- 12 and 13 Past Medical History: Diagnosis Date ??? Abnormal Pap smear of cervix ??? Pneumonia History reviewed. No pertinent surgical history. Allergies Allergen Reactions ??? Erythromycin Rash ??? Penicillins Swelling Former smoker 11/27 pack and Social History Tobacco Use ??? Smoking status: Former Smoker Quit date: 02/15/2010 Years since quittin.0 ??? Smokeless tobacco: Never Used Substance Use Topics ??? Alcohol use: Not Currently Alcohol/week: 1.0 standard drink Types: 1 Glasses of wine per week Family History Problem Relation Age of Onset ??? Diabetes Maternal Grandmother ??? Thyroid disease Mother ??? Graves' disease Sister ??? Breast cancer Neg Hx Mom has hypothryoidism Cousin w/DM2 Current Medications: Outpatient Encounter Medications as of 02/15/2022 Medication Sig Dispense Refill ??? acetaminophen (TYLENOL) 500 mg tablet Take 500 mg by mouth every 6 (six) hours as needed for pain ??? ascorbic acid (vitamin C) 100 mg tablet Take 100 mg by mouth daily ??? cholecalciferol (VITAMIN D-3) 5,000 unit capsule Take 5,000 Units by mouth daily ??? multivitamin capsule Take 1 capsule by mouth daily ??? mv,Ca,min-iron hxkt-VW-ijwzbj 1 mg iron-66.7 mcg-1,000 mcg tablet Take by mouth ??? Lactobacillus acidophilus (Probiotic) 10 billion cell capsule Take by mouth (Patient not taking: Reported on 02/15/2022) ??? [DISCONTINUED] prenat vit 99-cljz-fmxfo-om3,6 35-5-1.2-400 mg capsule Take by mouth daily No facility-administered encounter medications on file as of 02/15/2022. Probiotic Menstrual : 01/20/2022- every 30-45 days, periods 4-5, more intense cramps and bleeding. IUD- mirena - Review of Systems: Review of Systems BP 122/70 (BP Location: Left arm, Patient Position: Sitting) Pulse 70 Temp 36.8 ??C (98.3 ??F) (Temporal) Ht 170.2 cm (5' 7 ) Wt 80.9 kg (178 lb 6.4 oz) SpO2 97% BMI 27.94 kg/m?? Physical Exam: Physical Exam Constitutional: Appearance: She is well-developed. HENT: Head: Normocephalic. Right Ear: External ear normal. Left Ear: External ear normal. Eyes: Conjunctiva/sclera: Conjunctivae normal. Pupils: Pupils are equal, round, and reactive to light. Cardiovascular: Rate and Rhythm: Normal rate and regular rhythm. Heart sounds: No murmur heard. No friction rub. Pulmonary: Effort: Pulmonary effort is normal. No respiratory distress. Breath sounds: Normal breath sounds. No wheezing or rales. Abdominal: General: Bowel sounds are normal. There is no distension. Palpations: Abdomen is soft. Tenderness: There is no abdominal tenderness. There is no guarding or rebound. Musculoskeletal: General: No tenderness. Normal range of motion. Cervical back: Normal range of motion and neck supple. Skin: General: Skin is warm and dry. Findings: No rash. Neurological: Mental Status: She is alert and oriented to person, place, and time. Deep Tendon Reflexes: Reflexes normal. Psychiatric: Behavior: Behavior normal. Thought Content: Thought content normal. Judgment: Judgment normal. Assessment & Plan: Diagnoses and all orders for this visit: Arthralgia, unspecified joint (Primary) Preventative health care - Ambulatory referral to Podiatry; Future - Ambulatory referral to Dermatology; Future Right foot pain Assessment & Plan: Since an injuiry years ago- wants to see contact center consultant, referral placed Orders: - Ambulatory referral to Podiatry; Future Myalgia Assessment & Plan: All over phq low Sig ai fam hx Advise labwork, ai work up- rtc to further discuss Orders: - HLA-B27 antigen; Future - Erythrocyte sedimentation rate; Future - Rheumatoid factor; Future - LISA Screen, IFA w/ reflex to titer, pattern, cascade; Future - Cyclic citrul peptide antibody, IgG; Future - CRP (acute phase); Future - Comprehensive metabolic panel; Future - CBC with auto differential; Future - Urinalysis reflex to microscopic and culture Urine; Future - Lipid panel; Future - Vitamin D 25 hydroxy; Future Deric Holt MD documented in this encounter Miscellaneous Notes * Assessment & Plan Note - Deric Holt MD - 02/15/2022 12:26 PM CDT Associated Problem(s): Myalgia (Deleted) All over phq low Sig ai fam hx Advise labwork, ai work up- rtc to further discuss * Assessment & Plan Note - Deric Holt MD - 02/15/2022 12:25 PM CDT Associated Problem(s): Right foot pain (Resolved 06/01/2024) Since an injuiry years ago- wants to see contact center consultant, referral placed * Addendum Note - Deric Holt MD - 02/15/2022 10:30 AM CDTAddended by: DERIC HOLT on: 02/19/2022 10:17 AM Modules accepted: Orders documented in this encounter Plan of Treatment Scheduled Orders Name Type Priority Associated Diagnoses Orde r Schedule HLA-B27 antigen Lab Routine Myalgia Expected: 02/15/2022, Expires: 02/15/2023 LISA Screen, IFA w/ reflex to titer, pattern, cascade Lab Routine Myalgia Expected: 02/15/2022, Expires: 02/15/2023 documented as of this encounter Results * (ABNORMAL) Vitamin D 25 hydroxy (02/15/2022 11:52 AM CDT) Vitamin D 25-OH 15.0(L) 30.0 - 80.0 ng/mL TOM RIVERA Comment:Below Ref Range Blood 02/15/2022 11:5 2 AM CDT 02/15/2022 3:08 PM CDT us Deric Holt MD LAB BLOOD ORDERABLES Final Resu lt TOM [address] [facility] Department [place] [address] * Lipid panel (02/15/2022 11:52 AM CDT) Cholesterol 166 30 - 199 mg/dL TOM Comment: Interpretive [...] last revised on 2018. Testing performed by: [facility], [address] [place] [address]., [address] Triglycerides 55 <=149 mg/dL TOM RIVERA Comment: Interpretive Data Ages < or = [...] last revised on 2018. Testing performed by: [address] [address] HDL 52 >=40 mg/dL TOM Comment: Interpretive [...] last revised on 2018. Testing performed by: [address] [address] LDL, calculated 103 <=129 mg/dL TOM Comment: Interpretive Data Ages [...] last revised on 2018. Testing performed by: [address] [address] Non-HDL Cholesterol 114 mg/dL TOM Comment: Interpretive Data Ages < [...] last revised on 2018. Testing performed by: [address] [address] Chol/HDL ratio 3 TOM Comment:Testing performed by : [address] [address] Blood 02/15/2022 11:5 2 AM CDT 02/15/2022 1:40 PM CDT us Deric Holt MD LAB BLOOD ORDERABLES Final Resu lt TOM [address] [facility] Department [place] [address] * Urinalysis reflex to microscopic and culture Urine (02/15/2022 11:52 AM CDT) Color, ur Yellow Yellow TOM Comment:Testing performed by : [address] [address] Clarity, ur Clear Clear TOM Comment:Testing performed by : [address] [address] Specific gravity, ur 1.024 1.003 - 1.030 TOM Comment:Testing performed by : [address] [address] pH, urine 7.0 TOM Comment:Testing performed by : [address] [address] Protein, ur ql Negative Negative TOM Comment:Testing performed by : [facility], [address] [place] [address], [place]., [address] Glucose, ur ql Negative Negative TOM Comment:Testing performed by : [facility], [address] [place] [address], [place]., [address] Ketones, ur Negative Negative TOM Comment:Testing performed by : [facility], [address] [place] [address], [place]., [address] Bilirubin, ur Negative Negative TOM Comment:Testing performed by : [facility], [address] [place] [address], [place]., [address] Blood, ur Negative Negative TOM Comment:Testing performed by : [facility], [address] [place] [address], [place]., [address] Urobilinogen, ur <2.0 <2.0 mg/dL TOM Comment:Testing performed by : [facility], [address] [place] [address], [place]., [address] Nitrite, ur Negative Negative TOM Comment:Testing performed by : [facility], [address] [place] [address], [place]., [address] Leukocyte esterase, ur Negative Negative TOM Comment:Testing performed by : [address], [place]., [address] UA reflex comment Reflex conditions for microscopic UA and culture not met. TOM Comment:Testing performed by : [facility], [address] [place] [address], [place]., [address] Urine 02/15/2022 11:5 2 AM CDT 02/15/2022 1:40 PM CDT Narrative TOM - 02/15/2022 2:02 PM CDT Urine Collection Method->Clean Catch Urine pH is affected by diet, medications, systemic acid-base disturbances, and renal tubular function. ??pH may affect urinary stone formation. ??For example, urine pH below 6.0 may help reduce the tendency for calcium phosphate stones and pH greater than 6.0 may reduce the tendency for uric acid stone formation. Source: [employer]. Last revised 12-05-2017 us Deric Holt MD LAB MICROBIOLOGY - GENERAL TYREE FAIRCHILD Final Result TOM [address] [facility] Department [place] [address] * (ABNORMAL) CBC with auto differential (02/15/2022 11:52 AM CDT) WBC 5.7 3.8 - 9.9 K/cumm TOM RIVERA Comment:Testing performed by : [address] [address] Hgb 12.9 11.9 - 15.5 g/dL TOM Comment:Testing performed by : [address] [address] Hct 40.8 35.6 - 45.5 % TOM Comment:Testing performed by : [address] [address] Plt 207 150 - 400 K/cumm TOM Comment:Testing performed by : [address] [address] MPV 10.4 9.1 - 12.3 fL TOM Comment:Testing performed by : [address] [address] RBC 4.90 3.90 - 5.20 M/cumm TOM Comment:Testing performed by : [address] [address] MCV 83.3 81.3 - 96.4 fL TOM Comment:Testing performed by : [address] [address] MCH 26.3(L) 27.1 - 33.3 pg TOM Comment:Testing performed by : [address] [address] MCHC 31.6(L) 32.3 - 35.7 g/dL TOM Comment:Testing performed by : [address] [address] RDW CV 13.7 11.1 - 14.9 % TOM Comment:Testing performed by : [address] [address] RDW SD 41.8 35.7 - 48.1 fL TOM RIVERA Comment:Testing performed by : [address] [address] NRBC abs 0.00 0.00 - 0.01 K/cumm TOM RIVERA Comment:Testing performed by : [address] [address] Blood 02/15/2022 11:5 2 AM CDT 02/15/2022 1:40 PM CDT Deric Holt MD LAB BLOOD ORDERABLES Final Resu lt TOM [address] [facility] Department [place] [address] * Comprehensive metabolic panel (02/15/2022 11:52 AM CDT) Sodium 140 135 - 145 mmol/L TOM RIVERA Comment:Testing performed by : [address] [address] Potassium, pl 4.7 3.3 - 4.9 mmol/L TOM RIVERA Comment:Testing performed by : [address] [address] Chloride 103 97 - 110 mmol/L TOM Comment:Testing performed by : [address] [address] CO2 26 22 - 32 mmol/L TOM Comment:Testing performed by : [address] [address] Anion gap 11 2 - 15 mmol/L TOM Comment:Testing performed by : [address] [address] BUN 15 8 - 25 mg/dL TOM Comment:Testing performed by : [address] [address] Creatinine 0.90 0.60 - 1.10 mg/dL TOM Comment:Testing performed by : [address] [address] Glucose 94 70 - 199 mg/dL TOM Comment: Interpretive [...] classification and Diagnosis of Diabetes Diabetes Care 2017;40 (Suppl. 1):S11. Current interpretive data was last revised 2017. Testing performed by: [address] [address] Calcium 9.4 8.5 - 10.3 mg/dL TOM Comment:Testing performed by : [address] [address] Bilirubin, total 0.5 0.1 - 1.2 mg/dL TOM Comment:Testing performed by : [address] [address] Protein, pl 7.3 6.5 - 8.5 g/dL TOM Comment:Testing performed by : [address] [address] Albumin 4.6 3.5 - 5.0 g/dL TMO Comment:Testing performed by : [address] [address] Alk phos 62 40 - 130 Units/L TOM Comment:Testing performed by : [address] [address] ALT 18 7 - 45 Units/L TOM Comment:Testing performed by : [address] [address] AST 18 10 - 45 Units/L TOM Comment:Testing performed by : [address] [address] Blood 02/15/2022 11:5 2 AM CDT 02/15/2022 1:40 PM CDT us Deric Holt MD LAB BLOOD ORDERABLES Final Resu lt TOM [address] [place] [address] * CRP (acute phase) (02/15/2022 11:52 AM CDT) [facility] CRP 0.4 <=10.0 mg/L TOM Comment:Testing performed by : [facility], [address] [place] [address]., [address] Blood 02/15/2022 11:5 2 AM CDT 02/15/2022 1:40 PM CDT Deric Holt MD LAB BLOOD ORDERABLES Final Resu lt Performing Organization Address City/[facility] Co de Phone Number [place] [address] [place] [address] * Cyclic citrul peptide antibody, IgG (02/15/2022 11:52 AM CDT) [facility] CCP Ab 0.5 <=2.9 units/mL TOM Comment: Interpretive data Negative: <3 units/mL Positive: > or equal to 3 units/mL Current interpretive data was last revised on 2017. Testing performed by: [facility], [address] [place]., [address] Blood 02/15/2022 11:5 2 AM CDT 02/15/2022 3:51 PM CDT Deric Holt MD LAB BLOOD ORDERABLES Final Resu lt [place] [address] [place] [address] * Rheumatoid factor (02/15/2022 11:52 AM CDT) [facility] Rheumatoid factor, quant 13.0 <=15.0 IUnits/mL TOM Blood 02/15/2022 11:5 2 AM CDT 02/15/2022 3:08 PM CDT Deric Holt MD LAB BLOOD ORDERABLES Final Resu lt Performing Organization Address City/[facility]/ZIP Co de Phone Number TOM [address] [facility] [place] [address] * Erythrocyte sedimentation rate (02/15/2022 11:52 AM CDT) Erythrocyte sedimentation rate 5 1 - 20 mm/hr TOM Comment:Testing performed by : [facility], [address] [place] [address]., [address] Blood 02/15/2022 11:5 2 AM CDT 02/15/2022 1:40 PM CDT Deric Holt MD LAB BLOOD ORDERABLES Final Resu lt Performing Organization Address [facility] Co de Phone Number TOM [facility] [place] [address] documented in this encounter Visit Diagnoses Diagnosis Arthralgia, unspecified joint- Primary Preventative health care Routine general medical examination at a health care facility Right foot pain Pain in soft tissues of limb Myalgia Unspecified myalgia and myositis Arthralgia, unspecified joint documented in this encounter Discontinued Medications Medication Sig Discontinue Reason Start Date End Da te prenat vit 17-gaov-ukbbv-om3,6 35-5-1.2-400 mg capsule Take by mouth daily Therapy completed documented as of this encounter Historical Medications * This list may reflect changes made after this encounter. ascorbic acid (VITAMIN C) 100 mg tablet Take 1 tablet (100 mg total) by mouth daily mv,Ca,min-iron vguh-LB-wpohlq 1 mg iron-66.7 mcg-1,000 mcg tablet Take by mouth 04/24/2022 multivitamin capsule Take 1 capsule by mouth daily 06/01/2024 added in this encounter Care Teams Tugboat Engineer Relationship Specialty Start Date End Date Deric Holt MD [address] [place] [address] PCP - General Internal Medicine 02/15/22 07/14/23 documented as of this encounter
--- OUTSIDE RECORDS SUMMARY | 2024-11-29 06:24 | XMS_ITS | Encounter Summary ---
Author Organization [facility] Healthcare Address [address] [place] [address] Care Team Providers Care Welder Operator Name Role Phone No, Physician Primary Care Provider [phone] Encounter Details Date Type Department Care Team (Late st Contact Info) Description 10/12/2020 6:20 PM [facility] [address] [address] Pre-procedure lab exam Social History Tobacco Use Types Packs/Day Years [...] Procedure Name Priority Date/Time Associated Diagnosis Comments COVID-19 CORONAVIRUS RNA Routine 10/12/2020 12:57 PM SPARE FIXER Pre-procedure lab exam documented in this encounter Results * COVID-19 Coronavirus RNA Nasopharyngeal (10/12/2020 12:57 PM SPARE FIXER) COVID-19 RNA Not Detected [facility] Comment: Testing performed as a component of [...] COVID-19. Interpretive Data Testing performed at [facility] Molecular Infectious Disease Laboratory. The 2019-Novel Coronavirus [...] revised on 2020. First COVID-19 test? Unknown CERNER BJ Comment:Testing performed by : [facility], [address] [place] [address], [address] Employeed in healthcare? Unknown CERNER BJ Comment:Testing performed by : [facility], [address] [place] [address], [address] status? Yes CERNER BJ Comment:Testing performed by : [facility], [address] [place] [address], [address] Group care resident? Unknown CERNER BJ Comment:Testing performed by : [facility], [address] [place] [address], [address] Hospitalized? No CERNER BJ Comment:Testing performed by : [facility], [address] [place] [address], [address] Is patient in ICU? No CERNER BJ Comment:Testing performed by : [facility], [address] [place] [address], [address] Symptomatic as defined by CDC? No CERNER BJ Comment:Testing performed by : [address], [address] Nasopharyngeal 10/12/2020 12 :57 PM SPARE FIXER 10/12/2020 7:07 PM SPARE FIXER Narrative [facility]ER [facility] - 10/13/2020 12:34 PM SPARE FIXER What is the reason for testing?->Screening prior to scheduled procedure or surgery us Abhilash Sam MD LAB MICROBIOLOGY - GENERAL ORDERABLES Final Result TOM [facility] [place] [address] documented in this encounter Visit Diagnoses Diagnosis Pre-procedure lab exam Pre-procedural laboratory examination documented in this encounter Care Teams Welder Operator Relationship Specialty Start Date End Date No, Physician PCP - General 05/26/19 02/16/21 documented as of this encounter
--- OUTSIDE RECORDS SUMMARY | 2024-11-29 06:24 | XMS_ITS | Encounter Summary ---
Author Organization [facility] Address [address] [place] [address] Care Team Providers Care Cobol Programmer Name Role Phone No, Physician Primary Care Provider [phone] Reason for Visit * Reason Comments Routine Visit 27.4 wks; 28 wk l abs started Encounter Details Date Type Department Care Team (Latest Contact Info) Description 07/27/2020 10:15 AM CDT Routine [facility] Obstetrical Gynecology [address] [address] Abhilash Sam MD [facility] [address] Encounter for related examination in [...] Reading Time Taken Comments Blood Pressure 104/60 07/27/2020 10:17 AM CDT Pulse - - Temperature - - Respiratory Rate - - Oxygen Saturation - - Inhaled Oxygen Concentration - - Weight 89.9 kg (198 lb 3.2 oz) 07/27/2020 10:17 AM CDT Height 170.2 cm (5' 7 ) 07/27/2020 10:17 AM CDT Body Mass Index 31.04 07/27/2020 10:17 AM CDT documented in this encounter Patient Instructions * Patient Instructions* Abhilash Sam MD - 07/27/2020 10:15 AM CDT Patient Education at 27 to [...] refuse treatment. The above information is an elementary school teacher's aide only. It is not intended as medical advice for individual conditions or treatments. Talk to your doctor, nurse or pharmacist before following any medical regimen to see if it is safe and effective for you. ?? 2017 [employer] Information is for End User's use only and may not be sold, redistributed or otherwise used for commercial purposes. All illustrations and images included in CareNotes?? are the copyrighted property of [employer] or [employer]. documented in this encounter Progress Notes * Abhilash Sam MD - 07/27/2020 10:15 AM CDT ?? Denies bleeding or abnormal discharge. Baby is active. ?? Having some Marcelo[place]s contractions - max 1-2/h. Discussed PTL precautions. ?? 1 hour GCT and third trimester blood work completed today. ?? Complains of some bilateral lower extremity swelling. Resolves fairly quickly when she puts her feet up. Blood pressure normal. Denies headache, vision changes. Reassured patient. documented in this encounter Plan of Treatment Not on file documented as of this encounter Visit Diagnoses Diagnosis Encounter for related examination in third trimester- Primary documented in this encounter Discontinued Medications Medication Sig Discontinue Reason Start Date End Da te ergocalciferol (VITAMIN D) 50,000 unit capsule 02/22/2020 07/27/2020 documented as of this encounter Historical Medications * This list may reflect changes made after this encounter. ascorbic acid (vitamin C) 1,000 mg tablet Take 1,000 mg by mouth daily 11/28/2020 cholecalciferol (VITAMIN D-3) 5,000 unit capsule Take 5,000 Units by mouth daily 03/14/2022 added in this encounter Care Teams Cobol Programmer Relationship Specialty Start Date End Date No, Physician PCP - General 05/26/19 02/16/21 documented as of this encounter
--- OUTSIDE RECORDS SUMMARY | 2024-11-29 06:24 | XMS_ITS | Encounter Summary ---
Author Organization [facility] Address [address] [place] [address] Care Team Providers Care Dental Cream Maker Name Role Phone No, Physician Primary Care Provider [phone] Reason for Referral * Diagnostic Imaging (Routine) - Closed Specialty Diagnoses / Procedures Referred By Contac t Referred To Contact Diagnoses Encounter for supervision of other normal in second trimester Procedures US Ob 14 Weeks Or Over W Endovaginal Lorna Witt MD Phone: tel: fax: [facility] Obstetrical Gynecology [address] [place] [address] [address] [place] [address] Phone: tel: fax: Referral ID Status Reason Start Date Expiration Date Visits Re quested Visits Authorized [id number] Closed 06/16/2020 07/16/2021 1 1 Reason for Visit * Reason Comments Ultrasound Encounter Details Date Type Department Care Team (Latest Contact Info) Description 06/16/2020 9:00 AM CDT Clinical Support [facility] Obstetrical Gynecology [address] [place] [address] [address] [place] [address] Encounter for supervision of other normal in second trimester (Primary Dx) Social History Tobacco Use [...] Name Priority Date/Time Associated Diagnosis Comments US OB 14 WEEKS OR OVER W ENDOVAGINAL Schedule Routine, Read Routine (OP Routine) 06/16/2020 9:39 AM CDT Encounter for supervision of other normal in second trimester documented in this encounter Results * US Ob 14 Weeks Or Over W Endovaginal (06/16/2020 9:39 AM CDT) Heart Rate 148 bpm Biparietal Diameter 5.3 cm Abdominal Circumference 16.3 cm Head Circumference 19.3 cm Femur Length 3.9 cm Anatomical Region Laterality Modality Abdomen N/A Ultrasound Narrative 07/03/2020 9:48 AM CDT Previous Exam: 03.07.2020 ??Location: [facility] Indication: anatomy ?? number: 1 position: cephalic ?? Placenta location: anterior ART: WNL GA by prev sono: w5d KRYSTAL 10.22.2020 EFW today: 1 lbs 0 oz (455g) 50% ??GA: 21w6d KRYSTAL 10.21.2020 anatomy appearing normal: Cranial anatomy: Y Stomach: Y Bladder: Y Diaphragm: Y Kidneys: Y Umbilical cord insert: Y 3v Cord: Y Spine: Y Face: Y 4ch heart: Y LVOT: Y RVOT: Y Situs - normal: Y Clinical Nursing Professor comments: Cvx: 3.77 cm ??Valsalva: 4.36 cm TV Physician Interpretation Reason for exam: anatomy Gestation: hernandez presentation: cephalic Placenta: anterior ART: normal Biometery: BPD: ??5.32cm, ??65.7% HC: ??19.26cm, ??30.0% AC: ??16.27cm, ??30.5% FL: ??3.89cm, ??66.9% Growth: EFW 455g, 49.7% Impression: Single, live IUP with cardiac activity of 148 bpm. ??AGA growth. Fluid appears normal. Placenta appears normal. anatomy is well-visualized today and appears normal. ??No other abnormalities identified within the limits of today's exam. Recommend: Follow up US as clinically indicated. Lorna Witt MD us Lorna Witt MD IMG OB US PROCEDURES Edited Resu lt - Final documented in this encounter Visit Diagnoses Diagnosis Encounter for supervision of other normal in second trimester- Primary documented in this encounter Care Teams Dental Cream Maker Relationship Specialty Start Date End Date No, Physician PCP - General 05/26/19 02/16/21 documented as of this encounter
--- OUTSIDE RECORDS SUMMARY | 2024-11-29 06:24 | XMS_ITS | Encounter Summary ---
Author Organization [facility] Address [address] [place] [address] Care Team Providers Care Cloth Mender Name Role Phone No, Physician Primary Care Provider [phone] Encounter Details Date Type Department Care Team (Late st Contact Info) Description 08/06/2020 2:19 PM CDT - 08/06/2020 7:43 PM CDT Hospital Encounter [facility] OP INTERIM Sydney Werner DO [address] [facility] [place], [place] [id number] Unknown, Notinfile Discharge Disposition: Discharge to home or self [...] Sign Reading Time Taken Comments Blood Pressure 127/59 08/06/2020 2:20 PM CDT Pulse 62 08/06/2020 2:20 PM CDT Temperature 36.7 ??C (98.1 ??F) 08/06/2020 2:20 PM CD T Respiratory Rate - - Oxygen Saturation 97% 08/06/2020 2:20 PM CDT Inhaled Oxygen Concentration - - Weight 88.9 kg (196 lb) 08/06/2020 2:20 PM CDT Height 170.2 cm (5' 7 ) 08/06/2020 2:20 PM CDT Body Mass Index 30.7 08/06/2020 2:20 PM CDT documented in this encounter Medications at Time of Discharge ascorbic acid (vitamin C) 1,000 mg tablet [...] 30 tablet 6 04/14/2020 11/28/2020 prenat vit [id number]-hgwb-[id number]-om3 ,6 35-5-1.2-400 mg capsule Take by mouth daily 02/15/2022 pyridoxine (VITAMIN B-6) 50 mg tablet Take 50 mg by mouth daily 11/28/2020 documented as of this encounter Discharge Disposition Disposition Code Departure Means Destination Discharge to home or self care documented in this encounter Plan of Treatment Not on file documented as of this encounter Procedures Procedure Name Priority Date/Time Associated Diagnosis Comments ABO/RH Routine 08/06/2020 4:49 PM CDT XR ANKLE LEFT 3 OR MORE VIEWS 08/06/2020 2:56 PM CDT TNI WITH LIPID PANEL Routine 08/06/2020 2:36 PM CDT CBC WITH AUTO DIFFERENTIAL Routine 08/06/2020 2:36 PM CDT COMPREHENSIVE METABOLIC PANEL Routine 08/06/2020 2:36 PM CDT ECG 12-LEAD 08/06/2020 2:27 PM CDT documented in this encounter Results * ABO/Rh (08/06/2020 4:49 PM CDT) Blood Type OP [facility] 08/06/2020 4:49 PM CDT 08/06/2020 6:02 PM CDT Narrative Resulting Agency Comment CLI us Sydney Werner DO LAB BLOOD BANK TEST ORDERABLES Final Result [address] [phone] * XR Ankle Left 3 or More Views (08/06/2020 2:56 PM CDT) Anatomical Region Laterality Modality Lower Extremities, Ankle Left Radiogr aphic Imaging 08/06/2020 3:18 PM CDT Narrative 08/06/2020 3:19 PM CDT Patient Name: REBEL TAI ?Ordering Dr: Sydney Werner DO ?? D.O.B: 1985 ? Exam Date: 08/06/20 ?? 1456 ?? Age: 35 ?Sex: Female ? MR#: [id number] ?? Loc: ? RADIOLOGY REPORT ?? Order #[id number] ?? Radiology ? Ankle LT 3 View Min ? Signed ? EXAM DESCRIPTION: ?Ankle LT 3 View Min ? REASON FOR STUDY: ?? pt states ankle pain today ? TECHNIQUE: ?? AP, lateral, and oblique radiographic views acquired of the left ?? ankle. ? COMPARISON: ?? None provided ? FINDINGS: ? BONES/JOINTS: ??No acute fracture, malalignment or osseous abnormalities. ?Joint spaces are maintained. ? SOFT TISSUES: ??Mild diffuse soft tissue swelling. ??No radiopaque foreign body. ? OTHER: ??No other significant finding. ? IMPRESSION: ?? No acute osseous abnormality. ? THIS IS AN ELECTRONICALLY VERIFIED FINAL REPORT ?? 08/06/2020 3:19 PM - Electronically signed by Tenisha Osorio D.O. ?? Tenisha Osorio D.O. ? CB: CB ?? D: ??08/06/2020 3:19 PM ?? T: ??08/06/2020 3:19 PM ? Report ID: [id number] ?? Reading Location: ??[id number] ? REPORT ELECTRONICALLY SIGNED IN OTHER VENDOR SYSTEM ?? Resulting Agency Comment O Procedure Note Tenisha Osorio DO - 08/26/2020 Patient Name: REBEL TAI Dr: Sydney Werner DO, D.O.B: 1985 Exam Date: 08/06/20 1456 Age: 35 Sex: Female MR#: [id number] Loc: RADIOLOGY REPORT Order #[id number] Radiology Ankle LT 3 View Min Signed EXAM DESCRIPTION: Ankle LT 3 View Min REASON FOR STUDY: pt states ankle pain today TECHNIQUE: AP, lateral, and oblique radiographic views acquired of theleft ankle. COMPARISON: None provided FINDINGS: BONES/JOINTS: No acute fracture, malalignment or osseous abnormalities. Joint spaces are maintained. SOFT TISSUES: Mild diffuse soft tissue swelling. No radiopaque foreignbody. OTHER: No other significant finding. IMPRESSION: No acute osseous abnormality. THIS IS AN ELECTRONICALLY VERIFIED FINAL REPORT 08/06/2020 3:19 PM - Electronically signed by Tenisha Osorio D.O. CB: L[place]NE Report ID: [id number] Reading Location: [place] [address] REPORT ELECTRONICALLY SIGNED IN OTHER VENDOR SYSTEM us Sydney Werner DO IMG XR PROCEDURES Edited Result - Final * (ABNORMAL) TNI with LIPID PANEL (08/06/2020 2:36 PM CDT) Troponin I <0.300 0.000 - 0.300 ng/mL [facility] Comment: Reference using MARIAM Chemiluminescence ? Negative: Repeat in 4-6 hours as indicated. Triglycerides 239(H) 0 - 149 mg/dL [facility] Comment: National Lipid Association/NCEP Guidelines: ?? Normal ?< 150 mg/dL ?? Borderline high ?? 150-199 mg/dL ?? High ?200-499 mg/dL ?? Very High ? >=500 mg/dL Cholesterol 270(H) 0 - 199 mg/dL [facility] Comment: National Lipid Association/NCEP Guidelines: Desirable ? < 200 mg/dL Borderline high: ??200-239 mg/dL High Risk: ?>=240 mg/dL HDL Cholesterol 53 mg/dL [facility] Comment: Reference Ranges: ? Males: >=40 mg/dL ? Females: >=50 mg/dL LDL Cholesterol, Calc 169(H) 0 - 129 mg/dL [facility] Comment: National Lipid Association/NCEP Guidelines: ??Optimal ? < 100 mg/dL ??Near Optimal ?100-129 mg/dL ??Borderline high 130-159 mg/dL ??High ?>=160 mg/dL Cholesterol/HDL Ratio 5.1 [facility] Comment: Optimal ??< 3.5:1 High ? > 5:1 08/06/2020 2:36 PM CDT 08/06/2020 2:47 PM CDT Narrative Resulting Agency Comment ER Sydney Werner DO LAB BLOOD [place] [address], [facility] [phone] * (ABNORMAL) Comprehensive metabolic panel (08/06/2020 2:36 PM CDT) Sodium 137 135 - 145 mmol/L [facility] Potassium 3.8 3.3 - 5.1 mmol/L [facility] Chloride 104 96 - 108 mmol/L [facility] Carbon Dioxide 20(L) 22 - 32 mmol/L [facility] Anion Gap 13 7 - 16 [facility] Glucose 118(H) 70 - 100 mg/dL [facility] BUN 11 8 - 25 mg/dL [facility] Creatinine 0.6 0.5 - 1.1 mg/dL [facility] Comment: NOTE: Estimated GFR (Cockroft-Gault) will NOT be calculated unless patient Height and Weight were entered. Also, Kidney Disease Stage (GFR) and Estimated GFR (Cockroft-Gault) will NOT be calculated if Creatinine result is <0.2. Kidney Disease Stage >90 mL/MIN [facility] Comment: NOTE; ??The GFR is an estimated value using the creatinine, sex, age, and race of the patient. THE Estimated Kidney Disease GFR is validated for AGES 18-70 YEARS STAGE ?mL/Min ?DESCRIPTION ??1 ?90 mL/min or more ?Normal or elevated GFR ??2 ? 60-89 mL/min ?Mildly decreased GFR ??3 ? 30-59 mL/min ?Moderately decreased GFR ??4 ? 15-29 mL/min ?Severely decreased GFR ??5 ? <15 mL/min ? Kidney failure or on dialysis Est GFR (Cockcroft-G) 151 ml/MIN [facility] Comment: Estimated GFR(Cockroft-Gault)is used to calculate patient medication dosage Calcium 9.0 8.6 - 10.3 mg/dL [facility] Total Protein 6.2(L) 6.4 - 8.3 g/dL [facility] Albumin 3.5 3.5 - 5.0 g/dL [facility] Globulin 2.7 2.3 - 3.5 gm/dL [facility] Albumin/Globulin Ratio 1.3 1.1 - 1.8 [facility] Total Bilirubin 0.2 0.0 - 1.2 mg/dL [facility] AST 22 0 - 32 U/L [facility] ALT 24 0 - 33 U/L [facility] Alkaline Phosphatase 75 35 - 104 U/L [facility] 08/06/2020 2:36 PM CDT 08/06/2020 2:47 PM CDT Narrative Resulting Agency Comment ER us Sydney Werner DO LAB BLOOD ORDERABLES Final Resu lt [facility] [address] [place] [address], [facility] [phone] * (ABNORMAL) CBC with auto differential (08/06/2020 2:36 PM CDT) WBC 11.4(H) 3.8 - 9.9 X10 3/ul [facility] RBC 4.10 3.90 - 5.20 x10 6/ul [facility] Hemoglobin 11.6(L) 11.9 - 15.5 g/dL [facility] Hct 34.7(L) 35.6 - 45.5 % [facility] MCV 84.6 81.3 - 96.4 fl [facility] MCH 28.3 27.1 - 33.3 pg [facility] MCHC 33.4 32.3 - 35.7 g/dl [facility] RDW 13.2 11.1 - 14.9 % [facility] Plt Count 223 150 - 400 x10 3/ul [facility] MPV 9.8 9.1 - 12.3 fl [facility] Neut % 77.5 % [facility] Immature Gran % 0.8 % [facility] Lymph % 13.9 % [facility] [place] % 6.6 % [facility] Eos % 1.0 % [facility] AUTO BASO % 0.2 % [facility] NEUTROPHIL ABS # 8.9(H) 1.7 - 6.5 x10 3/ul [facility] Immature Gran # 0.1 0.0 - 0.1 x10 3/ul [facility] Absolute Lymphs (auto) 1.6 0.8 - 3.3 x10 3/ul [facility] Absolute Monos (auto) 0.8 0.2 - 0.8 x10 3/ul [facility] Absolute Eos (auto) 0.1 0.0 - 0.5 x10 3/ul [facility] BASOPHIL ABS # 0.0 0.0 - 0.1 x10 3/ul [facility] Nucleat RBC Rel Count 0.0 #/100WBC [facility] NRBC abs 0.00 0.00 - 0.01 x10 3/ul [facility] Absolute Neutrophils 8,900(H) 200 - 8,000 /ul [facility] 08/06/2020 2:36 PM CDT 08/06/2020 2:47 PM CDT Narrative Resulting Agency Comment ER Sydney Werner DO LAB BLOOD ORDERABLES Final Resu lt [address] [phone] * ECG 12 lead (08/06/2020 2:27 PM CDT) Ventricular Rate EKG/Min 76 BPM [facility] Atrial Rate 76 BPM [facility] MS-Interval (MSEC) 138 ms [facility] QRS-Interval (MSEC) 84 ms [facility] QT-Interval (MSEC) 370 ms [facility] QTc 416 ms [facility] P [place] -3 degrees [facility] R [place] 48 degrees [facility] T [place] -3 degrees [facility] Diagnosis Normal sinus rhythm Normal ECG No previous ECGs available [facility] 08/06/2020 2:27 PM CDT 08/06/2020 11:27 PM CDT Narrative Resulting Agency Comment PREADT Sydney Werner DO ECG ORDERABLES Final Result Performing Organization Address City/[facility]/ZIP Co de Phone Number [facility] documented in this encounter Visit Diagnoses Not on filedocumented in this encounter Care Teams Cloth Mender Relationship Specialty Start Date End Date No, Physician PCP - General 05/26/19 02/16/21 documented as of this encounter
--- OUTSIDE RECORDS SUMMARY | 2024-11-29 06:24 | XMS_ITS | Encounter Summary ---
Author Organization [facility] Address [address] [place] [address] Care Team Providers Care Egg Breaker Name Role Phone No, Physician Primary Care Provider [phone] Encounter Details Date Type Department Care Team (Latest Contact Info) Description 07/06/2020 9:30 AM CDT Routine [facility] Obstetrical Gynecology [address] [place] [address] Jenni Raphael CNM [address] [address] Third trimester (Primary Dx); Supervision of other normal , antepartum Social History Tobacco Use Types Packs/Day Years [...] Sign Reading Time Taken Comments Blood Pressure 114/62 07/06/2020 9:41 AM CDT Pulse - - Temperature - - Respiratory Rate - - Oxygen Saturation - - Inhaled Oxygen Concentration - - Weight 87.5 kg (193 lb) 07/06/2020 9:41 AM CDT Height - - Body Mass Index 30.23 04/14/2020 2:31 PM CDT documented in this encounter Progress Notes * Jenni Raphael CNM - 07/06/2020 9:30 AM CDT -Denies ctx, VB, LOF. Has +FM. Taking daily PNV with iron. Reviewed labor precautions and kick counts. -Pt did not go down to lab after 7/8 visit as discussed to complete initial labs. States she lost the paperwork after that and did not go. Stressed importance of labwork for guiding care. Third trimester labs due in the next 2-3 wks. Discussed completing labs at next visit or the day before (pt agrees to doing this) and provided a new copy of orders for initial labs (which includes HIV, RPR and CBC) and added a 1hr GTT with instructions. Discussed that she needs all of them drawn, not just the GTT. -May need rhogam at next visit (blood type?), pending type and screen results. documented in this encounter Plan of Treatment Not on file documented as of this encounter Procedures Procedure Name Priority Date/Time Associated Diagnosis Comments GTT 50GM 1HR GESTATIONAL SCREEN Routine 07/27/2020 9:38 AM CDT Third trimester documented in this encounter Results * GTT, gestational diabetes 50gm 1hr screen (07/27/2020 9:38 AM CDT) Gestat Glucose Screen [facility] Comment: GTT1 GEST ?133 ?mg/dL ??Col:07/27/20 1050 Expected Results: <130 mg/dL or <140 mg/dL (Clinician preference) TRUTOL REQUIRED: 5.0 ounces (Screen for Gestational Diabetes) Blood specimen (specimen) 07/27/2020 9:38 AM CDT Narrative Resulting Agency Comment CLI us Jenni Raphael CNM LAB BLOOD ORDERABLES F inal Result [place] [address] [place] [address], [facility] [phone] documented in this encounter Visit Diagnoses Diagnosis Third trimester - Primary state, incidental Supervision of other normal , antepartum documented in this encounter Care Teams Egg Breaker Relationship Specialty Start Date End Date No, Physician PCP - General 05/26/19 02/16/21 documented as of this encounter
--- OUTSIDE RECORDS SUMMARY | 2024-11-29 06:24 | XMS_ITS | Encounter Summary ---
Author Organization [facility] Address [address] [place] [address] Care Team Providers Care Newsagent Name Role Phone No, Physician Primary Care Provider [phone] Encounter Details Date Type Department Care Team ([facility] st Contact Info) Description 09/28/2020 Orders Only [facility] Obstetrical Gynecology [address] [facility] [address] [place] [address] Abhilash Sam MD [address] [facility] [address] [place] [address] Encounter for induction of labor (Primary Dx) Social History Tobacco Use Types [...] as of this encounter Progress Notes * Indigo Acosta MA - 09/28/2020 12:22 PM CST Order for mandatory Covid testing prior to Induction on 10/15/20. INUM AND PALLADIUM KETTLE TENDER documented in this encounter Plan of Treatment Not on file documented as of this encounter Visit Diagnoses Diagnosis Encounter for induction of labor- Primary documented in this encounter Care Teams Newsagent Relationship Specialty Start Date End Date No, Physician PCP - General 05/26/19 02/16/21 documented as of this encounter
--- OUTSIDE RECORDS SUMMARY | 2024-11-29 06:24 | XMS_ITS | Encounter Summary ---
Author Organization [facility] Healthcare Address [address] [place] [address] Care Team Providers Care Clinical Research Associate Name Role Phone No, Physician Primary Care Provider [phone] Encounter Details Date Type Department Care Team (Late st Contact Info) Description 08/02/2020 6:39 AM CDT Hospital Encounter [facility] OP INTERIM Jenni Raphael, RAFI [address] [facility] [address] [place] [id number] Social History Tobacco Use Types Packs/Day Years [...] 30 tablet 6 04/14/2020 11/28/2020 prenat vit 86-qczz-ahbva-om3 ,6 35-5-1.2-400 mg capsule Take by mouth daily 02/15/2022 pyridoxine (VITAMIN B-6) 50 mg tablet Take 50 mg by mouth daily 11/28/2020 documented as of this encounter Plan of Treatment Not on file documented as of this encounter Visit Diagnoses Not on filedocumented in this encounter Care Teams Clinical Research Associate Relationship Specialty Start Date End Date No, Physician PCP - General 05/26/19 02/16/21 documented as of this encounter
--- OUTSIDE RECORDS SUMMARY | 2024-11-29 06:24 | XMS_ITS | Encounter Summary ---
Author Organization [facility] Address [address] [address] [place] [address] Care Team Providers Care Hat Marker Name Role Phone No, Physician Primary Care Provider [phone] Reason for Visit * Reason Comments Routine Visit Encounter Details Date Type Department Care Team (Latest Contact Info) Description 06/16/2020 10:00 AM CDT Routine [facility] Obstetrical Gynecology [address] [address] Lorna Witt MD [address] [address] Supervision of other normal , [...] Sign Reading Time Taken Comments Blood Pressure 124/62 06/16/2020 10:06 AM CDT Pulse - - Temperature - - Respiratory Rate - - Oxygen Saturation - - Inhaled Oxygen Concentration - - Weight 85.3 kg (188 lb) 06/16/2020 10:06 AM CDT Height - - Body Mass Index 29.44 04/14/2020 2:31 PM CDT documented in this encounter Progress Notes * Lorna Witt MD - 06/16/2020 10:00 AM CDT Return OB Visit 34 y.o. at 21w5d Patient reports no complaints. Denies contractions, VB or LOF. Good FM Objective BP 124/62 Wt 188 lb (85.3 kg) LMP 01/16/2020 BMI 29.44 kg/m?? Body mass index is 29.44 kg/m??. TW lb (4.536 kg) Supervision of Anatomy: Complete (06/16), nml EFW 50%, Girl GCT: Plan for 28wks Tdap: Needs as early as possible after 27wks GBS: Plan for 36wks unless delivery indicated sooner Delivery Planning: TBD Reviewed COVID19 risk factors and symptoms including fever, shortness of breath, dry cough, and fatigue. Recommended social distancing, good hand hygiene, and to intermediate at home when possible PTL precautions discussed RTC in 3wks documented in this encounter Plan of Treatment Not on file documented as of this encounter Visit Diagnoses Diagnosis Supervision of other normal , antepartum- Primary documented in this encounter Care Teams Hat Marker Relationship Specialty Start Date End Date No, Physician PCP - General 05/26/19 02/16/21 documented as of this encounter
--- OUTSIDE RECORDS SUMMARY | 2024-11-29 06:24 | XMS_ITS | Encounter Summary ---
Author Organization [facility] Healthcare Address [address] [place] [address] Care Team Providers Care Pot Puncher Name Role Phone No, Physician Primary Care Provider [phone] Encounter Details Date Type Department Care Team (Late st Contact Info) Description 10/01/2020 5:15 PM PMO CONSULTANT - 10/01/2020 8:18 PM PMO CONSULTANT Hospital Encounter [facility] OP INTERIM Lorna Witt MD [facility] [id number] Minesh Nish Cainjulio cesar, [address], [place] [phone] Discharge Disposition: Discharge to home or self [...] Sign Reading Time Taken Comments Blood Pressure 136/74 10/01/2020 5:28 PM PMO CONSULTANT Pulse 78 10/01/2020 5:28 PM PMO CONSULTANT Temperature 36.7 ??C (98.1 ??F) 10/01/2020 5:28 PM CS T Respiratory Rate - - Oxygen Saturation 98% 10/01/2020 5:28 PM PMO CONSULTANT Inhaled Oxygen Concentration - - Weight 95.3 kg (210 lb) 10/01/2020 5:28 PM PMO CONSULTANT Height 170.2 cm (5' 7 ) 10/01/2020 5:28 PM PMO CONSULTANT Body Mass Index 32.89 10/01/2020 5:28 PM PMO CONSULTANT documented in this encounter Medications at Time [...] Take 1 tablet by mouth daily 11/28/2020 cholecalciferol (VITAMIN D-3) [...] 30 tablet 6 04/14/2020 11/28/2020 prenat vit [id number] ,6 35-5-1.2-400 mg capsule Take by mouth [...] on filedocumented in this encounter Care Teams Pot Puncher Relationship Specialty Start Date End Date No, Physician PCP - General 05/26/19 02/16/21 documented as of this encounter
--- OUTSIDE RECORDS SUMMARY | 2024-11-29 06:24 | XMS_ITS | Encounter Summary ---
Author Organization [facility] Medical Group Address [address] [place] [address] Care Team Providers Care Program Proposals Coordinator Name Role Phone No, Physician Primary Care Provider [phone] Reason for Visit * Reason Comments Routine Visit pt c/o sharp left uterine pain thats constant Encounter Details Date Type Department Care Team (Latest Contact Info) Description 06/01/2020 3:00 PM CDT Routine [facility] Obstetrical Gynecology [address] [place] [address] Jenni Raphael, [facility] [address] [address] Supervision of other normal , antepartum (Primary [...] Reading Time Taken Comments Blood Pressure 114/62 06/01/2020 3:17 PM CDT Pulse - - Temperature - - Respiratory Rate - - Oxygen Saturation - - Inhaled Oxygen Concentration - - Weight 86.7 kg (191 lb 3.2 oz) 06/01/2020 3:17 P M CDT Height - - Body Mass Index 29.95 04/14/2020 2:31 PM CDT documented in this encounter Progress Notes * Jenni Raphael CNM - 06/01/2020 3:00 PM CDT -Pt called c/o intermittent sharp, short pain on left side over the last few days. Description sounds like ligament stretching. Denies VB, LOF. Has been feeling movement most days and was worried that she hadn't in a day or two and wanted to come in and hear FHTs. FHTs in the 140s, pt relieved. -Pt had not yet completed labs. She had thought labs and US would be sent from fertility clinic after she requested. Pt plans to complete labs today and check on her records status. -Reviewed second trimester precautions. Keep already scheduled OB visit and anatomy US. documented in this encounter Plan of Treatment Not on file documented as of this encounter Visit Diagnoses Diagnosis Supervision of other normal , antepartum- Primary documented in this encounter Care Teams Program Proposals Coordinator Relationship Specialty Start Date End Date No, Physician PCP - General 05/26/19 02/16/21 documented as of this encounter
--- OUTSIDE RECORDS SUMMARY | 2024-11-29 06:24 | XMS_ITS | Encounter Summary ---
Author Organization [facility] Healthcare Address [address] [place] [address] Care Team Providers Care World Language Teacher Name Role Phone Rachel Ortiz MD Primary Care Provider [phone] Encounter Details Date Type Department Care Team (Late st Contact Info) Description 02/15/2022 11:30 AM CDT Lab [facility] Building [address] [address] Arthralgia, unspecified joint Social History Tobacco Use Types Packs/Day Years [...] Date Recorded PHQ-2 Total Score 1 02/15/2022 Tobias Depression Scale Answer Date Recorded Tobias Depression Scale Total 1 11/28/2020 The thought of harming myself has occurred to me . Never 11/28/2020 Comments No Sex and Gender Information Value Date Recorded Sex Assigned at Not on file Legal Sex Female 2:07 PM CDT Gender Identity Not on file Sexual Orientation Not on file documented as of this encounter Miscellaneous Notes * Result Encounter Note - Rachel Ortiz MD - 02/19/2022 10:17 AM CDT Gladys Your autoimmune labs are thankfully normal. We can discuss further at your appointment but your cholester, blood counts, liver and kidney are all normal too as are your urine studies. You do have a low vitamin D, very low. I suggest we start a high dose replacement which [place] [facility]. After this prescription, I advise 2000 international units daily over the counter fpc. documented in this encounter Plan of Treatment Not on file documented as of this encounter Procedures Procedure Name Priority Date/Time Associated Diagnosis Comments LISA REFLEX TO QUANTITATIVE AND DSDNA Routine 02/15/2022 11:52 AM CDT EGFR Routine 02/15/2022 11:52 AM CDT Arthralgia, unspecified joint DIFFERENTIAL AUTO Routine 02/15/2022 11: 52 AM CDT Arthralgia, unspecified joint URINALYSIS AND REFLEX TO MICROSCOPIC AND CULTURE Routine 02/15/2022 11:52 AM CDT Arthralgia, unspecified joint CBC WITH AUTO DIFFERENTIAL Routine 02/15/2022 11:52 AM CDT Arthralgia, unspecified joint CYCLIC CITRUL PEPTIDE ANTIBODY, IGG Routine 02/15/2022 11:52 AM CDT Arthralgia, unspecified joint VITAMIN D 25 HYDROXY Routine 02/15/2022 11:52 AM CDT Arthralgia, unspecified joint ERYTHROCYTE SEDIMENTATION RATE Routine 02/15/2022 11:52 AM CDT Arthralgia, unspecified joint RHEUMATOID FACTOR Routine 02/15/2022 11: 52 AM CDT Arthralgia, unspecified joint CRP (ACUTE PHASE) Routine 02/15/2022 11: 52 AM CDT Arthralgia, unspecified joint LIPID PANEL Routine 02/15/2022 11:52 AM CDT Arthralgia, unspecified joint COMPREHENSIVE METABOLIC PANEL Routine 02/15/2022 11:52 AM CDT Arthralgia, unspecified joint documented in this encounter Results * eGFR (02/15/2022 11:52 AM CDT) [facility] eGFR 86 mL/min/1. 73 m2 TOM [facility] Comment: Interpretive [...] was last reviewed 2021. Testing performed by: [facility], [address] [place] [address], [place]., [address] Blood 02/15/2022 11:5 2 AM CDT 02/15/2022 1:40 PM CDT Rachel Ortiz MD LAB BLOOD ORDERABLES Final Resu lt TOM [address] [facility] [place] [address] * Differential, auto (02/15/2022 11:52 AM CDT) Neutrophil abs 3.1 1.7 - 6.5 K/cumm TOM Comment:Testing performed by : [address] [address] Imm gran abs 0.0 0.0 - 0.1 K/cumm TOM Comment:Testing performed by : [address] [address] Lymphocyte abs 2.1 0.8 - 3.3 K/cumm TOM Comment:Testing performed by : [address] [address] Monocyte abs 0.4 0.2 - 0.8 K/cumm TOM Comment:Testing performed by : [address] [address] Eosinophil abs 0.1 0.0 - 0.5 K/cumm [facility] Comment:Testing performed by : [address] [address] Basophil abs 0.0 0.0 - 0.1 K/cumm [facility] Comment:Testing performed by : [address] [address] Neutrophil pct 54.6 % [facility] Comment: Interpretive Data Percent cell count reference ranges are not reported, since discordance with absolute values may lead to misinterpretation of CBC data. Current Interpretive Data was last revised on 2018. Testing performed by: [address] [address] Imm gran pct 0.2 % TOM Comment: Interpretive Data Percent cell count reference ranges are not reported, since discordance with absolute values may lead to misinterpretation of CBC data. Current Interpretive Data was last revised on 2018. Testing performed by: [address] [address] Lymphocyte pct 35.7 % [facility] Comment: Interpretive Data Percent cell count reference ranges are not reported, since discordance with absolute values may lead to misinterpretation of CBC data. Current Interpretive Data was last revised on 2018. Testing performed by: [address] [address] Monocyte pct 7.1 % TOM Comment: Interpretive Data Percent cell count reference ranges are not reported, since discordance with absolute values may lead to misinterpretation of CBC data. Current Interpretive Data was last revised on 2018. Testing performed by: [address] [address] Eosinophil pct 1.7 % TOM Comment: Interpretive Data Percent cell count reference ranges are not reported, since discordance with absolute values may lead to misinterpretation of CBC data. Current Interpretive Data was last revised on 2018. Testing performed by: [address] [address] Basophil pct 0.7 % TOM Comment: Interpretive Data Percent cell count reference ranges are not reported, since discordance with absolute values may lead to misinterpretation of CBC data. Current Interpretive Data was last revised on 2018. Testing performed by: [address] [address] Blood 02/15/2022 11:5 2 AM CDT 02/15/2022 1:40 PM CDT us Rachel Ortiz MD LAB BLOOD ORDERABLES Final Resu lt TOM [address] [facility] [place] [address] * LISA Reflex to Quantitative and dsDNA (02/15/2022 11:52 AM CDT) LISA Negative TOM [facility]A Comment: Interpretive Data Normal range for LISA Qualitative Antibody = Negative. 1. LISA is performed using indirect immunofluorescence against HEp-2 cells 2. LISA titers are performed on all positive qualitative results. 3. A significantly positive LISA result is defined as a positive nuclear fluorescence at a titer of 1:80 or greater. 4. 15% of normal people above age 65 have significantly positive LISA results. ??5% or less of normal people age 65 or under have significantly positive LISA results. Current interpretive data was last revised on 2020. Testing performed by: [facility], [address] [place]., [address] Blood 02/15/2022 11:5 2 AM CDT 02/15/2022 3:51 PM CDT Rachel Ortiz MD LAB BLOOD ORDERABLES Final Resu lt Performing Organization Address City/[facility]/ZIP Co de Phone Number [address] [place] [employer] [place] [address] * Erythrocyte sedimentation rate (02/15/2022 11:52 AM CDT) Pathologist [facility] [place] Erythrocyte sedimentation rate 5 1 - 20 mm/hr [facility] Comment:Testing performed by : [facility], [address] [place] [address]., [address] Blood 02/15/2022 11:5 2 AM CDT 02/15/2022 1:40 PM CDT Result [facility] Rachel Ortiz MD LAB BLOOD ORDERABLES Final Resu lt Performing Organization Address [facility] Co de Phone Number [address] [employer] [place] [address] * Rheumatoid factor (02/15/2022 11:52 AM CDT) Pathologist [facility] [place] Rheumatoid factor, quant 13.0 <=15.0 IUnits/mL [facility] Blood 02/15/2022 11:5 2 AM CDT 02/15/2022 3:08 PM CDT Result [facility] Rahcel Ortiz MD LAB BLOOD ORDERABLES Final Resu lt Performing Organization Address City/[facility] Co de Phone Number [address] [place] [address] * Cyclic citrul peptide antibody, IgG (02/15/2022 11:52 AM CDT) CCP Ab 0.5 <=2.9 units/mL TOM [facility]A Comment: Interpretive data Negative: <3 units/mL Positive: > or equal to 3 units/mL Current interpretive data was last revised on 2017. Testing performed by: [facility], [address] [place]., [address] Blood 02/15/2022 11:5 2 AM CDT 02/15/2022 3:51 PM CDT Rachel Ortiz MD LAB BLOOD ORDERABLES Final Resu lt Performing Organization Address City/[facility] Co de Phone Number [address] [place] [address] * CRP (acute phase) (02/15/2022 11:52 AM CDT) Pathologist [facility] [place] CRP 0.4 <=10.0 mg/L TOM Comment:Testing performed by : [address] [address] Blood 02/15/2022 11:5 2 AM CDT 02/15/2022 1:40 PM CDT Rachel Ortiz MD LAB BLOOD ORDERABLES Final Resu lt Performing Organization Address [facility] Co de Phone Number [address] [employer] [place] [address] * Comprehensive metabolic panel (02/15/2022 11:52 AM CDT) Pathologist [facility] [place] Sodium 140 135 - 145 mmol/L TOM Comment:Testing performed by : [address] [address] Potassium, pl 4.7 3.3 - 4.9 mmol/L TOM Comment:Testing performed by : [address] [address] Chloride 103 97 - 110 mmol/L TOM Comment:Testing performed by : [facility], [address] [place] [address], [place]., [address] CO2 26 22 - 32 mmol/L TOM Comment:Testing performed by : [address] [address] Anion gap 11 2 - 15 mmol/L TOM Comment:Testing performed by : [address], [place]., [address] BUN 15 8 - 25 mg/dL TOM Comment:Testing performed by : [address], [place]., [address] Creatinine 0.90 0.60 - 1.10 mg/dL TOM Comment:Testing performed by : [address] [address] Glucose 94 70 - 199 mg/dL TOM [...] was last revised 2017. Testing performed by: [address] [address] Calcium 9.4 8.5 - 10.3 mg/dL TOM Comment:Testing performed by : [address] [address] Bilirubin, total 0.5 0.1 - 1.2 mg/dL TOM Comment:Testing performed by : [address] [address] Protein, pl 7.3 6.5 - 8.5 g/dL TOM Comment:Testing performed by : [address], [place]., [address] Albumin 4.6 3.5 - 5.0 g/dL TOM Comment:Testing performed by : [address], [place] [address] Alk phos 62 40 - 130 Units/L TOM [facility] Comment:Testing performed by : [address] [address] ALT 18 7 - 45 Units/L TOM [facility] Comment:Testing performed by : [address] [address] AST 18 10 - 45 Units/L TOM [facility] Comment:Testing performed by : [address] [address] Blood 02/15/2022 11:5 2 AM CDT 02/15/2022 1:40 PM CDT us Rachel Ortiz MD LAB BLOOD ORDERABLES Final Resu lt TOM [facility] Department [place] [address] * (ABNORMAL) CBC with auto differential (02/15/2022 11:52 AM CDT) WBC 5.7 3.8 - 9.9 K/cumm TOM [facility] Comment:Testing performed by : [address] [address] Hgb 12.9 11.9 - 15.5 g/dL TOM [facility] Comment:Testing performed by : [address] [address] Hct 40.8 35.6 - 45.5 % TOM [facility] Comment:Testing performed by : [address] [address] Plt 207 150 - 400 K/cumm TOM [facility] Comment:Testing performed by : [address] [address] MPV 10.4 9.1 - 12.3 fL TOM [facility] Comment:Testing performed by : [address] [address] RBC 4.90 3.90 - 5.20 M/cumm TOM [facility] Comment:Testing performed by : [address], [address] MCV 83.3 81.3 - 96.4 fL TOM [facility] Comment:Testing performed by : [address] [address] MCH 26.3(L) 27.1 - 33.3 pg TOM [facility] Comment:Testing performed by : [address] [address] MCHC 31.6(L) 32.3 - 35.7 g/dL TOM [facility] Comment:Testing performed by : [address] [address] RDW CV 13.7 11.1 - 14.9 % TOM [facility] Comment:Testing performed by : [address], [address] RDW SD 41.8 35.7 - 48.1 fL TOM [facility] Comment:Testing performed by : [address] [address] NRBC abs 0.00 0.00 - 0.01 K/cumm TOM [facility] Comment:Testing performed by : [address] [address] Blood 02/15/2022 11:5 2 AM CDT 02/15/2022 1:40 PM CDT us Rachel Ortiz MD LAB BLOOD ORDERABLES Final Resu lt TOM [address] [facility] Department [place] [address] * Urinalysis reflex to microscopic and culture Urine (02/15/2022 11:52 AM CDT) Color, ur Yellow Yellow TOM [facility] Comment:Testing performed by : [address] [address] Clarity, ur Clear Clear TOM [facility] Comment:Testing performed by : [address] [address] Specific gravity, ur 1.024 1.003 - 1.030 TOM [facility] Comment:Testing performed by : [address] [address] pH, urine 7.0 TOM Comment:Testing performed by : [facility], [address] [place] [address], [place]., [address] Protein, ur ql Negative Negative TOM Comment:Testing performed by : [facility], [address] [place] [address], [place]., [address] Glucose, ur ql Negative Negative TOM Comment:Testing performed by : [address], [place]., [address] Ketones, ur Negative Negative TOM Comment:Testing performed by : [address], [place]., [address] Bilirubin, ur Negative Negative TOM Comment:Testing performed by : [address], [place]., [address] Blood, ur Negative Negative TOM Comment:Testing performed by : [address], [place]., [address] Urobilinogen, ur <2.0 <2.0 mg/dL TOM Comment:Testing performed by : [address], [place]., [address] Nitrite, ur Negative Negative TOM Comment:Testing performed by : [address], [place]., [address] Leukocyte esterase, ur Negative Negative TOM Comment:Testing performed by : [address], [place]., [address] UA reflex comment Reflex conditions for microscopic UA and culture not met. TOM Comment:Testing performed by : [address], [place]., [address] Urine 02/15/2022 11:5 2 AM CDT 02/15/2022 [...] tendency for uric acid stone formation. Source: COM DEV. Last revised 1-11-2018 us Rachel Ortiz MD LAB MICROBIOLOGY - GENERAL ORDKathie FAIRCHILD Final Result TOM [address] [facility] [place] [address] * Lipid panel (02/15/2022 11:52 AM CDT) [...] last revised on 2018. Testing performed by: [facility], [address] [place] [address]., [address] Triglycerides 55 <=149 mg/dL TOM [facility] Comment: [...] last revised on 2018. Testing performed by: [address] [address] HDL 52 >=40 mg/dL TOM Comment: Interpretive [...] last revised on 2018. Testing performed by: [address] [address] LDL, calculated 103 <=129 mg/dL TOM Comment: [...] last revised on 2018. Testing performed by: [address] [address] Non-HDL Cholesterol 114 mg/dL TOM Comment: Interpretive [...] last revised on 2018. Testing performed by: [facility], [address] [place] [address]., [address] Chol/HDL ratio 3 TOM Comment:Testing performed by : [address] [address] Blood 02/15/2022 11:5 2 AM CDT 02/15/2022 1:40 PM CDT Rachel Ortiz MD LAB BLOOD ORDERABLES Final Resu lt Performing Organization Address [facility] Co de Phone Number TAMERAPATY [address] [facility] [place] [address] * (ABNORMAL) Vitamin D 25 hydroxy (02/15/2022 11:52 AM CDT) [facility] Vitamin D 25-OH 15.0(L) 30.0 - 80.0 ng/mL TOM Comment:Below Ref Range Blood 02/15/2022 11:5 2 AM CDT 02/15/2022 3:08 PM CDT Rachel Ortiz MD LAB BLOOD ORDERABLES Final Resu lt [facility] [address] [facility] [place] [place] [address] documented in this encounter Visit Diagnoses Diagnosis Arthralgia, unspecified joint documented in this encounter Care Teams World Language Teacher Relationship Specialty Start Date End Date Rachel Ortiz MD [address] [place] [address] PCP - General Internal Medicine 02/15/22 07/14/23 documented as of this encounter
--- OUTSIDE RECORDS SUMMARY | 2024-11-29 06:24 | XMS_ITS | Encounter Summary ---
Author Organization [facility] Healthcare Address [address] [place] [address] Care Team Providers Care School Bus Driver/Mechanic Name Role Phone No, Physician Primary Care Provider [phone] Encounter Details Date Type Department Care Team (Late st Contact Info) Description 10/15/2020 12:29 AM EXPLOSIVES ENGINEER - 10/17/2020 2:22 PM EXPLOSIVES ENGINEER Hospital Encounter MHE ADMIT Abhilash Sam MD [address] [place] [id number] Discharge Disposition: Discharge to home or self [...] Sign Reading Time Taken Comments Blood Pressure 118/72 10/15/2020 10:31 AM EXPLOSIVES ENGINEER Pulse 80 10/15/2020 10:31 AM EXPLOSIVES ENGINEER Temperature 36.6 ??C (97.9 ??F) 10/15/2020 10:[address] Respiratory Rate - - Oxygen Saturation 97% 10/15/2020 10:31 AM EXPLOSIVES ENGINEER Inhaled Oxygen Concentration - - Weight 96.2 kg (212 lb) 10/15/2020 10:31 AM EXPLOSIVES ENGINEER Height 170.2 cm (5' 7 ) 10/15/2020 10:31 AM EXPLOSIVES ENGINEER Body Mass Index 33.2 10/15/2020 10:31 AM EXPLOSIVES ENGINEER documented in this encounter Medications at Time [...] 30 tablet 6 04/14/2020 11/28/2020 prenat vit 01-coli-lndog-om3 ,6 35-5-1.2-400 mg capsule Take by mouth daily 02/15/2022 pyridoxine (VITAMIN B-6) 50 mg tablet Take 50 mg by mouth daily 11/28/2020 documented as of this encounter Discharge Disposition Disposition Code Departure Means Destination Discharge to home or self care documented in this encounter Plan of Treatment Not on file documented as of this encounter Procedures Procedure Name Priority Date/Time Associated Diagnosis Comments HEMOGLOBIN AND HEMATOCRIT Routine 10/16/2020 4:42 AM EXPLOSIVES ENGINEER BLOOD GAS, CORD VENOUS Routine 0 2:30 PM EXPLOSIVES ENGINEER BLOOD GAS, ARTERIAL, CORD Routine 10/15/2020 2:30 PM EXPLOSIVES ENGINEER URIC ACID Routine 10/15/2020 9:53 AM EXPLOSIVES ENGINEER COMPREHENSIVE METABOLIC PANEL Routine 10/15/2020 9:53 AM EXPLOSIVES ENGINEER CBC WITH AUTO DIFFERENTIAL Routine 10/15/2020 1:39 AM EXPLOSIVES ENGINEER TREPONEMA PALLIDUM (SYPHILIS) ANTIBODY Routine 10/15/2020 1:39 AM EXPLOSIVES ENGINEER ANTIBODY SCREEN Routine 10/15/2020 1:39 AM EXPLOSIVES ENGINEER TYPE AND SCREEN Routine 10/15/2020 1:39 AM EXPLOSIVES ENGINEER DRUGS OF ABUSE SCREEN, URINE WITH REFLEX CONFIRMATION Routine 10/15/2020 12:25 AM EXPLOSIVES ENGINEER PROCEDURE - RESULT 10/15/2020 12 :00 AM EXPLOSIVES ENGINEER documented in this encounter Results * (ABNORMAL) Hemoglobin and hematocrit (10/16/2020 4:42 AM EXPLOSIVES ENGINEER) Hemoglobin 9.9(L) 11.9 - 15.5 g/dL [facility] Hct 30.3(L) 35.6 - 45.5 % [facility] 10/16/2020 4:42 AM EXPLOSIVES ENGINEER 10/16/2020 5:06 AM EXPLOSIVES ENGINEER Narrative Resulting Agency Comment IN us Abhilash Sam MD LAB BLOOD ORDERABLES Final Result Performing Organization Address City/State/[place] Co de Phone Number [facility] [address] [place] [address], [facility] [phone] * (ABNORMAL) Blood Gas, Cord Venous (10/15/2020 2:30 PM EXPLOSIVES ENGINEER) Cord VBG pH 7.348 7.280 - 7.400 [facility] Cord VBG pCO2 46.7 32.8 - 48.6 mmHg [facility] Cord VBG pO2 22.0(L) 23 - 33 mmHg [facility] Cord VBG HCO3 25.0(H) 18.9 - 23.9 mmol/L [facility] Cord VBG Base Excess -0.7 -4.4 - -0.4 mmol/L [facility] Cord VBG O2 Sat 43.8(L) 72 - 92 % [facility] Improvement Intern ID DM [facility] BLOOD GAS COMMENTS NA [facility] 10/15/2020 2:30 PM EXPLOSIVES ENGINEER 10/15/2020 2:42 PM EXPLOSIVES ENGINEER Narrative Resulting Agency Comment IN Abhilash Sam MD LAB BLOOD ORDERABLES Final Result [address] [phone] * (ABNORMAL) Blood gas, arterial, cord (10/15/2020 2:30 PM EXPLOSIVES ENGINEER) Cord ABG pH 7.231 7.200 - 7.340 [facility] Cord ABG pCO2 64.8(H) 39.2 - 61.4 mmHg [facility] Cord ABG pO2 21.8(H) 9 - 19 mmHg [facility] Cord ABG HCO3 26.2(H) 18.4 - 25.6 mmol/L [facility] Cord ABG Base Excess -3.2 -5.5 - 0.1 mmol/L [facility] Cord ABG O2 Sat 35.5(L) 47 - 67 % [facility] Improvement Intern ID DM [facility] BLOOD GAS COMMENTS NA [facility] 10/15/2020 2:30 PM EXPLOSIVES ENGINEER 10/15/2020 2:43 PM EXPLOSIVES ENGINEER Narrative Resulting Agency Comment IN Abhilash Sam MD LAB BLOOD [place]AB[place] [address], [facility] [phone] * Uric acid (10/15/2020 9:53 AM EXPLOSIVES ENGINEER) Uric Acid 4.1 2.5 - 7.0 mg/dL [facility] 10/15/2020 9:53 AM EXPLOSIVES ENGINEER 10/15/2020 10:00 AM EXPLOSIVES ENGINEER Narrative Resulting Agency Comment IN us Abhilash Sam MD LAB BLOOD ORDERABLES Final Result [facility] [address] [phone] * (ABNORMAL) Comprehensive metabolic panel (10/15/2020 9:53 AM EXPLOSIVES ENGINEER) Pathologist [facility] Sodium 136 135 - 145 mmol/L [facility] Potassium 3.9 3.3 - 5.1 mmol/L [facility] Chloride 101 96 - 108 mmol/L [facility] Carbon Dioxide 22 22 - 32 mmol/L [facility] Anion Gap 13 7 - 16 [facility] Glucose 120(H) 70 - 100 mg/dL [facility] BUN 13 8 - 25 mg/dL [facility] Creatinine 0.8 0.5 - 1.1 mg/dL [facility] Comment: NOTE: Estimated GFR (Cockroft-Gault) will NOT be calculated unless patient Height and Weight were entered. Also, Kidney Disease Stage (GFR) and Estimated GFR (Cockroft-Gault) will NOT be calculated if Creatinine result is <0.2. Kidney Disease Stage 87 mL/MIN [facility] Comment: NOTE; ??The GFR is an estimated [...] failure or on dialysis Est GFR (Cockcroft-G) 118 ml/MIN [facility] Comment: Estimated GFR(Cockroft-Gault)is used to calculate patient medication dosage Calcium 9.0 8.6 - 10.3 mg/dL [facility] Total Protein 6.2(L) 6.4 - 8.3 g/dL [facility] Albumin 3.3(L) 3.5 - 5.0 g/dL [facility] Globulin 2.9 2.3 - 3.5 gm/dL [facility] Albumin/Globulin Ratio 1.1 1.1 - 1.8 [facility] Total Bilirubin 0.3 0.0 - 1.2 mg/dL [facility] AST 15 0 - 32 U/L [facility] ALT 13 0 - 33 U/L [facility] Alkaline Phosphatase 115(H) 35 - 104 U/L [facility] 10/15/2020 9:53 AM EXPLOSIVES ENGINEER 10/15/2020 10:00 AM EXPLOSIVES ENGINEER Narrative Resulting Agency Comment IN Abhilash Sam MD LAB BLOOD ORDERABLES Final Result Performing Organization Address [facility] de Phone Number [facility] [address] [place] [address] * Treponema pallidum (syphilis) antibody (10/15/2020 1:39 AM EXPLOSIVES ENGINEER) Treponemal IgG NONREACTIVE NONREACTIVE [facility] Comment: ADVIA Centaur immunoassay to determine antibodies to Treponema pallidum. 10/15/2020 1:39 AM EXPLOSIVES ENGINEER 10/15/2020 1:46 AM EXPLOSIVES ENGINEER Narrative Resulting Agency Comment IN Abhilash Sam MD LAB BLOOD ORDERABLES Final Result Performing Organization Address City/[facility]/[place] Co de Phone Number [facility] [address] [phone] * Antibody screen (10/15/2020 1:39 AM EXPLOSIVES ENGINEER) Pathologist [facility] Antibody Screen NEGATIVE [facility] 10/15/2020 1:39 AM EXPLOSIVES ENGINEER 10/15/2020 1:46 AM EXPLOSIVES ENGINEER Narrative Resulting Agency Comment IN Abhilash Sam MD LAB BLOOD BANK TEST ORDERA BLES Final Result [address] [phone] * Type and screen (10/15/2020 1:39 AM EXPLOSIVES ENGINEER) Pathologist [facility] Blood Type OP [facility] 10/15/2020 1:39 AM EXPLOSIVES ENGINEER 10/15/2020 1:46 AM EXPLOSIVES ENGINEER Narrative [facility] - 10/15/2020 2:53 AM EXPLOSIVES ENGINEER N Resulting Agency Comment IN Abhilash Sam MD LAB BLOOD BANK TEST ORDERA BLES Final Result Performing Organization Address City/[facility]/[place] Co de Phone Number [address] [phone] * (ABNORMAL) CBC with auto differential (10/15/2020 1:39 AM EXPLOSIVES ENGINEER) [facility] WBC 11.5(H) 3.8 - 9.9 X10 3/ul [facility] RBC 4.20 3.90 - 5.20 x10 6/ul [facility] Hemoglobin 11.4(L) 11.9 - 15.5 g/dL [facility] Hct 35.1(L) 35.6 - 45.5 % [facility] MCV 83.6 81.3 - 96.4 fl [facility] MCH 27.1 27.1 - 33.3 pg [facility] MCHC 32.5 32.3 - 35.7 g/dl [facility] RDW 13.3 11.1 - 14.9 % [facility] Plt Count 201 150 - 400 x10 3/ul [facility] MPV 10.3 9.1 - 12.3 fl [facility] Neut % 71.2 % [facility] Immature Gran % 0.4 % [place] [facility] Lymph % 19.6 % [facility] Vigo % 7.7 % [facility] Eos % 0.9 % [facility] AUTO BASO % 0.2 % [facility] NEUTROPHIL ABS # 8.2(H) 1.7 - 6.5 x10 3/ul [facility] Immature Gran # 0.1 0.0 - 0.1 x10 3/ul [facility] Absolute Lymphs (auto) 2.3 0.8 - 3.3 x10 3/ul [facility] Absolute Monos (auto) 0.9(H) 0.2 - 0.8 x10 3/ul [facility] Absolute Eos (auto) 0.1 0.0 - 0.5 x10 3/ul [facility] BASOPHIL ABS # 0.0 0.0 - 0.1 x10 3/ul [facility] Nucleat RBC Rel Count 0.0 #/100WBC [facility] NRBC abs 0.00 0.00 - 0.01 x10 3/ul [facility] Absolute Neutrophils 8,200(H) 200 - 8,000 /ul [facility] 10/15/2020 1:39 AM EXPLOSIVES ENGINEER 10/15/2020 1:46 AM EXPLOSIVES ENGINEER Narrative Resulting Agency Comment IN us Abhilash Sam MD LAB BLOOD ORDERABLES Final Result [address] [phone] * Drugs of Abuse Screen, Urine with Reflex Confirmation (10/15/2020 12:25 AM EXPLOSIVES ENGINEER) [facility] Amphetamines NOT DETECTED [place] Done. [facility] Comment: This assay uses 500 ng/mL as a cutoff for a positive result. Barbiturates NOT DETECTED [place] Done.L [facility] Comment: This assay uses 200 ng/mL as a cutoff for a positive result. Urine Fentanyl w Reflex NOT DETECTED [facility] Comment: This assay uses 1 ng/mL as a cutoff for a positive result. Benzodiazepines NOT DETECTED [facility] Comment: This assay uses 100 ng/mL as a cutoff for a positive result. Cannabinoids NOT DETECTED [place] [facility] Comment: This assay uses 50 ng/mL as a cutoff for a positive result. Cocaine NOT DETECTED [facility] Comment: This assay uses 150 ng/mL as a cutoff for a positive result. Opiates NOT DETECTED [facility] Comment: This assay uses 300 ng/mL as a cutoff for a positive result. Methadone NOT DETECTED [facility] Comment: This assay uses 300 ng/mL as a cutoff for a positive result. Phencyclidine NOT DETECTED [facility] Comment: This assay uses 25 ng/mL as a cutoff for a positive result. Oxycodone NOT DETECTED [facility] Comment: This assay uses 100 ng/mL as a cutoff for a positive result. Urine Creatinine/GUILLE 146.8 mg/dL [facility] Comment: If Creatinine is < 40 mg/dL, recollection is suggested. Drug of abuse screening is performed by immunoassay for medical purposes only. This is not to be used for Pain Management purposes. 10/15/2020 12:2 5 AM EXPLOSIVES ENGINEER 10/15/2020 2:21 AM EXPLOSIVES ENGINEER Narrative [facility] - 10/15/2020 2:35 AM EXPLOSIVES ENGINEER Collected By re Resulting Agency Comment IN us Abhilash Sam MD LAB URINE ORDERAB[place] [address], [facility] [phone] * PROCEDURE - RESULT (10/15/2020 12:00 AM EXPLOSIVES ENGINEER) Narrative 10/15/2020 12:00 AM EXPLOSIVES ENGINEER Ordered by an unspecified provider. Stefany Provider Final Res ult documented in this encounter Visit Diagnoses Not on filedocumented in this encounter Care Teams School Bus Driver/Mechanic Relationship Specialty Start Date End Date No, Physician PCP - General 05/26/19 02/16/21 documented as of this encounter
--- OUTSIDE RECORDS SUMMARY | 2024-11-29 06:25 | XMS_ITS | Encounter Summary ---
Author Organization [facility] Address [address] [place] [address] Phone Care Team Providers Care General Practitioner Name Role Phone No, Physician Primary Care Provider [phone] Reason for Visit * Reason Comments Consult desires Encounter Details Date Type Department Care Team (Late st Contact Info) Description 06/08/2019 8:30 AM CDT Office Visit [facility] Obstetrics and Gynecology [address] [place] [phone] Jovita Strickland MD [address] [facility] [address] [place] [address] Female infertility (Primary Dx) Social History Tobacco Use Types Packs/Day Years Used Date Smoking Tobacco: Never Smokeless Tobacco: Never Alcohol Use Standard Drinks/Week Comments Yes 1 (1 standard drink = 0.6 oz pur e alcohol) Comments Unknown Sex and Gender Information Value Date Recorded Sex Assigned at Not on file Legal Sex Female 2:07 PM CDT Gender Identity Not on file Sexual Orientation Not on file documented as of this encounter Last Filed Vital Signs Vital Sign Reading Time Taken Comments Blood Pressure 120/78 06/08/2019 8:29 AM CDT Pulse - - Temperature - - Respiratory Rate - - Oxygen Saturation - - Inhaled Oxygen Concentration - - Weight 75.8 kg (167 lb 1.7 oz) 06/08/2019 8:29 A M CDT Height 170.2 cm (5' 7 ) 06/08/2019 8:29 AM CDT Body Mass Index 26.17 06/08/2019 8:29 AM CDT documented in this encounter Progress Notes * Jovita Strickland MD - 06/08/2019 8:30 AM CDT CC: Chief Complaint Patient presents with ??? Consult desires HPI: 33 yo with regular q 32-35 day cycles, attempting for 2 years.Over the last 3 years, they have tried to conceived, but her was deployed for 1 year during that time and they were not able to try consistently. They had evaluation late 2016/early 2017 and all testing was normal per patient report (semen analysis, HSG and blood work). Last year they did 5 cycles of CC50/TIC.She reports lots of mood symptoms with clomiphene. They are ready to try IUI and would like to avoid IVF if possible. After further discussion, she had positive surge 05/13 and has not done a UPT (now 26 days after surge). She reports some abdomina fullness and mild cramping and thought her period may start today, but no bleeding. She plans to do a UPT later today and will call with results. OB & Menstrual History: OB History 1 Para 1 Term 1 AB Living 1 SAB TAB Ectopic Multiple Live Births 1 Patient's last menstrual period was 04/27/2019 (exact date). PMHx: No past medical history on file. PSHx: No past surgical history on file. ALL: Allergies Allergen Reactions ??? Erythromycin Rash ??? Penicillins Swelling MEDs: Current Outpatient Medications Medication Sig Dispense Refill ??? prenat vit 70-qxae-mlyiu-om3,6 35-5-1.2-400 mg capsule Take by mouth daily No current facility-administered medications for this visit. FAMHx: No family history on file. Social Hx: Social History Tobacco Use ??? Smoking status: Never Smoker ??? Smokeless tobacco: Never Used Substance Use Topics ??? Alcohol use: Not on file ??? Drug use: Never ROS: Review of Systems Neurological: Positive for headaches. All other systems reviewed and are negative. 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 Marital History: Summary Have you had a prior No How may years have you been attempting 2 Have you had a prior evaluation Yes, desc ribe: semen analysis Prior Test results/treatmet: normal semen analysis Sexual History Do you have (or have had) erectile dysfunction Yes, describe: no answer Do you have (or have had) ejaculatory Difficulty No Do you have (or have had) a loss or change of libido No Do you use lubricants ([place] Jelly, etc) during intercourse No Do you have or have had any of the following: No Medical History: Do you have any of the following medical problems: Heart Disease No Multiple Sclerosis No Heart Murmur No Epilepsy No HTN No Neurologic Disease No Diabetes No Asthma or other lung disease No Hepatitis No Cancer No Other: No Surgical History: Orchidopexy No Orhiectomy No Bladder Neck Surgery No Hernia repair No Pelvic Surgery No Scrotal Surgery No Retroperitoneal Surgery No Transurethral Surgery No Other No Infection History: Gonorrhea No Chlamydia No Syphilis No Herpes No Mumps No Viral No Prostatitis No Urethritis No Cystitis No Pyelnoephritis No Epididymitis No Other No Disorders in your Family: Problem YES/NO WHO Comment Cystic Fibrosis No Other Infertility No Heart Disease No Diabetes No Cancer Yes, describe: maternal grandfather Genetic Disease No Childh ood and Development: Have you ever had testicular torsion or trauma No Medication/Chemical/environmental exposure: Prescription Medications No Drug Allergies No Alcohol No Marijuana No Other Drugs No Tobacco No Hot Tubs No Anaboli c Steroids No Testerone use No Acupuncture, Kiswahili medicine, etc No See partner intake form complete ROS. No specialty comments available. EXAM: Vitals BP 120/78 (BP Location: Right arm, Patient Position: Sitting) Ht 170.2 cm (5' 7 ) Wt 75.8 kg (167 lb 1.7 oz) LMP 04/27/2019 (Exact Date) BMI 26.17 kg/m?? Physical Exam Constitutional: She is oriented to person, place, and time. She appears well- developed and well-nourished. Neurological: She is alert and oriented to person, place, and time. IMMUNIZATIONS: Rubella Titer Immune Screened for Sickle Cell Disease No Screened for Cystic Fibrosis No Have you had Chicken Pox Yes Have you had Chicken Pox Vaccine No ASSESSMENT AND PLAN 33 yo with currently unexplained infertility, desires and delayed eMP. 1. Late menses - She will check UPT today and yayo with result. If positive, plan to follow [facility]. Will likely want ordered at [facility]. - If negative, will proceed with fertility evaluation 2. Fertility evaluation - Get records from prior testing (labs, HSG images and SA) - Plan for day 3 FSH, E2, AMH, TSH - will repeat semen analysis - Will proceed with LTZ5/IUI x 3-4 cycles 3. Preconception counseling - vitamin - History of chicken pox - Rubella titer done per patient (will review records) - Declines genetic screening I have reviewed the patient questionnaires for this visit with Gladys Tai today. I have spent atotal of 45 minutes with the patient and her partner discussing issues related to my impression andplan. I sent a letter regarding this visit to Dr. Mohan. documented in this encounter Plan of Treatment Not on file documented as of this encounter Visit Diagnoses Diagnosis Female infertility- Primary Female infertility of unspecified origin documented in this encounter Historical Medications * This list may reflect changes made after this encounter. prenat vit 86-jteq-xmpvk-om3 ,6 35-5-1.2-400 mg capsule Take by mouth daily 02/15/2022 added in this encounter Care Teams General Practitioner Relationship Specialty Start Date End Date No, Physician PCP - General 05/26/19 02/16/21 documented as of this encounter
--- OUTSIDE RECORDS SUMMARY | 2024-11-29 06:25 | XMS_ITS | Encounter Summary ---
Author Organization [facility] Address [address] [place] [address] Phone Care Team Providers Care Sql Analyst Name Role Phone No, Physician Primary Care Provider [phone] Encounter Details Date Type Department Care Team (Late st Contact Info) Description 06/26/2019 Orders Only [facility] Reproductive Endocrinology [address] [phone] Jovita Strickland MD [address] [address] Fertility testing (Primary Dx) Social History Tobacco Use Types [...] Procedure Name Priority Date/Time Associated Diagnosis Comments LUTEINIZING HORMONE (LH) Routine 06/17/2019 Fertility testing documented in this encounter Results * LH (06/17/2019) SCRIBED LH 11.8 mIU/mL EXTERNAL LAB Blood specimen (specimen) 06/17/2019 us Jovita Strickland MD LAB BLOOD ORDERABLES Final Result EXTERNAL LAB documented in this encounter Visit Diagnoses Diagnosis Fertility testing- Primary documented in this encounter Care Teams Sql Analyst Relationship Specialty Start Date End Date No, Physician PCP - General 05/26/19 02/16/21 documented as of this encounter
--- OUTSIDE RECORDS SUMMARY | 2024-11-29 06:25 | XMS_ITS | Encounter Summary ---
Author Organization [facility] Address [address] [place] [address] Phone Care Team Providers Care Ethnographic Materials Conservator Name Role Phone No, Physician Primary Care Provider Reason for Visit * Reason Onset Date Comments +LH 06/30/2019 Encounter Details Date Type Department Care Team (Late st Contact Info) Description 06/30/2019 Telephone [facility] Reproductive Endocrinology [address] [phone] Juliana Shankar ARRT +LH Social History Tobacco Use Types Packs/Day Years [...] encounter Miscellaneous Notes * Telephone Encounter - Juliana Shankar ARRT - 06/30/2019 8:57 AM CDT Pt DEBRAVM reporting +LH. Spoke with pt. She will come in tomorrow @ 730 for AIH-IUI. Episode updated. documented in this encounter Plan of Treatment Not on file documented as of this encounter Visit Diagnoses Not on filedocumented in this encounter Care Teams Ethnographic Materials Conservator Relationship Specialty Start Date End Date No, Physician PCP - General 05/26/19 02/16/21 documented as of this encounter
--- OUTSIDE RECORDS SUMMARY | 2024-11-29 06:25 | XMS_ITS | Encounter Summary ---
Author Organization [facility] Address [address] [place] [address] Phone Care Team Providers Care Taper Operator Name Role Phone No, Physician Primary Care Provider [phone] Encounter Details Date Type Department Care Team (Late st Contact Info) Description 06/15/2019 Orders Only [facility] [address] [address] Jovita Strickland MD [address] [address] Encounter for fertility testing (Primary Dx) Social History Tobacco Use [...] Procedure Name Priority Date/Time Associated Diagnosis Comments ANTIMULLERIAN HORMONE (AMH) Routine 06/17/2019 Encounter for fertility testing ESTRADIOL Routine 06/17/2019 Encounter for fertility testing TSH Routine 06/17/2019 Encounter for fertility testing FOLLICLE STIMULATING HORMONE Routine 06/17/2019 Encounter for fertility testing documented in this encounter Results * Antimullerian hormone (AMH) (06/17/2019) SCRIBED AMH, ab 3.17 EXTERNAL LAB Blood specimen (specimen) 06/17/2019 Jovita Strickland MD LAB BLOOD ORDERABLES Final Result EXTERNAL LAB * Estradiol (06/17/2019) SCRIBED Estradiol 17.5 pg/mL EXTERNAL LAB Blood specimen (specimen) 06/17/2019 Jovita Strickland MD LAB BLOOD ORDERABLES Final Result EXTERNAL LAB * Follicle stimulating hormone (06/17/2019) SCRIBED FSH 6.8 mIU/mL EXTERNAL LAB Blood specimen (specimen) 06/17/2019 Jovita Strickland MD LAB BLOOD ORDERABLES Final Result EXTERNAL LAB * TSH (06/17/2019) Scribed TSH 1.45 0.34 - 4.94 mcU/mL EXTERNAL LAB Blood specimen (specimen) 06/17/2019 Jovita Strickland MD LAB BLOOD ORDERABLES Final Result EXTERNAL LAB documented in this encounter Visit Diagnoses Diagnosis Encounter for fertility testing- Primary documented in this encounter Care Teams Taper Operator Relationship Specialty Start Date End Date No, Physician PCP - General 05/26/19 02/16/21 documented as of this encounter
--- OUTSIDE RECORDS SUMMARY | 2024-11-29 06:25 | XMS_ITS | Encounter Summary ---
Author Organization [facility] Address [address] [place] [address] Phone Care Team Providers Care Vocational Adviser Name Role Phone No, Physician Primary Care Provider [phone] Reason for Visit * Reason Onset Date Comments PTJ- CD 1, LTZ ( DONE) EOC (DONE) IUI ( DONE) Encounter Details Date Type Department Care Team (Late st Contact Info) Description 07/14/2019 Telephone [facility] Reproductive Endocrinology [address] [address] Jovita Strickland MD [address] [address] PTJ- CD 1, LTZ ( DONE) EOC (DONE) IUI ( DONE) Social History Tobacco Use Types Packs/Day Years [...] encounter Miscellaneous Notes * Telephone Encounter - Jeanette Smith - 07/14/2019 11:39 AM CDT PT calling for CD 07/14/19, needing LTZ 5 (DONE) IUI ( DONE) EOC ( DONE) PT given inst to take CD 3-7, start OPK on CD 10 and to call with surge PT v/u. documented in this encounter Plan of Treatment Not on file documented as of this encounter Visit Diagnoses Not on filedocumented in this encounter Care Teams Vocational Adviser Relationship Specialty Start Date End Date No, Physician PCP - General 05/26/19 02/16/21 documented as of this encounter
--- OUTSIDE RECORDS SUMMARY | 2024-11-29 06:25 | XMS_ITS | Encounter Summary ---
Author Organization [facility] Address [address] [place] [address] Phone Care Team Providers Care Marketing Ambassador Name Role Phone No, Physician Primary Care Provider [phone] Reason for Visit * Reason Comments IUI - Intrauterine Insemination * OBGYN (Routine) - Closed Specialty Diagnoses / Procedures Referred By Carlee goetz Referred To Contact Diagnoses Encounter for other procreative management Procedures IUI Jovita Strickland MD Phone: tel: fax: [facility] (All Locations) Referral ID Status Reason Start Date Expiration Date Visits Re quested Visits Authorized [id number] Closed 07/14/2019 01/22/2021 1 1 Encounter Details Date Type Department Care Team (Latest Contact Info) Description 08/03/2019 7:50 AM CDT Clinical Support [facility] Reproductive Endocrinology [address] [address] Encounter for other procreative management Social History Tobacco Use Types Packs/Day Years [...] on file documented as of this encounter Procedure Notes * Dina Morgan MD - 08/03/2019 7:50 AM CDTAssociated Order(s): IUI Pre-Procedure Diagnose(s): Encounter for other procreative management Post-Procedure Diagnose(s): Encounter for other procreative management IUI Date/Time: 08/03/2019 1:00 PM Performed by: Dina Morgan MD Authorized by: Jovita Strickland MD Local anesthesia used: no Anesthesia: Local anesthesia used: no Sedation: Patient sedated: no Comments: IUI - Procedure Episode Name: LTZ5/IUI/#2Cycle #: 2 Partner info: Stephen Female Blood Type: No data was found Rubella: No data was found Cycle start dated by: Menstrual period LMP: 07/14/2019 Cycle Day: 21 Date of IUI: 08/03/2019 # Motile Sperm (Million): 10.4 IUI Timing: LH surge Procedure comments: No data was found Procedure Note- The patient was positioned and speculum placed. Cervix cleaned. The sample was loaded after confirmation of specimen ID into the catheter and inseminated into the uterus. Dina Morgan MD Fellow Reproductive Endocrinology & Infertility Department of Obstetrics & Gynecology Pager #[phone] Cosigned by Lalo Pace MD at 08/03/2019 2:19 PM CDT documented in this encounter Plan of Treatment Not on file documented as of this encounter Procedures Procedure Name Priority Date/Time Associated Diagnosis Comments INTRAUTERINE INSEMINATION Routine 08/03/2019 7:50 AM CDT Encounter for other procreative management documented in this encounter Results * INTRAUTERINE INSEMINATION (08/03/2019 7:50 AM CDT) Narrative Rohan Smitha - 08/03/2019 7:50 AM CDT Dina Morgan MD ? 08/03/2019 ??1:03 PM IUI Date/Time: 08/03/2019 1:00 PM Performed by: Dina Morgan MD Authorized by: Jovita Strickland MD Local anesthesia used: no Anesthesia: Local anesthesia used: no Sedation: Patient sedated: no Comments: IUI - Procedure Episode Name: LTZ5/IUI/#2Cycle #: 2 Partner info: Stephen Female Blood Type: No data was found Rubella: No data was found Cycle start dated by: Menstrual period LMP: 07/14/2019 Cycle Day: 21 Date of IUI: 08/03/2019 # Motile Sperm (Million): 10.4 IUI Timing: LH surge Procedure comments: No data was found Procedure Note- The patient was positioned and speculum placed. ??Cervix cleaned. ??The sample was loaded after confirmation of specimen ID into the catheter and inseminated into the uterus. Dina Morgan MD Fellow Reproductive Endocrinology & Infertility Department of Obstetrics & Gynecology Pager #[phone] Procedure Note Dina Morgan MD - 08/03/2019 7:50 AM CDT IUI Date/Time: 08/03/2019 1:00 PM Performed by: Dina Morgan MD Authorized by: Jovita Strickland MD Local anesthesia used: no Anesthesia: Local anesthesia used: no Sedation: Patient sedated: no Comments: IUI - Procedure Episode Name: LTZ5/IUI/#2Cycle #: 2 Partner info: Stephen Female Blood Type: No data was found Rubella: No data was found Cycle start dated by: Menstrual period LMP: 07/14/2019 Cycle Day: 21 Date of IUI: 08/03/2019 # Motile Sperm (Million): 10.4 IUI Timing: LH surge Procedure comments: No data was found Procedure Note- The patient was positioned and speculum placed. Cervixcleaned. The sample was loaded after confirmation of specimen ID into thecatheter and inseminated into the uterus. Dina Morgan MD Fellow Reproductive Endocrinology & Infertility Department of Obstetrics & Gynecology Pager #[phone] us Jovita Strickland MD IN CLINIC/BEDSIDE OR DERABLES Final Result documented in this encounter Visit Diagnoses Diagnosis Encounter for other procreative management documented in this encounter Care Teams Marketing Ambassador Relationship Specialty Start Date End Date No, Physician PCP - General 05/26/19 02/16/21 documented as of this encounter
--- OUTSIDE RECORDS SUMMARY | 2024-11-29 06:25 | XMS_ITS | Encounter Summary ---
Author Organization [facility] Address [address] [place] [address] Phone Care Team Providers Care Teacher Early Childhood Development Name Role Phone No, Physician Primary Care Provider [phone] Encounter Details Date Type Department Care Team (Late st Contact Info) Description 07/20/2019 Telephone [facility] Reproductive Endocrinology [address] [address] Jovita Strickland MD [address] [address] Social History Tobacco Use Types Packs/Day Years [...] encounter Miscellaneous Notes * Telephone Encounter - Bhumika Dinero RN - 07/20/2019 11:23 AM CDT Result from previous cycle. Patient started IUI cycle #2 on 07/14/19. * Telephone Encounter - Bhumika Dinero RN - 07/20/2019 11:23 AM CDT ----- Message from Jovita Strickland MD sent at 07/20/2019 11:22 AM CDT ----- Please let her know ovulatory result. Call with cycle outcome. documented in this encounter Plan of Treatment Not on file documented as of this encounter Visit Diagnoses Not on filedocumented in this encounter Care Teams Teacher Early Childhood Development Relationship Specialty Start Date End Date No, Physician PCP - General 05/26/19 02/16/21 documented as of this encounter
--- OUTSIDE RECORDS SUMMARY | 2024-11-29 06:25 | XMS_ITS | Encounter Summary ---
Author Organization [facility] Facility Care Team Providers Care Geospatial Applications Developer Name Role Phone Unavailable Primary Care Provider Unavailabl e Encounter Details Date Type Department Care Team (Latest Contact Info) Description 01/20/2010 - 01/20/2010 11:59 PM [facility] Hospital Encounter [facility] Lars Wallace MD [address] [place] [address] [address] [place] [address] Other known or suspected abnormality, not elsewhere classified, affecting management of mother, antepartum condition or complication Social History Tobacco Use Types Packs/Day Years Used Date Smoking Tobacco: Never Assessed Comments Unknown Sex and Gender Information Value Date Recorded Sex Assigned at Not on file Legal Sex Female 2:07 PM CDT Gender Identity Not on file Sexual Orientation Not on file documented as of this encounter Plan of Treatment Not on file documented as of this encounter Visit Diagnoses Diagnosis Other known or suspected abnormality, not elsewhere classified, affecting management of mother, antepartum condition or complication documented in this encounter
--- OUTSIDE RECORDS SUMMARY | 2024-11-29 06:25 | XMS_ITS | Encounter Summary ---
Author Organization [facility] Facility Care Team Providers Care Bellows Charger Assembler Name Role Phone Unavailable Primary Care Provider Unavailabl e Encounter Details Date Type Department Care Team (Late st Contact Info) Description 02/09/2010 3:34 AM CDT - 02/09/2010 6:59 AM CDT Hospital Encounter [facility] Georges Summers MD [address] [place] [phone] [place] [address] Threatened premature labor, antepartum(644.03); Other known or suspected abnormality, not elsewhere [...] as of this encounter Visit Diagnoses Diagnosis Threatened premature labor, antepartum(644.03) Threatened premature labor, antepartum Other known or suspected abnormality, not elsewhere classified, affecting management of mother, antepartum condition or complication documented in this encounter
--- OUTSIDE RECORDS SUMMARY | 2024-11-29 06:25 | XMS_ITS | Encounter Summary ---
Author Organization [facility] Facility Care Team Providers Care Hand Finisher Name Role Phone Unavailable Primary Care Provider Unavailabl e Encounter Details Date Type Department Care Team (Late st Contact Info) Description 02/13/2010 - 02/13/2010 11:59 PM CDT Hospital Encounter [facility] Renetta Lara MD [address] [facility] [phone] [place] [address] Supervision of other high-risk Social History Tobacco Use Types Packs/Day Years [...] encounter Visit Diagnoses Diagnosis Supervision of other high-risk documented in this encounter
--- OUTSIDE RECORDS SUMMARY | 2024-11-29 06:25 | XMS_ITS | Encounter Summary ---
Author Organization [facility] Address [address] [facility] [address] [place] [address] Care Team Providers Care Weighing Station Operator Name Role Phone No, Physician Primary Care Provider [phone] Reason for Visit * Reason Comments Initial Visit * Consultation (Routine) - Closed Specialty Diagnoses / Procedures Referred By Contac t Referred To Contact Obstetrics and Gynecology Diagnoses 10 weeks gestation of Juan Carlos Clark MD Phone: tel: fax: [facility] Obstetrical Gynecology [address] [place] [phone] Phone: tel: fax: Referral ID Status Reason Start Date Expiration Date V isits Requested Visits Authorized [id number] Closed Specialty Services Required 03/23/2020 03/23/2021 21 21 Encounter Details Date Type Department Care Team (Late st Contact Info) Description 04/14/2020 3:00 PM CDT Initial [facility] Obstetrical Gynecology [address] [place] [phone] Lorna Witt MD [address] [place] [address] GA: 12w5d Social History Tobacco Use Types Packs/Day Years [...] Sign Reading Time Taken Comments Blood Pressure 116/68 04/14/2020 2:31 PM CDT Pulse - - Temperature - - Respiratory Rate - - Oxygen Saturation - - Inhaled Oxygen Concentration - - Weight 80.7 kg (178 lb) 04/14/2020 2:31 PM CDT Height 170.2 cm (5' 7 ) 04/14/2020 2:31 PM CDT Body Mass Index 27.88 04/14/2020 2:31 PM CDT documented in this encounter Ordered Prescriptions Prescription Sig Dispense Quantity Refills Last Filled Start Date End Date doxylamine-pyridox ine, vit B6, (DICLEGIS) 10-10 mg tabletIndications: Nausea and vomiting in Take 1 tablet by mouth nightly 60 tablet 6 04/14/2020 1 ondansetron (ZOFRAN) 4 mg tabletIndications: Nausea and vomiting in Take 1 tablet (4 mg total) by mouth every 6 (six) hours as needed for nausea 30 tablet 6 04/14/2020 1 documented in this encounter Progress Notes * Lorna Witt MD - 04/14/2020 3:00 PM CDT New OB Visit Gladys Tai is a 34 y.o. at 12w5d by 6US c/w LMP, US with VIOS per patient report, awaiting records Patient's last menstrual period was 01/16/2020. Patient reports some nausea and vomiting but symptoms have improved over the last few weeks Review of Systems Constitutional: Negative for fever and unexpected weight change. Eyes: Negative for visual disturbance. Respiratory: Negative for shortness of breath. Cardiovascular: Negative for chest pain. Gastrointestinal: Positive for nausea and vomiting. Negative for abdominal pain, constipation and diarrhea. Endocrine: Negative for cold intolerance and heat intolerance. Genitourinary: Negative for difficulty urinating, dyspareunia, dysuria, flank pain, pelvic pain, urgency and vaginal bleeding. Musculoskeletal: Negative for arthralgias. Skin: Negative for rash. Neurological: Negative for dizziness, syncope, light-headedness and headaches. Hematological: Does not bruise/bleed easily. Breast: Negative for tenderness, breast redness, breast discharge and lump(s). [place] History Contraception: None Pap: Most recent 2019 per patient report, will request records , H/o abnormal paps: denies STI: Denies history of infections Menstrual History: Patient's last menstrual period was 01/16/2020. Sexual History: OB History 2 Para 1 Term 1 AB Living 1 SAB TAB Ectopic Multiple Live Births 1 # Outcome Date GA Labor/2nd Weight Sex Delivery Anes PTL Lv A1 A5 1 02/18/10 36w0d 1.899 kg (4 lb 3 oz) F Vag-Spont Epidural Living Complications: Gastroschisis Location: Other 2 Current There is no immunization history on file for this patient. reports that she has never smoked. She has never used smokeless tobacco. reports previous alcohol use of about 1.0 standard drinks of alcohol per week. reports no history of drug use. reports being sexually active and has had partner(s) who are Male. Past Medical History: Diagnosis Date ??? Abnormal Pap smear of cervix No past surgical history on file. Family History Problem Relation Age of Onset ??? Diabetes Maternal Grandmother ??? Graves' disease Sister Patient specifically denies family history of breast, ovarian or endometrial cancers No family h/o cystic fibrosis, CHD, bleeding disorders, down's syndrome No family history of DVT/PE Allergies Allergen Reactions ??? Erythromycin Rash ??? Penicillins Swelling Medications: Current Outpatient Medications: ??? doxylamine-pyridoxine, vit B6, (DICLEGIS) 10-10 mg tablet, Take 1 tablet by mouth nightly, Disp: 60 tablet, Rfl: 6 ??? ergocalciferol (VITAMIN D) 50,000 unit capsule, , Disp: , Rfl: ??? Lactobacillus acidophilus (Probiotic) 10 billion cell capsule, Take by mouth, Disp: , Rfl: ??? ondansetron (ZOFRAN) 4 mg tablet, Take 1 tablet (4 mg total) by mouth every 6 (six) hours as needed for nausea, Disp: 30 tablet, Rfl: 6 ??? prenat vit 16-etau-[id number]-om3,6 35-5-1.2-400 mg capsule, Take by mouth daily, Disp: , Rfl: ??? pyridoxine (VITAMIN B-6) 50 mg tablet, Take 50 mg by mouth daily, Disp: , Rfl: Objective: Vitals BP 116/68 Ht 170.2 cm (5' 7 ) Wt 178 lb (80.7 kg) LMP 01/16/2020 BMI 27.88 kg/m?? Body mass index is 27.88 kg/m??. Physical Exam General: normal weight female, pleasant, in no acute distress HEENT: normocephalic, atraumatic, nose normal, conjunctivae normal Lungs: Normal effort, no respiratory distress Abdomen: soft, nontender, nondistended Skin: warm, well-perfused Neuro: No focal deficits Psych: alert and cooperative; normal mood and affect OBGyn Exam Pelvic: Speculum: normal external female genitalia, no lesions. Normal appearing urethra, no lesions. Normal vaginal rugae, small amount of physiologic discharge in vault. pink cervix without lesions, erythema or discharge. Bimanual: mobile uterus, nontender. No cervical motion tenderness, no adnexal masses, nontender Urethra appears normal, bladder palpates normal with no tenderness or lesions Perineum appears normal Assessment and Plan: Gladys Tai is a 34 y.o. female 1. Supervision of a. Dating by 6wkUS c/w LMP, US with WEROOS per pt report, requested records b. PNL: Ordered c. Pap: up to date in 2019 per patient report, requesting records d. Genetics: Declined e. Carrier testing: completed with VIOS, requesting records f. Delivery: TBD g. Recommended daily PNV h. Reviewed course of care and normal i. Dietary and activity restrictions reviewed 2. H/o previous child with gastroschisis a. Denies associated anomalies or reported genetic component b. Child is doing well now with no problem c. Most cases are sporadic but small chance of recurrence d. Patient declines genetic screening stating the results would not change the e. Will await evaluation on anatomy US RTC in 4 weeks Lorna Witt MD documented in this encounter Plan of Treatment Not on file documented as of this encounter Procedures Procedure Name Priority Date/Time Associated Diagnosis Comments DRUGS OF ABUSE SCREEN, URINE WITH REFLEX CONFIRMATION Routine 07/27/2020 10:50 AM CDT Supervision of other normal , antepartum URINALYSIS, COMPLETE Routine 07/27/2020 10:50 AM CDT Supervision of other normal , antepartum HIV 1/2 ANTIBODY PLUS P24 ANTIGEN Routine 07/27/2020 10:50 AM CDT Supervision of other normal , antepartum CBC WITH AUTO DIFFERENTIAL Routine 07/27/2020 10:50 AM CDT Supervision of other normal , antepartum HEMOGLOBIN ANALYSIS BY ELECTROPHORESIS Routine 07/27/2020 10:50 AM CDT Supervision of other normal , antepartum HEPATITIS C ANTIBODY Routine 07/27/2020 10:50 AM CDT Supervision of other normal , antepartum TREPONEMA PALLIDUM (SYPHILIS) ANTIBODY Routine 07/27/2020 10:50 AM CDT Supervision of other normal , antepartum RUBELLA IGG Routine 07/27/2020 10:50 AM CDT Supervision of other normal , antepartum HEPATITIS B SURFACE ANTIGEN Routine 07/27/2020 10:50 AM CDT Supervision of other normal , antepartum ANTIBODY SCREEN Routine 07/27/2020 10:50 AM CDT Supervision of other normal , antepartum TYPE AND SCREEN Routine 07/27/2020 10:50 AM CDT Supervision of other normal , antepartum URINE CULTURE Routine 07/27/2020 10:50 AM CDT Supervision of other normal , antepartum HEMOGLOBIN A1C Routine 07/27/2020 10:50 AM CDT Supervision of other normal , antepartum N. GONORRHOEAE/C. TRACHOMATIS AMPLIFICATION- LIQUID BASED CYTOLOGY Routine 04/14/2020 3:56 PM CDT Supervision of other normal , antepartum Screening for STD (sexually transmitted disease) documented in this encounter Results * Antibody screen (07/27/2020 10:50 AM CDT) Antibody Screen NEGATIVE [facility] 07/27/2020 10:5 0 AM CDT 07/27/2020 11:10 AM CDT Narrative Resulting Agency Comment CLI Lorna Witt MD LAB BLOOD BANK TEST ORDERABLES F inal Result Performing Organization Address City/[facility] Co de Phone Number [address] [phone] * (ABNORMAL) Urinalysis, Complete (07/27/2020 10:50 AM CDT) Ur Collection Type CLEAN CATCH [facility] Urine Color YELLOW YELLOW [facility] Urine Clarity CLEAR CLEAR [facility] Urine Glucose (UA) 50(A) NORMAL mg/dL [facility] Urine Bilirubin NEGATIVE NEGATIVE mg/dl [facility] Urine Ketones NEGATIVE NEGATIVE mg/dL [facility] Ur Specific [place] 1.012 1.005 - 1.025 [facility] Urine Blood NEGATIVE NEGATIVE mg/dl [facility] Urine pH 6.0 5.0 - 8.0 [facility] Urine Protein NEGATIVE NEGATIVE mg/dL [facility] Urine Urobilinogen NORMAL NORMAL mg/dL [facility] Urine Nitrite NEGATIVE NEGATIVE [facility] Ur Leukocyte Esterase NEGATIVE NEGATIVE Darya/ul [facility] Ur Microscopic Review Indicated or Ordered [facility] Urine WBC 1 0 - 2 /HPF [facility] Urine Mucus RARE /LPF [facility] Ur Squamous Epith Cells Rare /LPF [facility] Urine 07/27/2020 10:5 0 AM CDT 07/27/2020 12:19 PM CDT Narrative [facility] - 07/27/2020 1:24 PM CDT Clean catch Resulting Agency Comment CLI Lorna Witt MD LAB URINE ORDERABLES Final Resul t [facility] [address] [phone] * Urine culture Urine, clean voided (07/27/2020 10:50 AM CDT) Organism LACTOBACILLUS SPECIES [facility] CULTURE URINE >100,000 CFU/ml ISOLATE OF QUESTIONABLE SIGNIFICANCE. [facility] Urine, clean voided 07/27/2020 10:50 AM CDT 07/27/2020 12:19 PM CDT us Lorna Witt MD LAB MICROBIOLOGY - GENERAL ORDER OSCAR Final Result Performing Organization Address [facility] Co de Phone Number [facility] [address] [phone] * Type and screen (07/27/2020 10:50 AM CDT) Blood Type OP [facility] Blood specimen (specimen) 07/27/2020 10:50 AM CDT 07/27/2020 11:10 AM CDT Narrative [facility] - 07/27/2020 4:16 PM CDT No Resulting Agency Comment CLI us Lorna Witt MD LAB BLOOD BANK TEST ORDERABLES F inal Result Performing Organization Address [facility] Co de Phone Number [address] [phone] * Treponema pallidum (syphilis) antibody (07/27/2020 10:50 AM CDT) Treponemal IgG NONREACTIVE NONREACTIVE [facility] Comment: ADVIA Centaur immunoassay to determine antibodies to Treponema pallidum. Blood specimen (specimen) 07/27/2020 10:50 AM CDT 07/27/2020 11:10 AM CDT Narrative Resulting Agency Comment CLI us Lorna Witt MD LAB BLOOD ORDERABLES Final Resul t Performing Organization Address [facility] [place] [address], [facility] [phone] * Rubella IgG (07/27/2020 10:50 AM CDT) Pathologist [facility] Rubella IgG IMMUNE [facility] Comment: Siemens Centaur XP using chemiluminescent technology. Use of assay to diagnose current infection (acute and convalescent) is not recommended. Blood specimen (specimen) 07/27/2020 10:50 AM CDT 07/27/2020 11:10 AM CDT Narrative Resulting Agency Comment CLI Lorna Witt MD LAB MICROBIOLOGY - GENERAL ORDER OSCAR Final Result Performing Organization Address [facility] de Phone Number [address] [phone] * HIV 1/2 Antibody plus p24 Antigen (07/27/2020 10:50 AM CDT) Pathologist [facility] HIV Ag/Ab, 4th gen NONREACTIVE NONREACTIVE [facility] Comment: This assay tests for HIV-1, HIV-1 group O, and HIV-2 antibodies and p24 antigen. Blood specimen (specimen) 07/27/2020 10:50 AM CDT 07/27/2020 11:10 AM CDT Narrative Resulting Agency Comment CLI Lorna Witt MD LAB MICROBIOLOGY - GENERAL ORDER OSCAR Final Result Performing Organization Address [facility] [place] [address], [facility] [phone] * Hepatitis C antibody (07/27/2020 10:50 AM CDT) Pathologist [facility] Hep C Ab NONREACT NONREACTIVE [facility] Comment: Siemens CentaurXP using JOLENE (chemiluminescent immunoassay) [...] ORDER OSCAR Final Result Performing Organization Address [facility] de Phone Number [address] [phone] * Hepatitis B Surface Antigen (07/27/2020 10:50 AM CDT) HepBsAg NONREACT NONREACTIVE [facility] Comment: Siemens Outdoor CreationsaurXP using JOLENE (chemiluminescent immunoassay) technology. NONREACTIVE: IgM antibodies to Hepatitis B Surface antigen not detected. REACTIVE: IgM antibodies to Hepatitis B Surface antigen detected. Reactive results will be confirmed by neutralization testing. Blood specimen (specimen) 07/27/2020 10:50 AM CDT 07/27/2020 11:10 AM CDT Narrative Resulting Agency Comment CLI Lorna Witt MD LAB MICROBIOLOGY - GENERAL ORDER OSCAR Final Result Performing Organization Address [facility] de Phone Number [address] [phone] * Hemoglobin A1c (07/27/2020 10:50 AM CDT) Hemoglobin A1c % 4.9 4.0 - 5.6 % [facility] Comment: ADA 2016 GUIDELINES: ??Initial Diagnostic Criteria ? HbA1c Result: ?Interpretation: ?<5.7% ? Normal ?5.7-6.4% ?At risk for diabetes mellitus ?>=6.5% ?Consistent with diabetes mellitus ??Diabetes monitoring ? Target value (ADA Recommended) ?? <7% Blood specimen (specimen) 07/27/2020 10:50 AM CDT 07/27/2020 11:10 AM CDT Narrative Resulting Agency Comment CLI Lorna Witt MD LAB BLOOD ORDERAB[place] [address], [facility] [phone] * Hemoglobin analysis by electrophoresis (07/27/2020 10:50 AM CDT) Hemoglobin A 96.9 95.0 - 97.9 % [facility] Comment: Performed by [facility], [address] [place] [id number] www.[employer], Nichelle Serrano MD, Lab. Director Hemoglobin A2 2.7 2.0 - 3.5 % [facility] Hemoglobin C 0.0 0.0 - 0.0 % [facility] Hemoglobin E 0.0 0.0 - 0.0 % [facility] Hemoglobin F () 0.4 0.0 - 2.1 % [facility] Comment: REFERENCE INTERVAL: Hemoglobin F Access complete set of age- and/or gender-specific reference intervals for this test in the [facility] Test Directory ([employer]). Hemoglobin Other 0.0 0.0 - 0.0 % [facility] Hemoglobin S 0.0 0.0 - 0.0 % [facility] Hgb ELP Interp See Note [facility] Comment: Impression: Normal HPLC evaluation. This normal HPLC result does not rule out the possibility of alpha globin gene deletions associated with silent carrier status or alpha thalassemia trait. Individuals who carry a rare, [place] beta thalassemia variant often have a normal Hb A2 and may not be identified by this assay. Please correlate with clinical and laboratory findings. Blood specimen (specimen) 07/27/2020 10:50 AM CDT 07/27/2020 11:10 AM CDT Narrative Resulting Agency Comment CLI Lorna Witt MD LAB BLOOD ORDERABLES Final Resul t [facility] [employer] [place] [id number], [facility] [phone] * Drugs of Abuse Screen, Urine with Reflex Confirmation (07/27/2020 10:50 AM CDT) Amphetamines NOT DETECTED [facility] Comment: This assay uses 500 ng/mL as a cutoff for a positive result. Barbiturates NOT DETECTED [facility] Comment: This assay uses 200 ng/mL as a cutoff for a positive result. Urine Fentanyl w Reflex NOT DETECTED [facility] Comment: This assay uses 1 ng/mL as a cutoff for a positive result. Benzodiazepines NOT DETECTED [facility] Comment: This assay uses 100 ng/mL as a cutoff for a positive result. Cannabinoids NOT DETECTED [facility] Comment: This assay uses 50 ng/mL as a cutoff for a positive result. Cocaine NOT DETECTED [facility] Comment: This assay uses 150 ng/mL as a cutoff for a positive result. Opiates NOT DETECTED [facility] Comment: This assay uses 300 ng/mL as a cutoff for a positive result. Methadone NOT DETECTED [facility] Comment: This assay uses 300 ng/mL as a cutoff for a positive result. Phencyclidine NOT DETECTED [facility] Comment: This assay uses 25 ng/mL as a cutoff for a positive result. Oxycodone NOT DETECTED [facility] Comment: This assay uses 100 ng/mL as a cutoff for a positive result. Urine Creatinine/GUILLE 67.7 mg/dL [facility] Comment: If Creatinine is < 40 mg/dL, recollection is suggested. Urine 07/27/2020 10:5 0 AM CDT 07/27/2020 12:19 PM CDT Narrative Resulting Agency Comment CLI Lorna Witt MD LAB URINE ORDERABLES Final Resul t [email or web address] [address] [place] [address], [facility] [phone] * (ABNORMAL) CBC with auto differential (07/27/2020 10:50 AM CDT) WBC 10.7(H) 3.8 - 9.9 X10 3/ul [facility] RBC 4.01 3.90 - 5.20 x10 6/ul [facility] Hemoglobin 11.2(L) 11.9 - 15.5 g/dL [facility] Hct 34.9(L) 35.6 - 45.5 % [facility] MCV 87.0 81.3 - 96.4 fl [facility] MCH 27.9 27.1 - 33.3 pg [facility] MCHC 32.1(L) 32.3 - 35.7 g/dl [facility] RDW 13.4 11.1 - 14.9 % [facility] Plt Count 193 150 - 400 x10 3/ul [facility] MPV 10.6 9.1 - 12.3 fl [facility] Neut % 76.4 % [facility] Immature Gran % 0.7 % [facility] Lymph % 16.6 % [facility] [place] % 5.0 % [facility] Eos % 1.0 % [facility] AUTO BASO % 0.3 % [facility] NEUTROPHIL ABS # 8.2(H) 1.7 - 6.5 x10 3/ul [facility] Immature Gran # 0.1 0.0 - 0.1 x10 3/ul [facility] Absolute Lymphs (auto) 1.8 0.8 - 3.3 x10 3/ul [facility] Absolute Monos (auto) 0.5 0.2 - 0.8 x10 3/ul [facility] Absolute Eos (auto) 0.1 0.0 - 0.5 x10 3/ul [facility] BASOPHIL ABS # 0.0 0.0 - 0.1 x10 3/ul [facility] Nucleat RBC Rel Count 0.0 #/100WBC [facility] NRBC abs 0.00 0.00 - 0.01 x10 3/ul [facility] Absolute Neutrophils 8,200(H) 200 - 8,000 /ul [facility] Blood specimen (specimen) 07/27/2020 10:50 AM CDT 07/27/2020 11:10 AM CDT Narrative Resulting Agency Comment CLI Lorna Witt MD LAB BLOOD ORDERABLES Final Resul t Performing Organization Address City/[facility]/ZIP Co de Phone Number [facility] [address] [phone] * N. gonorrhoeae/C. trachomatis Amplification- Liquid based cytology Thin prep (04/14/2020 3:56 PM CDT) GC/CHLAM REPORT TO FOLLOW COMMENT [facility] Comment: Note: Results via Scanned Reports in EMR or by paper report only. Specimen sent to Reference lab. Results usually in 2-7 days. Thin prep 04/14/2020 3:56 PM CDT 04/15/2020 12:56 PM CDT Narrative Resulting Agency Comment REF us Lorna Witt MD LAB MICROBIOLOGY - GENERAL ORDER OSCAR Final Result Performing Organization Address City/[facility] Co de Phone Number [facility] [address] [phone] documented in this encounter Visit Diagnoses Diagnosis Supervision of other normal , antepartum- Primary 10 weeks gestation of Nausea and vomiting in Unspecified vomiting of , unspecified as to episode of care Screening for STD (sexually transmitted disease) documented in this encounter Orders Outpatient Referral Count Last Ordered Date Fir st Ordered Date AMB REFERRAL TO OB-SOFA BACK UPHOLSTERER 1 04/14/2020 documented in this encounter Care Teams Weighing Station Operator Relationship Specialty Start Date End Date No, Physician PCP - General 05/26/19 02/16/21 documented as of this encounter
--- OUTSIDE RECORDS SUMMARY | 2024-11-29 06:25 | XMS_ITS | Encounter Summary ---
Author Organization [facility] Address [address] [place] [address] Phone Care Team Providers Care Calender Machine Operator Name Role Phone No, Physician Primary Care Provider [phone] Reason for Visit * Reason Onset Date Comments Discuss Test Results 06/26/2019 Encounter Details Date Type Department Care Team (Late st Contact Info) Description 06/26/2019 Telephone [facility] Reproductive Endocrinology [address] [phone] Jovita Strickland MD [address] [address] Discuss Test Results Social History Tobacco Use Types Packs/Day Years [...] Telephone Encounter - Bhumika Dinero RN - 06/26/2019 4:00 PM CDT VM for patient that all results good and WNL. * Telephone Encounter - Bhumika Dinero RN - 06/26/2019 3:59 PM CDT ----- Message from Jovita Strickland MD sent at 06/26/2019 3:58 PM CDT ----- Results suggest good ovarian reserve and normal TSH. Continue with plan as discussed previously. documented in this encounter Plan of Treatment Not on file documented as of this encounter Visit Diagnoses Not on filedocumented in this encounter Care Teams Calender Machine Operator Relationship Specialty Start Date End Date No, Physician PCP - General 05/26/19 02/16/21 documented as of this encounter
--- OUTSIDE RECORDS SUMMARY | 2024-11-29 06:25 | XMS_ITS | Encounter Summary ---
Author Organization [facility] Address [address] [place] [address] Phone Care Team Providers Care Resident Care Assistant Name Role Phone No, Physician Primary Care Provider [phone] Reason for Visit * Reason Comments IUI - Intrauterine Insemination * Endocrinology (Routine) - Denied Specialty Diagnoses / Procedures Referred By Carlee goetz Referred To Contact Diagnoses Encounter for other procreative management Procedures IUI Jovita Strickland MD Phone: tel: fax: [facility] (All Locations) Referral ID Status Reason Start Date Expiration Date Visits Re quested Visits Authorized [id number] Denied 06/15/2019 12/24/2020 1 0 Encounter Details Date Type Department Care Team (Latest Contact Info) Description 07/01/2019 7:30 AM CDT Clinical Support [facility] Reproductive Endocrinology [address] [facility] [address] [place] [address] Fertility testing (Primary Dx); Encounter for other procreative management Social History [...] Procedure Notes * Dina Morgan MD - 07/01/2019 7:30 AM CDTAssociated Order(s): IUI Post-Procedure Diagnose(s): Encounter for other procreative management IUI Date/Time: 07/01/2019 12:40 PM Performed by: Dina Morgan MD Authorized by: Jovita Strickland MD Local anesthesia used: no Anesthesia: Local anesthesia used: no Sedation: Patient sedated: no Comments: IUI - Procedure Episode Name: LTZ 5/ IUI/ #1Cycle #: 1 Partner info: Stephen Tai Female Blood Type: No data was found Rubella: No data was found Cycle start dated by: Menstrual period LMP: 06/15/2019 Cycle Day: 17 Date of IUI: 07/01/2019 # Motile Sperm (Million): 2.5 IUI Timing: LH surge Procedure comments: No data was found Procedure Note- Discussed with patient that the total motile sperm was much lower than his previous analysis (05/2019 - 3.5 ML 23.3M/ML, 22% motile, 2% morph). Discussed option of canceling and doing TIC this month, but pt opted for IUI. Discussed that I would make Dr. Strickland aware to see if she'd like to do any further testing moving forward. The patient was positioned and speculum placed. Cervix cleaned. The sample was loaded after confirmation of specimen ID into the catheter and inseminated into the uterus. Dina Morgan MD Fellow Reproductive Endocrinology & Infertility Department of Obstetrics & Gynecology Pager #[phone] Cosigned by Temitope Orr MD at 07/01/2019 2:43 PM CDT documented in this encounter Plan of Treatment Not on file documented as of this encounter Procedures Procedure Name Priority Date/Time Associated Diagnosis Comments PROGESTERONE Routine 07/08/2019 Encounter for other procreative management Fertility testing INTRAUTERINE INSEMINATION Routine 07/01/2019 7:30 AM CDT Encounter for other procreative management documented in this encounter Results * Progesterone (07/08/2019) SCRIBED Progesterone 11.92 1.83 - 23.90 ng/mL EXTERNAL LAB Blood specimen (specimen) 07/08/2019 us Jovita Strickland MD LAB BLOOD ORDERABLES Final Result EXTERNAL LAB * INTRAUTERINE INSEMINATION (07/01/2019 7:30 AM CDT) Narrative Claudette Grant Pinky - 07/01/2019 7:30 AM CDT Dina Morgan MD ? 07/01/2019 12:41 PM IUI Date/Time: 07/01/2019 12:40 PM Performed by: Dian Morgan MD Authorized by: Jovita Strickland MD Local anesthesia used: no Anesthesia: Local anesthesia used: no Sedation: Patient sedated: no Comments: IUI - Procedure Episode Name: LTZ 5/ IUI/ #1Cycle #: 1 Partner info: Stephen Tia Female Blood Type: No data was found Rubella: No data was found Cycle start dated by: Menstrual period LMP: 06/15/2019 Cycle Day: 17 Date of IUI: 07/01/2019 # Motile Sperm (Million): 2.5 IUI Timing: LH surge Procedure comments: No data was found Procedure Note- Discussed with patient that the total motile sperm was much lower than his previous analysis (05/2019 - 3.5 ML 23.3M/ML, 22% motile, 2% morph). Discussed option of canceling and doing TIC this month, but pt opted for IUI. Discussed that I would make Dr. Strickland aware to see if she'd like to do any further testing moving forward. The patient was positioned and speculum placed. ??Cervix cleaned. ??The sample was loaded after confirmation of specimen ID into the catheter and inseminated into the uterus. Dina Morgan MD Fellow Reproductive Endocrinology & Infertility Department of Obstetrics & Gynecology Pager #[phone] Procedure Note Dina Morgan MD - 07/01/2019 7:30 AM CDT IUI Date/Time: 07/01/2019 12:40 PM Performed by: Dina Morgan MD Authorized by: Jovita Strickland MD Local anesthesia used: no Anesthesia: Local anesthesia used: no Sedation: Patient sedated: no Comments: IUI - Procedure Episode Name: LTZ 5/ IUI/ #1Cycle #: 1 Partner info: Stephen Tai Female Blood Type: No data was found Rubella: No data was found Cycle start dated by: Menstrual period LMP: 06/15/2019 Cycle Day: 17 Date of IUI: 07/01/2019 # Motile Sperm (Million): 2.5 IUI Timing: LH surge Procedure comments: No data was found Procedure Note- Discussed with patient that the total motile sperm was much lower than hisprevious analysis (05/2019 - 3.5 ML 23.3M/ML, 22% motile, 2% morph).Discussed option of canceling and doing TIC this month, but pt opted forIUI. Discussed that I would make Dr. Strickland aware to see if she'd like todo any further testing moving forward. The patient was positioned and speculum placed. Cervix cleaned. Thesample was loaded after confirmation of specimen ID into the catheter andinseminated into the uterus. Dina Morgan MD Fellow Reproductive Endocrinology & Infertility Department of Obstetrics & Gynecology Pager #[phone] us Jovita Strickland MD IN CLINIC/BEDSIDE OR DERABLES Final Result documented in this encounter Visit Diagnoses Diagnosis Fertility testing- Primary Encounter for other procreative management documented in this encounter Care Teams Resident Care Assistant Relationship Specialty Start Date End Date No, Physician PCP - General 05/26/19 02/16/21 documented as of this encounter
--- OUTSIDE RECORDS SUMMARY | 2024-11-29 06:25 | XMS_ITS | Encounter Summary ---
Author Organization [facility] Facility Care Team Providers Care On Air Announcer Name Role Phone Unavailable Primary Care Provider Unavailabl e Encounter Details Date Type Department Care Team (Latest Contact Info) Description 03/19/2010 8:04 PM CDT - 03/19/2010 10:21 PM CDT Hospital Encounter [facility] Devyn Emery MD [address] [facility] [address] [place] [address] Other venous complication of and the puerperium with complication; Unspecified hemorrhoids with other complication Social History Tobacco Use Types Packs/Day [...] of this encounter Visit Diagnoses Diagnosis Other venous complication of and the puerperium with complication Unspecified hemorrhoids with other complication documented in this encounter
--- OUTSIDE RECORDS SUMMARY | 2024-11-29 06:25 | XMS_ITS | Encounter Summary ---
Author Organization [facility] Facility Care Team Providers Care Skein Mercerizing Machine Operator Name Role Phone Unavailable Primary Care Provider Unavailabl e Encounter Details Date Type Department Care Team (Late st Contact Info) Description 11/23/2009 - 11/23/2009 11:59 PM [employer] Hospital Encounter [facility] Britney Carlos MD [facility] [facility] [place] [address] Other specified screening; Other known or suspected abnormality, not elsewhere [...] of this encounter Visit Diagnoses Diagnosis Other specified screening Other known or suspected abnormality, not elsewhere classified, affecting management of mother, antepartum condition or complication documented in this encounter
--- OUTSIDE RECORDS SUMMARY | 2024-11-29 06:25 | XMS_ITS | Encounter Summary ---
Author Organization [facility] Address [address] [facility] [address] [place] [address] Care Team Providers Care Team Psychologist Name Role Phone No, Physician Primary Care Provider [phone] Reason for Visit * Reason Comments Initial Visit Encounter Details Date Type Department Care Team (Late st Contact Info) Description 04/14/2020 2:00 PM CDT Clinical Support [facility] Medical [facility] Obstetrical Gynecology [address] [place] [address] Social History Tobacco Use Types Packs/Day Years [...] Time Taken Comments Blood Pressure 116/68 04/14/2020 2:05 PM CDT Pulse - - Temperature - - Respiratory Rate - - Oxygen Saturation - - Inhaled Oxygen Concentration - - Weight 80.7 kg (178 lb) 04/14/2020 2:05 PM CDT Height 170.2 cm (5' 7 ) 04/14/2020 2:05 PM CDT Body Mass Index 27.88 04/14/2020 2:05 PM CDT documented in this encounter Progress Notes * Lorraine Moss, TAWNY - 04/14/2020 2:00 PM CDT -patient overall doing good, some nausea controlled with vitamin b6. -she was seeing [facility] for fertility treatments but her and her spontaneously conceived. -US completed with [facility]. We do not have records yet. -PNL ordered today. Carrier screen com pelted at [facility]. -panorama discussed with the pt. She will let us know if she wants to complete the testing. -pap up to date per pt. 2019 with [facility]. -New OB packet reviewed with the pt and questions were answered. documented in this encounter Plan of Treatment Not on file documented as of this encounter Visit Diagnoses Not on filedocumented in this encounter Historical Medications * This list may reflect changes made after this encounter. Lactobacillus acidophilus (Probiotic) 10 billion cell capsule Take 1 Caplet by mouth daily 06/01/2024 pyridoxine (VITAMIN B-6) 50 mg tablet Take 50 mg by mouth daily 11/28/2020 ergocalciferol (VITAMIN D) 50,000 unit capsule 02/22/2020 07/27/2020 added in this encounter Care Teams Team Psychologist Relationship Specialty Start Date End Date No, Physician PCP - General 05/26/19 02/16/21 documented as of this encounter
--- OUTSIDE RECORDS SUMMARY | 2024-11-29 06:25 | XMS_ITS | Encounter Summary ---
Author Organization [facility] Healthcare Address [address] [place] [address] Care Team Providers Care Statement Clerks Manager Name Role Phone Unavailable Primary Care Provider Unavailabl e Encounter Details Date Type Department Care Team (Latest Contact Info) Description 04/07/2016 6:28 PM CDT - 04/07/2016 7:59 PM CDT Hospital Encounter [facility], Sara Sun MD [address] [place] [address] Sprain of right knee; Exposure to other specified factors, initial encounter; Activity involving obstacle course Social History Tobacco Use Types Packs/Day Years Used Date Smoking Tobacco: Never Assessed Comments Unknown Sex and Gender Information Value Date Recorded Sex Assigned at Not on file Legal Sex Female 2:07 PM CDT Gender Identity Not on file Sexual Orientation Not on file documented as of this encounter Last Filed Vital Signs Vital Sign Reading Time Taken Comments Blood Pressure 129/73 04/07/2016 6:29 PM CDT Pulse 75 04/07/2016 6:29 PM CDT Temperature 36.6 ??C (97.8 ??F) 04/07/2016 6:29 PM CD T Respiratory Rate - - Oxygen Saturation 99% 04/07/2016 6:29 PM CDT Inhaled Oxygen Concentration - - Weight 68 kg (150 lb) 04/07/2016 6:29 PM CDT Height 170.2 cm (5' 7 ) 04/07/2016 6:29 PM CDT Body Mass Index 23.49 04/07/2016 6:29 PM CDT documented in this encounter Plan of Treatment Not on file documented as of this encounter Procedures Procedure Name Priority Date/Time Associated Diagnosis Comments XR KNEE RIGHT 1 OR 2 VIEWS Routine 04/07/2016 6:36 PM CDT documented in this encounter Results * XR Knee Right 1 or 2 Views (04/07/2016 6:36 PM CDT) Anatomical Region Laterality Modality Lower Extremities, Knee Right Radiogra phic Imaging 04/07/2016 6:36 PM CDT Impressions 04/07/2016 7:04 PM CDT No acute osseous abnormality. THIS IS AN ELECTRONICALLY VERIFIED REPORT 04/07/2016 7:01 PM: ??Timmy Odom M.D. ?? Timmy Odom M.D. JR: 07:01 PM 07:01 PM FELICE [EOD] Narrative 04/07/2016 7:04 PM CDT EXAMINATION: Right knee CLINICAL HISTORY: patient with a inward twisting injury of the right knee today resulting in medial knee pain and distal anterior medial thigh pain. pt shielded. COMPARISON: None TECHNIQUE: Right knee 2 views FINDINGS: The bone mineralization is normal. ??There is no fracture or dislocation. ??There is no knee joint effusion. Procedure Note Provider, MD Stefany - 04/12/2021 EXAMINATION: Right knee CLINICAL HISTORY: patient with a inward twisting injury of the right knee today resulting in medial knee pain and distal anterior medial thigh pain.pt shielded. COMPARISON: None TECHNIQUE: Right knee 2 views FINDINGS: The bone mineralization is normal. There is no fracture or dislocation. There is no knee joint effusion. IMPRESSION: No acute osseous abnormality. THIS IS AN ELECTRONICALLY VERIFIED REPORT 04/07/2016 7:01 PM: Timmy Odom M.D. Timmy Odom M.D. JR: 07:01 PM 07:01 PM FELICE [EOD] Jovanny MCKEON IMG XR PROCEDURES Fin al Result documented in this encounter Visit Diagnoses Diagnosis Sprain of right knee Exposure to other specified factors, initial encounter Activity involving obstacle course documented in this encounter
--- OUTSIDE RECORDS SUMMARY | 2024-11-29 06:25 | XMS_ITS | Encounter Summary ---
Author Organization [facility] Address [address] [place] [address] Phone Care Team Providers Care Orchid Worker Name Role Phone No, Physician Primary Care Provider [phone] Reason for Referral * Endocrinology (Routine) - Denied Specialty Diagnoses / Procedures Referred By Contac t Referred To Contact Diagnoses Encounter for other procreative management Procedures IUI Jovita Strickland MD Phone: tel: fax: [facility] (All Locations) Referral ID Status Reason Start Date Expiration Date Visits Re quested Visits Authorized [id number] Denied 06/15/2019 12/24/2020 1 0 Encounter Details Date Type Department Care Team (Late st Contact Info) Description 06/15/2019 Orders Only [facility] Reproductive Endocrinology [address] [facility] [address] [place] [address] Jovita Strickland MD [address] [address] Encounter for other procreative management (Primary Dx) Social History Tobacco Use Types [...] on file documented as of this encounter Ordered Prescriptions Prescription Sig Dispense Quantity Refills Last Filled Start Date End Date letrozole (FEMARA) 2.5 mg tabletIndications: Ovulation Stimulation Take 2 tablets (5 mg total) by mouth daily for 5 days 10 tablet 06/15/2019 9 documented in this encounter Plan of Treatment Not on file documented as of this encounter Results * INTRAUTERINE INSEMINATION (07/01/2019 7:30 AM CDT) Narrative Claudette Grant Pinky - 07/01/2019 7:30 AM CDT Dina Moragn MD ? 07/01/2019 12:41 PM IUI Date/Time: [...] Infertility Department of Obstetrics & Gynecology Pager #[phone] Procedure Note Dina Morgan MD - 07/01/2019 [...] Infertility Department of Obstetrics & Gynecology Pager #[phone] us Jovita Strickland MD IN CLINIC/BEDSIDE OR DERABLES Final Result documented in this encounter Visit Diagnoses Diagnosis Encounter for other procreative management- Primary Fertility testing- Primary Encounter for other procreative management documented in this encounter Care Teams Orchid Worker Relationship Specialty Start Date End Date No, Physician PCP - General 05/26/19 02/16/21 documented as of this encounter
--- OUTSIDE RECORDS SUMMARY | 2024-11-29 06:25 | XMS_ITS | Encounter Summary ---
Author Organization [facility] Facility Care Team Providers Care Market Analysis Director Name Role Phone Unavailable Primary Care Provider Unavailabl e Encounter Details Date Type Department Care Team (Latest Contact Info) Description 01/30/2010 6:47 AM INTEGRATED LOGISTICS OPERATIONS MANAGER - 01/30/2010 11:59 PM [facility] Hospital Encounter [facility] Oly Elam MD [address] [facility] [id number] [place] [id number] Other known or suspected abnormality, not elsewhere [...]
--- OUTSIDE RECORDS SUMMARY | 2024-11-29 06:25 | XMS_ITS | Encounter Summary ---
Author Organization [facility] Healthcare Address [address] [place] [address] Care Team Providers Care Pipe Straightener Name Role Phone No, Physician Primary Care Provider [phone] Encounter Details Date Type Department Care Team (Late st Contact Info) Description 04/20/2020 5:35 PM CDT Lab [address] [address] Social History Tobacco Use Types Packs/Day Years Used Date Smoking Tobacco: Never Assessed Comments Yes Sex and Gender Information Value Date Recorded Sex Assigned at Not on file Legal Sex Female 2:07 PM CDT Gender Identity Not on file Sexual Orientation Not on file documented as of this encounter Plan of Treatment Not on file documented as of this encounter Procedures Procedure Name Priority Date/Time Associated Diagnosis Comments N. GONORRHOEAE/C. TRACHOMATIS AMPLIFICATION Routine 04/14/2020 3:56 PM CDT documented in this encounter Results * N. gonorrhoeae/C. trachomatis Amplification Thin prep (04/14/2020 3:56 PM CDT) C. trachomatis Not detected Not detected [facility] N. gonorrhoeae Not detected Not detected [facility] Comment: Testing performed by the [facility]. This assay detects Chlamydia trachomatis and Neisseria gonorrhoeae by nucleic acid amplification testing (NAAT). This test is approved by the [place] Food and Drug Administration and the performance characteristics have been verified by the laboratory. The performance characteristics of this test have not been evaluated in women or individuals less than 16 years of age. Thin prep 04/14/2020 3:56 PM CDT 04/20/2020 5:45 PM CDT us Lorna Witt MD LAB MICROBIOLOGY - GENERAL ORDER OSCAR Final Result [facility] [address] Department [place] [address] documented in this encounter Visit Diagnoses Not on filedocumented in this encounter Care Teams Pipe Straightener Relationship Specialty Start Date End Date No, Physician PCP - General 05/26/19 02/16/21 documented as of this encounter
--- OUTSIDE RECORDS SUMMARY | 2024-11-29 06:25 | XMS_ITS | Encounter Summary ---
Author Organization [facility] Healthcare Address [address] [place] [address] Care Team Providers Care Private Household Worker Name Role Phone No, Physician Primary Care Provider Encounter Details Date Type Department Care Team (Late st Contact Info) Description 04/14/2020 12:01 AM CDT Hospital Encounter [facility] Lorna Witt MD [facility] [address] [address] Social History Tobacco Use Types [...] this encounter Medications at Time of Discharge ergocalciferol (VITAMIN D) 50,000 unit capsule 02/22/2020 07/27/2020 prenat vit [id number] ,6 35-5-1.2-400 mg capsule Take by mouth daily 02/15/2022 documented as of this encounter Plan of Treatment Not on file documented as of this encounter Procedures Procedure Name Priority Date/Time Associated Diagnosis Comments SCAN - LABS 04/22/2020 12:00 AM CDT documented in this encounter Results * SCAN - LABS (04/22/2020 12:00 AM CDT) Narrative 04/22/2020 12:00 AM CDT Ordered by an unspecified provider. us Historical Provider MD Final Res ult documented in this encounter Visit Diagnoses Not on filedocumented in this encounter Care Teams Private Household Worker Relationship Specialty Start Date End Date No, Physician PCP - General 05/26/19 02/16/21 documented as of this encounter
--- OUTSIDE RECORDS SUMMARY | 2024-11-29 06:25 | XMS_ITS | Encounter Summary ---
Author Organization [facility] Address [address] [place] [address] Phone Care Team Providers Care Textile Machinery Sales Representative Name Role Phone No, Physician Primary Care Provider [phone] Reason for Visit * Reason Onset Date Comments PTJ- CD 1 12/15/18, LTZ ( DONE) IUI (DONE) EOC ( UPDATED) 10/16/2019 Encounter Details Date Type Department Care Team (Late st Contact Info) Description 10/16/2019 Telephone [facility] Reproductive Endocrinology [address] [address] Jovita Strickland MD [address] [address] PTJ- CD 1 12/15/18, LTZ ( DONE) IUI (DONE) EOC ( UPDATED) Social History Tobacco Use Types Packs/Day Years [...] * Telephone Encounter - Jeanette Smith - 10/16/2019 11:47 AM CST Error, see next phone call NCE AND ADMINISTRATION MANAGER * Telephone Encounter - Bhumika Dinero RN - 10/16/2019 11:40 AM CST Message is empty? NCE AND ADMINISTRATION MANAGER documented in this encounter Plan of Treatment Not on file documented as of this encounter Visit Diagnoses Not on filedocumented in this encounter Care Teams Textile Machinery Sales Representative Relationship Specialty Start Date End Date No, Physician PCP - General 05/26/19 02/16/21 documented as of this encounter
--- OUTSIDE RECORDS SUMMARY | 2024-11-29 06:25 | XMS_ITS | Encounter Summary ---
Author Organization [facility] Address [address] [place] [address] Phone Care Team Providers Care Vp Sales Name Role Phone No, Physician Primary Care Provider [phone] Reason for Referral * OBGYN (Routine) - Closed Specialty Diagnoses / Procedures Referred By Contac t Referred To Contact Diagnoses Encounter for other procreative management Procedures IUI Jovita Strickland MD [address] [address] Phone: tel: fax: [facility] (All Locations) Referral ID Status Reason Start Date Expiration Date Visits Re quested Visits Authorized [id number] Closed 10/16/2019 04/26/2021 1 1 [facility]ER [facility]ENS[facility] Encounter Details Date Type Department Care Team (Late st Contact Info) Description 10/16/2019 Orders Only [facility] Reproductive Endocrinology [address] [address] Jovita Strickland MD [address] [address] Encounter for other procreative management [...] mouth daily for 5 days 10 tablet 10/16/2019 9 documented in this encounter Plan of Treatment Scheduled Orders Name Type Priority Associated Diagnoses Orde r Schedule IUI Procedures Routine Encounter for other procreative management Expected: 10/17/2019, Expires: 11/15/2019 documented as of this encounter Visit Diagnoses Diagnosis Encounter for other procreative management- Primary documented in this encounter Care Teams Vp Sales Relationship Specialty Start Date End Date No, Physician PCP - General 05/26/19 02/16/21 documented as of this encounter
--- OUTSIDE RECORDS SUMMARY | 2024-11-29 06:25 | XMS_ITS | Encounter Summary ---
Author Organization [facility] Facility Care Team Providers Care Enterprise Architect Manager Name Role Phone Unavailable Primary Care Provider Unavailabl e Encounter Details Date Type Department Care Team (Late st Contact Info) Description 02/17/2010 - 02/17/2010 11:59 PM CDT [facility] Social History Tobacco Use Types Packs/Day Years [...]
--- OUTSIDE RECORDS SUMMARY | 2024-11-29 06:25 | XMS_ITS | Encounter Summary ---
Author Organization [facility] Facility Care Team Providers Care Credit Balance Specialist Name Role Phone Unavailable Primary Care Provider Unavailabl e Encounter Details Date Type Department Care Team (Latest Contact Info) Description 05/12/2010 - 05/12/2010 11:59 PM CDT Hospital Encounter [facility] Damon Singletary MD [address] [facility] [address] [place] [address] Surveillance of previously prescribed intrauterine contraceptive device Social History Tobacco Use Types Packs/Day Years Used Date Smoking Tobacco: Never Assessed Comments Unknown Sex and Gender Information Value Date Recorded Sex Assigned at Not on file Legal Sex Female 2:07 PM CDT Gender Identity Not on file Sexual Orientation Not on file documented as of this encounter Plan of Treatment Not on file documented as of this encounter Visit Diagnoses Diagnosis Surveillance of previously prescribed intrauterine contraceptive device documented in this encounter
--- OUTSIDE RECORDS SUMMARY | 2024-11-29 06:25 | XMS_ITS | Encounter Summary ---
Author Organization [facility] Address [address] [place] [address] Phone Care Team Providers Care Radio News Writer Name Role Phone No, Physician Primary Care Provider [phone] Reason for Visit * Reason Comments IUI - Intrauterine Insemination * OBGYN (Routine) - Closed Specialty Diagnoses / Procedures Referred By Carlee goetz Referred To Contact Diagnoses Encounter for other procreative management Procedures IUI Jovita Strickland MD [address] [facility] [address] [place] [address] Phone: tel: fax: [facility] (All Locations) Referral ID Status Reason Start Date Expiration Date Visits Re quested Visits Authorized [id number] Closed 10/16/2019 04/26/2021 1 1 Encounter Details Date Type Department Care Team (Latest Contact Info) Description 10/29/2019 7:50 AM CARTON AND CAN SUPPLY SUPERVISOR Clinical Support [facility] Reproductive Endocrinology Lab [address] [phone] Encounter for other procreative management Social History [...] as of this encounter Procedure Notes * Rachel Hanna RN - 10/29/2019 7:50 AM CST Procedures IUI - Procedure Episode Name: LTZ 5/IUI/#3Cycle #: 3 Partner info: Stephen Female Blood Type: No data was found Rubella: No data was found Cycle start dated by: Menstrual period LMP: 10/15/2019 Cycle Day: 15 Date of IUI: 10/29/2019 # Motile Sperm (Million): 4.5 IUI Timing: LH surge Procedure comments: No data was found Procedure Note- The patient was positioned and speculum placed. Cervix cleaned. The sample was loaded after confirmation of specimen ID into the catheter and inseminated into the uterus. Pt john well- c/o mild cramping when cath passed inner os. Cath passed easily. Pt will call back with cycle outcome. ON AND CAN SUPPLY SUPERVISOR ON AND CAN SUPPLY SUPERVISOR documented in this encounter Plan of Treatment Not on file documented as of this encounter Visit Diagnoses Diagnosis Encounter for other procreative management documented in this encounter Orders Procedures Count Last Ordered Date First Orde red Date INTRAUTERINE INSEMINATION 1 10/29/2019 documented in this encounter Care Teams Radio News Writer Relationship Specialty Start Date End Date No, Physician PCP - General 05/26/19 02/16/21 documented as of this encounter
--- OUTSIDE RECORDS SUMMARY | 2024-11-29 06:25 | XMS_ITS | Encounter Summary ---
Author Organization [facility] Address [address] [place] [address] Phone Care Team Providers Care Dental Office Coordinator Name Role Phone No, Physician Primary Care Provider [phone] Reason for Visit * Reason Onset Date Comments PTJ- CD 1 10/15/19, IUI ( DO NE) EOC( UPDATED) LTZ ( DONE) 10/16/2019 + LH 10/28/19, IUI tomorrow a t 750, EOC ( UPDATED) Encounter Details Date Type Department Care Team (Late st Contact Info) Description 10/16/2019 Telephone [facility] Reproductive Endocrinology [address] [address] Jovita Strickland MD [address] [address] PTJ- CD 1 10/15/19, IUI ( DONE) EOC( UPDATED) LTZ ( DONE) (+ LH 10/28/19, IUI tomorrow at 750, EOC ( UPDATED)) Social History Tobacco Use Types Packs/Day Years [...] * Telephone Encounter - Jeanette Smith - 10/28/2019 3:23 PM CST PT called today with + LH surge, IUI sched for 750 tomorrow. Inst pt no ic today/ Pt v/u. EOC( UPDATED) LOCK MACHINE OPERATOR * Telephone Encounter - Jeanette Smith - 10/16/2019 11:42 AM CST PT called with CD 1 10/15/19 wanting LTZ sent to pharm on file ( DONE) EOC ( UPDATED) IUI ( DONE) Inst pt to take med CD 3-7, start OPK on CD 10 and to call us when she sees + surge. PT v/u. LOCK MACHINE OPERATOR documented in this encounter Plan of Treatment Not on file documented as of this encounter Visit Diagnoses Not on filedocumented in this encounter Care Teams Dental Office Coordinator Relationship Specialty Start Date End Date No, Physician PCP - General 05/26/19 02/16/21 documented as of this encounter
--- OUTSIDE RECORDS SUMMARY | 2024-11-29 06:25 | XMS_ITS | Encounter Summary ---
Author Organization [facility] Facility Care Team Providers Care Porcelain Finisher Name Role Phone Unavailable Primary Care Provider Unavailabl e Encounter Details Date Type Department Care Team (Late st Contact Info) Description 10/24/2009 - 10/24/2009 11:59 PM ACID PURIFICATION EQUIPMENT OPERATOR Hospital Encounter [facility] Britney Carlso MD [facility] [place] [address] Other known or suspected abnormality, not elsewhere [...]
--- OUTSIDE RECORDS SUMMARY | 2024-11-29 06:25 | XMS_ITS | Encounter Summary ---
Author Organization [facility] Address [address] [facility] [address] [place] [address] Care Team Providers Care Gambling Floor Supervisor Name Role Phone No, Physician Primary Care Provider [phone] Reason for Visit * Reason Comments Routine Visit Encounter Details Date Type Department Care Team (Latest Contact Info) Description 05/12/2020 10:00 AM CDT Routine [facility] Medical [facility] Obstetrical Gynecology [address] [address] Chetna Ricci CNM [address] [address] Supervision of other normal , [...] Sign Reading Time Taken Comments Blood Pressure 102/64 05/12/2020 10:20 AM CDT Pulse - - Temperature - - Respiratory Rate - - Oxygen Saturation - - Inhaled Oxygen Concentration - - Weight 80.7 kg (178 lb) 05/12/2020 10:20 AM CDT Height - - Body Mass Index 27.88 04/14/2020 2:31 PM CDT documented in this encounter Progress Notes * Chetna Ricci CNM - 05/12/2020 10:00 AM CDT Denies concerns. Has declined Panorama testing. Anatomy scan at next visit. documented in this encounter Plan of Treatment Not on file documented as of this encounter Visit Diagnoses Diagnosis Supervision of other normal , antepartum- Primary documented in this encounter Care Teams Gambling Floor Supervisor Relationship Specialty Start Date End Date No, Physician PCP - General 05/26/19 02/16/21 documented as of this encounter
--- OUTSIDE RECORDS SUMMARY | 2024-11-29 06:25 | XMS_ITS | Encounter Summary ---
Author Organization [facility] Address [address] [place] [address] Phone Care Team Providers Care Head Of Human Resources Name Role Phone No, Physician Primary Care Provider [phone] Reason for Visit * Reason Onset Date Comments PTJ- CD 1 06/15/19 , LTZ ( DONE) EOC(DONE) IUI(DO NE) 06/15/2019 Encounter Details Date Type Department Care Team (Late st Contact Info) Description 06/15/2019 Telephone [facility] Reproductive Endocrinology [address] [address] Jovita Strickland MD [address] [address] PTJ- CD 1 06/15/19 , LTZ ( DONE) EOC(DONE) IUI(DONE) Social History Tobacco Use Types Packs/Day Years [...] * Telephone Encounter - Jeanette Smith - 06/15/2019 1:08 PM CDT PT called with CD 1 06/15/19, needing LTZ called into pharm on file ( DONE) IUI ordered EOC started Inst pt on taking meds CD 3-7, start OPK on CD 10 and to call with surge. PT v/u. documented in this encounter Plan of Treatment Not on file documented as of this encounter Visit Diagnoses Not on filedocumented in this encounter Care Teams Head Of Human Resources Relationship Specialty Start Date End Date No, Physician PCP - General 05/26/19 02/16/21 documented as of this encounter
--- OUTSIDE RECORDS SUMMARY | 2024-11-29 06:25 | XMS_ITS | Encounter Summary ---
Author Organization [facility] Facility Care Team Providers Care Sign Poster Name Role Phone Unavailable Primary Care Provider Unavailabl e Encounter Details Date Type Department Care Team (Late st Contact Info) Description 02/17/2010 3:28 PM CDT - 02/20/2010 12:51 PM CDT Hospital Encounter [facility] Lj Carrizales MD [address] [place] [address] Abnormality in heart rate/rhythm, delivered; Early onset of delivery, delivered; Poor growth, affecting management of mother, delivered; Other known or suspected abnormality, not elsewhere classified, affecting management of mother, with delivered; Delivery outcome of single liveborn ; First-degree perineal laceration, delivered Social History Tobacco Use Types Packs/Day Years Used Date Smoking Tobacco: Never Assessed Comments Unknown Sex and Gender Information Value Date Recorded Sex Assigned at Not on file Legal Sex Female 2:07 PM CDT Gender Identity Not on file Sexual Orientation Not on file documented as of this encounter Plan of Treatment Not on file documented as of this encounter Visit Diagnoses Diagnosis Abnormality in heart rate/rhythm, delivered Early onset of delivery, delivered Early onset of delivery, delivered, with or without mention of antepartum condition Poor growth, affecting management of mother, delivered Other known or suspected abnormality, not elsewhere classified, affecting management of mother, with delivered Delivery outcome of single liveborn infant First-degree perineal laceration, delivered documented in this encounter
--- OUTSIDE RECORDS SUMMARY | 2024-11-29 06:25 | XMS_ITS | Encounter Summary ---
Author Organization [facility] Address [address] [place] [address] Phone Care Team Providers Care Non Destructive Testing Engineer Name Role Phone No, Physician Primary Care Provider [phone] Reason for Referral * OBGYN (Routine) - Closed Specialty Diagnoses / Procedures Referred By Contac t Referred To Contact Diagnoses Encounter for other procreative management Procedures IUI Jovita Strickland MD Phone: tel: fax: [facility] (All Locations) Referral ID Status Reason Start Date Expiration Date Visits Re quested Visits Authorized [id number] Closed 07/14/2019 01/22/2021 1 1 Encounter Details Date Type Department Care Team (Late st Contact Info) Description 07/14/2019 [facility] [address] [address] Jovita Strickland MD [address] [address] Encounter for other procreative management [...] mouth daily for 5 days 10 tablet 07/14/2019 9 documented in this encounter Plan of Treatment Not on file documented as of this encounter Results * INTRAUTERINE INSEMINATION (08/03/2019 7:50 AM CDT) Jeanette Chilel - 08/03/2019 7:50 AM CDT Dina Morgan [...] Infertility Department of Obstetrics & Gynecology Pager #[phone] Procedure Note Dina Morgan MD - 08/03/2019 [...] Infertility Department of Obstetrics & Gynecology Pager #[phone] us Jovita Strickland MD IN CLINIC/BEDSIDE OR DERABLES Final Result documented in this encounter Visit Diagnoses Diagnosis Encounter for other procreative management- Primary Encounter for other procreative management documented in this encounter Care Teams Non Destructive Testing Engineer Relationship Specialty Start Date End Date No, Physician PCP - General 05/26/19 02/16/21 documented as of this encounter
--- OUTSIDE RECORDS SUMMARY | 2024-11-29 06:25 | XMS_ITS | Encounter Summary ---
Author Organization [facility] Facility Care Team Providers Care Painter And Body Work Name Role Phone Unavailable Primary Care Provider Unavailabl e Encounter Details Date Type Department Care Team (Latest Contact Info) Description 01/19/2010 5:16 PM FAMILY PRACTICE PHYSICIAN ASSISTANT - 01/19/2010 7:03 PM [facility] Hospital Encounter [facility] CLINCONLj Medley MD [address] [place] [address] Other complication of , antepartum; Abdominal pain; Other known or suspected abnormality, not elsewhere [...] of this encounter Visit Diagnoses Diagnosis Other complication of , antepartum Abdominal pain Abdominal pain, unspecified site Other known or suspected abnormality, not elsewhere classified, affecting management of mother, antepartum condition or complication documented in this encounter
--- OUTSIDE RECORDS SUMMARY | 2024-11-29 06:25 | XMS_ITS | Encounter Summary ---
Author Organization [facility] Facility Care Team Providers Care Supervisor Ship Maintenance Services Name Role Phone Unavailable Primary Care Provider Unavailabl e Encounter Details Date Type Department Care Team (Late st Contact Info) Description 02/10/2010 - 02/10/2010 11:59 PM CDT Hospital Encounter [facility] CLINCONV Lars Wallace MD [address] [place] [address] [address] [place] [address] Poor growth affecting management of mother, antepartum Social History Tobacco Use Types Packs/Day [...] as of this encounter Visit Diagnoses Diagnosis Poor growth affecting management of mother, antepartum documented in this encounter
--- OUTSIDE RECORDS SUMMARY | 2024-11-29 06:25 | XMS_ITS | Encounter Summary ---
Author Organization [facility] Facility Care Team Providers Care Drupal Php Developer Name Role Phone Unavailable Primary Care Provider Unavailabl e Encounter Details Date Type Department Care Team (Late st Contact Info) Description 12/21/2009 - 12/21/2009 11:59 PM CLIENT PROFESSIONAL Hospital Encounter [facility] Nitin Stinson Helen I., MD [address] [facility] [place], [place] [address] Supervision of other high-risk Social History Tobacco [...]
--- OUTSIDE RECORDS SUMMARY | 2024-11-29 06:25 | XMS_ITS | Encounter Summary ---
Author Organization [facility] Facility Care Team Providers Care Locket Maker Name Role Phone Unavailable Primary Care Provider Unavailabl e Encounter Details Date Type Department Care Team (Latest Contact Info) Description 01/04/2010 1:49 PM DOCUMENTATION CLERK - 01/04/2010 5:53 PM [facility] Renetta Lara MD [address] [facility] [phone] [place] [address] Other complication of , antepartum; Other known or suspected abnormality, not elsewhere classified, affecting management of mother, antepartum condition or complication; Abdominal pain Social History Tobacco Use Types Packs/Day [...] Diagnoses Diagnosis Other complication of , antepartum Other known or suspected abnormality, not elsewhere classified, affecting management of mother, antepartum condition or complication Abdominal pain Abdominal pain, unspecified site documented in this encounter
--- OUTSIDE RECORDS SUMMARY | 2024-11-29 06:28 | XMS_ITS | Referral Summary ---
Author Organization [facility] Address [address] [facility] [place] [address] Care Team Providers Care Edge Stripper Name Role Phone Unavailable Primary Care Provider Unavailabl e Source Comments [facility],non-owned Affiliates and Associated Physician Practices is amultiple site organization consisting of ambulatory clinics and hospital sitesin [place], [place], [place] and [place]. This disclosure is being madepursuant to the Care Everywhere program and may not contain all information available regarding this patient. Last updated 18.[facility] [employer] Social History Tobacco Use Types Packs/Day Years Used Date Smoking Tobacco: Never Assessed Sex and Gender Information Value Date Recorded Sex Assigned at Not on file Gender Identity Not on file Sexual Orientation Not on file Plan of Treatment Not on file
--- OUTSIDE RECORDS SUMMARY | 2024-11-29 06:28 | XMS_ITS | Patient Health Summary ---
Author Organization [facility] Address [address] [place] [address] Care Team Providers Care Computer Installer Name Role Phone Unavailable Primary Care Provider Unavailabl e Note from [facility],non-owned Affiliates and Associated Physician Practices is amultiple site organization consisting of ambulatory clinics and hospital sitesin [place], [place], [place] and [place]. This disclosure is being madepursuant to the Care Everywhere program and may not contain all information available regarding this patient. Last updated 18.[facility] Social History Tobacco Use Types Packs/Day Years Used Date Smoking Tobacco: Never Assessed Sex and Gender Information Value Date Recorded Sex Assigned at Not on file Gender Identity Not on file Sexual Orientation Not on file Procedures * DERMATOPATHOLOGY(Performed 02/24/2024) Results * DERMATOPATHOLOGY (02/24/2024 1:46 PM CDT) Case Report Dermatopathology Report ? Case: [id number] ? Authorizing Provider: ??Paulina Camargo DO ?? Collected: ? 02/24/2024 01:46 PM ? Ordering Location: ? [facility] - ??Received: ?02/25/2024 02:41 PM ? DermPath Lab ? Pathologist: ? Justo Weber MD ? Specimen: ?Skin, left inguinal fold ? 12:31 PM T DERMATOPATHOLOGY LABORATORY Final Diagnosis Specimen A. SKIN, left inguinal fold: INTRADERMAL MELANOCYTIC NEVUS (D22.5) 12:31 PM T DERMATOPATHOLOGY LABORATORY Clinical History R/o Nevus; irritated 12:31 PM CDT DERMATOPATHOLOGY LABORATORY Gross Description Specimen A: Received is one formalin filled container labeled with the patient's name and designated left inguinal fold. The specimen consists of a shave biopsy measuring 4x2x1, 8x6x3 mm. Jar 0. 12:31 PM T DERMATOPATHOLOGY LABORATORY Microscopic Description Specimen A. SKIN, left inguinal fold: There are nests of cytologically bland melanocytes within the dermis that mature with depth. 12:31 PM T DERMATOPATHOLOGY LABORATORY Disclaimer An external and internal positive and negative controls are appropriate for the histochemical, immunohistochemical and immunofluorescence stain(s) in this case (if any), except where stated explicitly. The performance characteristics of the stain(s) cited in this report were developed and its performance characteristic determined by the Dermatopathology Laboratory at [facility], directed by Dr. Bryan Weber. These tests need not be, and therefore are not, approved by the [place] Food and Drug Administration. The tests are used for clinical purposes. Billing Codes Specimen Charges Stain Charges 81023 1 4 12:31 PM CDT DERMATOPATHOLOGY LABORATORY Embedded Images 4 12:31 PM CDT DERMATOPATHOLOGY LABORATORY Pathology/Cytolo gy TISSUE SPECIMEN FROM SKIN / Unknown 02/24/2024 1:46 PM CDT 02/25/2024 2:41 PM CDT Paulina Camargo DO LAB - PATHOLOGY/C YTOLOGY ORDERABLES DERMATOPATHOLOGY LABORATORY [facility] - Department of Dermatology [facility] Specialized Medicine [address] [place] [address], [address] [phone]
--- OUTSIDE RECORDS SUMMARY | 2024-11-29 06:28 | XMS_ITS | Encounter Summary ---
Author Organization [facility] Address [facility] [place] [address] [place] [address] Care Team Providers Care Irish Moss Gatherer Name Role Phone Md, Generic Conversion MD Primary Care Provider Unavailable Encounter Details Date Type Department Care Team (Late st Contact Info) Description 11/03/[address] [facility] [facility] [address] [place] [address] Elsy Brown APNP Social History Tobacco Use Types Packs/Day Years Used Date Smoking Tobacco: Never Assessed Comments Unknown Sex and Gender Information Value Date Recorded Sex Assigned at Not on file Legal Sex Female 8:21 PM CDT Gender Identity Not on file Sexual Orientation Not on file documented as of this encounter Plan of Treatment Not on file documented as of this encounter Procedures Procedure Name Priority Date/Time Associated Diagnosis Comments CULTURE STREP A Routine 11/03/2016 9:13 AM BEAM WORKER RAPID STREP A STAT 11/03/2016 9:13 AM BEAM WORKER INFLUENZA A & B STAT 11/03/2016 9:09 AM BEAM WORKER documented in this encounter Results * CULTURE STREP A (11/03/2016 9:13 AM BEAM WORKER) SPEC DESCRIPTION THROAT 11/03/2016 10:42 AM BEAM WORKER [facility] SPECIAL REQUESTS NO SPECIAL REQUEST 11/03/2016 10:42 AM BEAM WORKER [facility] CULTURE RESULT NO STREPTOCOCCUS PYOGENES (GROUP A) ISOLATED 11/05/2016 11:12 AM BEAM WORKER [facility] THROAT SWAB / Unknown 11/03/2016 9:13 AM BEAM WORKER 11/03/2016 10:42 AM BEAM WORKER us Generic Conversion Md [facility] MICROBIOLOGY - GENERAL ORDERABLES Final Result Performing Organization Address City/[facility]/ZIP Co de Phone Number [facility] [address] [place] [address], [place] [phone] * RAPID STREP A (11/03/2016 9:13 AM BEAM WORKER) SPECIMEN TYPE THROAT 11/03/2016 10:13 AM BEAM WORKER [facility] RAPID STREP TEST NEGATIVE NEGATIVE 11/03/2016 10:31 AM BEAM WORKER [facility] Comment: TESTING PERFORMED AT [address] ??[id number] NIELSON M.D., BRAKE REPAIR SUPERVISOR THROAT SWAB / Unknown 11/03/2016 9:13 AM BEAM WORKER 11/03/2016 10:21 AM BEAM WORKER us Generic Conversion Md [facility] MICROBIOLOGY - GENERAL ORDERABLES Final Result Performing Organization Address City/[facility]/ZIP Co de Phone Number [facility] [address] [place] [address], * INFLUENZA A & B (11/03/2016 9:09 AM BEAM WORKER) SPECIMEN TYPE NASOPHARYNGEAL SWAB 11/03/2016 10:11 AM BEAM WORKER [facility] INFLUENZA A NEGATIVE NEGATIVE 11/03/2016 10:36 AM BEAM WORKER [facility] Comment: TESTING PERFORMED AT [address] ??[id number] NIELSON M.D., BRAKE REPAIR SUPERVISOR INFLUENZA B NEGATIVE NEGATIVE 11/03/2016 10:36 AM BEAM WORKER [facility] Comment: Interpretation: Negative for Influenza A and B. A negative result does not exclude influenza virus infection. If influenza is circulating in your community, a diagnosis of influenza should be considered based on a patient's clinical presentation and empiric antiviral treatment should be considered, if indicated. If more conclusive testing is needed for hospitalized inpatients, follow-up confirmatory testing with RT-PCR requires a separate order. 11/03/2016 9:09 AM BEAM WORKER 11/03/2016 10:11 AM BEAM WORKER us Generic Conversion Md [facility]AM MICROBIOLOGY - GENERAL ORDERABLES Final Result Performing Organization Address City/State/[facility] Co de Phone Number [facility] [address] [place] [address], [place] [phone] documented in this encounter Visit Diagnoses Diagnosis Acute upper respiratory infection Acute upper respiratory infections of unspecified site documented in this encounter Care Teams Irish Moss Gatherer Relationship Specialty Start Date End Date Del Elam MD PCP - General 11/03/16 documented as of this encounter
--- OUTSIDE RECORDS SUMMARY | 2024-11-29 06:28 | XMS_ITS | Encounter Summary ---
Author Organization [facility] Address [address] [facility] [place] [address] Care Team Providers Care Teacher Of Gifted Students Name Role Phone Unavailable Primary Care Provider Unavailabl e Encounter Details Date Type Department Care Team (Late st Contact Info) Description 02/24/2024 Lab Requisition [facility] - DermPath Lab [address] [facility], [place] [address] Paulina Camargo DO [address] [facility] [address] [place] [address] Social History Tobacco Use Types Packs/Day Years Used Date Smoking Tobacco: Never Assessed Sex and Gender Information Value Date Recorded Sex Assigned at Not on file Gender Identity Not on file Sexual Orientation Not on file documented as of this encounter Plan of Treatment Not on file documented as of this encounter Procedures Procedure Name Priority Date/Time Associated Diagnosis Comments DERMATOPATHOLOGY Routine 02/24/2024 1:46 PM CDT documented in this encounter Results * DERMATOPATHOLOGY (02/24/2024 1:46 PM CDT) Case Report Dermatopathology Report ? Case: [id number] ? Authorizing Provider: ??Paulina Camargo DO ?? Collected: ? 02/24/2024 01:46 PM ? Ordering Location: ? [facility] - ??Received: ?02/25/2024 02:41 PM ? DermPath Lab ? Pathologist: ? Justo Weber MD ? Specimen: ?Skin, left inguinal fold ? 12:31 PM T DERMATOPATHOLOGY LABORATORY Final Diagnosis Specimen A. SKIN, left inguinal fold: INTRADERMAL MELANOCYTIC NEVUS (D22.5) 12:31 PM [facility] Clinical History R/o Nevus; irritated 12:31 PM [facility]MAT[facility] Gross Description Specimen A: Received is one formalin filled container labeled with the patient's name and designated left inguinal fold. The specimen consists of a shave biopsy measuring 4x2x1, 8x6x3 mm. Jar 0. 12:31 PM [facility]MAT[facility] Microscopic Description Specimen A. SKIN, left inguinal fold: There are nests of cytologically bland melanocytes within the dermis that mature with depth. 12:31 PM [facility] Disclaimer An external and internal positive and negative controls are appropriate for the histochemical, immunohistochemical and immunofluorescence stain(s) in this case (if any), except where stated explicitly. The performance characteristics of the stain(s) cited in this report were developed and its performance characteristic determined by the Dermatopathology Laboratory at [facility], directed by Dr. Bryan Weber. These tests need not be, and therefore are not, approved by the [place] Food and Drug Administration. The tests are used for clinical purposes. Billing Codes Specimen Charges Stain Charges 08859 1 4 12:31 PM CDT DERMATOPATHOLOGY LABORATORY Embedded Images 4 12:31 PM CDT DERMATOPATHOLOGY LABORATORY Pathology/Cytolo gy TISSUE SPECIMEN FROM SKIN / Unknown 02/24/2024 1:46 PM CDT 02/25/2024 2:41 PM CDT Paulina Camargo DO LAB - PATHOLOGY/C YTOLOGY ORDERABLES DERMATOPATHOLOGY LABORATORY [facility] - Department of Dermatology [facility] Medicine [address] [place] [address], [address] [phone] documented in this encounter Visit Diagnoses Not on filedocumented in this encounter
--- OUTSIDE RECORDS SUMMARY | 2024-11-29 06:28 | XMS_ITS | Encounter Summary ---
Author Organization [facility] Address [facility] [facility]. [place], [place] [id number] [place] [address] Care Team Providers Care Inspector Packer Glass Container Name Role Phone Del Lam MD Primary Care Provider Unavailable Encounter Details Date Type Department Care Team (Late st Contact Info) Description 09/28/2017 Scan CHAD CONVERSION [place] [id number] Del Lam MD Social History Tobacco Use Types Packs/Day Years [...] on filedocumented in this encounter Care Teams Inspector Packer Glass Container Relationship Specialty Start Date End Date Del Lam MD PCP - General 11/03/16 documented as of this encounter
--- OUTSIDE RECORDS SUMMARY | 2024-11-29 06:28 | XMS_ITS | Clinical Summary ---
Author Organization [facility] Address [address] [place] [place] [address] Care Team Providers Care Registrar Museum Name Role Phone Unavailable Primary Care Provider Unavailabl e Source Comments [facility],non-owned Affiliates and Associated Physician Practices is amultiple site organization consisting of ambulatory clinics and hospital sitesin [place], [place], [place] and [place]. This disclosure is being madepursuant to the Care Everywhere program and may not contain all information available regarding this patient. Last updated 18.[facility] Social History Tobacco Use Types Packs/Day Years Used Date Smoking Tobacco: Never Assessed Sex and Gender Information Value Date Recorded Sex Assigned at Not on file Gender Identity Not on file Sexual Orientation Not on file Plan of Treatment Health Maintenance Due Date Last Done Comments PAP SMEAR 1986 HIV SCREENING 2001 HEPATITIS C SCREENING 06/18/2004 DTAP/TDAP/TD VACCINES (1 - Tdap) 2005 HEPATITIS B VACCINE (1 of 3 - 19+ 3-dose series) 2005 COVID-19 VACCINE ( - 2023-2 5 season) 2024 INFLUENZA VACCINE (#1) 2024 DEPRESSION SCREENING 11/25/2024 ZOSTER VACCINE (1 of 2) 2036 HIB VACCINE Aged Out No longer eligi ble based on patient's age to complete this topic HPV VACCINE Aged Out No longer eligi ble based on patient's age to complete this topic MENINGOCOCCAL VACCINE Aged Out No celina bre eligible based on patient's age to complete this topic PNEUMOCOCCAL VACCINE Aged Out No long er eligible based on patient's age to complete this topic
--- OUTSIDE RECORDS SUMMARY | 2024-11-29 06:28 | XMS_ITS | Clinical Summary ---
Author Organization [facility] Address On license of [facility] [facility] [place] [address] [place] [address] Care Team Providers Care Director Institution Name Role Phone Unavailable Primary Care Provider Unavailabl e Social History Tobacco Use Types Packs/Day Years Used Date Smoking Tobacco: Never Assessed Comments Unknown Sex and Gender Information Value Date Recorded Sex Assigned at Not on file Legal Sex Female 8:21 PM CDT Gender Identity Not on file Sexual Orientation Not on file Plan of Treatment Health Maintenance Due Date Last Done Comments Cervical Cancer Screening Pa p Smear (Age 30 to 64) Every 3 Years 1986 Annual Physical 1989 Hepatitis C 2004 DTaP, Tdap and Td Vaccines ( 1 - Tdap) 2005 Hepatitis B Vaccines (1 of 3 - 19+ 3-dose series) 2005 Cervical Cancer Screening Pa p with HPV Testing (Age 30 to 64) Every 5 Years 2016 Cervical Cancer Screening with HPV 2016 COVID-19 Vaccine (2023-2 5 season) 2024 Influenza Adult (#1) 2024 HPV Vaccines Aged Out No longer eligi ble based on patient's age to complete this topic Meningococcal Vaccine Aged Out No celina bre eligible based on patient's age to complete this topic Pneumococcal Vaccine: Pediat rics (0 to 5 Years) and At-Risk Patients (6 to 64 Years) Aged Out No longer eligible b ased on patient's age to complete this topic RSV Immunizations Under 20 Months Aged Out No longer eligible based on patient's age to complete this topic
== END 2024-11-22 11:03 | disposition home or self-care (01) ==
PROVIDERS: Emergency Provider Nurse Practitioner Family; PCP Physician Assistant
DX: J32.9 Chronic sinusitis, unspecified (principal); Z87.891 Personal history of nicotine dependence
CPT/HCPCS: 99213; G0463

== ENCOUNTER 2025-03-18 13:56 | Emergency (ER) | payer OTHER, SELFPAY ==
--- NOTE | ~2025-03-18 | XR_ITS ---
XR chest 2V Ordering provider: Enrique Wright APRN History: 39 years Female with . cough/sob . Comparison: July 21, 2023 FINDINGS: MEDIASTINUM: The cardiac silhouette is not enlarged. LUNGS: No infiltrates, effusions or pneumothorax. OTHER: No free air under the diaphragm. IMPRESSION: No acute cardiopulmonary pathology. Reviewed, dictated and finalized at location A.
--- NOTE | 2025-03-18 14:01 | ED_ITS ---
HPI - URI/Sore Throat General Chief Complaint: Upper Respiratory Infection Stated Complaint: cough Time Seen by Provider: 03/18/25 14:02 Source: patient Mode of arrival: ambulatory Limitations: no limitations History of Present Illness HPI Narrative: Gladys is a 39-year-old female patient presenting to the clinic today with complaints of a cough, runny nose, and chest congestion x1 week. She reports her symptoms started with nausea vomiting and diarrhea and that has improved- resolved on Saturday night. Developed cough and congestion and now is settled into her chest. Is able to cough up some yellowish phlegm at times. States her chest hurts when she coughs and she feels short of breath. Related Data Allergies Allergy/AdvReac Type Severity Reaction Status Date / Time Penicillins Allergy Severe Swelling Verified 03/18/25 14:01 of Lip/Tongue/Throat erythromycin base AdvReac Mild Rash Verified 03/18/25 14:01 penicillin G AdvReac Mild Itching Verified 03/18/25 14:01 Review of Systems Review of Systems: Pertinent positives per HPI. Patient denies any rash, headache, visual changes, dizziness, chest pain, palpitations,constipation, abdominal pain, or any urinary issues. PMFSH Family History Family History Mother Patient's mother is in good health Sibling Patient's sister is in good health Other Diabetes mellitus Social History Social History Smoking status: Former smoker Tobacco type: cigarettes Smoking end date: 11/25/12 Alcohol intake: current Substance use: never Substance use type: does not use Lack of Transportation: No Lack of Food: Never True Current Housing: I Have Housing Concerned About Future Housing: No Difficulty Paying Gas/Electric Bills: No Difficulty Paying for Meds: No Currently Unemployed: No Education: Associate Degree Difficulty w/ Childcare or Family Care: No Living arrangements: with family Gender identity (if verbalized by the patient): Female Comments At the time of my signature, I reviewed and agree with the nursing past medical, surgical, social, and family history. There is no relevant family history pertinent to the patient complaint. Exam Narrative: General: Well-developed, well nourished, in no apparent distress Head: Normocephalic, atraumatic Eyes: Pupils equally round and reactive to light bilaterally, EOM intact, sclera and conjunctive clear, no discharge, lids normal Ears: TMs intact and clear, ear canals clear, no drainage, grossly hearing normal. Nose: Nares patent, clear nasal discharge, no inflammation, no sinus tenderness. Mouth: Oral pharynx red without lesions or masses, good dentition, MMM. Postnasal drip Neck: Supple, trachea midline, no enlargement of anterior or posterior cervical nodes, no thyroid masses or goiter palpable. Cardio: Regular rate and rhythm, s1 and s2 normal, no murmur appreciated. Resp: Lung sounds diminished in the bases otherwise clear, no rhonchi, rales, wheezing or rubs Course Course Emergency Course: Portions of this record may have been created with voice recognition software. Level of Care: Express Care Visit Vital Signs Vital signs: Vital signs reviewed MDM - URI/Sore Throat MDM Narrative Medical decision making narrative: At the time of visit patient is resting comfortably on the exam table. Patient appears to be nontoxic. Diagnostics: Chest x-ray was negative for any acute cardiopulmonary process. Plan: I suspect patient has URI/bronchitis. Prescription for prednisone, Tessalon Perles, and albuterol inhaler was sent to the pharmacy. Supportive measures were discussed with the patient and they voiced understanding discharge instructions and agrees to treatment plan. Return precautions reviewed Differential Diagnosis Differential diagnosis: Likely upper respiratory infection, otitis media, sinusitis, viral infection, bronchitis, influenza, pharyngitis and other (COVID) Imaging Data Radiologist's impression: ITS Impressions Chest X-Ray 03/18/25 14:27 IMPRESSION: No acute cardiopulmonary pathology. Discharge Plan Discharge Clinical Impression: Bronchitis, Laryngitis Upper respiratory infection Qualifiers: URI type: unspecified URI Qualified Code(s): J06.9 - Acute upper respiratory infection, unspecified Patient Disposition: Home Condition: Stable Instructions: Antibiotic Form, Acute Bronchitis (ED), Cold Symptoms (ED) Additional Instructions: Chest x-rays negative for any acute cardiopulmonary process. Take prescription medications only as prescribed-albuterol inhaler and prednisone Increase fluids and stay well hydrated Tylenol/motrin for pain/fever Flonase and OTC antihistamines as directed Vicks vapor rub to open sinuses Sinus rinses for congestion Cepacol spray, cough drops, throat lozenges, warm tea with honey/lemon, gargle salt water to soothe throat BRAT diet for diarrhea Clear liquids x 24 hours then advance as tolerated for nausea/vomiting Go to the ED if you develop a worsening in your condition- high fever not controlled by Tylenol or Motrin, dehydration, weakness, lethargy, shortness of breath, or chest pain. Follow up with your PCP in 3-5 days if symptoms persist. Patient Language: Icelandic Prescriptions: New benzonatate 200 mg capsule 200 mg PO TID 7 Days Qty: 21 0RF prednisone 20 mg tablet 40 mg PO DAILY 5 Days Qty: 10 0RF albuterol sulfate 90 mcg/actuation HFA aerosol inhaler 2 puff inhalation Q4-6H PRN (Reason: shortness of breath or wheezing) 30 Days Qty: 8.5 0RF Follow-up/Referrals: Gideon,Luz Song PA-C [Primary Care Provider] - Time of Disposition: 14:32 Quality NIHSS Nursing Documentation ED NIHSS nursing documentation: reviewed/agree
[2025-03-18 14:03] VITALS: BP 125/72; PULSE 64; RESP 17; TEMP 36.3; O2SAT 100
--- OUTSIDE RECORDS SUMMARY | 2025-03-18 15:05 | XMS_ITS | Clinical Summary ---
Author Organization [facility] Address [address] [facility] [place] [address] Care Team Providers Care Lift Truck Operator Name Role Phone Unavailable Primary Care Provider Unavailabl e Source Comments [facility],non-owned Affiliates and Associated Physician Practices is amultiple site organization consisting of ambulatory clinics and hospital sitesin [place], [place], [place] and [place]. This disclosure is being madepursuant to the Care Everywhere program and may not contain all information available regarding this patient. Last updated 18.[facility] Social History Tobacco Use Types Packs/Day Years Used Date Smoking Tobacco: Never Assessed Comments Unknown Sex and Gender Information Value Date Recorded Sex Assigned at Not on file Legal Sex Female 2:00 PM CDT Gender Identity Not on file Sexual Orientation Not on file Plan of Treatment Health Maintenance Due Date Last Done Comments PAP SMEAR 1986 HIV SCREENING 2001 HEPATITIS C SCREENING 06/18/2004 DTAP/TDAP/TD VACCINES (1 - Tdap) 2005 HEPATITIS B VACCINE (1 of 3 - 19+ 3-dose series) 2005 COVID-19 VACCINE ( - 2023-2 5 season) 2024 DEPRESSION SCREENING 11/25/2024 INFLUENZA VACCINE (Season Ended) 2025 ZOSTER VACCINE (1 of 2) 2036 HIB VACCINE Aged Out No longer eligi ble based on patient's age to complete this topic HPV VACCINE Aged Out No longer eligi ble based on patient's age to complete this topic MENINGOCOCCAL (Group B) VACC INE SHARED DECISION-MAKING Aged Out No longer eligibl e based on patient's age to complete this topic MENINGOCOCCAL GROUPS A/C/Y/W VACCINE Aged Out No longer eligible b ased on patient's age to complete this topic PNEUMOCOCCAL VACCINE Aged Out No long er eligible based on patient's age to complete this topic Insurance
--- OUTSIDE RECORDS SUMMARY | 2025-03-18 15:05 | XMS_ITS | Referral Summary ---
Author Organization [facility] Address [address] [place] [address] Care Team Providers Care Facilities Maintenance Engineer Name Role Phone Abhilash Sam MD Unavailable [phone] Mary Russell MD Unavailable [phone] Luz Meneses Primary Care Provider + Allergies Active Allergy Reactions Criticality Noted Date Comments Erythromycin Rash Medium 06/08/2019 Penicillins Swelling Medium 06/08/2019 Medications ascorbic acid (VITAMIN C) 100 mg tablet Take 1 tablet (100 mg total) by mouth daily Active cholecalciferol (VITAMIN D-3) 5,000 unit tablet Take 1 tablet (5,000 Units total) by mouth daily Active scopolamine 1 mg over 3 days patch [address] 1 patch on the skin every third day as needed (nausea) for 72 hours 4 patch 5 Active ondansetron ODT (ZOFRAN-ODT) 4 mg disintegrating tablet Take 1 tablet (4 mg total) by mouth every 8 (eight) hours as needed for nausea or vomiting 10 tablet 5 Active Active Problems Problem Noted Date Diagnosed [...] & Plan (06/01/2024 11:00 AM CDT): S/p chivo - Dr. Shanell CAICEDO. Has appointment and [...] (06/01/2024 10:59 AM CDT): Chronic, stable. Continue [id number] medications and treatment as above. Assessment & [...] an injuiry years ago- wants to see tubing mill setter, referral placed Nausea and vomiting in 04/15/2020 06/01/2024 Supervision of other normal , antepartum 04/14/2020 11/28/2020 Overview (04/14/2020): First Trimester: [] Labs [] Genetic Screeninnd Trimester: [] Anatomy ultrasound 3rd Trimester: [] CBC, HIV, syphilis screen [] 1hr GCT (26-28wks): [] Tdap (27-36wks) [] Rhogam (if Rh neg): [] GBS Immunizations Immunization Administration Dates Next Due Anthrax 10/13/2006,09/23/2006,09/06/2006 DTP [...] staff should administer the PHQ-9) 0 06/01/2024 [place] Depression Scale Answer Date Recorded [place] Depression Scale Total 1 11/28/2020 The thought of harming myself has occurred to me . Never 11/28/2020 PHQ-9 Answer Date Recorded PHQ-9 Total Score 5 06/01/2024 Personal Safety Answer Date Recorded Have you [...] 67 09/09/2024 1:02 PM CDT Temperature 36.2 C (97.2 F) 09/09/2024 1:02 PM CDT Respiratory Rate 18 09/09/2024 1:02 PM CDT [...] Recently Relevant to Health Maintenance Results * High Risk HPV DNA Detection with Genotyping (Molecular component) (08/24/2024 9:17 AM CDT) HPV HR 16 Not Detected Not Detected [facility] Comment:Testing performed by : [facility], [address] [facility] [place] [address] HPV HR 18 Not Detected Not Detected [facility] Comment:Testing performed by : [facility], [address] [facility] [place]., [address] HPV HR Non 16/18 Not Detected Not Detected [facility] Comment: Interpretive Data Nucleic acid amplification for detection of high-risk Human Papilloma virus (HPV) is performed by the Kevin Stefania 6800 HPV test. This assay specifically detects HPV-16 and HPV-18 genotypes. The following HPV genotypes are detected as high-risk HPV: HPV-31, 33, 35, ,39, 45, 51, 52, [...] this test have been verified by the [facility] Molecular Infectious Disease laboratory. Correlate with separately reported cytology results, as applicable. Interpretive data last revised 23 Testing performed by: [facility], [address] [facility] [place]., [address] Endocervical 08/24/2024 9:17 AM CDT 08/25/2024 11:13 AM CDT Narrative TOM - 08/25/2024 7:55 PM CDT Clinical history and diagnosis->screening Testing type->Screening Last menstrual period (date if known)->07-27-24 Indigo Reece MD LAB BODY FLUIDS AND STOOL S ORDERABLES Final Result [facility] [address] [facility] Department [place] [address] [facility] * Hepatitis C antibody (07/27/2020 10:50 AM CDT) Hep C Ab NONREACT NONREACTIVE [facility] Comment: Siemens CentaurXP using JOLENE (chemiluminescent immunoassay) technology. NONREACTIVE: Antibodies to Hepatitis C not detected. This does not exclude early acute Hepatitis C infection, possibility of exposure to Hepatitis C, antibodies below detection limit, or to lack of antibody reactivity to the antigen used in this assay. EQUIVOCAL: Antibodies to Hepatitis C may or may not be present. Sample to be confirmed by real-time PCR method. REACTIVE: Antibodies to Hepatitis C detected.Sample to be confirmed by real-time PCR method. Blood specimen (specimen) 07/27/2020 10:50 AM CDT 07/27/2020 11:10 AM CDT Narrative Resulting Agency Comment CLI Lorna Witt MD LAB MICROBIOLOGY - GENERAL ORDER OSCAR Final Result [facility] [address] [place] [address], [facility] [phone] from Last 3 Months or Most Recently Relevant to Health Maintenance Insurance [facility] Care Teams Facilities Maintenance Engineer Relationship Specialty Start Date End Date Luz Meneses PA [address] [facility] [address] [place], [place] [phone] PCP - General Family Medicine 06/01/24 Abhilash Sam MD [address] [place] [id number] Consulting Physician Obstetrics and Gynecology 07/15/23 Mary Russell MD [address] [place] [address] [phone] Referring Physician Pediatric Neurology 07/15/23
--- OUTSIDE RECORDS SUMMARY | 2025-03-18 15:05 | XMS_ITS | Clinical Summary ---
Author Organization [facility] Address [facility] [place] [address] Care Team Providers Care Engineering Mgr Name Role Phone Unavailable Primary Care Provider [...] 2016 COVID-19 Vaccine (2023-2 5 season) 2024 HPV Vaccines Aged Out No longer eligi ble based on patient's age to complete this topic Meningococcal B Vaccine Aged Out No l onger eligible based on patient's age to complete this topic Meningococcal Vaccine Aged Out No celina bre eligible based on patient's age to complete this topic Pneumococcal Vaccine: Pediat rics (0 to 5 Years) and At-Risk Patients (6 to 49 Years) Aged Out No longer eligible b ased on patient's age to complete this topic RSV Immunizations Under 20 Months Aged Out No longer eligible based on patient's age to complete this topic
--- OUTSIDE RECORDS SUMMARY | 2025-03-18 15:05 | XMS_ITS | Clinical Summary ---
Author Organization [facility] Address [address] [place] [address] Care Team Providers Care Internal Review And Audit Compliance Name Role Phone Abhilash Sam MD Unavailable [phone] Mary Russell MD Unavailable [phone] Luz Meneses Primary Care Provider + [...] (06/01/2024 10:59 AM CDT): Chronic, stable. Continue [id number]-[id number] medications and treatment as above. Assessment & [...] an injuiry years ago- wants to see system safety manager, referral placed Nausea and vomiting in 04/15/2020 [...] staff should administer the PHQ-9) 0 06/01/2024 [place] Depression Scale Answer Date Recorded [place] Depression Scale Total 1 11/28/2020 The thought [...] pont Epidur al Livin g Complications:Gastroschisis Delivery Location:[place] 2019 Term 39w 0d 3.685 kg (8 [...] Vaccine ( season) 2024 12/30/2021, 04/23/2021, 03/11/2021 Depression Screening 06/01/2025 06/01/2024, 06/01/2024, 10/01/2023, Additional history exists Influenza Vaccine (Season Ended) 2025 10/28/2022, 10/29/2021, 10/28/2021, Additional history exists Cervical Cancer Screening 08/24/20252023, 08/24/2024, 08/21/2023, Additional history exists Regular Well Visit/Exam 18-64 08/24/2025 08/24/2024, 08/21/2023, 07/15/2023, Additional history exists DTaP/Tdap/Td Vaccine (9 - Td or Tdap) 07/01/2032 07/01/2022, 08/23/2020, 06/28/2012, Additional history exists Hepatitis B Screening Completed 07/05/1998 , 02/22/1998, 12/08/1997 Hepatitis C Screening Completed 07/27/2020 HPV Vaccines [...] HPV HR 16 Not Detected Not Detected [facility] Comment:Testing performed by : [facility], [address] [place]., [address] HPV HR 18 Not Detected Not Detected TOM RIVERA Comment:Testing performed by : [facility], [address] [place]., [address] HPV HR Non 16/18 Not Detected Not [...] this test have been verified by the [facility] Molecular Infectious Disease laboratory. Correlate with separately reported cytology results, as applicable. Interpretive data last revised 23 Testing performed by: [facility], [address] [place]., [address] Endocervical 08/24/2024 9:17 AM CDT 08/25/2024 11:[address] [facility] TOM - 08/25/2024 7:55 PM CDT Clinical history and diagnosis->screening Testing type->Screening Last menstrual period (date if known)->07-27-24 Indigo Reece MD LAB BODY FLUIDS AND STOOL S ORDERABLES Final Result TOM [address] [facility] Department [place] [address] [facility] * Hepatitis C antibody (07/27/2020 10:50 AM CDT) Hep C Ab NONREACT NONREACTIVE [facility] Comment: Siemens AktivitoaurXP using JOLENE (chemiluminescent immunoassay) technology. NONREACTIVE: Antibodies [...] MICROBIOLOGY - GENERAL ORDER OSCAR Final Result [facility] [address] [place] [address], [facility] [phone] from Last 3 Months or Most Recently Relevant to Health Maintenance Insurance [facility] Care Teams Internal Review And Audit Compliance Relationship Specialty Start Date End Date Luz Meneses PA [address] [facility] [address] [place], [place] [id number] PCP - General Family Medicine 06/01/24 Abhilash Sam MD [address] [place] [address] [phone] Consulting Physician Obstetrics and Gynecology 07/15/23 Mary Russell MD [address] [place] [id number] Referring Physician Pediatric Neurology 07/15/23
--- OUTSIDE RECORDS SUMMARY | 2025-03-18 15:05 | XMS_ITS | Encounter Summary ---
Author Organization [facility] Address [address] [facility] [place] [address] Care Team Providers Care Technical Illustrator Name Role Phone Unavailable Primary Care Provider Unavailabl e Encounter Details Date Type Department Care Team (Late st Contact Info) Description 02/24/2024 Lab Requisition [facility] - DermPath Lab [address] [facility], [place] [address] Paulina Camargo DO [address] [facility] [address]L [place] [address] Social History Tobacco Use Types Packs/Day Years [...] 1:46 PM CDT) Case Report Dermatopathology Report Case: [id number] Authorizing Provider: Paulina Camargo DO Collected: 02/24/2024 01:46 PM Ordering Location: [facility] Physician [facility] - Received: 02/25/2024 02:41 PM DermPath Lab Pathologist: Justo Weber MD Specimen: Skin, left inguinal fold 12:31 PM CDT DERMATOPATHOLOGY LABORATORY Final Diagnosis Specimen A. SKIN, left inguinal fold: INTRADERMAL MELANOCYTIC NEVUS (D22.5) 12:31 PM CDT DERMATOPATHOLOGY LABORATORY Clinical History R/o Nevus; irritated 4 12:31 PM CDT DERMATOPATHOLOGY LABORATORY Gross Description Specimen A: Received is one formalin filled container labeled with the patient's name and designated left inguinal fold. The specimen consists of a shave biopsy measuring 4x2x1, 8x6x3 mm. Jar 0. 12:31 PM CDT DERMATOPATHOLOGY LABORATORY Microscopic Description Specimen A. SKIN, left inguinal fold: There are nests of cytologically bland melanocytes within the dermis that mature with depth. 12:31 PM CDT DERMATOPATHOLOGY LABORATORY Disclaimer An external and internal positive and negative controls are appropriate for the histochemical, immunohistochemical and immunofluorescence stain(s) in this case (if any), except where stated explicitly. The performance characteristics of the stain(s) cited in this report were developed and its performance characteristic determined by the Dermatopathology Laboratory at [facility], directed by Dr. Bryan Weber. These tests need not be, and therefore are not, approved by the [place] Food and Drug Administration. The tests are used for clinical purposes. Billing Codes Specimen Charges Stain Charges 28575 1 4 12:31 PM CDT DERMATOPATHOLOGY LABORATORY Embedded Images 12:31 PM CDT DERMATOPATHOLOGY LABORATORY Pathology/Cytolo gy TISSUE SPECIMEN FROM SKIN / Unknown 02/24/2024 1:46 PM CDT 02/25/2024 2:41 PM CDT us Paulina Camargo DO LAB - PATHOLOGY/CYTOLOGY ORDERABLES Final Result DERMATOPATHOLOGY LABORATORY [facility] - Department of Dermatology [address], [address] [phone] documented in this encounter Visit Diagnoses Not on filedocumented in this encounter
== END 2025-03-18 14:34 | disposition home or self-care (01) ==
PROVIDERS: Emergency Provider Nurse Practitioner Family; PCP Physician Assistant
DX: J40 Bronchitis, not specified as acute or chronic (principal); J06.9 Acute upper respiratory infection, unspecified; Z87.891 Personal history of nicotine dependence
CPT/HCPCS: 71046; 99213; G0463

== ENCOUNTER 2025-07-08 15:22 | Emergency (ER) | payer OTHER, SELFPAY ==
--- NOTE | ~2025-07-08 | XR_ITS ---
EXAMINATION: XR ankle LT min 3V DATE: 07/08/2025 15:46 INDICATION: Left ankle pain. Fall. TECHNIQUE: Anteroposterior, oblique, mortise, and lateral views of the affected ankle were obtained. COMPARISON: None. FINDINGS: Soft tissue swelling about the left ankle. Talar dome is unremarkable. No fracture. No dislocation. T here is sclerotic or destructive bone lesion. IMPRESSION: 1. No acute bony abnormality identified. If symptoms persist or worsen, consider a short-term follow-up study or additional imaging for furthe r assessment. Reviewed, dictated and finalized at location A. IMPRESSION: 1. No acute bony abnormality identified. If symptoms persist or worsen, consider a short-term follow-up study or additio nal imaging for further assessment.
--- NOTE | ~2025-07-08 | XR_ITS ---
EXAMINATION: XR foot LT min 3V DATE: 07/08/2025 15:46 INDICATION: Left dorsal foot pain. Fall. TECHNIQUE: Dorsoplantar, two oblique and lateral views of the affected foot were obtained. COMPARISON: None. FINDINGS: Bone mineralization is within normal limits. No fracture. No dislocation. Mild soft tissue swelling. No sclerotic or destructive bone lesion. IMPRESSION: 1. No acute bony abnormality identified. If symptoms persist or worsen, consider a short-term follow-up study or additional imaging for furthe r assessment. IMPRESSION: 1. Reviewed, dictated and finalized at location A. IMPRESSION: 1. No acute bony abnormality identified. If symptoms persist or worsen, consider a short-term follow-up study or additio nal imaging for further assessment. IMPRESSION: 1.
--- NOTE | 2025-07-08 15:26 | ED_ITS ---
HPI - Fall General Chief Complaint: Fall Stated Complaint: Fell down steps Time Seen by Provider: 07/08/25 15:30 Source: patient Mode of arrival: ambulatory Limitations: no limitations History of Present Illness HPI Narrative: Gladys is a 40-year-old female patient presenting to the clinic today with complaints of abrasion to the left knee, left ankle pain with abrasion, and left foot pain. She reports she was going down 3 concrete steps and her dress got caught on her foot and this caused her to fall. Denies hitting her head or any loss of consciousness. Tetanus shot is up-to-date per patient. Is complaining about pain with ambulation over the left ankle and foot. Rates the pain a 4/10 when not ambulating but is a 6/10 when ambulating. Related Data Home Medications ?Medication ?Instructions ?Recorded ?Confirmed ?Last Taken ?Type No Home Medications 07/08/25 07/08/25 Unknown History Allergies Allergy/AdvReac Type Severity Reaction Status Date / Time Penicillins Allergy Severe Swelling Verified 07/08/25 15:35 of Lip/Tongue/Throat erythromycin base AdvReac Mild Rash Verified 07/08/25 15:35 penicillin G AdvReac Mild Itching Verified 07/08/25 15:35 Review of Systems Review of Systems: Pertinent positives per HPI. Patient denies any fever, chills, rash, headache, visual changes, dizziness, cough, runny nose, sore throat, shortness of breath, chest pain, palpitations, nausea, vomiting, diarrhea, constipation, abdominal pain, or any urinary issues. [facility] Family History Family History Mother Patient's mother is in good health Sibling Patient's sister is in good health Other Diabetes mellitus Social History Social History Smoking status: Former smoker Tobacco type: cigarettes Smoking end date: 11/25/12 Alcohol intake: current Substance use: never Substance use type: does not use Lack of Transportation: No Lack of Food: Never True Current Housing: I Have Housing Concerned About Future Housing: No Difficulty Paying Gas/Electric Bills: No Difficulty Paying for Meds: No Currently Unemployed: No Education: Associate Degree Difficulty w/ Childcare or Family Care: No Living arrangements: with family Gender identity (if verbalized by the patient): Female Comments At the time of my signature, I reviewed and agree with the nursing past medical, surgical, social, and family history. There is no relevant family history pertinent to the patient complaint. Exam Narrative: General: Well-developed, well nourished, in no apparent distress Head: Normocephalic, atraumatic. Cardio: Regular rate and rhythm, s1 and s2 normal, no murmur appreciated. Resp: Clear to auscultation bilaterally, no rhonchi, rales, wheezing or rubs. Musculoskeletal: No deformity, mild swelling to the left foot ankle when compared to the right, abrasion to the anterior knee in to the dorsal left ankle, bleeding controlled, tender to palpation over the ankle joint and the dorsal foot, pain with dorsal flexion and plantar flexion as well as valgus and varus testing of the ankle, muscle strength strong and equal, peripheral pulse strong, no cyanosis, normal gait and station Course Course Emergency Course: Portions of this record may have been created with voice recognition software. Level of Care: Express Care Visit Vital Signs Vital signs: Vital Signs Temperature 36.6 C 07/08/25 15:30 Pulse Rate 57 L 07/08/25 15:30 Respiratory Rate 18 07/08/25 15:30 Blood Pressure 129/68 07/08/25 15:30 Pulse Oximetry 98 07/08/25 15:30 Oxygen Delivery Room Air 07/08/25 15:30 Temperature 36.6 C 07/08/25 15:30 Pulse Rate 57 L 07/08/25 15:30 Respiratory Rate 18 07/08/25 15:30 Blood Pressure 129/68 07/08/25 15:30 Pulse Oximetry 98 07/08/25 15:30 Oxygen Delivery Room Air 07/08/25 15:30 Vital signs reviewed MDM - Fall MDM Narrative Medical decision making narrative: At the time of visit patient is resting comfortably on the exam table. Patient appears to be nontoxic. Complaints of abrasion to the left knee, left ankle pain with abrasion, and left foot pain. She reports she was going down 3 concrete steps and her dress got caught on her foot and this caused her to fall. Denies hitting her head or any loss of consciousness. Tetanus shot is up-to-date per patient. Is complaining about pain with ambulation over the left ankle and foot. Rates the pain a 4/10 when not ambulating but is a 6/10 when ambulating. On exam there is mild swelling to the left foot ankle when compared to the right, abrasion to the anterior knee in to the dorsal left ankle, bleeding controlled, tender to palpation over the ankle joint and the dorsal foot, pain with dorsal flexion and plantar flexion as well as valgus and varus testing of the ankle, x-ray the left ankle and left foot were ordered Diagnostics: X-ray of the left ankle and foot were performed and were negative for any sign of fracture or malalignment. Plan: I suspect patient has abrasions with a left ankle sprain and left foot sprain. Braden wrap was applied with good circulation sensation of motion after application. Supportive measures were discussed with the patient and they voiced understanding discharge instructions and agrees to treatment plan. Return precautions reviewed Differential Diagnosis Differential diagnosis: Likely other (Abrasion, contusion, soft tissue injury, left ankle fracture, left ankle sprain, left foot fracture, left foot sprain, knee contusion) Imaging Data Radiologist's impression: ITS Impressions Ankle X-Ray 07/08/25 15:48 IMPRESSION: 1. No acute bony abnormality identified. If symptoms persist or worsen, consider a short-term follow-up study or additional imaging for further assessment. Foot X-Ray 07/08/25 15:50 IMPRESSION: 1. No acute bony abnormality identified. If symptoms persist or worsen, consider a short-term follow-up study or additional imaging for further assessment. IMPRESSION: 1. Discharge Plan Discharge Clinical Impression: Abrasion Ankle sprain Qualifiers: Encounter type: initial encounter Involved ligament of ankle: unspecified ligament Laterality: left Qualified Code(s): S93.402A - Sprain of unspecified ligament of left ankle, initial encounter Foot sprain Qualifiers: Encounter type: initial encounter Laterality: left Qualified Code(s): S93.602A - Unspecified sprain of left foot, initial encounter Contusion of knee Qualifiers: Encounter type: initial encounter Laterality: left Qualified Code(s): S80.02XA - Contusion of left knee, initial encounter Patient Disposition: Home Condition: Stable Instructions: Antibiotic Form, Ankle Sprain (ED), Foot Sprain (ED) Additional Instructions: X-ray of the left foot and ankle were negative for any sign of fracture or malalignment. Rest, ice, elevate, and wear braden wrap as directed May use crutches and gradually bear weight Tylenol/motrin for pain as discussed. No running or sports until healed. Follow up with your PCP if symptoms persist more than 1 week. Patient Language: [place] Island[place] Prescriptions: No Action No Home Medications Follow-up/Referrals: UNKNOWN,DOCTOR [Primary Care Provider] - Time of Disposition: 15:58 Quality NIHSS Nursing Documentation ED NIHSS nursing documentation: reviewed/agree
--- OUTSIDE RECORDS SUMMARY | 2025-07-08 15:28 | XMS_ITS | Clinical Summary ---
Author Organization [facility] [employer] Address [address] [facility] [place] [address] Care Team Providers Care Motor Overhauler Name Role Phone Unavailable Primary Care Provider Unavailabl e Source Comments [facility] [employer],non-owned Affiliates and Associated Physician Practices is amultiple site organization consisting of ambulatory clinics and hospital sitesin [place], [place], [place] and [place]. This disclosure is being madepursuant to the Care Everywhere program and may not contain all information available regarding this patient. Last updated 18.[facility] [employer] Social History Tobacco Use Types Packs/Day Years Used Date Smoking Tobacco: Never Assessed Comments Unknown Sex and Gender Information Value Date Recorded Sex Assigned at Not on file Legal Sex Female 2:00 PM CDT Gender Identity Not on file Sexual Orientation Not on file Plan of Treatment Health Maintenance Due Date Last Done Comments HIV SCREENING 2001 HEPATITIS C SCREENING 06/18/2004 DTAP/TDAP/TD VACCINES (1 - Tdap) 2005 HEPATITIS B VACCINE (1 of 3 - 19+ 3-dose series) 2005 PAP SMEAR 2007 HPV VACCINE (1 - 3-dose SCDM series) 2013 COVID-19 VACCINE (1 - 2023-2 5 season) 2024 DEPRESSION SCREENING 11/25/2024 INFLUENZA VACCINE (#1) 2025 ZOSTER VACCINE (1 of 2) 2036 [...]
--- OUTSIDE RECORDS SUMMARY | 2025-07-08 15:28 | XMS_ITS | Encounter Summary ---
Author Organization [facility] Address [address] [facility] [place] [address] Care Team Providers Care Plow And Boring Machine Tender Name Role Phone Unavailable Primary Care Provider Unavailabl e Encounter Details Date Type Department Care Team (Late st Contact Info) Description 02/24/2024 Lab Requisition [facility] - DermPath Lab [address] [facility], [place] [address] Paulina Camargo DO [address] [place] [address] Social History Tobacco Use Types Packs/Day Years [...] PM CDT) Case Report Dermatopathology Report Case: [id number] Authorizing Provider: Paulina Camargo DO Collected: 02/24/2024 01:46 PM Ordering Location: [facility] Physician [facility] - Received: 02/25/2024 02:41 PM DermPath Lab Pathologist: Justo Weber MD Specimen: Skin, left inguinal fold 12:31 PM CDT DERMATOPATHOLOGY LABORATORY Final Diagnosis Specimen A. SKIN, left inguinal fold: INTRADERMAL MELANOCYTIC NEVUS (D22.5) 12:31 PM CDT DERMATOPATHOLOGY LABORATORY at 1231 CDT Clinical History R/o Nevus; irritated 12:31 PM [...] characteristic determined by the Dermatopathology Laboratory at [facility], directed by Dr. Bryan Weber. These tests need not be, and therefore are not, approved by the [place] Food and Drug Administration. The tests are used for clinical purposes. Billing Codes Specimen Charges Stain Charges 42530 1 12:31 PM CDT DERMATOPATHOLOGY LABORATORY Embedded Images 12:31 PM CDT DERMATOPATHOLOGY LABORATORY Pathology/Cytolo gy TISSUE SPECIMEN FROM SKIN / Unknown 02/24/2024 1:46 PM CDT 02/25/2024 2:41 PM CDT us Paulina Camargo DO LAB - PATHOLOGY/CYTOLOGY ORDERABLES Final Result DERMATOPATHOLOGY LABORATORY [facility] - Department of Dermatology [address], [address] [phone] documented in this encounter Visit Diagnoses Not on filedocumented in this encounter
--- OUTSIDE RECORDS SUMMARY | 2025-07-08 15:28 | XMS_ITS | Clinical Summary ---
Author Organization [facility] Address [address] [place] [address] Care Team Providers Care Tactical Intelligence Officer Name Role Phone Abhilash Sam MD Unavailable Mary Russell MD Unavailable [phone] Luz Meneses Primary Care Provider + [...] (06/01/2024 10:59 AM CDT): Chronic, stable. Continue [id number] medications and treatment as above. 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, referral placed Nausea and vomiting in 04/15/2020 [...] staff should administer the PHQ-9) 0 06/01/2024 [place] Depression Scale Answer Date Recorded [place] Depression Scale Total 1 11/28/2020 The thought [...] pont Epidur al Livin g Complications:Gastroschisis Delivery Location:[place] 2019 Term 39w 0d 3.685 kg (8 [...] 1:02 PM CDT Height 170.2 cm (5' 7) 09/09/2024 1:02 PM CDT Body Mass Index 26.63 09/09/2024 1:02 PM CDT Plan of Treatment Health Maintenance Due Date Last Done Comments HPV Vaccines (1 - 3-dose SCDM series) 2013 Covid-19 Vaccine ( season) 2024 12/30/2021, 04/23/2021, 03/11/2021 Depression Screening 06/01/2025 06/01/2024, 06/01/2024, 10/01/2023, Additional history exists Influenza Vaccine (#1) 2025 , 10/29/2021, 10/28/2021, Additional history exists Cervical Cancer Screening 08/24/20252023, 08/24/2024, 08/21/2023, Additional history exists Regular Well Visit/Exam 18-64 08/24/2025 08/24/2024, 08/21/2023, 07/15/2023, Additional history exists DTaP/Tdap/Td Vaccine (9 - Td or Tdap) 07/01/2032 07/01/2022, 08/23/2020, 06/28/2012, Additional history exists Hepatitis B Screening Completed 07/05/1998 , 02/22/1998, 12/08/1997 Hepatitis C Screening Completed 07/27/2020 Pneumococcal vaccine <65 Aged Out No longer [...] HPV HR 16 Not Detected Not Detected [facility] Comment:Testing performed by : [facility], [address] [place]., [address] HPV HR 18 Not Detected Not Detected [facility]OM [facility]IVERA Comment:Testing performed by : [facility], [address] [facility], [place]., [address] HPV HR Non 16/18 Not Detected Not [...] this test have been verified by the [facility]ious Disease laboratory. Correlate with separately reported cytology results, as applicable. Interpretive data last revised 23 Testing performed by: [facility], [address] [place]., [address] Endocervical 08/24/2024 9:17 AM CDT 08/25/2024 11:13 AM CDT Narrative TOM - 08/25/2024 7:55 PM CDT Clinical history and diagnosis->screening Testing type->Screening Last menstrual period (date if known)->07-27-24 Indigo Reece MD LAB BODY FLUIDS AND STOOL S ORDERABLES Final Result TOM [address] [facility] Department [place] [address] [facility] * Hepatitis C antibody (07/27/2020 10:50 AM CDT) Hep C Ab NONREACT NONREACTIVE [facility] Comment: Siemens Tutor AssignmentaurXP using JOLENE (chemiluminescent immunoassay) technology. NONREACTIVE: Antibodies [...] MICROBIOLOGY - GENERAL ORDER OSCAR Final Result [facility] [address] [place] [address], [facility] [phone] from Last 3 Months or Most Recently Relevant to Health Maintenance Insurance [facility] [employer] Care Teams Tactical Intelligence Officer Relationship Specialty Start Date End Date Luz Meneses PA [address] [facility] [address] [place], [place] [phone] PCP - General Family Medicine 06/01/24 Abhilash Sam MD [address] [place] [phone] Consulting Physician Obstetrics and Gynecology 07/15/23 Mary Russell MD [address] [place] [id number] Referring Physician Pediatric Neurology 07/15/23
--- OUTSIDE RECORDS SUMMARY | 2025-07-08 15:28 | XMS_ITS | Clinical Summary ---
Author Organization [facility] Address Count includes the [facility] [place] [address] Care Team Providers Care Varnish Blender Name Role Phone Unavailable Primary Care Provider [...] of 3 - 19+ 3-dose series) 2005 HPV Vaccines (1 - 3-dose SCD M series) 2013 Cervical Cancer Screening Pa p with HPV Testing (Age 30 to 64) Every 5 Years 2016 Cervical Cancer Screening with HPV 2016 COVID-19 Vaccine (2023-2 5 season) 2024 Meningococcal B Vaccine Aged Out No l [...]
[2025-07-08 15:30] VITALS: BP 129/68; PULSE 57; RESP 18; TEMP 36.6; O2SAT 98
== END 2025-07-08 16:04 | disposition home or self-care (01) ==
PROVIDERS: Emergency Provider Nurse Practitioner Family
DX: S80.212A Abrasion, left knee, initial encounter (principal); S90.512A Abrasion, left ankle, initial encounter; S93.402A Sprain of unspecified ligament of left ankle, initial encounter; S80.02XA Contusion of left knee, initial encounter; W10.9XXA Fall (on) (from) unspecified stairs and steps, initial encounter; Z87.891 Personal history of nicotine dependence
CPT/HCPCS: 73610; 73630; 99213; G0463

== ENCOUNTER 2025-10-03 12:33 | Emergency (ER) | payer OTHER, SELFPAY ==
--- OUTSIDE RECORDS SUMMARY | 2025-10-03 12:36 | XMS_ITS | Encounter Summary ---
Author Organization [facility] Healthcare Address [address] [place] [address] Care Team Providers Care Water Treatment Plant Operator Name Role Phone Abhilash Sam MD Unavailable [phone] Mary Russell MD Unavailable [phone] Luz Meneses Primary Care Provider + Encounter Details Date Type Department Care Team (Late st Contact Info) Description 08/19/2025 Results Follow-Up [facility] Family Medicine [address] [phone] Luz Meneses PA [address] [place] [address] Vitamin D 25 hydroxy, Thyroid Function Swain, Lipid panel, Additional followed-up results: 5 Social History Tobacco Use Types Packs/Day Years Used Date Smoking Tobacco: Former Cigarettes Q uit: 02/15/2010 Smokeless Tobacco: Never Alcohol Use Standard Drinks/Week Comments Yes 1 (1 standard drink = 0.6 oz pur e alcohol) PHQ-2 Answer Date Recorded PHQ-2 Total Score (If total score is 3 or more points, staff should administer the PHQ-9) 0 07/29/2025 Gwinner Depression Scale Answer Date Recorded Gwinner Depression Scale Total 1 11/28/2020 The thought of harming myself has occurred to me . Never 11/28/2020 PHQ-9 Answer Date Recorded PHQ-9 Total Score 5 06/01/2024 AUDIT-C Answer Date Recorded Q1: How often do you have a drink containing alc ohol? 2-4 times a month 07/29/2025 Q2: How many drinks containi ng alcohol do you have on a typical day when you are drinking? 1 or 2 07/29/2025 Q3: How often do you have si x or more drinks on one occasion? Less than monthly 07/29/2025 Personal Safety Answer Date Recorded Have you [...] on filedocumented in this encounter Care Teams Water Treatment Plant Operator Relationship Specialty Start Date End Date Luz Meneses PA [address] [address] PCP - General Family Medicine 06/01/24 Abhilash Sam MD [address] [place] [phone] Consulting Physician Obstetrics and Gynecology 07/15/23 Mary Russell MD [address] [place] [phone] Referring Physician Pediatric Neurology 07/15/23 documented as of this encounter
--- OUTSIDE RECORDS SUMMARY | 2025-10-03 12:36 | XMS_ITS | Clinical Summary ---
Author Organization [facility] Address [address] [place] [address] Care Team Providers Care Tie Presser Name Role Phone Unavailable Primary Care Provider Unavailabl e Source Comments [facility],non-owned Affiliates and Associated Physician Practices is amultiple site organization consisting of ambulatory clinics and hospital sitesin [place], [place], [place] and [place]. This disclosure is being madepursuant to the Care Everywhere program and may not contain all information available regarding this patient. Last updated 18.[facility] Social History Tobacco Use Types Packs/Day Years [...] VACCINE (1 - 3-dose SCDM series) 2013 DEPRESSION SCREENING 11/25/2024 COVID-19 VACCINE (1 - 2023-2 5 season) 2025 INFLUENZA VACCINE (#1) 2025 ZOSTER VACCINE (1 [...]
--- OUTSIDE RECORDS SUMMARY | 2025-10-03 12:36 | XMS_ITS | Clinical Summary ---
Author Organization [facility] Address [address] [place] [address] Care Team Providers Care Mechanical Project Engineer Name Role Phone Abhilash Sam MD Unavailable [phone] Mary Russell MD Unavailable Luz Meneses Primary Care Provider + Allergies Active Allergy Reactions Criticality Noted Date Comments Erythromycin Rash Medium 06/08/2019 Erythromycin Base Rash Medium 02/16/2022 Penicillins Swelling Medium 06/08/2019 Medications ascorbic acid [...] needed (nausea) for 72 hours 4 patch 02/19/20 Active Additional Information Patient not taking.Reported on 07/29/2025 ondansetron ODT (ZOFRAN-ODT) 4 mg disintegrating tablet Take 1 tablet (4 mg total) by mouth every 8 (eight) hours as needed for nausea or vomiting 10 tablet 02/19/20 25 Active Additional Information Patient not taking.Reported on 07/29/2025 multivitamin (MULTI-DAY ORAL) Take by mouth Active zinc sulfate (ZINC-15 ORAL) Take by mouth A ctive xacu-kbug-wqb-yuc- edf-gtow-rfo [phone] mg tablet Take by mouth Active magnesium gluconate 200 mg tabletIndications: hypomagnesemia 1 tablet (200 mg total) Active ubrogepant (UBRELVY) 50 mg tabletIndications: Migraine without aura and without status migrainosus, not intractable Take 1 tablet (50 mg total) by mouth once as needed for migraine May repeat dose once in 2 hours if no relief. Do not exceed 2 doses in 24 hours. 10 tablet 07/29/20 25 Active Active Problems Problem Noted Date Diagnosed [...] (06/01/2024 10:59 AM CDT): Chronic, stable. Continue ugbs-moz-lcougya medications and treatment as above. Assessment & [...] an injuiry years ago- wants to see optical glass etcher, referral placed Nausea and vomiting in 04/15/2020 06/01/2024 Supervision of other normal , antepartum 04/14/2020 11/28/2020 Overview (04/14/2020): First Trimester: [] Labs [] Genetic Screeninnd Trimester: [] Anatomy ultrasound 3rd Trimester: [] CBC, HIV, syphilis screen [] 1hr GCT (26-28wks): [] Tdap (27-36wks) [] Rhogam (if Rh neg): [] GBS Encounters Date Type Department Care Team Description 08/31/2025 Letter (Out) [facility] Family Medicine [address] [place] [phone] 08/31/2025 Orders Only [facility] Family Medicine [address] [place] [phone] Luz Meneses PA Acute pain of left knee (Primary Dx) 08/19/2025 10:20 AM CDT - 08/19/2025 11:59 PM CDT Hospital Encounter [facility] 1 DIAG IMG [address] [place] [address] Acute pain of left knee Discharge Disposition: Discharge to home or self care 08/19/2025 10:05 AM CDT Lab [facility] [address] [place] [id number] Vitamin D deficiency; Migraine without aura and without status migrainosus, not intractable; Physical exam, annual 08/19/2025 Results Follow-Up [address] [phone] Luz Meneses PA Vitamin D 25 hydroxy, Thyroid Function [place], Lipid panel, Additional followed-up results: 5 08/19/2025 Patient Message [address] [phone] Luz Meneses PA Physical therapy referral 07/30/[address] [phone] Luz Meneses PA Prior Auth Request for Ubrelvy 07/29/2025 2:30 PM CDT Office Visit [address] [phone] Luz Meneses PA Acute pain of left knee (Primary Dx); Migraine without aura and without status migrainosus, not intractable; Vitamin D deficiency; Physical exam, annual; Sprain of left ankle, unspecified ligament, initial encounter from Last 3 Months Immunizations Immunization Administration Dates Next Due Anthrax [...] Preser vative Free, Intramuscular 09/29/2016 Influenza, Unspecified 07/29/2025(Deferr ed: Patient decision),10/01/2023(Deferred: Patient Refused),09/11/2023(Deferred: Patient decision),09/11/2022(Deferred: Patient decision),10/28/2021,10/16/2020,2016 Influenza, [...] Not Answered Alcohol Use Standard Drinks/Week Comments Yes 1 (1 standard drink = 0.6 oz pur e alcohol) PHQ-2 Answer Date Recorded PHQ-2 Total Score (If total score is 3 or more points, staff should administer the PHQ-9) 0 07/29/2025 [place] Depression Scale Answer Date Recorded [place] Depression Scale Total 1 11/28/2020 The thought [...] pont Epidur al Livin g Complications:Gastroschisis Delivery Location:[place] 2019 Term 39w 0d 3.685 kg (8 lb 2 oz) F Vag-S pont Epidur al Livin g Erick Mistry Complications: Intolera nce Comments Last Filed Vital Signs Vital Sign Reading Time Taken Comments Blood Pressure 102/60 07/29/2025 2:32 PM CDT Pulse 57 07/29/2025 2:32 PM CDT Temperature 36.3 C (97.4 F) 07/29/2025 2:32 PM CDT Respiratory Rate 18 07/29/2025 2:32 PM CDT Oxygen Saturation 99% 07/29/2025 2:32 PM CDT Inhaled Oxygen Concentration - - Weight 79.6 kg (175 lb 8 oz) 07/29/2025 2:32 PM CDT Height 170.2 cm (5' 7) 07/29/2025 2:32 PM CDT Body Mass Index 27.49 07/29/2025 2:32 PM CDT Plan of Treatment Health Maintenance Due Date Last Done Comments HPV Vaccines (1 - 3-dose SCDM series) 2013 Covid-19 Vaccine ( season) 2025 12/30/2021, 04/23/2021, 03/11/2021 Influenza Vaccine (#1) 2025 , 10/29/2021, 10/28/2021, Additional history exists Cervical Cancer Screening 08/24/20252023, 08/24/2024, 08/21/2023, Additional history exists Regular Well Visit/Exam 18-64 08/24/2025 08/24/2024, 08/21/2023, 07/15/2023, Additional history exists Depression Screening 07/29/2026 07/29/2025, 06/01/2024, 06/01/2024, Additional history exists DTaP/Tdap/Td Vaccine (9 - Td or Tdap) 07/01/2032 07/01/2022, 08/23/2020, 06/28/2012, Additional history exists Hepatitis B Screening Completed 07/05/1998 , 02/22/1998, 12/08/1997 Hepatitis C Screening Completed 07/27/2020 Pneumococcal vaccine <65 Aged Out No longer eligible based on patient's age to complete this topic Varicella Vaccines Discontinued Procedures Procedure Name Priority Date/Time Associated Diagnosis Comments XR KNEE LEFT 3 VIEWS Schedule JEANNIE, Read JEANNIE (Appt Today, Awaiting Results) 08/19/2025 11:07 AM CDT Acute pain of left knee EGFR Routine 08/19/2025 10:17 AM CDT Migraine without aura and without status migrainosus, not intractable Physical exam, annual DIFFERENTIAL AUTO Routine 08/19/2025 10: 17 AM CDT Migraine without aura and without status migrainosus, not intractable Physical exam, annual CBC WITH AUTO DIFFERENTIAL Routine 08/19/2025 10:17 AM CDT Migraine without aura and without status migrainosus, not intractable Physical exam, annual COMPREHENSIVE METABOLIC PANEL Routine 08/19/2025 10:17 AM CDT Migraine without aura and without status migrainosus, not intractable Physical exam, annual LIPID PANEL Routine 08/19/2025 10:17 AM CDT Migraine without aura and without status migrainosus, not intractable Physical exam, annual THYROID FUNCTION CASCADE Routine 08/19/2025 10:17 AM CDT Migraine without aura and without status migrainosus, not intractable Physical exam, annual VITAMIN D 25 HYDROXY Routine 08/19/2025 10:17 AM CDT Vitamin D deficiency HIGH RISK HPV DNA DETECTION WITH GENOTYPING Routine 08/24/2024 9:17 AM CDT Well woman exam HEPATITIS C ANTIBODY Routine 07/27/2020 10:50 AM CDT Supervision of other normal , antepartum from Last 3 Months or Most Recently Relevant to Health Maintenance Results * XR Knee Left 3 Views (08/19/2025 11:07 AM CDT) Anatomical Region Laterality Modality Lower Extremities, Knee Left Computed Radiography 08/19/2025 11:5 5 AM CDT Narrative 08/19/2025 11:56 AM CDT EXAM DESCRIPTION: 1. XR KNEE LEFT 3 VIEWS REASON FOR STUDY: knee injury; rule out fracture Knee cap pain after fall x 1 month FINDINGS: Three views submitted with comparison 06/01/2024. No acute fracture. Alignment is normal. The joint spaces are normal. No effusion. IMPRESSION: 1. No acute fracture. If persistent clinical concern for an occult fracture or internal derangement, may consider further evaluation with MRI. THIS IS AN ELECTRONICALLY VERIFIED FINAL REPORT 08/19/2025 11:56 AM - Electronically signed by Stevan Garrido M.D. MF: [email or web address] Report ID: [id number] Reading Location: [id number] Procedure Note Stevan Garrido MD - 08/19/2025 EXAM DESCRIPTION: 1. XR KNEE LEFT 3 VIEWS REASON FOR STUDY: knee injury; rule out fracture Knee cap pain after fall x 1 month FINDINGS: Three views submitted with comparison 06/01/2024. No acute fracture. Alignment is normal. The joint spaces are normal. No effusion. IMPRESSION: 1. No acute fracture. If persistent clinical concern for an occultfracture or internal derangement, may consider further evaluation with MRI. THIS IS AN ELECTRONICALLY VERIFIED FINAL REPORT 08/19/2025 11:56 AM - Electronically signed by Stevan Garrido M.D. MF: [email or web address] Report ID: [id number] Reading Location: [id number] us Luz MCKEON IMG XR PROCEDURES Final Result * eGFR (08/19/2025 10:17 AM CDT) eGFR 83 >=60 mL/min/1. 73 m2 Comment: Interpretive Data Reference Interval Normal >/= 90 mL/min/1.73m2 Mildly decreased* 60 - 89 mL/min/1.73m2 Mildly to moderately decreased 45 - 59 mL/min/1.73m2 Moderately to severely decreased 30 - 44 mL/min/1.73m2 Severely decreased 15 - 29 mL/min/1.73m2 Kidney Failure < 15 mL/min/1.73m2 *Relative to young adult level Estimated glomerular filtration rate is determined by the 2020 CKD-EPI equation recommended by the National Kidney Foundation (A Unifying Approach to GFR Estimation: Recommendations of the NKF-ASK Task Force on Reassessing the Inclusion of Race in Diagnosing Kidney Disease, JASN 202). The CKD-EPI equation should not be used for patients with unstable renal function and has not been validated in children and those over 70. Current interpretive data was last reviewed 2021. Testing performed by: [address] [address] Blood 08/19/2025 10:1 7 AM CDT 08/19/2025 10:35 AM CDT us Luz MCKEON LAB BLOOD ORDERABLES [facility] al Result TOM [address] [facility] Department [place] [address] * Differential, auto (08/19/2025 10:17 AM CDT) Neutrophil abs 3.40 1.50 - 6.50 K/cumm Comment:Testing performed by : [address] [address] Imm gran abs 0.01 0.00 - 0.10 K/cumm TOM Comment:Testing performed by : [address] [address] Lymphocyte abs 1.81 0.80 - 3.30 K/cumm TOM Comment:Testing performed by : [address] [address] Monocyte abs 0.47 0.20 - 0.80 K/cumm TOM Comment:Testing performed by : [address] [address] Eosinophil abs 0.14 0.00 - 0.50 K/cumm TOM Comment:Testing performed by : [address] [address] Basophil abs 0.02 0.00 - 0.10 K/cumm TOM Comment:Testing performed by : [address] [address] Neutrophil pct 58.2 % [facility] Comment: Interpretive Data Percent cell count reference ranges are not reported, since discordance with absolute values may lead to misinterpretation of CBC data. Current Interpretive Data was last revised on 2018. Testing performed by: [address] [address] Imm gran pct 0.2 % [facility] Comment: Interpretive Data Percent cell count reference ranges are not reported, since discordance with absolute values may lead to misinterpretation of CBC data. Current Interpretive Data was last revised on 2018. Testing performed by: [address] [address] Lymphocyte pct 30.9 % [facility] Comment: Interpretive Data Percent cell count reference ranges are not reported, since discordance with absolute values may lead to misinterpretation of CBC data. Current Interpretive Data was last revised on 2018. Testing performed by: [address] [address] Monocyte pct 8.0 % [facility] Comment: Interpretive Data Percent cell count reference ranges are not reported, since discordance with absolute values may lead to misinterpretation of CBC data. Current Interpretive Data was last revised on 2018. Testing performed by: [address] [address] Eosinophil pct 2.4 % [facility] Comment: Interpretive Data Percent cell count reference ranges are not reported, since discordance with absolute values may lead to misinterpretation of CBC data. Current Interpretive Data was last revised on 2018. Testing performed by: [address] [address] Basophil pct 0.3 % [facility] Comment: Interpretive Data Percent cell count reference ranges are not reported, since discordance with absolute values may lead to misinterpretation of CBC data. Current Interpretive Data was last revised on 2018. Testing performed by: [address] [address] Blood 08/19/2025 10:1 7 AM CDT 08/19/2025 10:36 AM CDT Luz MCKEON LAB BLOOD ORDERABLES Fin al Result Performing Organization Address [facility] de Phone Number [address] [address] * Thyroid Function [place] (08/19/2025 10:17 AM CDT) Pathologist [facility] TSH 2.09 0.30 - 4.20 mcIUnit/mL Comment:Testing performed by : [address] [address] Blood 08/19/2025 10:1 7 AM CDT 08/19/2025 10:35 AM CDT Luz MCKEON LAB BLOOD ORDERABLES Fin al Result Performing Organization Address [facility] de Phone Number [address] [address] * (ABNORMAL) CBC with auto differential (08/19/2025 10:17 AM CDT) Pathologist [facility] WBC 5.85 3.80 - 9.90 K/cumm Comment:Testing performed by : [address] [address] Hgb 13.3 11.9 - 15.5 g/dL TOM RIVERA Comment:Testing performed by : [address] [address] Hct 41.2 35.6 - 45.5 % TOM RIVERA Comment:Testing performed by : [address] [address] Plt 186 150 - 400 K/cumm TOM RIVERA Comment:Testing performed by : [address] [address] MPV 10.0 9.1 - 12.3 fL TOM RIVERA Comment:Testing performed by : [address] [address] RBC 5.04 3.90 - 5.20 M/cumm TOM RIVERA Comment:Testing performed by : [address], [address] MCV 81.7 81.3 - 96.4 fL TOM RIVERA Comment:Testing performed by : [address] [address] MCH 26.4(L) 27.1 - 33.3 pg TOM RIVERA Comment:Testing performed by : [address], [address] MCHC 32.3 32.3 - 35.7 g/dL TOM Comment:Testing performed by : [address], [address] RDW CV 13.1 11.1 - 14.9 % TOM Comment:Testing performed by : [address], [address] RDW SD 38.7 35.7 - 48.1 fL TOM Comment:Testing performed by : [address], [address] NRBC abs 0.00 0.00 - 0.01 K/cumm TOM Comment:Testing performed by : [address], [address] Blood 08/19/2025 10:1 7 AM CDT 08/19/2025 10:36 AM CDT Luz MCKEON LAB BLOOD ORDERABLES Fin al Result TOM [address] [facility] Department of Laboratories [place], [place] [id number] * (ABNORMAL) Vitamin D 25 hydroxy (08/19/2025 10:17 AM CDT) Vitamin D 25-OH 23.0(L) 30.0 - 80.0 ng/mL Blood 08/19/2025 10:1 7 AM CDT 08/19/2025 12:44 PM CDT us Luz MCKEON LAB BLOOD ORDERABLES Fin al Result TOM [address] [facility] Department [place] [address] * Lipid panel (08/19/2025 10:17 AM CDT) Cholesterol 165 30 - 199 mg/dL Comment: Interpretive Data Ages < or = 19 years Acceptable: <170 mg/dL Borderline high: 170-199 mg/dL High: >or= 200 mg/dL Ages > or = 20 years Desirable: <200 mg/dL Borderline high: 200-239 mg/dL High: >or= 240 mg/dL Literature References: 1. Expert Panel on Integrated Guidelines for Cardiovascular Health and Risk Reduction in Children and Adolescents. Pediatrics 2011;128:S213 2. NCEP Expert Panel. Circulation 2004;110:227 Current Interpretive Data was last revised on 2018. Testing performed by: [address] [address] Triglycerides 89 <=149 mg/dL TOM Comment: Interpretive Data Ages < or = 9 years Acceptable: <75 mg/dL Borderline high: 75-99 mg/dL High: >or= 100 mg/dL Ages 10 to 20 years Acceptable: <90 mg/dL Borderline high: 90-129 mg/dL High: >or= 130 mg/dL Ages > or = 20 years Desirable: <150 mg/dL Borderline high: 150-199 mg/dL High: 200-499 mg/dL Very high: >or= 499 mg/dL Literature References: 1. Expert Panel on Integrated Guidelines for Cardiovascular Health and Risk Reduction in Children and Adolescents. Pediatrics 2011;128:S213 2. NCEP Expert Panel. Circulation 2004;110:227 Current Interpretive Data was last revised on 2018. Testing performed by: [address] [address] HDL 46 >=40 mg/dL TOM Comment: Interpretive Data Ages < or = 19 years Acceptable: >45 mg/dL Borderline low: 40-45 mg/dL Low: <40 mg/dL Ages > or = 20 years Desirable: >or= 60 mg/dL Low: <40 mg/dL Literature References: 1. Expert Panel on Integrated Guidelines for Cardiovascular Health and Risk Reduction in Children and Adolescents. Pediatrics 2011;128:S213 2. NCEP Expert Panel. Circulation 2004;110:227 Current Interpretive Data was last revised on 2018. Testing performed by: [facility], [address] [place] [address]., [address] LDL, calculated 102 <=129 mg/dL TOM Comment: Interpretive Data Ages < or = 19 years Acceptable: <110 mg/dL Borderline high: 110-129 mg/dL High: >or= 130 mg/dL Ages > or = 20 years Optimal: <100 mg/dL Near optimal: 100-129 mg/dL Borderline high: 130-159 mg/dL High: >160 mg/dL Calculated using the Milind LDL-C estimating equation. This equation was implemented on 2024. Prior to this date LDL-C was estimated using the Friedewald equation. Literature References: 1. Expert Panel on Integrated Guidelines for Cardiovascular Health and Risk Reduction in Children and Adolescents. Pediatrics 2011;128:S213 2. NCEP Expert Panel. Circulation 2004;110:227 3. Milind Kemp et al. GEO Cardiol. 2020 March 25;5(5):540-548. doi: 10.1001/jamacardio.2020.0013 Current Interpretive Data was last revised on 2024. Testing performed by: [address] [address] Non-HDL Cholesterol 119 mg/dL TOM Comment: Interpretive Data Ages < or = 19 years Acceptable: <120 mg/dL Borderline high: 120-144 mg/dL High: >145 mg/dL Ages > or = 20 years When triglycerides are >200 mg/dL, Non-HDL cholesterol is a secondary target of therapy with treatment goals that are 30 mg/dL greater than the LDL cholesterol target. Literature References: 1. Expert Panel on Integrated Guidelines for Cardiovascular Health and Risk Reduction in Children and Adolescents. Pediatrics 2011;128:S213 2. NCEP Expert Panel. Circulation 2004;110:227 Current Interpretive Data was last revised on 2018. Testing performed by: [address] [address] Chol/HDL ratio 4 TOM Comment:Testing performed by : [address] [address] Blood 08/19/2025 10:1 7 AM CDT 08/19/2025 10:35 AM CDT us Luz MCKEON LAB BLOOD ORDERABLES Fin al Result [facility] [address] [facility] Department [place] [address] * Comprehensive metabolic panel (08/19/2025 10:17 AM CDT) Sodium 138 135 - 145 mmol/L Comment:Testing performed by : [address] [address] Potassium, pl 4.1 3.3 - 4.9 mmol/L TOM Comment:Testing performed by : [address] [address] Chloride 105 97 - 110 mmol/L TOM Comment:Testing performed by : [address] [address] CO2 22 22 - 32 mmol/L TOM Comment:Testing performed by : [address] [address] Anion gap 11 2 - 15 mmol/L TOM Comment:Testing performed by : [address] [address] BUN 15 6 - 25 mg/dL TOM Comment:Testing performed by : [address] [address] Creatinine 0.90 0.60 - 1.10 mg/dL TOM Comment:Testing performed by : [address] [address] Glucose 79 70 - 199 mg/dL TOM Comment: Interpretive Data Fasting glucose >/= 126 mg/dl is diagnostic for diabetes. Fasting is defined as no caloric intake [...] was last revised 2022. Testing performed by: [facility], [address] [place] [address]., [address] Calcium 9.4 8.5 - 10.3 mg/dL TOM Comment:Testing performed by : [address] [address] Bilirubin, total 0.7 0.1 - 1.2 mg/dL TOM Comment:Testing performed by : [address] [address] Protein, pl 7.0 6.5 - 8.5 g/dL TOM Comment:Testing performed by : [address] [address] Albumin 4.4 3.5 - 5.0 g/dL TOM Comment:Testing performed by : [address] [address] Alk phos 58 40 - 130 Units/L TOM Comment:Testing performed by : [address] [address] ALT 15 7 - 45 Units/L TOM Comment:Testing performed by : [address] [address] AST 19 10 - 45 Units/L [facility] Comment:Testing performed by : [address] [address] Blood 08/19/2025 10:1 7 AM CDT 08/19/2025 10:35 AM CDT us Luz MCKEON LAB BLOOD ORDERABLES Fin al Result TOM [address] [facility] Department of Laboratories [place], [place] [id number] * High Risk HPV DNA Detection with Genotyping (Molecular component) (08/24/2024 9:17 AM CDT) HPV HR [address] [facility] Comment:Testing performed by : [facility], [address] [place]., [address] HPV HR 18 Not Detected Not Detected TOM RIVERA Comment:Testing performed by : [facility], [address] [place]., [address] HPV HR Non 16/18 Not Detected Not [...] this test have been verified by the [facility] Molecular Infectious Disease laboratory. Correlate with separately reported cytology results, as applicable. Interpretive data last revised 23 Testing performed by: [facility], [address] [place]., [address] Endocervical 08/24/2024 9:17 AM CDT 08/25/2024 11:13 AM CDT Narrative TOM RIVERA - 08/25/2024 7:55 PM CDT Clinical history and diagnosis->screening Testing type->Screening Last menstrual period (date if known)->07-27-24 Indigo Reece MD LAB BODY FLUIDS AND STOOL S ORDERABLES Final Result TOM RIVERA [address] [facility] Department of Laboratories [place], [place] [id number] [facility] * Hepatitis C antibody (07/27/2020 10:50 AM CDT) Pathologist [facility] Hep C Ab NONREACT NONREACTIVE [facility] Comment: Siemens CentaurXP using JOLENE (chemiluminescent [...] MICROBIOLOGY - GENERAL ORDER OSCAR Final Result [facility] [address] [phone] from Last 3 Months or Most Recently Relevant to Health Maintenance Insurance [facility] Care Teams Mechanical Project Engineer Relationship Specialty Start Date End Date Luz Meneses PA [address] [facility] [address] [place] [address] PCP - General Family Medicine 06/01/24 Abhilash Sam MD [address] [place] [id number] Consulting Physician Obstetrics and Gynecology 07/15/23 Mary Russell MD [address] [place] [id number] Referring Physician Pediatric Neurology 07/15/23
--- OUTSIDE RECORDS SUMMARY | 2025-10-03 12:36 | XMS_ITS | Clinical Summary ---
Author Organization [facility] Address [facility] [place] [address] Care Team Providers Care Zinc Skimmer Name Role Phone Unavailable Primary Care Provider [...] Cancer Screening with HPV 2016 COVID-19 Vaccine (2024-2 6 season) 2025 Influenza Adult (#1) 2025 Hepatitis A Vaccines Aged Out No long er eligible based [...]
[2025-10-03 12:43] VITALS: BP 97/66; PULSE 58; RESP 18; TEMP 36.6; O2SAT 98
--- NOTE | 2025-10-03 13:35 | ED.URI ---
HPI - URI/Sore Throat General Chief Complaint: Upper Respiratory Infection Stated Complaint: sinus Time Seen by Provider: 10/03/25 12:50 Source: patient and RN notes reviewed Mode of arrival: ambulatory Limitations: no limitations History of Present Illness HPI Narrative: 40-year-old female patient presents today with a 4 day history of sore throat, sinus pain and pressure, cough, postnasal drip, headache. Denies fever, shortness of breath, known sick contacts. She has tried Mucinex, allergy medicine, Nasacort, Tylenol with mild relief. Patient is flying internationally in a few days and would like to improve her symptoms. Related Data Home Medications ?Medication ?Instructions ?Recorded ?Confirmed ?Last Taken ?Type ubrogepant 50 mg tablet (Ubrelvy) mg 10/03/25 Unknown History Allergies Allergy/AdvReac Type Severity Reaction Status Date / Time Penicillins Allergy Severe Swelling Verified 10/03/25 12:45 of Lip/Tongue/Throat erythromycin base Allergy Mild Rash Verified 10/03/25 12:45 PMFSH Family History Family History Mother Patient's mother is in good health Sibling Patient's sister is in good health Other Diabetes mellitus Social History Social History Tobacco type: cigarettes Smoking end date: 11/25/12 Alcohol intake: current Substance use: never Substance use type: does not use Lack of Transportation: No Lack of Food: Never True Current Housing: I Have Housing Concerned About Future Housing: No Difficulty Paying Gas/Electric Bills: No Difficulty Paying for Meds: No Currently Unemployed: No Education: Associate Degree Difficulty w/ Childcare or Family Care: No Living arrangements: with family Gender identity (if verbalized by the patient): Female Comments At time of signature, I have reviewed and agree with nursing past medical, surgical, social and family history unless otherwise noted. Please see nursing chart for further information. There is no relevant family history pertinent to the presenting complaint Exam Narrative: GENERAL: Mildly ill-appearing, well-nourished, and in no acute distress. HEAD: Normocephalic, atraumatic. EYES: EOMI. No redness or drainage. Conjunctivae normal. ENT: Mucous membranes pink and moist. Nares congested with rhinorrhea. Bilateral swollen nasal turbinates. TMs normal bilaterally. Throat normal. Uvula midline. NECK: Normal AROM. Supple. No lymphadenopathy. CHEST: No respiratory distress. Clear to auscultation. HEART: Regular rate and rhythm. No murmur appreciated. EXTREMITIES: Normal range of motion. No edema. SKIN: Warm, dry, no rash. Capillary refill normal. Normal skin turgor. NEURO: No focal deficits. Alert and oriented x3. Gait steady. PSYCH: Normal affect. No signs of depression or anxiety. Course Course Level of Care: Express Care Visit Vital Signs Vital signs: Vital Signs Temperature 97.8 F 10/03/25 12:43 Pulse Rate 58 L 10/03/25 12:43 Respiratory Rate 18 10/03/25 12:43 Blood Pressure 97/66 L 10/03/25 12:43 Pulse Oximetry 98 10/03/25 12:43 Oxygen Delivery Room Air 10/03/25 12:43 Temperature 97.8 F 10/03/25 12:43 Pulse Rate 58 L 10/03/25 12:43 Respiratory Rate 18 10/03/25 12:43 Blood Pressure 97/66 L 10/03/25 12:43 Pulse Oximetry 98 10/03/25 12:43 Oxygen Delivery Room Air 10/03/25 12:43 Reviewed MDM - URI/Sore Throat MDM Narrative Medical decision making narrative: 40-year-old female patient presents today with a 4 day history of sore throat, sinus pain and pressure, cough, postnasal drip, headache. Denies fever, shortness of breath, known sick contacts. She has tried Mucinex, allergy medicine, Nasacort, Tylenol with mild relief. Patient is flying internationally in a few days and would like to improve her symptoms. Upon exam, patient is mildly ill appearing with nasal congestion rhinorrhea, and some mildly swollen nasal turbinates. Symptoms likely viral in etiology. Discussed [id number] medication use and duration of illness. Prescription for some Tessalon Perles sent pharmacy at these have worked for her cough in the past, as she wears a CPAP and has some episodes coughing in the middle of the night. Anticipatory guidance given. VSS. Differential Diagnosis Differential diagnosis: Likely upper respiratory infection, sinusitis, viral infection, influenza and other (COVID-19) Critical Care Time Critical Care Time Critical Care Time: No Discharge Plan Discharge Clinical Impression: Upper respiratory infection Qualifiers: URI type: unspecified URI Qualified Code(s): J06.9 - Acute upper respiratory infection, unspecified Patient Disposition: Home Condition: Stable Instructions: Upper Respiratory Infection (DC) Additional Instructions: Your symptoms are likely due to a viral illness, which is not treated with antibiotics. Virus symptoms can last for up to 7-10days. Take Tylenol or ibuprofen for pain or fever. Rest and stay hydrated. Follow up with your PCP in 7 days if symptoms are not improving. Take the Tessalon Perles as prescribed for cough. Consider Sudafed for sinus pressure and nasal congestion. Go to the ER immediately if you develop shortness of breath, difficulty swallowing, or any other concerning symptoms. Patient Language: Citizen Of [place] Prescriptions: New benzonatate 200 mg capsule 200 mg PO TID PRN (Reason: cough) Qty: 40 0RF No Action Ubrelvy 50 mg tablet Follow-up/Referrals: Candy Meneses RN [Primary Care Provider, Nursing] Time of Disposition: 13:20
== END 2025-10-03 13:23 | disposition home or self-care (01) ==
PROVIDERS: Emergency Provider Nurse Practitioner
DX: J06.9 Acute upper respiratory infection, unspecified (principal); Z87.891 Personal history of nicotine dependence
CPT/HCPCS: 99213; G0463

== ENCOUNTER 2025-11-08 11:38 | Emergency (ER) | payer OTHER, SELFPAY ==
[2025-11-08 12:00] VITALS: BP 121/73; PULSE 79; RESP 18; TEMP 36.5; O2SAT 99
--- NOTE | 2025-11-08 12:33 | ED_ITS ---
HPI - URI/Sore Throat General Chief Complaint: Upper Respiratory Infection Stated Complaint: URI Time Seen by Provider: 11/08/25 12:30 Source: patient and RN notes reviewed Mode of arrival: ambulatory Limitations: no limitations History of Present Illness HPI Narrative: 40-year-old female presents with concern for cough, sore throat and chest congestion. Reports symptoms started Saturday. She has been taking NyQuil, Sudafed drain and Tessalon Perles. Reports the Tessalon Perles help with the sore throat. She reports general malaise but has not measured a temperature. She has history of pneumonia. MD elicited complaint: cough Related Data Home Medications ?Medication ?Instructions ?Recorded ?Confirmed ?Last Taken ?Type ubrogepant 50 mg tablet (Ubrelvy) mg 10/03/25 Unknown History Allergies Allergy/AdvReac Type Severity Reaction Status Date / Time Penicillins Allergy Severe Swelling Verified 11/08/25 11:59 of Lip/Tongue/Throat erythromycin base Allergy Mild Rash Verified 11/08/25 11:59 Review of Systems Review of Systems: CONSTITUTIONAL: Reports malaise. Denies chills, sweats, or fever. EYES: Denies visual changes, redness, or discharge. ENT: Reports rhinorrhea, congestion, and sore throat. CARDIOVASCULAR: Denies chest pain, palpitations, or edema. RESPIRATORY: Reports cough and chest congestion. Denies dyspnea. GASTROINTESTINAL: Denies abdominal pain, nausea, vomiting, diarrhea SKIN: Denies rash or itching. MUSCULOSKELETAL: Denies myalgia. NEUROLOGIC: Denies headache. All systems reviewed & are unremarkable except as noted in HPI and below PMFSH Family History Family History Mother Patient's mother is in good health Sibling Patient's sister is in good health Other Diabetes mellitus Social History Social History Smoking status: Former smoker Tobacco type: cigarettes Smoking end date: 11/25/12 Alcohol intake: current Substance use: never Substance use type: does not use Lack of Transportation: No Lack of Food: Never True Current Housing: I Have Housing Concerned About Future Housing: No Difficulty Paying Gas/Electric Bills: No Difficulty Paying for Meds: No Currently Unemployed: No Education: Associate Degree Difficulty w/ Childcare or Family Care: No Living arrangements: with family Gender identity (if verbalized by the patient): Female Comments At time of signature, agree with nursing past medical, surgical, social and family history. There is no relevant family history pertinent to the presenting complaint Exam Narrative: GENERAL: Well-appearing, well-nourished, and in no acute distress. HEAD: Normocephalic EYES: PERRLA, conjunctivae clear ENT: Nares clear. Mucous membranes moist. TM pearly morales with dull light reflex bilaterally; no tragal tenderness. Oropharynx not erythematous without lesions. Tonsils not enlarged and without exudate, no drooling, no hoarseness, no trismus, uvula midline. NECK: Supple. No lymphadenopathy CHEST: Clear to auscultation, breath sounds decreased in the bases. No wheezing, rhonchi, rales, or stridor. No respiratory distress, speaks in full sentences. Cough noted HEART: Regular rate and rhythm. No murmur heard. SKIN: Warm, dry, no rash. NEURO: Alert and oriented x3. PSYCH: Normal mood and affect Course Course Emergency Course: Patient is aware of diagnosis, understands and agrees to treatment plan. Anticipatory guidance given. Patient agrees to follow-up as directed and is aw are of reasons to seek care at the emergency department. Portions of this record may have been created with voice recognition software Level of Care: [facility] Visit Vital Signs Vital signs: Vital Signs Temperature 97.7 F 11/08/25 12:00 Pulse Rate 79 11/08/25 12:00 Respiratory Rate 18 11/08/25 12:00 Blood Pressure 121/73 11/08/25 12:00 Pulse Oximetry 99 11/08/25 12:00 Oxygen Delivery Room Air 11/08/25 12:00 Temperature 97.7 F 11/08/25 12:00 Pulse Rate 79 11/08/25 12:00 Respiratory Rate 18 11/08/25 12:00 Blood Pressure 121/73 11/08/25 12:00 Pulse Oximetry 99 11/08/25 12:00 Oxygen Delivery Room Air 11/08/25 12:00 MDM Differential Diagnosis Differential Diagnosis: I evaluated this patient in the [facility] care. History is obtained from patient who is an independent historian and physical exam was performed.? Available medical records were reviewed. ? Exam findings and relevant testing show no acute concerns or changes; patient is non-toxic appearing and is in no distress. ? Differential diagnosis considered: Guy virus, strep pharyngitis, allergic rhinitis, upper respiratory tract infection, sinusitis, rhinosinusitis, nasopharyngitis. viral pharyngitis, otitis media, otitis externa, pneumonia, bronchitis, viral cough syndrome, viral syndrome, and influenza. Differential diagnosis and treatment plan were discussed with the patient. Patient agrees with discussion and after shared medical decision making agrees with plan of care. All questions were answered to the patient's satisfaction. Patient is appropriate for outpatient treatment and follow-up. Discharge Plan Discharge Clinical Impression: Lower respiratory tract infection Patient Disposition: Home Condition: Stable Instructions: Antibiotic Form, Acute Cough (ED) Additional Instructions: 1) Please follow-up with your primary care doctor in the next 1-2 days. 2) If you have any worsening of symptoms or any other urgent concerns please go to the ER. 3) Please take medications as prescribed and continue taking your home medications as usual. 4) Please read and follow information included in discharge instructions. Patient Language: [place] Prescriptions: New doxycycline monohydrate 100 mg tablet 100 mg PO BID 7 Days Qty: 14 0RF methylprednisolone [Medrol (Sukhi)] 4 mg tablets,dose pack See Rx Instructions .ROUTE .COMPLEX Qty: 21 0RF Rx Instructions: orally per package directions benzonatate 200 mg capsule 200 mg PO TID PRN (Reason: cough) Qty: 14 0RF No Action Ubrelvy 50 mg tablet Follow-up/Referrals: Candy Meneses RN [Primary Care Provider, Nursing] Stand Alone Forms: Work/School Release IP Time of Disposition: 12:39
[2025-11-08 13:01] LABS: EDSTREPNEGPOS1 Negative (Negative)
== END 2025-11-08 12:42 | disposition home or self-care (01) ==
PROVIDERS: Emergency Provider Nurse Practitioner
DX: J22 Unspecified acute lower respiratory infection (principal); Z87.891 Personal history of nicotine dependence
CPT/HCPCS: 87880; 99213; G0463